=== PATIENT | female | born 1975 | race Caucasian/White ===

== ENCOUNTER 2020-02-27 06:29 | Emergency (ER) | payer MEDICAID, SELFPAY ==
[2020-02-27 07:41] VITALS: BP 136/77; PULSE 87; RESP 20; TEMP 36.4; O2SAT 98; BMI 34.4
--- NOTE | 2020-02-27 07:41 | ED.GENADULT ---
HPI - General Adult General Chief complaint: Nausea/Vomiting/Diarrhea Stated complaint: VOMITING Time Seen by Provider: 02/27/20 07:35 Source: patient Mode of arrival: ambulatory Limitations: no limitations History of Present Illness HPI narrative: patient comes to emergency room complaining of vomiting and diarrhea since 03:00 this morning. Patient states she has had 10 episodes + of vomiting and diarrhea. Patient denies any abdominal pain. Additionally, patient states she had a panic attack prior to arrival. Patient states her 2 younger kids are at home having symptoms of upper respiratory infection, runny nose and congestion. Patient denies any URIs. No fever. MD complaint: vomiting, diarrhea Onset (ago): hour(s) Related Data Previous Rx's Medication Instructions Recorded loperamide 2 mg PO Q6H PRN #14 cap 02/27/20 ondansetron HCl [Zofran] 4 mg PO Q8H PRN #14 tab 02/27/20 Allergies Allergy/AdvReac Type Severity Reaction Status Date / Time Sulfa (Sulfonamide Allergy Unknown UNKNOWN Unverified 01/22/20 18:13 Antibiotics) [SULFA (SULFONAMIDE ANTIBIOTICS)] Sulfa Allergy Unknown Uncoded 07/17/19 00:00 Review of Systems Review of Systems: Constitutional : No Weight loss, No Fever, No Chills, No Night Sweats, No Fatigue, No Malaise ENT/Mouth : No Hearing loss, No Ear Pain, No Nasal Congestion, No Sinus Pain, No Hoarseness, No sore throat, No Rhinorrhea, No Swallowing Difficulty Eyes: No Eye Pain, No Swelling, No Redness, No Foreign Body, No Discharge, No Vision Changes Cardiovascular : No Chest Pain, No SOB, No Dyspnea on Exertion, No Orthopnea, No Edema, No Palpitations Respiratory : No Cough, No Sputum, No Wheezing, No Smoke Exposure, No Dyspnea Gastrointestinal : Complaining of nausea, vomiting and diarrhea. No abdominal Pain, No Hematochezia, No Melena Genitourinary : no irregular bleeding, No Dysuria, No Urinary Frequency, No Hematuria, No Urinary Incontinence, No Urgency, No Flank Pain, No Urinary Flow Changes, No Hesitancy Musculoskeletal : No joint pain, No Myalgias, No Joint Swelling Skin : No Skin Lesions, No rash Neuro : No Weakness, No Numbness, No Paresthesias, No Loss of Consciousness, No Dizziness, No Headache Psych : No Anxiety/Panic, No Depression, No SI/HI/AH/VH, No Social Issues, Heme/Lymph: No Bruising, No Bleeding,No Lymphadenopathy Endocrine : No Polyuria, No Polydipsia, No Temperature Intolerance [facility] Past Medical History Medical History (Updated 02/27/20 @ 10:37 by Patricia Bailey MD) Anxiety Chronic headache Depression Diabetes Hypertension Social History Social History Alcohol intake: unknown Smoking Status: Unknown if ever smoked Advance Directives: No Advance Directives Information Provided: Yes Physical Exam Vital Signs: Vital Signs: Vital Signs Temp Pulse Resp BP Pulse Ox 02/27/20 10:10 70 18 110/75 02/27/20 07:41 97.5 F 87 20 136/77 98 Body Mass Index 34.4 Appearance: Alert. Oriented X3. No acute distress. Eyes: Pupils equal, round and reactive to light. ENT: Pharynx normal. Neck: Normal inspection. Neck supple. No lymph nodes noted. No crepitus CVS: Normal heart rate and rhythm. Pulses normal. Normal S1 and S2 Respiratory: No respiratory distress. Breath sounds normal. No Wheezing. No rales Abdomen: Soft and nontender. No rigidity. No distention. good BS x4 Skin: Skin warm and dry. Normal skin color. Normal skin turgor. Extremities: No lower extremity edema. No lower extremity edema. No Lacerations. No Rash Neuro: Oriented X 3. No motor deficit. No sensory deficit. Moving all extermities. No slurred speech. Course Course Course Narrative: patient states she feels much better, patient no longer vomiting or having any diarrhea, patient Denies abdominal pain Medical Decision Making MDM Narrative Medical decision making narrative: patient's abdominal physical exam is benign, no abdominal pain. Patient feeling better, patient likely having gastroenteritis. Patient instructed to follow-up with her primary care physician. Prior to discharge, patient complaining of anxiety, states she is about her panic attack, given p.o. Ativan Lab Data Result diagrams: 02/27/20 02:24 02/27/20 08:15 Labs: Lab Results 02/27/20 02/27/20 02/27/20 Range/Units 02:24 08:15 08:15 WBC 17.0 H (4.8-10.8) X10*3/uL RBC 4.54 (4.20-5.50) X10*6/uL Hgb 14.0 (12.0-16.0) g/dl Hct 41.2 (37-47) % MCV 90.7 (80-98) fL MCH 30.8 (27.0-33.0) pg MCHC 34.0 (31.0-35.0) g/dl RDW 13.7 (11.0-16.0) % Plt Count 307 (160-400) X10*3/uL MPV 11.7 (9.4-12.3) fL Immature Gran % (Auto) 0.3 (0.0-0.4) % Neut % (Auto) 90.8 H (45-73) % Lymph % (Auto) 5.2 L (20-40) % [place] % (Auto) 3.5 (2-11) % Eos % (Auto) 0.1 (0-4) % Baso % (Auto) 0.1 (0-2) % Lymph # (Auto) 0.9 L (1.2-4.9) X10*3/uL [place] # (Auto) 0.6 (0.1-1.2) X10*3/uL Eos # (Auto) 0.0 (0.0-0.4) X10*3/uL Baso # (Auto) 0.0 (0.0-0.2) X10*3/uL Abs Immat Gran (auto) 0.05 H (0.00-0.03) X10*3/uL Absolute Neuts (auto) 15.4 H (2.0-8.3) X10*3/uL Absolute Nucleated RBC 0.000 (0.0-0.012) X10*3/uL Nucleated RBC % (auto) 0.0 (0.0-0.2) /100WBC Smear Tech's Comments VERIFIED Sodium Cancelled Potassium Cancelled Chloride Cancelled Carbon Dioxide Cancelled Anion Gap Cancelled BUN Cancelled Creatinine Cancelled Estim Creat Clear Calc Cancelled Estimated GFR Cancelled Random Glucose Cancelled Calcium Cancelled Total Bilirubin Cancelled Direct Bilirubin Cancelled AST Cancelled ALT Cancelled Alkaline Phosphatase Cancelled Total Protein Cancelled Albumin Cancelled Urine Color YELLOW Urine Appearance CLOUDY Urine pH 5.5 (5.0-8.0) Ur Specific [place] >= 1.030 H (1.005-1.025) Urine Protein NEG (NEG-TRACE) MG/DL Urine Glucose (UA) NEG (NEG) MG/DL Urine Ketones NEG (NEG) MG/DL Urine Blood TRACE (NEG) Urine Nitrite NEG (NEG) Ur Leukocyte Esterase NEG (NEG) Urine RBC 0-2 (0) /HPF Urine WBC 0 (0-4) /HPF Ur Squamous Epith Cells 1+ /LPF Amorphous Sediment 3+ /LPF Urine Bacteria TRACE /LPF Discharge Plan Discharge Clinical Impression: Gastroenteritis, Anxiety Patient Disposition: Home, Self-Care Instructions: Acute Nausea and Vomiting (ED) Additional Instructions: stay well hydrated, drink plenty of fluids especially fluids with electrolytes such as Pedialyte or Gatorade. Please follow-up with your primary care physician tomorrow. If you have any worsening or new symptoms, please return to the emergency room or call 911 Prescriptions: New ondansetron HCl [Zofran] 4 mg tablet 4 mg PO Q8H PRN (Reason: nausea and vomiting) Qty: 14 RF: 0 loperamide 2 mg capsule 2 mg PO Q6H PRN (Reason: loose stool) Qty: 14 RF: 0
[2020-02-27] MEDS: ondansetron HCL 4 MG/2 ML VIAL IVPUSH ×2 (08:19→10:50)
[2020-02-27] MEDS: 0.9 % Sodium Chloride 1,000 ML 999 ML IVCONT (08:19)
[2020-02-27 08:45] LABS: Appearance Urine CLOUDY; Color Urine YELLOW; Glucose Urine UA NEG (NEG); Leukocyte Esterase Urine NEG (NEG); Nitrite Urine NEG (NEG); PH 5.5 (5.0-8.0); Specific Gravity - Urine >= 1.030 (1.005-1.025); Urine Blood TRACE (NEG); Urine Ketones NEG (NEG); Urine Protein NEG (NEG-TRACE)
[2020-02-27 08:46] LABS: Basophils Percent Auto 0.1 % (0-2); Eosinophils Percent Auto 0.1 % (0-4); Hematocrit 41.2 % (37-47); Imm Gran Abs Auto 0.05 X10*3/uL (0.00-0.03); Imm Gran Pct Auto 0.3 % (0.0-0.4); Lymphocytes Absolute Auto 0.9 X10*3/uL (1.2-4.9); Lymphocytes Percent Auto 5.2 % (20-40); MANUAL DIFF FLAG SCAN; Mean Corpuscular Hemoglobin 30.8 pg (27.0-33.0); Mean Corpuscular Volume 90.7 fL (80-98); Mean Platelet Volume 11.7 fL (9.4-12.3); Monocytes Absolute Auto 0.6 X10*3/uL (0.1-1.2); Monocytes Percent Auto 3.5 % (2-11); Neutrophils Absolute Auto 15.4 X10*3/uL (2.0-8.3); Neutrophils Percent Auto 90.8 % (45-73); Platelet Count 307 X10*3/uL (160-400); Red Blood Count 4.54 X10*6/uL (4.20-5.50); Red Cell Distribution Width 13.7 % (11.0-16.0); SCAN SMEAR FLAG 1
[2020-02-27 08:52] LABS: Bacteria Urine TRACE /LPF; RBC Urine 0-2 /HPF (0); Squamous Epithelial Cell Urine 1+ /LPF; WBC Urine 0 /HPF (0-4)
[2020-02-27 08:53] LABS: Amorphous Sediment Urine 3+ /LPF
[2020-02-27 09:15] LABS: SLIDE REVIEW VERIFIED
[2020-02-27 10:10] VITALS: BP 110/75; PULSE 70; RESP 18
[2020-02-27] MEDS: LORazepam 1 MG TABLET PO (10:50)
== END 2020-02-27 11:08 | disposition home or self-care (01) ==
PROVIDERS: Emergency Provider Emergency Medicine
DX: K52.9 Noninfective gastroenteritis and colitis, unspecified (principal); F41.9 Anxiety disorder, unspecified; E11.9 Type 2 diabetes mellitus without complications; I10 Essential (primary) hypertension; Z79.899 Other long term (current) drug therapy
CPT/HCPCS: 36415; 81001; 85025; 96361; 96374; 96376; 99284; J2405

== ENCOUNTER 2020-04-05 09:56 | Outpatient (REF) | payer MEDICAID, SELFPAY | END 2020-04-05 09:57 | disposition home or self-care (01) | LOC: HO.LAB 09:56 | PROVIDERS: Visit Provider Internal Medicine | DX: Z20.828 Contact with and (suspected) exposure to other viral communicable diseases (principal) | CPT/HCPCS: C9803; U0003 ==

== ENCOUNTER 2020-04-20 10:26 | Outpatient (REF) | payer MEDICAID, SELFPAY | END 2020-04-20 10:27 | disposition home or self-care (01) | LOC: HO.LAB 10:26 | PROVIDERS: PCP Internal Medicine; Visit Provider Internal Medicine | DX: Z20.828 Contact with and (suspected) exposure to other viral communicable diseases (principal) | CPT/HCPCS: C9803; U0003 ==

== ENCOUNTER 2020-05-05 08:31 | Outpatient (REF) | payer MEDICAID, SELFPAY | END 2020-05-05 08:32 | disposition home or self-care (01) | LOC: HO.LAB 08:31 | PROVIDERS: PCP Internal Medicine; Visit Provider Internal Medicine | DX: Z20.828 Contact with and (suspected) exposure to other viral communicable diseases (principal) | CPT/HCPCS: C9803; U0003 ==

== ENCOUNTER 2020-07-14 09:34 | Outpatient (REF) | payer MEDICAID, SELFPAY ==
--- NOTE | ~2020-07-14 | MM_ITS ---
EXAMINATION: MM SCREENING DIGITAL BREAST TOMOSYNTHESIS, BILATERAL CLINICAL INFORMATION: Screening. Asymptomatic. The lifetime risk of breast cancer based on the Tyrer-Cuzick Model is 6.4%. COMPARISON: Mammography: April 15, 2019 and studies dating back to July 01, 2016 TECHNIQUE: Digital breast tomosynthesis is performed in both the craniocaudal and mediolateral oblique views along with computer-aided detection (CAD). Synthesized 2D images are generated from the tomosynthesis. FINDINGS: There are scattered areas of fibroglandular density (ACR BI-RADS breast composition Category b). There are no significant masses, abnormal calcifications, or other abnormalities. MM/MM tomosynthesis screening BI IMPRESSION: There are no significant changes from prior study. ASSESSMENT: BI-RADS 1: Negative RECOMMENDATION: Routine annual mammography screening. This patient's information was entered into a reminder system with a target due date for their next mammogram.
== END 2020-07-14 09:35 | disposition home or self-care (01) ==
LOC: HO.MAMMO 09:34
PROVIDERS: PCP Internal Medicine; Visit Provider Internal Medicine
DX: Z12.31 Encounter for screening mammogram for malignant neoplasm of breast (principal)
CPT/HCPCS: 77063; 77067

== ENCOUNTER 2020-12-02 10:51 | Outpatient (REF) | payer MEDICAID, SELFPAY | END 2020-12-02 10:52 | disposition home or self-care (01) | LOC: HO.LAB 10:51 | PROVIDERS: Visit Provider Internal Medicine | DX: Z20.822 Contact with and (suspected) exposure to COVID-19 (principal) | CPT/HCPCS: C9803; U0003; U0005 ==

== ENCOUNTER 2020-12-06 08:31 | Outpatient (REF) | payer MEDICAID, SELFPAY ==
--- NOTE | ~2020-12-06 | XR_ITS ---
EXAMINATION: XR LEFT KNEE, RIGHT KNEE AND AP BILATERAL KNEES STANDING. CLINICAL INFORMATION: Bilateral knee pain. COMPARISON: None. TECHNIQUE: AP bilateral knees standing 1 view. 3 views each knee. FINDINGS: AP Bilateral Knee: There is mild reduction in medial and lateral compartments both knees with periarticular spurring the lateral compartment. No bony erosive changes. Right Knee: There is mild reduction in the tricompartment joint space with periarticular spurring lateral and patellofemoral compartments. No abnormal joint effusion, loose bodies or fractures seen. Left Knee: There is mild reduction in the medial and patellofemoral compartment joint space with periarticular spurring. A large medial intracondylar spur is seen on AP view. There is minimal suprapatellar joint effusion. There are no loose bodies. There are no bony erosive changes. XR/XR knee RT 3V IMPRESSION: Degenerative arthritic changes of the tricompartments of both kidneys with periarticular spurring. Minimal joint effusion left knee. No loose bodies, acute fracture or subluxation.
--- NOTE | ~2020-12-06 | XR_ITS ---
EXAMINATION: XR KNEE AP STANDING CLINICAL INFORMATION: Pain. COMPARISON: None TECHNIQUE: AP bilateral standing view of the knees was obtained. FINDINGS: There is moderate loss of medial compartment joint space both knees with lateral compartment periarticular spurring. No loose body seen. No visible acute fracture or dislocation. The soft tissues are normal. XR/XR knee standing BI IMPRESSION: Moderate degenerative changes both knee joints with bilateral lateral compartment periarticular spurring. No fracture or loose body seen.
--- NOTE | ~2020-12-06 | XR_ITS ---
EXAMINATION: XR LEFT KNEE, RIGHT KNEE AND AP BILATERAL KNEES STANDING. CLINICAL INFORMATION: Bilateral knee pain. COMPARISON: None. TECHNIQUE: AP bilateral knees standing 1 view. 3 views each knee. FINDINGS: AP Bilateral Knee: There is mild reduction in medial and lateral compartments both knees with periarticular spurring the lateral compartment. No bony erosive changes. Right Knee: There is mild reduction in the tricompartment joint space with periarticular spurring lateral and patellofemoral compartments. No abnormal joint effusion, loose bodies or fractures seen. Left Knee: There is mild reduction in the medial and patellofemoral compartment joint space with periarticular spurring. A large medial intracondylar spur is seen on AP view. There is minimal suprapatellar joint effusion. There are no loose bodies. There are no bony erosive changes. XR/XR knee LT 3V IMPRESSION: Degenerative arthritic changes of the tricompartments of both kidneys with periarticular spurring. Minimal joint effusion left knee. No loose bodies, acute fracture or subluxation.
== END 2020-12-06 08:32 | disposition home or self-care (01) ==
LOC: HO.XRAY 08:31
PROVIDERS: PCP Family Medicine; Visit Provider Physician Assistant
DX: M17.0 Bilateral primary osteoarthritis of knee (principal)
CPT/HCPCS: 20610; 73562; 73564; 73565; 99202; J1040

== ENCOUNTER 2020-12-14 17:20 | Emergency (ER) | payer MEDICAID, SELFPAY ==
[2020-12-14 17:36] VITALS: BP 165/71; PULSE 69; O2SAT 100
[2020-12-14 18:14] VITALS: BP 114/64; PULSE 63; RESP 16; TEMP 36.8; O2SAT 100; BMI 37.6
== END 2020-12-14 21:31 | disposition left against medical advice (07) ==
PROVIDERS: Emergency Provider Emergency Medicine
DX: R10.13 Epigastric pain (principal)
CPT/HCPCS: 99281; 99282

== ENCOUNTER 2021-04-19 08:36 | Outpatient (REF) | payer MEDICAID, SELFPAY | END 2021-04-19 08:37 | disposition home or self-care (01) | LOC: HO.LAB 08:36 | PROVIDERS: Visit Provider Internal Medicine | DX: Z20.822 Contact with and (suspected) exposure to COVID-19 (principal) | CPT/HCPCS: C9803; U0003; U0005 ==

== ENCOUNTER 2021-09-08 09:00 | Outpatient (RCR) | payer MEDICAID, SELFPAY | END 2021-12-22 09:56 | disposition home or self-care (01) | LOC: HO.PTCHIC 09:00 | PROVIDERS: PCP Internal Medicine; Visit Provider Internal Medicine | DX: M25.511 Pain in right shoulder (principal) | CPT/HCPCS: 97110; 97162 ==

== ENCOUNTER 2021-09-28 16:11 | Emergency (ER) | payer MEDICAID, SELFPAY ==
--- NOTE | ~2021-09-28 | XR_ITS ---
EXAMINATION: XR CHEST CLINICAL INFORMATION: Pain right lower lobe COMPARISON: None TECHNIQUE: Frontal view of the chest was obtained. FINDINGS: The lungs are clear with no focal consolidation. No evidence of pneumothorax, pulmonary edema, or pleural effusions. The cardiomediastinal silhouette is unremarkable. No acute osseous findings. XR/XR chest 1V IMPRESSION: No acute cardiopulmonary findings.
[2021-09-28 16:39] VITALS: BP 140/93; PULSE 86; RESP 18; TEMP 36.8; O2SAT 98; BMI 34.3
[2021-09-28 16:52] LABS: MANUAL DIFF FLAG NO
[2021-09-28 16:54] LABS: Basophils Percent Auto 0.1 % (0-2); Eosinophils Percent Auto 0.2 % (0-4); Hematocrit 37.8 % (37.0-47.0); Imm Gran Abs Auto 0.02 X10*3/uL (0.00-0.03); Imm Gran Pct Auto 0.2 % (0.0-0.4); Lymphocytes Percent Auto 12.2 % (20-40); Mean Corpuscular HGB Conc 34.4 g/dl (31.0-35.0); Mean Corpuscular Hemoglobin 31.1 pg (27.0-33.0); Mean Corpuscular Volume 90.4 fL (80.0-98.0); Mean Platelet Volume 10.8 fL (9.4-12.3); Monocytes Absolute Auto 0.5 X10*3/uL (0.1-1.2); Monocytes Percent Auto 6.3 % (2-11); Neutrophils Absolute Auto 6.8 x10*3/uL (2.0-8.3); Platelet Count 260 X10*3/uL (160-400); Red Blood Count 4.18 X10*6/uL (4.20-5.50); Red Cell Distribution Width 13.4 % (11.0-16.0); White Blood Count 8.4 X10*3/uL (4.8-10.8)
[2021-09-28 17:15] LABS: Alanine Aminotransferase 86 U/L (0-31); Albumin Level 4.2 g/dL (3.5-5.0); Alkaline Phosphatase 106 U/L (39-117); Anion Gap 12 (12-20); Aspartate Amino Transferase 70 U/L (5-31); Bilirubin Total 0.8 mg/dL (0.0-1.0); Blood Urea Nitrogen 14 mg/dL (9-16); Calcium 9.3 mg/dL (8.4-10.2); Carbon Dioxide 26 mmol/L (22-29); Chloride 105 mmol/L (96-108); Creatinine Clr Calc Pharmacy 75.9; Estimated Glomerular Filt Rate > 60; Glucose Random 116 mg/dL (60-115); Potassium 3.5 mmol/L (3.3-5.1); Sodium 139 mmol/L (135-145); Total Protein 7.4 g/dL (6.5-8.0)
--- NOTE | 2021-09-29 00:38 | ED_ITS ---
HPI - Abdominal Pain General Chief Complaint: Abdominal Pain Stated Complaint: diarrhes,diff breathing, nauseous, abd pain Time Seen by Provider: 09/29/21 00:34 Source: patient Mode of arrival: ambulatory Limitations: no limitations History of Present Illness HPI narrative: Patient comes to the emergency room complaining of ?liver pain?. Patient states that she has had the same pain for 1 year. About a week ago, she went to her primary care physician to get blood work done, she was told that her LFTs were elevated. Patient denies nausea vomiting, states she had 1 episode of diarrhea, also complaining pain with urination, states it happens intermittent, not always. Denies fever or chills Related Data Previous Rx's Medication Instructions Recorded loperamide 2 mg capsule 2 mg PO Q6H PRN #14 cap 02/27/20 ondansetron HCl 4 mg tablet 4 mg PO Q8H PRN #14 tab 02/27/20 (Zofran) nitrofurantoin 100 mg PO Q12H 7 Days #14 cap 09/29/21 monohydrate/macrocrystals 100 mg capsule (Macrobid) Allergies Allergy/AdvReac Type Severity Reaction Status Date / Time Sulfa (Sulfonamide Allergy Intermediate Rash Verified 09/28/21 16:38 Antibiotics) [SULFA (SULFONAMIDE ANTIBIOTICS)] Sulfa Allergy Intermediate Rash Uncoded 09/28/21 16:38 Review of Systems Review of Systems Constitutional : No Weight loss, No Fever, No Chills, No Night Sweats, No Fatigue, No Malaise ENT/Mouth : No Hearing loss, No Ear Pain, No Nasal Congestion, No Sinus Pain, No Hoarseness, No sore throat, No Rhinorrhea, No Swallowing Difficulty Eyes: No Eye Pain, No Swelling, No Redness, No Foreign Body, No Discharge, No Vision Changes Cardiovascular : No Chest Pain, No SOB, No Dyspnea on Exertion, No Orthopnea, No Edema, No Palpitations Respiratory : No Cough, No Sputum, No Wheezing, No Smoke Exposure, No Dyspnea Gastrointestinal : No Nausea, No Vomiting, 1 episode Diarrhea, No Constipation, complaining right flank pain for 1 year Genitourinary : no irregular bleeding, No Dysuria, No Urinary Frequency, No Hematuria, No Urinary Incontinence, No Urgency, No Flank Pain, No Urinary Flow Changes, No Hesitancy Musculoskeletal : No joint pain, No Myalgias, No Joint Swelling Skin : No Skin Lesions, No rash Neuro : No Weakness, No Numbness, No Paresthesias, No Loss of Consciousness, No Dizziness, No Headache Psych : No Anxiety/Panic, No Depression, No SI/HI/AH/VH, No Social Issues, Heme/Lymph: No Bruising, No Bleeding,No Lymphadenopathy Endocrine : No Polyuria, No Polydipsia, No Temperature Intolerance [facility] Past Medical History Medical History Anxiety Chronic headache Depression Diabetes Hypertension Social History Social History (Updated 12/06/20 @ 09:19 by Jocelyn Aguilar [facility]) Alcohol intake: unknown Advance Directives: No Advance Directives Information Provided: Yes Current occupational status: unemployed Current occupation: rt hand/ Physical Exam ED Vital Signs: Vital Signs - 24 hr 09/28/21 16:39 Temperature 98.2 F Pulse Rate 86 Respiratory Rate 18 Blood Pressure 140/93 H Pulse Oximetry 98 BMI result Body Mass Index 34.3 Const Other: Appearance: Alert. Oriented X3. No acute distress. Eyes: Pupils equal, round and reactive to light. ENT: Pharynx normal. Neck: Normal inspection. Neck supple. No lymph nodes noted. No crepitus CVS: Normal heart rate and rhythm. Pulses normal. Normal S1 and S2 Respiratory: No respiratory distress. Breath sounds normal. No Wheezing. No rales Abdomen: Soft and nontender. No rigidity. No distention. Negative Levin sign, no epigastric pain Skin: Skin warm and dry. Normal skin color. Normal skin turgor. Extremities: No lower extremity edema. No Lacerations. No Rash Neuro: Oriented X 3. No motor deficit. No sensory deficit. Moving all extremities. No slurred speech. CN 2 through 12 grossly intact Psych: calm, cooperative, normal affect Course Course Course Narrative: Patient's white blood cell count is normal, LFTs are slightly elevated, likely secondary to fatty liver, patient is obese. Patient's physical exam was relatively benign. At this time, imaging not necessary. Patient will likely need an ultrasound of the liver to confirm diagnosis of fatty liver. Cholelithiasis/cholecystitis not suspected at this time. Urinalysis shows mild UTI. Patient does not have fever, chills, normal white blood cell count. Sepsis and pyelonephritis not suspected. MDM - Abdominal Pain Lab Data Result diagrams: 09/28/21 16:48 09/28/21 16:48 Labs: Lab Results 09/28/21 09/28/21 09/29/21 Range/Units 16:48 16:48 00:41 WBC 8.4 (4.8-10.8) X10*3/uL RBC 4.18 L (4.20-5.50) X10*6/uL Hgb 13.0 (12.0-16.0) g/dl Hct 37.8 (37.0-47.0) % MCV 90.4 (80.0-98.0) fL MCH 31.1 (27.0-33.0) pg MCHC 34.4 (31.0-35.0) g/dl RDW 13.4 (11.0-16.0) % Plt Count 260 (160-400) X10*3/uL MPV 10.8 (9.4-12.3) fL Immature Gran % (Auto) 0.2 (0.0-0.4) % Neut % (Auto) 81.0 H (45-73) % Lymph % (Auto) 12.2 L (20-40) % [place] % (Auto) 6.3 (2-11) % Eos % (Auto) 0.2 (0-4) % Baso % (Auto) 0.1 (0-2) % Lymph # (Auto) 1.0 L (1.2-4.9) X10*3/uL [place] # (Auto) 0.5 (0.1-1.2) X10*3/uL Eos # (Auto) 0.0 (0.0-0.4) X10*3/uL Baso # (Auto) 0.0 (0.0-0.2) X10*3/uL Abs Immat Gran (auto) 0.02 (0.00-0.03) X10*3/uL Absolute Neuts (auto) 6.8 (2.0-8.3) x10*3/uL Absolute Nucleated RBC 0.000 (0.0-0.012) X10*3/uL Nucleated RBC % (auto) 0.0 (0.0-0.2) /100WBC Sodium 139 (135-145) mmol/L Potassium 3.5 (3.3-5.1) mmol/L Chloride 105 (96-108) mmol/L Carbon Dioxide 26 (22-29) mmol/L Anion Gap 12 (12-20) BUN 14 (9-16) mg/dL Creatinine 0.80 (0.5-1.4) mg/dL Estim Creat Clear Calc 75.9 Estimated GFR > 60 Random Glucose 116 H (60-115) mg/dL Calcium 9.3 (8.4-10.2) mg/dL Total Bilirubin 0.8 (0.0-1.0) mg/dL AST 70 H (5-31) U/L ALT 86 H (0-31) U/L Alkaline Phosphatase 106 (39-117) U/L Total Protein 7.4 (6.5-8.0) g/dL Albumin 4.2 (3.5-5.0) g/dL Urine Color YELLOW Urine Appearance CLEAR Urine pH 6.0 (5.0-8.0) Ur Specific [place] 1.015 (1.005-1.025) Urine Protein NEG (NEG-TRACE) MG/DL Urine Glucose (UA) NEG (NEG) MG/DL Urine Ketones NEG (NEG) MG/DL Urine Blood TRACE (NEG) Urine Nitrite NEG (NEG) Ur Leukocyte Esterase TRACE H (NEG) Urine RBC 5-9 H (0) /HPF Urine WBC 1-4 (0-4) /HPF Ur Squamous Epith Cells 2+ /LPF Urine Bacteria 2+ /LPF Discharge Plan Discharge Clinical Impression: UTI (urinary tract infection), Abdominal pain Patient Disposition: Home, Self-Care Instructions: Urinary Tract Infection in Women (ED) Additional Instructions: Please follow-up with your primary care physician tomorrow. If you have any worsening or new symptoms, please return to the emergency room or call 911 Prescriptions: New nitrofurantoin monohyd/m-cryst [Macrobid] 100 mg capsule 100 mg PO Q12H 7 Days Qty: 14 0RF Rx Instructions: must administer with a meal/food No Action ondansetron HCl [Zofran] 4 mg tablet 4 mg PO Q8H PRN (Reason: nausea and vomiting) Qty: 14 0RF loperamide 2 mg capsule 2 mg PO Q6H PRN (Reason: loose stool) Qty: 14 0RF
[2021-09-29 00:59] LABS: Appearance Urine CLEAR; Color Urine YELLOW; Glucose Urine UA NEG (NEG); Leukocyte Esterase Urine TRACE (NEG); Nitrite Urine NEG (NEG); Specific Gravity - Urine 1.015 (1.005-1.025); UACC Culture Trigger NO; Urine Blood TRACE (NEG); Urine Ketones NEG (NEG); Urine Protein NEG (NEG-TRACE)
[2021-09-29 01:16] LABS: Squamous Epithelial Cell Urine 2+ /LPF
[2021-09-29 01:17] LABS: Bacteria Urine 2+ /LPF
== END 2021-09-29 02:12 | disposition home or self-care (01) ==
PROVIDERS: Emergency Provider Emergency Medicine
DX: N39.0 Urinary tract infection, site not specified (principal); R10.9 Unspecified abdominal pain; R07.89 Other chest pain; Z79.899 Other long term (current) drug therapy
CPT/HCPCS: 36415; 71045; 80053; 81001; 81003; 85025; 99281; 99283

== ENCOUNTER → 2021-10-12 09:23 | Outpatient (BNVA) | payer MEDICAID, SELFPAY | PROVIDERS: Visit Provider Orthopaedic Surgery | DX: R20.0 Anesthesia of skin (principal); R20.2 Paresthesia of skin | CPT/HCPCS: 99202 ==

== ENCOUNTER 2021-10-16 03:23 | Emergency (ER) | payer MEDICAID, SELFPAY ==
[2021-10-16 03:27] VITALS: BP 154/92; PULSE 97; RESP 18; TEMP 37.2; O2SAT 97; BMI 34.0
[2021-10-16] MEDS: diphenhydrAMINE HCL 25 MG TABLET 50 MG PO (03:34)
[2021-10-16 03:58] VITALS: BP 143/81; PULSE 84; RESP 14; TEMP 36.5; O2SAT 99
--- NOTE | 2021-10-16 04:01 | PC.NURSE ---
Pt urdu speaking only. Pt presents with a rash throughout the body, including palms and scalp. Rash appears red, welting, and itchy. Pt reports 10/10 pain in the palms. Pt states rash has been present for 4 days. No airway obstruction and pt has patent airway and is perfusing adequately. Pt has no swelling of the mouth or throat. No difficulty swallowing. No signs or symptoms of respiratory distress.
--- NOTE | 2021-10-16 04:40 | ED_ITS ---
HPI - Allergic Reaction General Chief complaint: Allergic Reaction Stated complaint: Hives Time Seen by Provider: 10/16/21 04:38 History of Present Illness HPI narrative: Patient is a 46-year-old female presents today with having 4 day history of an itch diffuse over the entire body. Question new tub detergent only. No other specific trigger noted. Patient was given Zyrtec to no avail. There is no new other new medication other than the Zyrtec. She denies any travel. No new lotion no new soap no new pets. No new food. Related Data Previous Rx's Medication Instructions Recorded loperamide 2 mg capsule 2 mg PO Q6H PRN loose stool #14 02/27/20 caps ondansetron HCl 4 mg tablet 4 mg PO Q8H PRN nausea and 02/27/20 (Zofran) vomiting #14 tabs nitrofurantoin 100 mg PO Q12H 7 days #14 caps 09/29/21 monohydrate/macrocrystals 100 mg capsule (Macrobid) epinephrine 0.3 mg/0.3 mL 0.3 mg (0.3 mL) IM ONCE PRN 10/16/21 injection, auto-injector (EpiPen) extreme reaction #1 ea famotidine 20 mg tablet (Pepcid) 20 mg PO BID 5 days #10 tabs 10/16/21 prednisone 20 mg tablet 40 mg PO DAILY #10 tabs 10/16/21 Allergies Allergy/AdvReac Type Severity Reaction Status Date / Time Sulfa (Sulfonamide Allergy Intermediate Rash Verified 10/12/21 10:04 Antibiotics) [SULFA (SULFONAMIDE ANTIBIOTICS)] Sulfa Allergy Intermediate Rash Uncoded 10/12/21 10:04 Review of Systems Review of Systems: Positive diffuse body itch. No chest pain or shortness of breath No diaphoresis Yes all other systems are reviewed and are negative PMFSH Past Medical History Attestation statement: The following information was validated with the patient. Medical History Anxiety Chronic headache Depression Diabetes Hypertension Social History Social History Alcohol intake: unknown Advance Directives: No Advance Directives Information Provided: Yes Current occupational status: unemployed Current occupation: rt hand/ Physical Exam ED Vital Signs: Vital Signs - 24 hr 10/16/21 03:27 10/16/21 03:58 10/16/21 04:54 Temperature 98.9 F 97.7 F Pulse Rate 97 84 73 Respiratory Rate 18 14 16 Blood Pressure 154/92 H 143/81 H 154/83 H Pulse Oximetry 97 99 99 Oxygen Delivery Method Room Air Room Air Room Air BMI result Body Mass Index 34.0 Appearance: Alert. Oriented X3. No acute distress. Eyes: Pupils equal, round and reactive to light. ENT: Pharynx normal. Neck: Normal inspection. Neck supple. No lymph nodes noted. No crepitus CVS: Normal heart rate and rhythm. Pulses normal. Normal S1 and S2 Respiratory: No respiratory distress. Breath sounds normal. No Wheezing. No rales Abdomen: Soft and nontender. No rigidity. No distention. good BS x4 Skin: Positive urticaria rash over the body. There is no mucosal membrane involvement. Blanches. Irregular border. Extremities: No lower extremity edema. Neurovascular intact to all extremities. No Lacerations. No Rash Neuro: Oriented X 3. No motor deficit. No sensory deficit. Moving all e xtermities. No slurred speech MDM - Allergic Reaction MDM Narrative Medical decision making narrative: Positive diffuse body itch. There is no mucosal membrane involvement. No respiratory issue. Patient's O2 sat is normal. Will discharge patient home on steroid, Pepcid in addition to the Zyrtec she is taking. Will have patient follow-up on an outpatient basis. Avoid the specific H that may cause allergic reaction. Patient is in stable condition will discharge home Medical Records Attestation: I reviewed the patient's medical records. Lab Data Attestation: I reviewed the patient's lab results. Discharge Plan Discharge Clinical Impression: Allergic reaction, Urticaria Patient Disposition: Home, Self-Care Prescriptions: New prednisone 20 mg tablet 40 mg PO DAILY Qty: 10 0RF famotidine [Pepcid] 20 mg tablet 20 mg PO BID 5 Days Qty: 10 0RF epinephrine [EpiPen] 0.3 mg/0.3 mL auto-injector 0.3 mg IM ONCE PRN (Reason: extreme reaction) Qty: 1 0RF Rx Instructions: for 2 doses No Action ondansetron HCl [Zofran] 4 mg tablet 4 mg PO Q8H PRN (Reason: nausea and vomiting) Qty: 14 0RF loperamide 2 mg capsule 2 mg PO Q6H PRN (Reason: loose stool) Qty: 14 0RF nitrofurantoin monohyd/m-cryst [Macrobid] 100 mg capsule 100 mg PO Q12H 7 Days Qty: 14 0RF Rx Instructions: must administer with a meal/food Referrals: Physician,Patrick J [Primary Care Provider] - (Avoid the detergent it may have caused her allergic reaction. Use epinephrine only as an emergency if he cannot breath, situation became extreme) Print Language: Chadian
[2021-10-16 04:54] VITALS: BP 154/83; PULSE 73; RESP 16; O2SAT 99
[2021-10-16] MEDS: predniSONE 20 MG TABLET 60 MG PO (05:23)
[2021-10-16] MEDS: Famotidine 20 MG TABLET PO (05:23)
--- NOTE | 2021-10-16 05:27 | PC.NURSE ---
Pt given medications per EMR. No adverse reaction or worsening of symptoms. Pt cleared for discharge.
== END 2021-10-16 05:55 | disposition home or self-care (01) ==
PROVIDERS: Emergency Provider Emergency Medicine Emergency Medical Services
DX: L50.0 Allergic urticaria (principal); E11.9 Type 2 diabetes mellitus without complications; I10 Essential (primary) hypertension
CPT/HCPCS: 99283; 99284; Q0163

== ENCOUNTER 2021-10-18 04:53 | Emergency (ER) | payer MEDICAID, SELFPAY ==
[2021-10-18 04:57] VITALS: BP 171/86; PULSE 76; RESP 16; O2SAT 97; BMI 32.3
--- NOTE | 2021-10-18 04:57 | ED_ITS ---
HPI - Skin/Abscess/Foreign Bdy General Chief complaint: Allergic Reaction <Jose E Johnson MD - Last Filed: 10/18/21 06:29> Stated complaint: General Medical <Jose E Johnson MD - Last Filed: 10/18/21 06:29> Time Seen by Provider: 10/18/21 04:57 <Jose E Johnson MD - Last Filed: 10/18/21 06:29> Source: patient <Jose E Johnson MD - Last Filed: 10/18/21 06:29> Mode of arrival: ambulatory <Jose E Johnson MD - Last Filed: 10/18/21 06:29> Limitations: no limitations <Jose E Johnson MD - Last Filed: 10/18/21 06:29> History of Present Illness HPI narrative: Patient started with hives on , does not know what she is allergic to. <Jose E Johnson MD - Last Filed: 10/18/21 06:29> MD complaint: rash <Jose E Johnson MD - Last Filed: 10/18/21 06:29> Onset (ago): day(s) <Jose E Johnson MD - Last Filed: 10/18/21 06:29> Location: generalized <Jose E Johnson MD - Last Filed: 10/18/21 06:29> Severity: moderate <Jose E Johnson MD - Last Filed: 10/18/21 06:29> Quality: other (itching) <Jose E Johnson MD - Last Filed: 10/18/21 06:29> Associated symptoms: itching <Jose E Johnson MD - Last Filed: 10/18/21 06:29> Treatments prior to arrival: other (prednisone) <Jose E Johnson MD - Last Filed: 10/18/21 06:29> Related Data Home medications: Previous Rx's Medication Instructions Recorded loperamide 2 mg capsule 2 mg PO Q6H PRN loose stool #14 02/27/20 caps ondansetron HCl 4 mg tablet 4 mg PO Q8H PRN nausea and 02/27/20 (Zofran) vomiting #14 tabs nitrofurantoin 100 mg PO Q12H 7 days #14 caps 09/29/21 monohydrate/macrocrystals 100 mg capsule (Macrobid) epinephrine 0.3 mg/0.3 mL 0.3 mg (0.3 mL) IM ONCE PRN 10/16/21 injection, auto-injector (EpiPen) extreme reaction #1 ea famotidine 20 mg tablet (Pepcid) 20 mg PO BID 5 days #10 tabs 10/16/21 prednisone 20 mg tablet 40 mg PO DAILY #10 tabs 10/16/21 cetirizine 10 mg tablet 10 mg PO DAILY #20 tabs 10/18/21 <Jose E Johnson MD - Last Filed: 10/18/21 06:29> Allergies/Adverse reactions: Allergies Allergy/AdvReac Type Severity Reaction Status Date / Time Sulfa (Sulfonamide Allergy Intermediate Rash Verified 10/18/21 05:00 Antibiotics) [SULFA (SULFONAMIDE ANTIBIOTICS)] Sulfa Allergy Intermediate Rash Uncoded 10/18/21 05:00 <Jose E Johnson MD - Last Filed: 10/18/21 06:29> Review of Systems Constitutional: Constitutional: Reports no additional constitutional complaints <Jose E Johnson MD - Last Filed: 10/18/21 06:29> Eyes: Eyes: Reports no additional eye complaints <Jose E Johnson MD - Last Filed: 10/18/21 06:29> ENT: Denies dizziness <Jose E Johnson MD - Last Filed: 10/18/21 06:29> Cardiovascular: Cardiovascular: Reports no additional cardiovascular complaints <oJse E Johnson MD - Last Filed: 10/18/21 06:29> Respiratory: Respiratory: Reports as per HPI <Jose E Johnson MD - Last Filed: 10/18/21 06:29> Gastrointestinal: Gastrointestinal: Reports no additional gastrointestinal complaints <Jose E Johnson MD - Last Filed: 10/18/21 06:29> Genitourinary: Genitourinary: Reports no additional female genitourinary complaints <Jose E Johnson MD - Last Filed: 10/18/21 06:29> Musculoskeletal: Musculoskeletal: Reports no additional musculoskeletal complaints <Jose E Johnson MD - Last Filed: 10/18/21 06:29> Integumentary/Breasts: Skin/Breast: Denies rash <Jose E Johnson MD - Last Filed: 10/18/21 06:29> Neurologic: Reports system reviewed and no additional complaints, except as documented, Denies dizziness and Denies Sensory deficit (Neuro) <Jose E Johnson MD - Last Filed: 10/18/21 06:29> Psychiatric: Psychiatric: Denies anxiety <Jose E Johnson MD - Last Filed: 10/18/21 06:29> [facility] Past Medical History Medical History: Medical History Chronic headache Depression Diabetes Hypertension <Jose E Johnson MD - Last Filed: 10/18/21 06:29> Social History Social History: Social History Alcohol intake: unknown Advance Directives: No Current occupational status: unemployed Current occupation: rt hand/ <Jose E Johnson MD - Last Filed: 10/18/21 06:29> Physical Exam Vital Signs: Vital Signs: Last Vital Signs Pulse 81 10/18/21 09:49 Resp 18 10/18/21 08:00 BP 128/68 10/18/21 09:49 Pulse Ox 98 10/18/21 08:00 O2 Del Method 10/18/21 08:00 BMI result Body Mass Index 32.3 <Jose E Johnson MD - Last Filed: 10/18/21 06:29> Vital Signs: Last Vital Signs Pulse 81 10/18/21 09:49 Resp 18 10/18/21 08:00 BP 128/68 10/18/21 09:49 Pulse Ox 98 10/18/21 08:00 O2 Del Method 10/18/21 08:00 BMI result Body Mass Index 32.3 <Allison Yoder DO - Last Filed: 10/18/21 10:04> Const: General: healthy appearing <Jose E Johnson MD - Last Filed: 10/18/21 06:29> Nutritional Appearance: average body habitus <Jose E Johnson MD - Last Filed: 10/18/21 06:29> Orientation/consciousness: oriented to person and patient oriented x3 <Jose E Johnson MD - Last Filed: 10/18/21 06:29> Limitations: no limitations <Jose E Johnson MD - Last Filed: 10/18/21 06:29> HEENT: Head: Yes normal to inspection <Jose E Johnson MD - Last Filed: 10/18/21 06:29> Ears: external ears normal <Jose E Johnson MD - Last Filed: 10/18/21 06:29> General nose exam: Normal external nose present <Jose E Johnson MD - Last Filed: 10/18/21 06:29> Mouth: Normal oral and palatal mucosa present and oropharynx normal <Jose E Johnson MD - Last Filed: 10/18/21 06:29> Throat: Yes posterior oropharynx normal <Jose E Johnson MD - Last Filed: 0 10/18/21 06:29> Eyes: General: appearance normal, both eyes and all related structures <Jose E Johnson MD - Last Filed: 10/18/21 06:29> Neck: Other: supple <Jose E Johnson MD - Last Filed: 10/18/21 06:29> Neck: Yes normal visual inspection <Jose E Johnson MD - Last Filed: 10/18/21 06:29> Chest: Chest palpation & inspection: normal inspection of the chest <Jose E Johnson MD - Last Filed: 10/18/21 06:29> Resp: Auscultation: clear to auscultation bilaterally <Jose E Johnson MD - Last Filed: 10/18/21 06:29> Cardio: Jugular venous distension: no JVD <Jose E Johnson MD - Last Filed: 10/18/21 06:29> Rate: regular rate <Jose E Johnson MD - Last Filed: 10/18/21 06:29> Rhythm: regular rhythm <Jose E Johnson MD - Last Filed: 10/18/21 06:29> Heart sounds: S1 normal heart sound present and S2 normal heart sound present <MD Harshal Keys Last Filed: 10/18/21 06:29> GI: Inspection: Yes normal to inspection <MD Harshal Keys Last Filed: 10/18/21 06:29> Palpation (GI): Soft to palpation, nontender and No hepatosplenomegaly present <Jose E Johnson MD - Last Filed: 10/18/21 06:29> Auscultation: normal bowel sounds <Jose E Johnson MD - Last Filed: 10/18/21 06:29> : General: Yes no CVA tenderness <Jose E Johnson MD - Last Filed: 10/18/21 06:29> Back/Spine/Pelvis: Back: no CVA tenderness <Jose E Johnson MD - Last Filed: 10/18/21 06:29> Skin: Other: hives, diffusely <Jose E Johnson MD - Last Filed: 10/18/21 06:29> Neuro: General: oriented to person and patient oriented x3 <Jose E Johnson MD - Last Filed: 10/18/21 06:29> Cranial nerves: Yes CN's II-XII intact bilaterally <Jose E Johnson MD - Last Filed: 10/18/21 06:29> Motor exam (neuro): 5/5 motor strength present throughout <Jose E Johnson MD - Last Filed: 10/18/21 06:29> Sensory Exam: No Sensory deficit (Neuro) <Jose E Johnson MD - Last Filed: 10/18/21 06:29> Extrem: General: Yes normal to inspection <Jose E Johnson MD - Last Filed: 10/18/21 06:29> Psych: Appearance: grossly normal <Jose E Johnson MD - Last Filed: 10/18/21 06:29> Course Course Course Narrative: no resp issues but she is covered in hives on neck, chest and extremities - will give one dose of IM epi has not received any since this started on , if this improves will continue prednisone, pepcid and start on zyrtec improved after epi stable for DC <Allison Yoder DO - Last Filed: 10/18/21 10:04> Reevaluation(s) Reevaluation #1: Patient currently sleeping it appears that hives are improving <Jose E Johnson MD - Last Filed: 10/18/21 06:29> Time: 06:28 <Jose E Johnson MD - Last Filed: 10/18/21 06:29> Discharge Plan Discharge Clinical Impression: Urticaria <Jose E Johnson MD - Last Filed: 10/18/21 06:29> Patient Disposition: Home, Self-Care <Jose E Johnson MD - Last Filed: 10/18/21 06:29> Instructions: Urticaria (ED) <Jose E Johnson MD - Last Filed: 10/18/21 06:29> Additional Instructions: return to ED for any worsening symptoms or concerns continuar prednisona y pepcid <Jose E Johnson MD - Last Filed: 10/18/21 06:29> Prescriptions: New cetirizine 10 mg tablet 10 mg PO DAILY Qty: 20 0RF No Action ondansetron HCl [Zofran] 4 mg tablet 4 mg PO Q8H PRN (Reason: nausea and vomiting) Qty: 14 0RF loperamide 2 mg capsule 2 mg PO Q6H PRN (Reason: loose stool) Qty: 14 0RF nitrofurantoin monohyd/m-cryst [Macrobid] 100 mg capsule 100 mg PO Q12H 7 Days Qty: 14 0RF Rx Instructions: must administer with a meal/food prednisone 20 mg tablet 40 mg PO DAILY Qty: 10 0RF famotidine [Pepcid] 20 mg tablet 20 mg PO BID 5 Days Qty: 10 0RF epinephrine [EpiPen] 0.3 mg/0.3 mL auto-injector 0.3 mg IM ONCE PRN (Reason: extreme reaction) Qty: 1 0RF Rx Instructions: for 2 doses <Jose E Johnson MD - Last Filed: 10/18/21 06:29> Referrals: Physician,Unknown J [Primary Care Provider] - 2 days <Jose E Johnson MD - Last Filed: 10/18/21 06:29> Stand Alone Forms: Work/School Release <Jose E Johnson MD - Last Filed: 10/18/21 06:29> Print Language: Belgian <Jose E Johnson MD - Last Filed: 10/18/21 06:29>
[2021-10-18 05:10] VITALS: PULSE 77; O2SAT 97
[2021-10-18] MEDS: methylPREDNISolone Sod Succ 125 MG/2 ML VIAL IVPUSH (05:10)
[2021-10-18] MEDS: diphenhydrAMINE HCL 50 MG/ML VIAL IVPUSH (05:10)
[2021-10-18 06:17] VITALS: BP 141/72; PULSE 73; RESP 18; O2SAT 97
[2021-10-18 08:00] VITALS: BP 119/79; PULSE 69; RESP 18; O2SAT 98
[2021-10-18] MEDS: Loratadine 10 MG TABLET PO (08:01)
[2021-10-18] MEDS: Famotidine/PF 20 MG/2 ML VIAL IVPUSH (08:01)
[2021-10-18] MEDS: LORazepam 2 MG/ML VIAL 0.5 MG IVPUSH (08:02)
--- NOTE | 2021-10-18 08:19 | PC.NURSE ---
PT HAD ANOTHER FLARE OF HIVES ON LEGS, NECK AND CHIN, PROVIDER AWARE PT MEDICATED
[2021-10-18 09:49] VITALS: BP 128/68; PULSE 81
[2021-10-18] MEDS: EPINEPHrine 1 MG/ML VIAL 0.3 MG IM (09:49)
--- NOTE | 2021-10-18 09:54 | PC.NURSE ---
Pt with hives to R leg, arms, neck, groin. C/o itching/burning to bilat hands.
--- NOTE | 2021-10-18 10:30 | PC.NURSE ---
pt standing on the side of the bed and is standing that her arms are very itchy, noticeable new red/raised/hives present, pt also is scratching her palms non stop reports that they are burning, no respiratory distress noticed
[2021-10-18] MEDS: diphenhydrAMINE HCL 50 MG/ML VIAL 25 MG IVPUSH (11:08)
[2021-10-18] MEDS: Hydrocortisone 1 % Cream 28.35 GM TUBE 1 APPL TOPICAL (11:13)
[2021-10-18 11:41] VITALS: BP 145/81; PULSE 87; RESP 20; O2SAT 98
== END 2021-10-18 12:19 | disposition home or self-care (01) ==
PROVIDERS: Emergency Provider Emergency Medicine
DX: L50.9 Urticaria, unspecified (principal); T78.40XA Allergy, unspecified, initial encounter; X58.XXXA Exposure to other specified factors, initial encounter; E11.9 Type 2 diabetes mellitus without complications; I10 Essential (primary) hypertension
CPT/HCPCS: 96372; 96374; 96375; 96376; 99284; J0171; J1200; J2060; J2930

== ENCOUNTER 2021-10-24 09:24 | Emergency (ER) | payer MEDICAID, SELFPAY ==
--- NOTE | 2021-10-24 | ECG_ITS ---
Test Reason : chest pressure Blood Pressure : / mmHG Vent. Rate : 071 BPM Atrial Rate : 071 BPM P-R Int : 154 ms QRS Dur : 084 ms QT Int : 406 ms P-R-T Axes : 032 058 032 degrees QTc Int : 441 ms Normal sinus rhythm Normal ECG No previous ECGs available Referred By: Generic ED Physician Electronically Signed By:SELIN VILLEDA MD
--- NOTE | ~2021-10-24 | XR_ITS ---
EXAMINATION: XR CHEST CLINICAL INFORMATION: Chest pain. COMPARISON: 09/29/2021 chest radiograph. TECHNIQUE: 2 views of the chest were obtained. FINDINGS: No significant abnormality is noted involving the heart, lungs, mediastinum, bony thorax or soft tissues. XR/XR chest 2V IMPRESSION: No acute cardiopulmonary process.
[2021-10-24 09:28] VITALS: BP 139/83; PULSE 83; RESP 14; TEMP 36.7; O2SAT 96; BMI 34.0
--- NOTE | 2021-10-24 10:01 | ED.CHESTPAIN ---
HPI - Chest Pain General Chief Complaint: Chest Pain Stated Complaint: allergic reaction Time Seen by Provider: 10/24/21 09:37 Source: patient Mode of arrival: ambulatory Limitations: no limitations History of Present Illness HPI narrative: 46-year-old female presents for chest pain and a burning sensation in her body. States she has had chest pain since October 14, when she started with a rash. Patient was seen here in the emergency room October 16, she had no mucosal involvement, no respiratory symptoms, she was given 5 days of prednisone, Pepcid, and an EpiPen. On October 18, patient returned with hives in her neck, chest, extremities, she got IM epinephrine, and she continued prednisone. Patient is done with prednisone and Pepcid now, she was prescribed fenofexidine instead of Zyrtec which she started October 19. Patient states the burning feeling in her body started October 14 when her rash started, and it is not getting better even though her rash is better. States her chest pain was present throughout this course of her rash, but she was focused on the rash and did not mention the chest pain. States the chest pain comes and goes, she felt a little nauseous with it this morning, but no shortness of breath, no vomiting, no diaphoresis, no fevers. Currently, patient endorses a small rash on her neck and left arm, states her rash is much better than it was originally. Patient states when all her symptoms started, she had some new detergent that she was washing her clothes with, she also swim in a river and may have gotten poison conchis. Patient does have a follow-up with her marketing strategist November 17. Related Data Previous Rx's Medication Instructions Recorded loperamide 2 mg capsule 2 mg PO Q6H PRN loose stool #14 02/27/20 caps ondansetron HCl 4 mg tablet 4 mg PO Q8H PRN nausea and 02/27/20 (Zofran) vomiting #14 tabs nitrofurantoin 100 mg PO Q12H 7 days #14 caps 09/29/21 monohydrate/macrocrystals 100 mg capsule (Macrobid) epinephrine 0.3 mg/0.3 mL 0.3 mg (0.3 mL) IM ONCE PRN 10/16/21 injection, auto-injector (EpiPen) extreme reaction #1 ea famotidine 20 mg tablet (Pepcid) 20 mg PO BID 5 days #10 tabs 10/16/21 prednisone 20 mg tablet 40 mg PO DAILY #10 tabs 10/16/21 cetirizine 10 mg tablet 10 mg PO DAILY #20 tabs 10/18/21 prednisone 20 mg tablet 40 mg PO DAILY 3 days #6 tabs 10/24/21 Allergies Allergy/AdvReac Type Severity Reaction Status Date / Time Sulfa (Sulfonamide Allergy Intermediate Rash Verified 10/18/21 05:00 Antibiotics) [SULFA (SULFONAMIDE ANTIBIOTICS)] Sulfa Allergy Intermediate Rash Uncoded 10/18/21 05:00 Review of Systems Constitutional: Constitutional: Denies body ache(s), Denies chills, Denies fatigue, Denies fever(s), Denies headache(s), Denies malaise and Denies weakness Eyes: Eyes: Denies diplopia ENT: Denies vertigo, Denies dizziness, Denies otalgia, Denies headache(s), Denies mouth pain, Denies post nasal drip, Denies sinus pain, Denies sinus pressure, Denies sore throat and Denies throat swelling Cardiovascular: Cardiovascular: Reports chest pain, Denies syncope, Denies leg edema, Denies lightheadedness, Denies Loss of Consciousness, Denies palpitations and Denies dyspnea Respiratory: Respiratory: Denies chest congestion, Denies cough and Denies dyspnea Gastrointestinal: Gastrointestinal: Reports abdominal pain, Denies hematochezia, Denies constipation, Denies diarrhea, Reports nausea and Denies vomiting Musculoskeletal: Musculoskeletal: Reports no additional musculoskeletal complaints Integumentary/Breasts: Skin/Breast: Reports rash Neurologic: Denies confusion, Denies vertigo, Denies dizziness, Denies syncope, Denies headache(s) and Denies weakness Psychiatric: Psychiatric: Denies anxiety, Denies confusion and Denies depression Endocrine: Endocrine: Denies fatigue and Denies palpitations Allergic/Immunologic: Allergic/Immunologic: Denies throat swelling PMFSH Past Medical History Medical History Chronic headache Depression Diabetes Hypertension Social History Social History Alcohol intake: unknown Advance Directives: No Advance Directives Information Provided: No Current occupational status: unemployed Current occupation: rt hand/ Physical Exam Vital Signs: Vital Signs: Last Vital Signs Temp 98.1 F 10/24/21 09:28 Pulse 67 10/24/21 12:20 Resp 18 10/24/21 12:20 BP 123/68 10/24/21 12:20 Pulse Ox 98 10/24/21 12:20 O2 Del Method 10/24/21 12:20 BMI result Body Mass Index 34.0 Const: General: No confusion Nutritional Appearance: well nourished Orientation/consciousness: No confusion Limitations: no limitations HEENT: Head: Yes normal to inspection, Yes normocephalic and Yes atraumatic Ears: hearing grossly normal bilaterally, external ears normal, TM's normal bilaterally and EAC's normal General nose exam: Normal external nose present Face and sinus: Yes normal facial exam and Yes sinuses nontender Mouth: Normal oral and palatal mucosa present Throat: Yes posterior oropharynx normal Eyes: Conjunctivae: conjunctivae normal Pupils: Equal, round and reactive pupils present EOM: EOMs intact bilaterally Neck: Neck: Yes full ROM, Yes no lymphadenopathy and Yes supple Resp: Effort & Inspection: normal respiratory effort and able to speak in complete sentences Auscultation: clear to auscultation bilaterally, no crackles, no rales, no rhonchi and no wheezes Cardio: Rate: regular rate Rhythm: regular rhythm Heart sounds: S1 normal heart sound present and S2 normal heart sound present GI: Inspection: Yes normal to inspection Palpation (GI): Soft to palpation, nontender, no guarding and not rigid Percussion: Yes normal to percussion Auscultation: normal bowel sounds Skin: Other: Mild plaque like rash to neck and lower chin, Neuro: General: No confusion Cranial nerves: Yes Equal, round and reactive pupils present Extrem: General: Yes normal to inspection and Yes full ROM Psych: Appearance: grossly normal Affect: normal affect Attitude: cooperative Thought process: Normal thought process present Course Course Course Narrative: 46-year-old female presents for sensation of burning in her body and chest pain that started 10/14/2009 days ago. Patient was seen twice here in the emergency room, prescribed prednisone, Pepcid, Zyrtec, now on fenofexidine. patient states her rash is mostly resolved, she still has a little rash on her neck, no mucosal involvement, no lesions in her mouth, no tongue swelling, lip swelling, shortness of breath, wheezing, lungs are clear to auscultation, no angioedema. Patient states she has had this chest pain for 10 days, but she was more concerned about the rash in never mention the chest pain. Patient does have an appointment with an marketing strategist November 17. On exam, patient is well-appearing, stable vitals, satting 98% on room air, she is not tachycardic, EKG is negative, troponin is negative, patient PERCs out I do not think this is cardiac in nature, discussed utility of repeating troponin with Dr. Johnson, who agreed it was not necessary. counseled patient to follow-up with her primary care provider FINDINGS: No significant abnormality is noted involving the heart, lungs, mediastinum, bony thorax or soft tissues. XR/XR chest 2V IMPRESSION: No acute cardiopulmonary process. MDM - Chest Pain Lab Data Result diagrams: 10/24/21 10:34 10/24/21 10:34 Labs: Lab Results 10/24/21 10/24/21 10/24/21 Range/Units 10:34 10:34 10:35 WBC 9.5 (4.8-10.8) X10*3/uL RBC 4.18 L (4.20-5.50) X10*6/uL Hgb 12.7 (12.0-16.0) g/dl Hct 37.9 (37.0-47.0) % MCV 90.7 (80.0-98.0) fL MCH 30.4 (27.0-33.0) pg MCHC 33.5 (31.0-35.0) g/dl RDW 13.6 (11.0-16.0) % Plt Count 301 (160-400) X10*3/uL MPV 10.7 (9.4-12.3) fL Immature Gran % (Auto) 0.5 H (0.0-0.4) % Neut % (Auto) 66.5 (45-73) % Lymph % (Auto) 25.4 (20-40) % Brewster % (Auto) 5.9 (2-11) % Eos % (Auto) 1.5 (0-4) % Baso % (Auto) 0.2 (0-2) % Lymph # (Auto) 2.4 (1.2-4.9) X10*3/uL Brewster # (Auto) 0.6 (0.1-1.2) X10*3/uL Eos # (Auto) 0.1 (0.0-0.4) X10*3/uL Baso # (Auto) 0.0 (0.0-0.2) X10*3/uL Abs Immat Gran (auto) 0.05 H (0.00-0.03) X10*3/uL Absolute Neuts (auto) 6.3 (2.0-8.3) x10*3/uL Absolute Nucleated RBC 0.000 (0.0-0.012) X10*3/uL Nucleated RBC % (auto) 0.0 (0.0-0.2) /100WBC Sodium 138 (135-145) mmol/L Potassium 3.6 (3.3-5.1) mmol/L Chloride 102 (96-108) mmol/L Carbon Dioxide 29 (22-29) mmol/L Anion Gap 11 L (12-20) BUN 18 H (9-16) mg/dL Creatinine 1.15 (0.5-1.4) mg/dL Estim Creat Clear Calc 52.2 Estimated GFR 51 Random Glucose 152 H (60-115) mg/dL Calcium 8.8 (8.4-10.2) mg/dL Total Bilirubin 0.6 (0.0-1.0) mg/dL AST 41 H D (5-31) U/L ALT 68 H (0-31) U/L Alkaline Phosphatase 101 (39-117) U/L Troponin I High Sens < 3.5 (<3.5-17.0) ng/L Total Protein 6.6 (6.5-8.0) g/dL Albumin 3.8 (3.5-5.0) g/dL ECG Data ECG #1: Interpretation: EKG shows sinus at a rate of 71, NJ interval 154, QRS 84, QTC 441, normal axis, no ST depression or elevation, no T-wave abnormalities. Discharge Plan Discharge Clinical Impression: Atypical chest pain, Rash Patient Disposition: Home, Self-Care Instructions: Chest Pain (ED) Additional Instructions: Your EKG, Chest x-ray, and blood tests are all negative. I have prescribed more prednisone for your rash, just for 3 days. Please pick this up at your pharmacy. Please keep your appointment with your marketing strategist November 17. you are not having a heart attack, you do not have pneumonia. Please return to the emergency room if you are having worsening chest pain, shortness of breath, or any other new or concerning symptoms Duong electrocardiograma, radiograf?a de t?rax y an?lisis de joann son todos negativos. Le he recetado m?s prednisona para duong sarpullido, solo por 3 d?as. Rec?jalo en duong farmacia. Por favor mantenga duong hal con duong alerg?logo el . no est?s teniendo un ataque al coraz?n, no tienes neumon?a. Regrese a la chris de emergencias si tiene un empeoramiento del dolor en el pecho, dificultad para respirar o cualquier otro s?ntoma nuevo o preocupante. Prescriptions: New prednisone 20 mg tablet 40 mg PO DAILY 3 Days Qty: 6 0RF No Action ondansetron HCl [Zofran] 4 mg tablet 4 mg PO Q8H PRN (Reason: nausea and vomiting) Qty: 14 0RF loperamide 2 mg capsule 2 mg PO Q6H PRN (Reason: loose stool) Qty: 14 0RF cetirizine 10 mg tablet 10 mg PO DAILY Qty: 20 0RF nitrofurantoin monohyd/m-cryst [Macrobid] 100 mg capsule 100 mg PO Q12H 7 Days Qty: 14 0RF Rx Instructions: must administer with a meal/food prednisone 20 mg tablet 40 mg PO DAILY Qty: 10 0RF famotidine [Pepcid] 20 mg tablet 20 mg PO BID 5 Days Qty: 10 0RF epinephrine [EpiPen] 0.3 mg/0.3 mL auto-injector 0.3 mg IM ONCE PRN (Reason: extreme reaction) Qty: 1 0RF Rx Instructions: for 2 doses Print Language: Polish
[2021-10-24 10:18] VITALS: BP 124/79; PULSE 70; RESP 18; O2SAT 98
[2021-10-24] MEDS: Acetaminophen 325 MG TABLET 975 MG PO (10:37)
[2021-10-24 10:40] LABS: MANUAL DIFF FLAG NO
[2021-10-24 10:45] LABS: Basophils Percent Auto 0.2 % (0-2); Eosinophils Absolute Auto 0.1 X10*3/uL (0.0-0.4); Eosinophils Percent Auto 1.5 % (0-4); Hematocrit 37.9 % (37.0-47.0); Hemoglobin 12.7 g/dl (12.0-16.0); Imm Gran Abs Auto 0.05 X10*3/uL (0.00-0.03); Imm Gran Pct Auto 0.5 % (0.0-0.4); Lymphocytes Absolute Auto 2.4 X10*3/uL (1.2-4.9); Lymphocytes Percent Auto 25.4 % (20-40); Mean Corpuscular HGB Conc 33.5 g/dl (31.0-35.0); Mean Corpuscular Hemoglobin 30.4 pg (27.0-33.0); Mean Corpuscular Volume 90.7 fL (80.0-98.0); Mean Platelet Volume 10.7 fL (9.4-12.3); Monocytes Absolute Auto 0.6 X10*3/uL (0.1-1.2); Monocytes Percent Auto 5.9 % (2-11); Neutrophils Absolute Auto 6.3 x10*3/uL (2.0-8.3); Neutrophils Percent Auto 66.5 % (45-73); Platelet Count 301 X10*3/uL (160-400); Red Blood Count 4.18 X10*6/uL (4.20-5.50); Red Cell Distribution Width 13.6 % (11.0-16.0); White Blood Count 9.5 X10*3/uL (4.8-10.8)
[2021-10-24 11:03] LABS: Troponin-I High Sensitivity < 3.5 ng/L (<3.5-17.0)
[2021-10-24 11:28] LABS: Alanine Aminotransferase 68 U/L (0-31); Albumin Level 3.8 g/dL (3.5-5.0); Alkaline Phosphatase 101 U/L (39-117); Anion Gap 11 (12-20); Aspartate Amino Transferase 41 U/L (5-31); Bilirubin Total 0.6 mg/dL (0.0-1.0); Blood Urea Nitrogen 18 mg/dL (9-16); Calcium 8.8 mg/dL (8.4-10.2); Carbon Dioxide 29 mmol/L (22-29); Chloride 102 mmol/L (96-108); Creatinine Clr Calc Pharmacy 52.2; Estimated Glomerular Filt Rate 51; Glucose Random 152 mg/dL (60-115); Potassium 3.6 mmol/L (3.3-5.1); Sodium 138 mmol/L (135-145); Total Protein 6.6 g/dL (6.5-8.0)
[2021-10-24 12:20] VITALS: BP 123/68; PULSE 67; RESP 18; O2SAT 98
== END 2021-10-24 12:52 | disposition home or self-care (01) ==
PROVIDERS: Physician Assistant; Emergency Provider Emergency Medicine
DX: R07.89 Other chest pain (principal); R21 Rash and other nonspecific skin eruption; Z79.899 Other long term (current) drug therapy
CPT/HCPCS: 36415; 71046; 80053; 84484; 85025; 93005; 99284

== ENCOUNTER 2021-11-21 08:38 | Outpatient (REF) | payer MEDICAID, SELFPAY ==
--- NOTE | ~2021-11-21 | US_ITS ---
EXAMINATION: US ABDOMEN COMPLETE CLINICAL INFORMATION: Abnormal findings of blood chemistry. COMPARISON: [facility] dated 05/28/2019. Ultrasound abdomen complete dated 04/25/2019. TECHNIQUE: Real-time imaging of the abdominal viscera. FINDINGS: PANCREAS: Normal. ABDOMINAL AORTA: The proximal, mid, and distal segments are normal in caliber. INFERIOR VENA CAVA: Visualized portions are normal. LIVER: Hepatomegaly with diffuse increased liver parenchymal echogenicity. No discrete focal abnormality. No intrahepatic biliary ductal dilatation. GALLBLADDER: There is a wall echo shadow appearance of the gallbladder which is contracted. No pericholecystic free fluid. Negative Levin's sign. COMMON BILE DUCT: Normal in caliber measuring 0.4 cm in diameter. RIGHT KIDNEY: Normal. No hydronephrosis. No renal calculi or focal parenchymal lesions. The kidney measures 10.5 cm in maximum dimension. LEFT KIDNEY: Normal. No hydronephrosis. No renal calculi or focal parenchymal lesions. The kidney measures 10.1 cm in maximum dimension. SPLEEN: Normal. The spleen measures 10.3 cm in maximum dimension. FREE FLUID: None. US/US abdomen complete IMPRESSION: 1. Hepatomegaly with increased liver echogenicity favored to represent hepatic steatosis in the appropriate clinical context. 2. Wall echo shadow appearance of the gallbladder which could be seen within a contracted gallbladder filled with stones.
== END 2021-11-21 08:39 | disposition home or self-care (01) ==
LOC: HO.US 08:38
PROVIDERS: Visit Provider Internal Medicine
DX: R79.89 Other specified abnormal findings of blood chemistry (principal)
CPT/HCPCS: 76700

== ENCOUNTER 2021-12-01 08:37 | Outpatient (REF) | payer MEDICAID, SELFPAY ==
--- NOTE | 2021-12-01 08:41 | EMG_ITS ---
Bilateral median and ulnar motor and sensory studies were performed. Bilateral radial sensory studies were performed. Paraspinal muscles were tested with a needle. IMPRESSION: Mild to moderate bilateral median neuropathy across carpal tunnel. MD EDSON Negro/LEOLA / [id number]
== END 2021-12-01 08:38 | disposition home or self-care (01) ==
LOC: HO.NEURO 08:37
PROVIDERS: PCP Internal Medicine; Visit Provider Orthopaedic Surgery
DX: G56.03 Carpal tunnel syndrome, bilateral upper limbs (principal); R20.2 Paresthesia of skin; R20.0 Anesthesia of skin
CPT/HCPCS: 95886; 95911

== ENCOUNTER 2021-12-06 12:56 | Emergency (ER) | payer MEDICAID, SELFPAY ==
--- NOTE | ~2021-12-06 | XR_ITS ---
EXAMINATION: XR ANKLE, RIGHT CLINICAL INFORMATION: Right ankle pain COMPARISON: None TECHNIQUE: AP, lateral, and mortise views of the right ankle. FINDINGS: Soft tissue swelling lateral to the distal fibula lateral malleolus. Small calcification avulsion fracture fragment or ossicle. Remaining bones joints and soft tissues unremarkable. XR/XR ankle RT 2V IMPRESSION: Soft tissue swelling laterally. Possible small avulsion fracture adjacent to the distal fibula
[2021-12-06 14:33] VITALS: BP 168/100; PULSE 60; RESP 18; TEMP 36.7; O2SAT 97; BMI 34.7
--- NOTE | 2021-12-06 16:27 | ED.LOWEXIN ---
HPI - Extremity Injury (Lower) General Chief Complaint: Extremity Injury, Lower Stated Complaint: Fall/R ankle inj Source: patient Mode of arrival: ambulatory Limitations: language barrier History of Present Illness HPI Narrative: 46-year-old female presents with right ankle pain after stepping into a hole and twisted her ankle. States that it difficult for her to bear weight. She describes the pain as stabbing pain to the outside of the ankle and worsens when she moves it or touches it. She does not report any other injuries besides some minor arm pain, denies head injury or loss of consciousness. MD complaint: ankle injury Onset (ago): hour(s) (Within the hour of arrival) Injury: Right: ankle Type of Injury: inversion Place: street/outdoors Severity: moderate Severity scale (1-10): 7 Relieving factors: nothing Exacerbating factors: weight bearing, movement and palpation Context: walking Associated symptoms: snap/pop sensation and able to partially bear weight Other symptoms: none Treatments prior to arrival: cold therapy Related Data Previous Rx's Medication Instructions Recorded loperamide 2 mg capsule 2 mg PO Q6H PRN loose stool #14 02/27/20 caps ondansetron HCl 4 mg tablet 4 mg PO Q8H PRN nausea and 02/27/20 (Zofran) vomiting #14 tabs nitrofurantoin 100 mg PO Q12H 7 days #14 caps 09/29/21 monohydrate/macrocrystals 100 mg capsule (Macrobid) epinephrine 0.3 mg/0.3 mL 0.3 mg (0.3 mL) IM ONCE PRN 10/16/21 injection, auto-injector (EpiPen) extreme reaction #1 ea famotidine 20 mg tablet (Pepcid) 20 mg PO BID 5 days #10 tabs 10/16/21 prednisone 20 mg tablet 40 mg PO DAILY #10 tabs 10/16/21 cetirizine 10 mg tablet 10 mg PO DAILY #20 tabs 10/18/21 prednisone 20 mg tablet 40 mg PO DAILY 3 days #6 tabs 10/24/21 Allergies Allergy/AdvReac Type Severity Reaction Status Date / Time Sulfa (Sulfonamide Allergy Intermediate Rash Verified 10/18/21 05:00 Antibiotics) [SULFA (SULFONAMIDE ANTIBIOTICS)] Sulfa Allergy Intermediate Rash Uncoded 10/18/21 05:00 Review of Systems Review of Systems: Constitutional: No Fever, No Chills ENT/Mouth: No Ear Pain, No Hoarseness, No sore throat Eyes: No Eye Pain, No Swelling, No Redness, No Foreign Body Cardiovascular: No Chest Pain, No SOB Respiratory: No Cough, No Dyspnea Gastrointestinal: No Nausea, No Vomiting, No Diarrhea, No abdominal Pain Genitourinary: No Dysuria, No Hematuria Musculoskeletal: positive right ankle pain, No Myalgias, No Joint Swelling Skin: No Skin lacerations, No rash Neuro: No Weakness, No Numbness, No Paresthesias, No Loss of Consciousness, No Dizziness, No Headache Psych: No Anxiety/Panic, No Depression Heme/Lymph: no easy bruising, no Lymphadenopathy Endocrine: No Polyuria, No Polydipsia Yes all other systems are reviewed and are negative COUNTS INCLUDE 234 BEDS AT THE [facility] Past Medical History Attestation statement: The following information was validated with the patient. Source: old records reviewed Medical History Anxiety Chronic headache Depression Diabetes Hypertension Social History Social History Alcohol intake: unknown Advance Directives: No Advance Directives Information Provided: No Current occupational status: unemployed Current occupation: rt hand/ Physical Exam Vital Signs: Vital Signs: Last Vital Signs Temp 98.1 F 12/06/21 14:33 Pulse 60 12/06/21 14:33 Resp 18 12/06/21 14:33 BP 168/100 H 12/06/21 14:33 Pulse Ox 97 12/06/21 14:33 O2 Del Method 12/06/21 14:33 BMI result Body Mass Index 34.7 Appearance: Alert. Oriented X3. No acute distress. Eyes: Pupils equal, round and reactive to light. ENT: Pharynx normal. Neck: Normal inspection. Neck supple. CVS: Normal heart rate and rhythm. Pulses normal. Respiratory: No respiratory distress. Breath sounds normal. Abdomen: Soft and nontender. Skin: Skin warm and dry. Normal skin color. Normal skin turgor. Extremities: No lower extremity edema. Tenderness on palpation to the right lateral malleolar process. Decreased flexion extension internal and external rotation secondary to pain. No visible bruising. Brisk capillary refill unequal pulses to bilateral lower extremities. Neurovascularly intact. Neuro: No motor deficit. No sensory deficit. Cranial nerves 2-12 intact. Course Course Course Narrative: 46-year-old female presents for evaluation for right ankle pain after stepping in a hole and rolling her ankle. She does have decreased flexion extension internal-external rotation to the right lower extremity, some swelling to the lateral malleolar process, no bruising noted. She does have brisk capillary refill and equal pulses, neurovascularly intact to bilateral lower extremities. X-rays were completed while patient in the emergency department waiting room. X-rays indicate a possible small avulsion fracture to the distal fibula verses ossicle. Will place patient in a posterior short-leg and provide crutches with instructions for nonweightbearing. Patient is complaining of pain will give Motrin at this time. Will refer to orthopedics fracture clinic. automotive parts interpreter utilized for all correspondence. Will translate utilized for discharge instructions. Patient verbalized understanding of and agrees plan of care discharge home. Verbalized understanding of signs and symptoms indicating need for emergent intervention. MDM - Extremity Injury (Lower) Differential Diagnosis Differential diagnosis: Likely ankle sprain and strain and ankle fracture Medical Records Attestation: I reviewed the patient's medical records. Lab Data Attestation: I reviewed the patient's lab results. Imaging Data Ankle x-ray: Attestation: I personally reviewed and interpreted this imaging study as follows: Radiologist's impression: EXAMINATION: XR ANKLE, RIGHT CLINICAL INFORMATION: Right ankle pain? COMPARISON: None? TECHNIQUE: AP, lateral, and mortise views of the right ankle. FINDINGS: Soft tissue swelling lateral to the distal fibula lateral malleolus. Small calcification avulsion fracture fragment or ossicle. Remaining bones joints and soft tissues unremarkable.? XR/XR ankle RT 2V IMPRESSION: Soft tissue swelling laterally. ? Possible small avulsion fracture adjacent to the distal fibula Discharge Plan Discharge Clinical Impression: Avulsion fracture of distal end of fibula Patient Disposition: Home, Self-Care Instructions: Ankle Fracture (ED), Crutch Instructions (ED) Additional Instructions: Lo evaluaron por dolor en el tobillo derecho despu?s de meterse en un agujero y torcerlo. Las radiograf?as indican carolina posible fractura por avulsi?n del peron? distal. Mantenga la f?kim posterior en coburn lugar hasta que wayne ortopedia. Use muletas mientras camina. No cargue peso en el tobillo. Alterne Tylenol 650 mg cada 6 horas seg?n sea necesario para el control del dolor y Motrin 600 mg cada 6 horas seg?n sea necesario para el control del dolor. Coburn pr?xima dosis de Motrin vence a las 23:00. considere kiarra Tylenol 3 horas despu?s de kiarra Motrin. Anote a qu? hora sweetie estos medicamentos para evitar carolina sobredosis accidental. Seguimiento con ortopedia. La remit? a Martha WILLIS. Coloque hielo y eleve la extremidad seg?n sea necesario para ayudar a reducir el dolor y la hinchaz?n. Silvino por elegir adeola departamento de emergencias para coburn evaluaci?n. Por favor, frances un seguimiento con el m?dico de atenci?n primaria seg?n sea necesario. Regrese al departamento de emergencias por cualquier s?ntoma nuevo, preocupante o que empeore. You were evaluated for right ankle pain after stepping into a hole and twisting it. X-rays indicate a possible avulsion fracture to the distal fibula. Please keep posterior splint in place until you see orthopedics. Use crutches while walking. Do not bear weight to the ankle. Alternate Tylenol 650 mg every 6 hours as needed for pain management and Motrin 600 mg every 6 hours as needed for pain management. Your next dose of Motrin is due at 23:00. please consider taking Tylenol 3 hours after taking Motrin. Write down what time you take these medications to prevent accidental overdose. Follow-up with orthopedics. I referred her to Martha WILLIS. Rest ice and elevate the extremity as needed to help reduce pain and swelling. Thank you for choosing this emergency department for evaluation. Please follow-up with primary care physician as needed. Return to the emergency department for any new, concerning, or worsening symptoms. Prescriptions: No Action ondansetron HCl [Zofran] 4 mg tablet 4 mg PO Q8H PRN (Reason: nausea and vomiting) Qty: 14 0RF loperamide 2 mg capsule 2 mg PO Q6H PRN (Reason: loose stool) Qty: 14 0RF cetirizine 10 mg tablet 10 mg PO DAILY Qty: 20 0RF prednisone 20 mg tablet 40 mg PO DAILY 3 Days Qty: 6 0RF nitrofurantoin monohyd/m-cryst [Macrobid] 100 mg capsule 100 mg PO Q12H 7 Days Qty: 14 0RF Rx Instructions: must administer with a meal/food prednisone 20 mg tablet 40 mg PO DAILY Qty: 10 0RF famotidine [Pepcid] 20 mg tablet 20 mg PO BID 5 Days Qty: 10 0RF epinephrine [EpiPen] 0.3 mg/0.3 mL auto-injector 0.3 mg IM ONCE PRN (Reason: extreme reaction) Qty: 1 0RF Rx Instructions: for 2 doses Referrals: Martha Gomez PA-C [Physician Bank Appraiser] - 5 days (Possible distal fibula avulsion fracture versus ossicle) Stand Alone Forms: Work/School Release Interventions: ED Discharge Assessment Last Done: 12/06/21 17:27 Discharge Date/Time: 12/06/21 17:28
[2021-12-06] MEDS: Ibuprofen 600 MG TABLET PO (17:20)
--- NOTE | 2021-12-06 17:26 | PC.NURSE ---
PT EVALUTED BY PROVIDER. SPLINT APPLIED BY RENETTA SALVADOR. PT TOLERATED PROCEDURE WELL. CRUTCHES PROVIDED WITH TEACHING. +RETURN DEMONSTRATION. MEDICATED WITH IBUPROFEN ORDERED. NO ACUTE DISTRESS NOTED.
== END 2021-12-06 17:28 | disposition home or self-care (01) ==
PROVIDERS: Emergency Provider Internal Medicine; PCP Internal Medicine
DX: S82.64XA Nondisplaced fracture of lateral malleolus of right fibula, initial encounter for closed fracture (principal); W17.89XA Other fall from one level to another, initial encounter; Y93.01 Activity, walking, marching and hiking; Y92.480 Sidewalk as the place of occurrence of the external cause; Y99.9 Unspecified external cause status
CPT/HCPCS: 29515; 73600; 99283; 99284

== ENCOUNTER → 2021-12-12 08:48 | Outpatient (BNVA) | payer MEDICAID, SELFPAY | PROVIDERS: PCP Internal Medicine; Visit Provider Physician Assistant | DX: S93.401A Sprain of unspecified ligament of right ankle, initial encounter (principal) | CPT/HCPCS: 99202 ==

== ENCOUNTER → 2022-01-10 13:25 | Outpatient (BNVA) | payer MEDICAID, SELFPAY | PROVIDERS: PCP Internal Medicine; Visit Provider Orthopaedic Surgery | DX: G56.03 Carpal tunnel syndrome, bilateral upper limbs (principal) | CPT/HCPCS: 99202 ==

== ENCOUNTER 2022-01-25 08:00 | Outpatient (RCR) | payer MEDICAID, SELFPAY ==
--- NOTE | 2021-12-28 11:22 | MHC.PT.EP ---
[facility] [place] Office [place] Office [place] Office [address] Josiah Ambrose [address] [phone] F: [phone] F: [phone] F: [phone] F: [phone] Physical Therapy Plan of Care Date of Evaluation: Date of Surgery: Diagnosis: Strain of R ankle ligament, closed R ankle Fx. Assessment: Pt is a 46 y/o female referred to PT for eval and treat of strain of R ankle ligament with closed R distal fibula Fx resulting in decreased tolerance and ability for standing and walking for duration, negotiating stairs and curbs, performing squatting activities, fitness activities, squatting, as well as heavy HH chores, secondary to decreased R ankle ROM and strength, decreased hip strength, R ankle swelling and healing process, and gait abnormality. Pt is deemed an appropriate candidate to receive skilled PT in order to address her physical limitations to improve her functional ability. Ortho sp instructions: ROM, gentle strengthening, proprioceptive training, -weal from boot into ASO. Frequency and Duration: The patient will be seen 2 x/ wk x 6 wks. Short Term Goals: Initiate HEP. ROM WFL. Intermediate Goals: I with HEP. Pt will be able to walk 2 blocks with at most a little bit of difficulty; initial: quite a bit of difficulty. Pt will be able to stand > 1 hour with at most a little bit of difficulty; initial: quite a bit of difficulty. Treatment Plan: Modalities to reduce pain, spasms and effusion. Manual therapy to restore motion and function. Therapeutic exercise to improve strength and flexibility. Neuromuscular re-education for posture and balance. Therapeutic activities to return to functional activities of daily living. Electronically signed by: Pedro Luis Sommer PT Please sign and return to therapist. Thank you for your referral.
--- NOTE | 2022-01-25 11:14 | MHC.PT.DC ---
[facility] [place] Office [place] Office [place] Office [address] Josiah Ambrose [address] [phone] F: [phone] F: [phone] F: [phone] F: [phone] Physical Therapy Discharge Report Diagnosis: Strain of R ankle ligament, closed R ankle Fx. Date of Surgery: Date of Evaluation: 12/28/21 Date of Discharge: 01/25/22 Treatments to Date: 5 Cancellations to Date: No Shows to Date: Discharge Status: Improved Function Patient Elected to Stop Discharge Summary: Keli has attended 5 therapy sessions with poor motivation and tolerance for rehabilitation exercises/ activities however she reports she would like to end therapy at this time and PT is in agreement as Pt has progressed herself out of her brace and has been wearing sandals and slippers which she reports is more comfortable. Pt had been instructed to wear supportive shoes and in a gentle basic home program for ROM and stability though she reports she does not like to do any exercise as it bothers multiple joints in her body. She reports on and off mild swelling of her lateral ankle and was advised to use CP at home to help manage her swelling though reports CP irritates her joints so Pt instructed in elevating LE. She is ambulating in the clinic in house slippers with symmetrical gait w/o antalgic response. She also reports CTS surgery tomorrow. Electronically signed by: Pedro Luis Sommer PT. Please sign and return to therapist. Thank you for your referral.
== END 2022-01-25 11:16 | disposition home or self-care (01) ==
LOC: HO.PTCHIC 08:00
PROVIDERS: PCP Internal Medicine; Visit Provider Physician Assistant
DX: S93.401A Sprain of unspecified ligament of right ankle, initial encounter (principal); S82.891A Other fracture of right lower leg, initial encounter for closed fracture
CPT/HCPCS: 97110; 97140; 97161

== ENCOUNTER 2022-01-26 06:23 | Day surgery (SDC) | payer MEDICAID, SELFPAY ==
[2022-01-19 13:20] VITALS: BMI 34.7
--- NOTE | 2022-01-26 08:44 | MHC.SHP ---
Pre-Procedural Eval Section A Date of Service: 01/26/22 The patient is an INPATIENT: No Changes since office visit: No Cold of Flu in the past 2 weeks, No New Medical Problems, No Changes in Medication and No Patient answered all questions The History & Physical has been completed within 30 days and I have reviewed it.: Yes Section B Chief Complaint: carpal tunnel Allergies: Allergies Allergy/AdvReac Type Severity Reaction Status Date / Time Sulfa (Sulfonamide Allergy Intermediate Rash Verified 01/10/22 14:03 Antibiotics) [SULFA (SULFONAMIDE ANTIBIOTICS)] Plan I have reviewed the history and physical and performed a pertinent physical examination on my patient. No changes have occurred unless specified.
--- NOTE | 2022-01-26 08:45 | P.OP_ITS ---
Operative Note Operative Note Date of Service: 01/26/22 Narrative: Preop diagnosis: 1. Left Carpal tunnel syndrome Postop diagnosis: same Procedure: 1. left Carpal tunnel release Surgeon: Brooklynn Lujan MD Anesthesia: local block using 1% lidocaine with epinephrine Findings: Thickened transverse carpal ligament. EBL: Less than 5 mL Specimens: None Complications: None Disposition: Brought to recovery room in stable condition Plan: Follow-up for 10-14 days for wound check and suture removal Indications: The patient is 46 years old, with left carpal tunnel syndrome that has been unresponsive to nonoperative management. The risks and benefits o f operative treatment including but not limited to risk of damage to blood vessels, nerves, tendons, infection, persistent pain, persistent symptoms, or possible need for additional surgery were discussed with the patient and the patient wishes to proceed with surgery. Procedure: Once consent was obtained a local block was performed using a combination of 1% lidocaine with epinephrine. The patient was then brought back to the operating suite and placed on the operative table in supine position. A tourniquet was applied to the proximal aspect of the left upper extremity and the limb was prepped and draped in a standard surgical fashion. Once assured that we had a good block, a 2.0 cm longitudinal incision was made centered over the carpal tunnel. The incision was made through the skin to the subcutaneous tissues using a #15 blade. Dissection was made down to the level of the transverse carpal ligament with care being taken to protect the palmar cutaneous nerve. Once the transverse carpal ligament was clearly visualized, a longitudinal incision was made in the transverse carpal ligament 1st using a #15 blade, then using tenotomy scissors under direct visualization. Care was taken to look for and protect the motor branch of the median nerve when seen in this area. Once satisfied with our carpal tunnel release the wound was copiously irrigated with normal saline and hemostasis was obtained with a brief period of local pressure. The skin edges were reapproximated with some 5.0 nylon suture material and a sterile dressing was applied. The patient appears to have tolerated the procedure well and with no complications. All digits were well vascularized at the conclusion of the case.
[2022-01-26 09:16] VITALS: BP 137/65; PULSE 60; TEMP 36.4
== END 2022-01-26 09:40 | disposition home or self-care (01) ==
PROVIDERS: PCP Internal Medicine; Visit Provider Orthopaedic Surgery
PROC: (CPT 64721; principal; 2022-01-26 08:20)
DX: G56.02 Carpal tunnel syndrome, left upper limb (principal); R20.0 Anesthesia of skin; I10 Essential (primary) hypertension; E11.9 Type 2 diabetes mellitus without complications; Z88.2 Allergy status to sulfonamides
CPT/HCPCS: 64721; J0171

== ENCOUNTER → 2022-02-08 12:46 | Outpatient (BNVA) | payer MEDICAID, SELFPAY | PROVIDERS: PCP Internal Medicine; Visit Provider Orthopaedic Surgery | DX: Z48.811 Encounter for surgical aftercare following surgery on the nervous system (principal); G56.02 Carpal tunnel syndrome, left upper limb; M65.312 Trigger thumb, left thumb | CPT/HCPCS: 99212 ==

== ENCOUNTER → 2022-02-16 11:34 | Outpatient (BNVA) | payer MEDICAID, SELFPAY | PROVIDERS: PCP Internal Medicine; Visit Provider Physician Assistant | DX: S93.401A Sprain of unspecified ligament of right ankle, initial encounter (principal) | CPT/HCPCS: 99212 ==

== ENCOUNTER 2022-06-01 08:03 | Outpatient (REF) | payer MEDICAID, SELFPAY ==
--- NOTE | ~2022-06-01 | XR_ITS ---
EXAMINATION: XR KNEE, RIGHT XR KNEE, LEFT CLINICAL INFORMATION: Pain COMPARISON: 12/06/2020 TECHNIQUE: 3 views of the right knee, including AP upright view. 2 views of the left knee, including AP upright view. FINDINGS: Right knee: No fracture or subluxation. Compartmental joint spaces are maintained. Small tricompartmental marginal osteophytes. No joint effusion. The soft tissues appear unremarkable. Left knee: No acute fracture or subluxation. Mild narrowing at the patellofemoral compartment. Fairly prominent tricompartmental marginal osteophytes. No joint effusion. The soft tissues appear unremarkable. XR/XR knee RT 3V IMPRESSION: 1. Mild tricompartmental degenerative changes of the right knee. 2. Moderate tricompartmental degenerative changes of the left knee.
--- NOTE | ~2022-06-01 | XR_ITS ---
EXAMINATION: XR KNEE, RIGHT XR KNEE, LEFT CLINICAL INFORMATION: Pain COMPARISON: 12/06/2020 TECHNIQUE: 3 views of the right knee, including AP upright view. 2 views of the left knee, including AP upright view. FINDINGS: Right knee: No fracture or subluxation. Compartmental joint spaces are maintained. Small tricompartmental marginal osteophytes. No joint effusion. The soft tissues appear unremarkable. Left knee: No acute fracture or subluxation. Mild narrowing at the patellofemoral compartment. Fairly prominent tricompartmental marginal osteophytes. No joint effusion. The soft tissues appear unremarkable. XR/XR knee LT 2V IMPRESSION: 1. Mild tricompartmental degenerative changes of the right knee. 2. Moderate tricompartmental degenerative changes of the left knee.
== END 2022-06-01 08:04 | disposition home or self-care (01) ==
LOC: HO.XRAY 08:03
PROVIDERS: PCP Internal Medicine; Visit Provider Internal Medicine
DX: M25.561 Pain in right knee (principal); M25.562 Pain in left knee; G89.29 Other chronic pain
CPT/HCPCS: 73560; 73562

== ENCOUNTER 2022-07-07 07:44 | Outpatient (REF) | payer MEDICAID, SELFPAY ==
--- NOTE | ~2022-07-07 | MM_ITS ---
EXAMINATION: MM SCREENING DIGITAL BREAST TOMOSYNTHESIS, BILATERAL CLINICAL INFORMATION: Screening. Asymptomatic. The lifetime risk of breast cancer based on the Tyrer-Cuzick Model is 6%. COMPARISON: Mammography: 07/14/2020, 04/15/2019, 02/07/2018 TECHNIQUE: Digital breast tomosynthesis is performed in both the craniocaudal and mediolateral oblique views along with computer-aided detection (CAD). Synthesized 2D images are generated from the tomosynthesis. FINDINGS: There are scattered areas of fibroglandular density (ACR BI-RADS breast composition Category b). There are no significant masses, abnormal calcifications, or other abnormalities. Parenchymal pattern is similar to prior studies. There is no developing density or architectural abnormality. The axilla and skin contours are unremarkable. No significant changes. MM/MM tomosynthesis screening BI IMPRESSION: No mammographic evidence of malignancy. ASSESSMENT: BI-RADS 1: Negative RECOMMENDATION: Routine annual mammography screening. This patient's information was entered into a reminder system with a target due date for their next mammogram.
== END 2022-07-07 07:45 | disposition home or self-care (01) ==
LOC: HO.MAMMO 07:44
PROVIDERS: PCP Internal Medicine; Visit Provider Internal Medicine
DX: Z12.31 Encounter for screening mammogram for malignant neoplasm of breast (principal)
CPT/HCPCS: 77063; 77067

== ENCOUNTER 2022-08-24 22:38 | Emergency (ER) | payer MEDICAID, SELFPAY ==
[2022-08-24 22:45] VITALS: BP 155/67; PULSE 65; RESP 14; TEMP 36.6; O2SAT 98; BMI 34.4
--- NOTE | 2022-08-25 00:14 | ED.GENADULT ---
HPI - General Adult General Chief complaint: General Medical Stated complaint: high blood pressure Time Seen by Provider: 08/24/22 23:59 Source: patient Mode of arrival: ambulatory Limitations: no limitations History of Present Illness HPI narrative: Patient with hypertension missed her medication for last 3 days check her blood pressure of 147/105 took her medication last night on arrival pressure pressure was 142/80 felt slightly dizzy no chest pain had mild headache no nausea no vomiting patient is forgetful and has spotter who gives her medications Related Data Home Medications Medication Instructions Recorded Confirmed fexofenadine 180 mg tablet 180 mg PO DAILY 01/10/22 hydroxyzine HCl 25 mg tablet 25 mg PO itch 01/10/22 Previous Rx's Medication Instructions Recorded loperamide 2 mg capsule 2 mg PO Q6H PRN loose stool #14 02/27/20 caps ondansetron HCl 4 mg tablet 4 mg PO Q8H PRN nausea and 02/27/20 (Zofran) vomiting #14 tabs nitrofurantoin 100 mg PO Q12H 7 days #14 caps 09/29/21 monohydrate/macrocrystals 100 mg capsule (Macrobid) epinephrine 0.3 mg/0.3 mL 0.3 mg (0.3 mL) IM ONCE PRN 10/16/21 injection, auto-injector (EpiPen) extreme reaction #1 ea famotidine 20 mg tablet (Pepcid) 20 mg PO BID 5 days #10 tabs 10/16/21 prednisone 20 mg tablet 40 mg PO DAILY #10 tabs 10/16/21 cetirizine 10 mg tablet 10 mg PO DAILY #20 tabs 10/18/21 Allergies Allergy/AdvReac Type Severity Reaction Status Date / Time Sulfa (Sulfonamide Allergy Intermediate Rash Verified 02/08/22 13:23 Antibiotics) [SULFA (SULFONAMIDE ANTIBIOTICS)] Review of Systems Review of Systems: Yes all other systems are reviewed and are negative PMF Past Medical History Medical History Anxiety Chronic headache Depression Diabetes Hypertension Right ankle sprain Social History Social History Alcohol intake: unknown Advance Directives: No Advance Directives Information Provided: Yes Current occupational status: unemployed Current occupation: rt hand/ Physical Exam ED Vital Signs: Vital Signs - 24 hr 04/20/23 22:45 Temperature 98 F Pulse Rate 65 Respiratory Rate 14 Blood Pressure 155/67 H Pulse Oximetry 98 Oxygen Delivery Method Room Air BMI result Body Mass Index 34.4 Appearance: Alert. Oriented X3. No acute distress. Eyes: PERRLA, No Nystagmus ENT: Pharynx normal. Oral Mucosa moist Neck: Normal inspection. Neck supple. CVS: Normal heart rate and rhythm. Pulses normal. Respiratory: No respiratory distress. Equal air entry bilateral, no wheezing/rales/rhonchi Abdomen: Soft and nontender. Bowel sounds are present, no mass palpable, no CVA tenderness Skin: Skin warm and dry. Normal skin color. Normal skin turgor. Extremities: No lower extremity edema. No calf tenderness Neuro: Oriented X 3. No motor deficit. No sensory deficit.No cerebellar signs , cranial nerves II-XII intact Medications Administered Discontinued Medications Generic Name Dose Route Start Last Admin Trade Name Freq PRN Reason Stop Dose Admin Acetaminophen 650 mg 08/25/22 00:14 08/25/22 00:31 Acetaminophen 325 Mg Tablet PO 08/25/22 00:15 650 mg ONCE ONE Administration Medical Decision Making Medical Decision Making [facility] Narrative: Patient with borderline hypertension noncompliant medication blood pressure improved after she took her medications patient medications at home had TRIAGE SPECIALIST gives medication to her will discharge home advised take her medication as prescribed Discharge Plan Discharge Clinical Impression: Hypertension Patient Disposition: Home, Self-Care Instructions: Hypertension (ED) Additional Instructions: Take your medication daily in a.m. Follow up with PCP [place] duong medicamento diariamente en la ma?mango. Seguimiento con PCP Prescriptions: No Action ondansetron HCl [Zofran] 4 mg tablet 4 mg PO Q8H PRN (Reason: nausea and vomiting) Qty: 14 0RF loperamide 2 mg capsule 2 mg PO Q6H PRN (Reason: loose stool) Qty: 14 0RF cetirizine 10 mg tablet 10 mg PO DAILY Qty: 20 0RF nitrofurantoin monohyd/m-cryst [Macrobid] 100 mg capsule 100 mg PO Q12H 7 Days Qty: 14 0RF Rx Instructions: must administer with a meal/food prednisone 20 mg tablet 40 mg PO DAILY Qty: 10 0RF famotidine [Pepcid] 20 mg tablet 20 mg PO BID 5 Days Qty: 10 0RF epinephrine [EpiPen] 0.3 mg/0.3 mL auto-injector 0.3 mg IM ONCE PRN (Reason: extreme reaction) Qty: 1 0RF Rx Instructions: for 2 doses hydroxyzine HCl 25 mg tablet 25 mg PO fexofenadine 180 mg tablet 180 mg PO DAILY Interventions: ED Discharge Assessment Last Done: 08/25/22 00:48 Discharge Date/Time: 08/25/22 00:35 Print Language: Turkmen
[2022-08-25] MEDS: Acetaminophen 325 MG TABLET 650 MG PO (00:31)
== END 2022-08-25 00:35 | disposition home or self-care (01) ==
PROVIDERS: Emergency Provider Internal Medicine
DX: R42 Dizziness and giddiness (principal); R51.9 Headache, unspecified; I10 Essential (primary) hypertension; Z79.899 Other long term (current) drug therapy
CPT/HCPCS: 99283

== ENCOUNTER 2022-09-12 16:00 | Outpatient (RCR) | payer MEDICAID, SELFPAY | END 2022-11-28 16:28 | disposition home or self-care (01) | LOC: HO.PTCHIC 16:00 | PROVIDERS: PCP Internal Medicine; Visit Provider Internal Medicine | DX: M17.0 Bilateral primary osteoarthritis of knee (principal) | CPT/HCPCS: 97110; 97161 ==

== ENCOUNTER 2022-09-18 08:26 | Emergency (ER) | payer MEDICAID, SELFPAY ==
--- NOTE | 2022-09-18 08:32 | ECG_ITS ---
Test Reason : chest pain Blood Pressure : / mmHG Vent. Rate : 073 BPM Atrial Rate : 073 BPM P-R Int : 158 ms QRS Dur : 080 ms QT Int : 402 ms P-R-T Axes : 029 026 034 degrees QTc Int : 442 ms Normal sinus rhythm Normal ECG When compared with ECG of 24-OCT-2021 09:35, No significant change was found Referred By: Dalila Vanegas Electronically Signed By:Alfredo Barksdale
[2022-09-18 08:35] VITALS: BP 148/93; PULSE 96; RESP 18; TEMP 36; O2SAT 74; BMI 35.2
--- NOTE | 2022-09-18 08:43 | MHC.EDTECH ---
EKG completed and signed by
[2022-09-18 08:48] VITALS: BP 147/84; PULSE 65; RESP 20; TEMP 36.9; O2SAT 97
[2022-09-18 08:59] LABS: MANUAL DIFF FLAG NO
[2022-09-18 09:02] LABS: Basophils Percent Auto 0.1 % (0-2); Eosinophils Percent Auto 0.3 % (0-4); Hematocrit 39.8 % (37.0-47.0); Hemoglobin 13.6 g/dl (12.0-16.0); Imm Gran Abs Auto 0.02 X10*3/uL (0.00-0.03); Imm Gran Pct Auto 0.2 % (0.0-0.4); Lymphocytes Absolute Auto 3.4 X10*3/uL (1.2-4.9); Lymphocytes Percent Auto 33.9 % (20-40); Mean Corpuscular HGB Conc 34.2 g/dl (31.0-35.0); Mean Corpuscular Hemoglobin 31.1 pg (27.0-33.0); Mean Corpuscular Volume 90.9 fL (80.0-98.0); Monocytes Absolute Auto 0.6 X10*3/uL (0.1-1.2); Neutrophils Absolute Auto 5.9 x10*3/uL (2.0-8.3); Neutrophils Percent Auto 59.5 % (45-73); Platelet Count 318 X10*3/uL (160-400); Red Blood Count 4.38 X10*6/uL (4.20-5.50); Red Cell Distribution Width 13.6 % (11.0-16.0)
[2022-09-18 09:22] LABS: Alanine Aminotransferase 68 U/L (0-31); Albumin Level 4.4 g/dL (3.5-5.0); Alkaline Phosphatase 128 U/L (39-117); Anion Gap 15 (12-20); Aspartate Amino Transferase 31 U/L (5-31); Bilirubin Total 0.4 mg/dL (0.0-1.0); Blood Urea Nitrogen 21 mg/dL (9-16); Calcium 9.8 mg/dL (8.4-10.2); Carbon Dioxide 22 mmol/L (22-29); Chloride 105 mmol/L (96-108); Creatinine Clr Calc Pharmacy 71.1; Estimated Glomerular Filt Rate > 60; Glucose Random 114 mg/dL (60-115); Lipase 32 U/L (8-78); Sodium 138 mmol/L (135-145); Total Protein 7.4 g/dL (6.5-8.0)
--- NOTE | 2022-09-18 09:30 | ED.CHESTPAIN ---
HPI - Chest Pain General Chief Complaint: Chest Pain Stated Complaint: Gastritis/Nausea/CP Time Seen by Provider: 09/18/22 08:45 Source: patient and cremator Mode of arrival: ambulatory History of Present Illness HPI narrative: This is a 47-year-old female who states that she had a rash on her left upper extremity that she has had previously and is currently on p.r.n. prednisone which she started on Sunday for the rash and reports that it improved but then she began developing epigastric burning pain on Sunday, states that she took some of the medication without food and then says that at approximately 03:00 in the morning had burning chest pain with a sensation of fullness in her throat. She denies any palpitations, fevers, chills, dizziness, diaphoresis. Related Data Home Medications Medication Instructions Recorded Confirmed fexofenadine 180 mg tablet 180 mg PO DAILY 01/10/22 hydroxyzine HCl 25 mg tablet 25 mg PO itch 01/10/22 Previous Rx's Medication Instructions Recorded loperamide 2 mg capsule 2 mg PO Q6H PRN loose stool #14 02/27/20 caps ondansetron HCl 4 mg tablet 4 mg PO Q8H PRN nausea and 02/27/20 (Zofran) vomiting #14 tabs nitrofurantoin 100 mg PO Q12H 7 days #14 caps 09/29/21 monohydrate/macrocrystals 100 mg capsule (Macrobid) epinephrine 0.3 mg/0.3 mL 0.3 mg (0.3 mL) IM ONCE PRN 10/16/21 injection, auto-injector (EpiPen) extreme reaction #1 ea famotidine 20 mg tablet (Pepcid) 20 mg PO BID 5 days #10 tabs 10/16/21 prednisone 20 mg tablet 40 mg PO DAILY #10 tabs 10/16/21 cetirizine 10 mg tablet 10 mg PO DAILY #20 tabs 10/18/21 omeprazole 20 mg capsule,delayed 20 mg PO DAILY #30 caps 09/18/22 release Allergies Allergy/AdvReac Type Severity Reaction Status Date / Time Sulfa (Sulfonamide Allergy Intermediate Rash Verified 09/18/22 08:34 Antibiotics) [SULFA (SULFONAMIDE ANTIBIOTICS)] Review of Systems Review of Systems: Pertinent positives and negatives as stated in HPI PMFSH Past Medical History Source: nursing notes reviewed Medical History Anxiety Chronic headache Depression Diabetes Hypertension Right ankle sprain Social History Social History Alcohol intake: never Smoked in Last 30 Days: Yes Use of substances other than those prescribed or required for medical reasons: No Advance Directives: No Advance Directives Information Provided: Yes Current occupational status: unemployed Current occupation: rt hand/ Physical Exam Vital Signs: Vital Signs: Last Vital Signs Temp 98.4 F 09/18/22 08:48 Pulse 65 09/18/22 08:48 Resp 20 09/18/22 08:48 BP 147/84 H 09/18/22 08:48 Pulse Ox 97 09/18/22 08:48 O2 Del Method Room Air 09/18/22 08:48 BMI result Body Mass Index 35.2 VITAL SIGNS: Reviewed. GENERAL: Well developed, well nourished, in no acute distress. HEAD: Normocephalic/atraumatic EYES: PERRLA, EOMI EARS: Ext canals without abnormality LUNGS: Normal breath sounds. No adventitious sounds or accessory muscle use. SpO2<97> CARDIOVASCULAR: Regular rate and rhythm without noted murmurs, ABDOMEN: Soft, mild epigastric discomfort on palpation, Levin's negative, non-distended with bowel sounds. MUSCULOSKELETAL: No tenderness, deformities, or effusions noted on gross inspection. EXTREMITIES: No cyanosis, clubbing or edema. SKIN: Inspection of the skin reveals no rashes NEUROLOGIC: Alert and oriented x 4. Strength and sensation to light touch were grossly intact x 4. Medications Administered Discontinued Medications Generic Name Dose Route Start Last Admin Trade Name Freq PRN Reason Stop Dose Admin Al Hydroxide/Mg Hydroxide 30 ml 09/18/22 09:30 09/18/22 09:42 Magnesium Hydrox/Alum Hydrox 30 Ml Oral.Susp PO 09/18/22 09:31 30 ml ONCE ONE Administration Lidocaine HCl 10 ml 09/18/22 09:30 09/18/22 09:42 Lidocaine Hcl Viscous 2 % 15 Ml Solution MUCOUS MEM 09/18/22 09:31 10 ml ONCE ONE Administration Sucralfate 1 gm 09/18/22 09:30 09/18/22 09:42 Sucralfate Oral Suspension 1 Gm/10 Ml Oral.Susp PO 09/18/22 09:31 1 gm ONCE ONE Administration Medical Decision Making Medical Decision Making [facility] Narrative: This is a 47-year-old female with history and clinical presentation most consistent with steroid induced acid reflux which is generated the sensation of globus as well as chest pain. Patient's reported rash to left upper extremity seems to be resolving well with her prednisone that she was cautioned regarding taking the steroids with food. She understands that I will be discharging her as long as all workup is negative on an antacid. I reviewed all investigations my interpretation is that patient has a UTI and on re-evaluation she reports significant improvement after receiving the GI cocktail. She is otherwise discharged home in stable condition with instructions to follow-up with primary care provider. Differential Diagnosis Please see the discussion above Lab Data Please see the discussion above 09/18/22 08:55 09/18/22 08:55 Labs: Lab Results 09/18/22 09/18/22 09/18/22 Range/Units 08:55 08:55 09:41 WBC 10.0 (4.8-10.8) X10*3/uL RBC 4.38 (4.20-5.50) X10*6/uL Hgb 13.6 (12.0-16.0) g/dl Hct 39.8 (37.0-47.0) % MCV 90.9 (80.0-98.0) fL MCH 31.1 (27.0-33.0) pg MCHC 34.2 (31.0-35.0) g/dl RDW 13.6 (11.0-16.0) % Plt Count 318 (160-400) X10*3/uL MPV 11.0 (9.4-12.3) fL Immature Gran % (Auto) 0.2 (0.0-0.4) % Neut % (Auto) 59.5 (45-73) % Lymph % (Auto) 33.9 (20-40) % [place] % (Auto) 6.0 (2-11) % Eos % (Auto) 0.3 (0-4) % Baso % (Auto) 0.1 (0-2) % Lymph # (Auto) 3.4 (1.2-4.9) X10*3/uL [place] # (Auto) 0.6 (0.1-1.2) X10*3/uL Eos # (Auto) 0.0 (0.0-0.4) X10*3/uL Baso # (Auto) 0.0 (0.0-0.2) X10*3/uL Abs Immat Gran (auto) 0.02 (0.00-0.03) X10*3/uL Absolute Neuts (auto) 5.9 (2.0-8.3) x10*3/uL Absolute Nucleated RBC 0.000 (0.0-0.012) X10*3/uL Nucleated RBC % (auto) 0.0 (0.0-0.2) /100WBC Sodium 138 (135-145) mmol/L Potassium 4.0 (3.3-5.1) mmol/L Chloride 105 (96-108) mmol/L Carbon Dioxide 22 (22-29) mmol/L Anion Gap 15 (12-20) BUN 21 H (9-16) mg/dL Creatinine 0.85 (0.5-1.4) mg/dL Estim Creat Clear Calc 71.1 Estimated GFR > 60 Random Glucose 114 (60-115) mg/dL Calcium 9.8 D (8.4-10.2) mg/dL Total Bilirubin 0.4 (0.0-1.0) mg/dL AST 31 (5-31) U/L ALT 68 H (0-31) U/L Alkaline Phosphatase 128 H (39-117) U/L Troponin I High Sens < 2.7 (<3.5-17.0) ng/L Total Protein 7.4 (6.5-8.0) g/dL Albumin 4.4 (3.5-5.0) g/dL Lipase 32 (8-78) U/L Urine Color Urine Appearance Urine pH (5.0-9.0) Ur Specific [place] (1.005-1.025) Urine Protein (Neg-Trace) mg/dL Urine Glucose (UA) (Negative) mg/dL Urine Ketones (Negative) mg/dL Urine Blood (Negative) Urine Nitrite (Negative) Ur Leukocyte Esterase (Negative) Urine RBC (0-2) /HPF Urine WBC (0-5) /HPF Ur Squamous Epith Cells (0-2) /HPF Urine Bacteria (None Seen) Hyaline Casts (0-2) /LPF 09/18/22 Range/Units 10:34 WBC (4.8-10.8) X10*3/uL RBC (4.20-5.50) X10*6/uL Hgb (12.0-16.0) g/dl Hct (37.0-47.0) % MCV (80.0-98.0) fL MCH (27.0-33.0) pg MCHC (31.0-35.0) g/dl RDW (11.0-16.0) % Plt Count (160-400) X10*3/uL MPV (9.4-12.3) fL Immature Gran % (Auto) (0.0-0.4) % Neut % (Auto) (45-73) % Lymph % (Auto) (20-40) % [place] % (Auto) (2-11) % Eos % (Auto) (0-4) % Baso % (Auto) (0-2) % Lymph # (Auto) (1.2-4.9) X10*3/uL [place] # (Auto) (0.1-1.2) X10*3/uL Eos # (Auto) (0.0-0.4) X10*3/uL Baso # (Auto) (0.0-0.2) X10*3/uL Abs Immat Gran (auto) (0.00-0.03) X10*3/uL Absolute Neuts (auto) (2.0-8.3) x10*3/uL Absolute Nucleated RBC (0.0-0.012) X10*3/uL Nucleated RBC % (auto) (0.0-0.2) /100WBC Sodium (135-145) mmol/L Potassium (3.3-5.1) mmol/L Chloride (96-108) mmol/L Carbon Dioxide (22-29) mmol/L Anion Gap (12-20) BUN (9-16) mg/dL Creatinine (0.5-1.4) mg/dL Estim Creat Clear Calc Estimated GFR Random Glucose (60-115) mg/dL Calcium (8.4-10.2) mg/dL Total Bilirubin (0.0-1.0) mg/dL AST (5-31) U/L ALT (0-31) U/L Alkaline Phosphatase (39-117) U/L Troponin I High Sens (<3.5-17.0) ng/L Total Protein (6.5-8.0) g/dL Albumin (3.5-5.0) g/dL Lipase (8-78) U/L Urine Color Yellow Urine Appearance Clear Urine pH 5.5 (5.0-9.0) Ur Specific [place] 1.020 (1.005-1.025) Urine Protein Negative (Neg-Trace) mg/dL Urine Glucose (UA) Negative (Negative) mg/dL Urine Ketones Negative (Negative) mg/dL Urine Blood Negative (Negative) Urine Nitrite Positive H (Negative) Ur Leukocyte Esterase Negative (Negative) Urine RBC 0-2 (0-2) /HPF Urine WBC 0-5 (0-5) /HPF Ur Squamous Epith Cells 6-10 (0-2) /HPF Urine Bacteria 1+ (None Seen) Hyaline Casts 0-2 (0-2) /LPF Independent Interpretation I performed an independent interpretation of an: EKG Interpretation: Normal sinus rhythm, HR-73, no STEMI, MI/QRS/QTC is within normal limits. External Record Review External record reviewed: Outpatient record and Prior outpatient labs Discharge Plan Discharge Clinical Impression: Atypical chest pain, Acid reflux Patient Disposition: Home, Self-Care Instructions: Chest Pain (ED), Diet for Stomach Ulcers and Gastritis (ED), Gastroesophageal Reflux Disease (ED) Additional Instructions: 1. Reanudar todos los medicamentos caseros seg?n lo prescrito. 2. [place] la nueva receta para el control de anti?cidos. 3. Bob un seguimiento con el proveedor de atenci?n primaria en los pr?ximos 1 o 2 d?as. Regrese a la chris de emergencias si los s?ntomas empeoran. 1. Resume all home medications as prescribed. 2. Please take the new prescription for antacid control. 3. Please follow-up with primary care provider in the next 1-2 days. Return to the ER for any worsening symptoms. Prescriptions: New omeprazole 20 mg capsule,delayed release(DR/EC) 20 mg PO DAILY Qty: 30 0RF No Action ondansetron HCl [Zofran] 4 mg tablet 4 mg PO Q8H PRN (Reason: nausea and vomiting) Qty: 14 0RF loperamide 2 mg capsule 2 mg PO Q6H PRN (Reason: loose stool) Qty: 14 0RF cetirizine 10 mg tablet 10 mg PO DAILY Qty: 20 0RF nitrofurantoin monohyd/m-cryst [Macrobid] 100 mg capsule 100 mg PO Q12H 7 Days Qty: 14 0RF Rx Instructions: must administer with a meal/food prednisone 20 mg tablet 40 mg PO DAILY Qty: 10 0RF famotidine [Pepcid] 20 mg tablet 20 mg PO BID 5 Days Qty: 10 0RF epinephrine [EpiPen] 0.3 mg/0.3 mL auto-injector 0.3 mg IM ONCE PRN (Reason: extreme reaction) Qty: 1 0RF Rx Instructions: for 2 doses hydroxyzine HCl 25 mg tablet 25 mg PO fexofenadine 180 mg tablet 180 mg PO DAILY Print Language: Palestinian
--- NOTE | 2022-09-18 09:31 | PC.NURSE ---
Alert and oriented. Complaining of chest and stomach pain. States she started with a rash on Sat and took leftover steroids that she had from the last time she got a rash. States on Sunday the stomach pain started and this morning at 3am the chest pain started. NSR on monitor. VSS.
[2022-09-18] MEDS: Lidocaine HCl Viscous 2 % 15 ML SOLUTION 10 ML MUCOUS MEM (09:42)
[2022-09-18] MEDS: Magnesium Hydrox/Alum Hydrox 30 ML ORAL.SUSP PO (09:42)
[2022-09-18] MEDS: Sucralfate Oral Suspension 1 GM/10 ML ORAL.SUSP PO (09:42)
[2022-09-18 10:27] LABS: Troponin-I High Sensitivity < 2.7 ng/L (<3.5-17.0)
[2022-09-18 10:40] LABS: Appearance Urine Clear; Color Urine Yellow; Glucose Urine UA Negative (Negative); Leukocyte Esterase Urine Negative (Negative); Nitrite Urine Positive (Negative); PH 5.5 (5.0-9.0); UMIC TRIGGER UACC YES; Urine Blood Negative (Negative); Urine Ketones Negative (Negative); Urine Protein Negative (Neg-Trace)
[2022-09-18 10:45] LABS: Bacteria Urine 1+ (None Seen); Hyaline Casts Urine 0-2 /LPF (0-2); RBC Urine 0-2 /HPF (0-2); UACC Culture Trigger YES; WBC Urine 0-5 /HPF (0-5)
--- NOTE | 2022-09-18 11:13 | PC.NURSE ---
this global technical writer assumed care of this global technical writer at 1100. pt resting quietly in room, no apparent distress. pt cleared for discharge after med administration.
[2022-09-18] MEDS: Nitrofurantoin Monohyd/M-Cryst 100 MG CAPSULE PO (11:23)
[2022-09-18 11:24] VITALS: BP 135/83; PULSE 69; O2SAT 98
== END 2022-09-18 12:07 | disposition home or self-care (01) ==
PROVIDERS: Emergency Provider Student in an Organized Health Care Education/Training Program
DX: R07.89 Other chest pain (principal); K21.9 Gastro-esophageal reflux disease without esophagitis; Z79.899 Other long term (current) drug therapy
CPT/HCPCS: 36415; 80053; 81001; 83690; 84484; 85025; 87086; 87088; 87186; 93005; 99283; 99285

== ENCOUNTER 2022-09-18 13:22 | Outpatient (REF) | payer MEDICAID, SELFPAY ==
--- NOTE | ~2022-09-18 | US_ITS ---
EXAM: Pelvic Ultrasound CLINICAL INDICATION: Menorrhagia COMPARISON: Pelvic ultrasound 10/10/2011 TECHNIQUE: The pelvis was evaluated using transabdominal and transvaginal imaging. FINDINGS: The uterus measures 9.1 x 5.3 x 5.9 cm in longitudinal by AP by transverse dimension. The endometrial stripe is not thickened and measures 0.5 cm. Small amount of fluid noted within the endometrium. A few nabothian cysts are noted within the cervix. The left ovary measures approximately 2.9 x 2.1 x 2.4 cm and is normal. The right ovary measures approximately 3.6 x 2.4 x 2.0 cm and is also normal. There is a 3.3 cm hypoechoic avascular structure noted within the left endometrium which is nonspecific. There is no free fluid in the pelvis. US/US pelvic and transvaginal IMPRESSION: 1. Endometrial stripe measures 5 mm in thickness. There is a small amount of fluid noted within the endometrium. 2. 3.3 cm hypoechoic avascular structure noted within the left endometrium. This is a nonspecific finding. This may represent a loop of bowel or possibly a complex exophytic adnexal abnormality. Clinical correlation is recommended. Short-term interval follow-up ultrasound may be warranted. Alternatively, CT imaging of the pelvis with IV contrast may provide additional diagnostic information.
== END 2022-09-18 13:23 | disposition home or self-care (01) ==
LOC: HO.US 13:22
PROVIDERS: Visit Provider Advanced Practice Midwife
DX: N92.1 Excessive and frequent menstruation with irregular cycle (principal)
CPT/HCPCS: 76830; 76856

== ENCOUNTER → 2022-10-04 08:45 | Outpatient (BNVA) | payer MEDICAID, SELFPAY | PROVIDERS: Visit Provider Orthopaedic Surgery | DX: G56.03 Carpal tunnel syndrome, bilateral upper limbs (principal); M65.312 Trigger thumb, left thumb; M79.641 Pain in right hand; M79.642 Pain in left hand | CPT/HCPCS: 99212 ==

== ENCOUNTER 2022-10-13 13:39 | Outpatient (REF) | payer MEDICAID, SELFPAY ==
--- NOTE | ~2022-10-13 | US_ITS ---
EXAMINATION: US PELVIS CLINICAL INFORMATION: Abnormal endometrium. COMPARISON: None available. TECHNIQUE: Ultrasound of the pelvis is performed using both transabdominal and transvaginal transducers along with Doppler. Transvaginal imaging is performed due to inadequate visualization transabdominally. FINDINGS: UTERUS: The uterus is anteverted and measures 8.0 x 5.1 x 5.0 cm. The double wall endometrial thickness is 0.7 mm. The uterus is smooth in contour and has normal myometrial echogenicity. No visible fibroid. Nabothian cysts are present in the cervix along with a 2 mm calcification. ADNEXA: Both ovaries are visualized. Follicular cysts are present bilaterally. There is normal color flow to the adnexa. There is no ovarian torsion. There is no pelvic ascites or fluid collection. Right ovary measures 3.0 x 2.1 x 2.3 cm for a volume of 6.4 mL. Left ovary measures 2.9 x 2.0 x 2.1 cm for a volume of 7.4 mL. The previously seen questionable 3.3 cm hypoechoic avascular structure in the left adnexa is not seen on the current study. US/US pelvic and transvaginal IMPRESSION: No significant abnormality is seen.
== END 2022-10-13 13:40 | disposition home or self-care (01) ==
LOC: HO.US 13:39
PROVIDERS: Visit Provider Advanced Practice Midwife
DX: R93.5 Abnormal findings on diagnostic imaging of other abdominal regions, including retroperitoneum (principal)
CPT/HCPCS: 76830; 76856

== ENCOUNTER 2022-11-20 08:00 | Outpatient (RCR) | payer MEDICAID, SELFPAY ==
--- NOTE | 2022-11-01 08:55 | MHC.OT.EP ---
[address] [phone] Occupational Therapy Plan of Care Patient Name: Keli Flores Date of Evaluation: 11/01/22 Diagnosis: B/L hand pain Pain Location: 5/10 resting pain in fingers in both hands, thumb bases 8/10 pain w/ daily use or at nighttime Pain Score: 5 Pain Scale Used: Numeric (0 - 10) Aggravating Factors: Gripping, lifting and carrying objects Alleviating Factors: Pt states she has a brace but it doesn't work Assessment: 47 yo female w/ hx of B/L hand pain and numbness for years . EMG shows mild-moderate B/L median neuropathy. She underwent left CTR 01/26/22, was seen by Dr Lujan for follow up due to persistent hand pain, stiffness and weakness. She has been referred to OT to address these issues and promote functional gains. On assessment today, she has good range in wrists and digits, some discomfort in IPs w/ full fist. Low steeplechase jockey strength B/L'ly (25lb right and 20 lb left), sensation is grossly WFL with only diminished light touch B/L'ly. No atrophy noted in palms. Primary complaint is numbness in both hands, right worse than left, and frequent dropping of items. She reports being very sedentary and I believ she will do well w/ course of therapy for strengthening and encouragement in increasing daily activity. Frequency and Duration: The patient will be seen 2x/wk for 4 weeks Short Term Goals: Ind w/ HEP Ind w/ activity modifications at home to reduce heavy gripping and lifting Ind w/ heat modalities to improve comfort w/ ROM Discuss sleep modifications and use of nighttime orthoses as needed Shipping Support Goals: Right gross graso >30lb Left gross grasp >25lb Pt to report ease w/ sleeping Progress to UE strengthening program QuickDASH score <40 pts 2/10 resting pain in hands Treatment Plan: Therapeutic Exercise Therapeutic Activity Home Exercise Program Splinting Patient Education Desensitization/Sensory Re-ed ADL Training Ultrasound Paraffin Fluidotherapy MHP Cold Packs Joint Mobilization Soft Tissue Mobilization Kinesiotaping Nighttime resting wrist orthoses Electronically Signed By: Nicolle Walker, OTR/L CHT Please Sign and return to therapist. Thank you once again for your referral.
--- NOTE | 2022-11-20 08:56 | MHC.OT.DC ---
[address] [phone] F: [phone] Occupational Therapy Discharge Note Patient Name: Keli Flores Provider: Dr Brooklynn Lujan Diagnosis: B/L hand pain Date of Evaluation: 11/01/22 Date of Discharge: 11/20/22 Treatments to Date: 4 Discharge Status: Independent with HEP Patient Elected to Stop Discharge Summary: Keli was referred to OT w/ B/L hand pain, due to arthritis and carpal tunnel syndrome. She is post-op left carpal tunnel release and reports relief, but is not interested in undergoing for right side, although she reports persistent pain and nighttime numbness in right hand and digits. No significant interchange agent bried course of therapy, she continues to have pain in digits and nighttime numbness in right hand and is non-compliant w/ recommendations for nighttime orthosis wear. She has good understanding of exercises, but would benefit from increased daily activity and movement overall. She has cancelled last appt and has family coming to visit and is not booking further appts at this time. Electronically Signed By: Nicolle Walker OTR/L CHT Reviewed/agree with student documentation: Therapist: Please Sign and return to therapist, thank you for your referral.
== END 2022-11-20 08:57 | disposition home or self-care (01) ==
LOC: HO.OT 08:00
PROVIDERS: PCP Internal Medicine; Visit Provider Orthopaedic Surgery
DX: M79.641 Pain in right hand (principal); M79.642 Pain in left hand
CPT/HCPCS: 29125; 97035; 97110; 97165; 97535; 97760

== ENCOUNTER 2022-11-20 10:56 | Outpatient (REF) | payer MEDICAID, SELFPAY ==
[2022-11-20 15:35] LABS: Rheumatoid Factor < 13.0 IU/mL (<15.0)
[2022-11-20 15:44] LABS: Alanine Aminotransferase 41 U/L (0-31); Albumin Level 3.9 g/dL (3.5-5.0); Alkaline Phosphatase 92 U/L (39-117); Anion Gap 12 (12-20); Aspartate Amino Transferase 30 U/L (5-31); Bilirubin Direct 0.2 mg/dL (0.0-0.5); Bilirubin Total 0.5 mg/dL (0.0-1.0); Blood Urea Nitrogen 20 mg/dL (9-16); C Reactive Protein 0.85 mg/dL (< or = 0.50); Calcium 9.7 mg/dL (8.4-10.2); Carbon Dioxide 27 mmol/L (22-29); Chloride 107 mmol/L (96-108); Cholesterol 193 mg/dL; Estimated Glomerular Filt Rate > 60; Glucose Random 92 mg/dL (60-115); HDL Cholesterol 35 mg/dL; LDL Cholesterol Calculated 130 mg/dl; Potassium 3.7 mmol/L (3.3-5.1); Sodium 142 mmol/L (135-145); Triglycerides 141 mg/dL
[2022-11-20 15:50] LABS: TSH reflex Free T4 1.49 uIU/mL (0.32-4.0)
[2022-11-25 10:18] LABS: Anti Nuclear Antibody Screen POSITIVE (NEGATIVE)
== END 2022-11-20 10:57 | disposition home or self-care (01) ==
LOC: HO.CHCLDS 10:56
PROVIDERS: Visit Provider Internal Medicine
DX: E78.00 Pure hypercholesterolemia, unspecified (principal)
CPT/HCPCS: 36415; 80048; 80061; 80076; 84443; 86038; 86039; 86140; 86431

== ENCOUNTER 2022-11-27 08:34 | Outpatient (REF) | payer MEDICAID, SELFPAY ==
[2022-11-27 14:37] LABS: Estimated Average Glucose 123 mg/dL; Hemoglobin A1c % 5.9 %
== END 2022-11-27 08:35 | disposition home or self-care (01) ==
LOC: HO.CHCLDS 08:34
PROVIDERS: Visit Provider Internal Medicine
DX: R73.03 Prediabetes (principal)
CPT/HCPCS: 36415; 83036

== ENCOUNTER 2023-01-05 15:14 | Outpatient (REF) | payer MEDICAID, SELFPAY | END 2023-01-05 15:15 | disposition home or self-care (01) | LOC: HO.CHCLNP 15:14 | PROVIDERS: Visit Provider Internal Medicine | DX: R35.0 Frequency of micturition (principal) | CPT/HCPCS: 87086 ==

== ENCOUNTER 2023-01-18 13:26 | Outpatient (AMB) | payer MEDICAID, SELFPAY ==
[2023-01-18 13:33] VITALS: BP 122/76; BMI 35.1
--- NOTE | 2023-01-18 13:33 | A.OFFVIS_ITS ---
Intake Vital Signs 01/18/23 13:33 Height 4 ft 10 in Weight 168 lb BMI 35.1 BP 122/76 Intake Visit Reasons: HMB/PCP referral Intake Note: Heavy menses The patient agreed to use of a medical records coder during this encounter. Scribed for DELANO Francisco by Sherley Tadeo, medical records coder, on 01/18/2023 at 1:50 pm EST. Salesperson Pets And Pet Supplies Required: Yes Salesperson Pets And Pet Supplies Language: Environmental Aide Name: Stephanie HANDLEY Information Interpreted: non-clinical & clinical Acid Concentrator: Acid Concentrator Present (Stephanie HANDLEY) Accompanied by: Self / Same As Patient Allergies Sulfa (Sulfonamide Antibiotics) [SULFA (SULFONAMIDE ANTIBIOTICS)] Allergy (Intermediate, Verified 01/18/23 13:36) Rash Is last menstrual period known: No HPI HPI Comments History of Present Illness Details She is here today via PCP referral regarding PMB. Reports she did not have a menses for over a year but had vaginal bleeding in August for 8 days and none since. Unsure of last pap smear date. 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 FINDINGS: The uterus measures 9.1 x 5.3 x 5.9 cm in longitudinal by AP by transverse dimension. The endometrial stripe is not thickened and measures 0.5 cm. Small amount of fluid noted within the endometrium. A few nabothian cysts are noted within the cervix. The left ovary measures approximately 2.9 x 2.1 x 2.4 cm and is normal. The right ovary measures approximately 3.6 x 2.4 x 2.0 cm and is also normal. There is a 3.3 cm hypoechoic avascular structure noted within the left endometrium which is nonspecific. There is no free fluid in the pelvis. US/US pelvic and transvaginal IMPRESSION: 1. Endometrial stripe measures 5 mm in thickness. There is a small amount of fluid noted within the endometrium. 2. 3.3 cm hypoechoic avascular structure noted within the left endometrium. This is a nonspecific finding. This may represent a loop of bowel or possibly a complex exophytic adnexal abnormality. Clinical correlation is recommended. Short-term interval follow-up ultrasound may be warranted. Alternatively, CT imaging of the pelvis with IV contrast may provide additional diagnostic information. 10/13/22 EXAMINATION: US PELVIS CLINICAL INFORMATION: Abnormal endometrium. COMPARISON: None available. TECHNIQUE: Ultrasound of the pelvis is performed using both transabdominal and transvaginal transducers along with Doppler. Transvaginal imaging is performed due to inadequate visualization transabdominally. FINDINGS: UTERUS: The uterus is anteverted and measures 8.0 x 5.1 x 5.0 cm. The double wall endometrial thickness is 0.7 mm. The uterus is smooth in contour and has normal myometrial echogenicity. No visible fibroid. Nabothian cysts are present in the cervix along with a 2 mm calcification. ADNEXA: Both ovaries are visualized. Follicular cysts are present bilaterally. There is normal color flow to the adnexa. There is no ovarian torsion. There is no pelvic ascites or fluid collection. Right ovary measures 3.0 x 2.1 x 2.3 cm for a volume of 6.4 mL. Left ovary measures 2.9 x 2.0 x 2.1 cm for a volume of 7.4 mL. The previously seen questionable 3.3 cm hypoechoic avascular structure in the left adnexa is not seen on the current study. US/US pelvic and transvaginal IMPRESSION: No significant abnormality is seen. Laboratory Tests 09/18/22 11/20/22 08:55 11:00 Hgb 13.6 Hct 39.8 TSH 1.49 Assessment & Plan Assessment & Plan (1) PMB (postmenopausal bleeding): Code(s): N95.0 - Postmenopausal bleeding Plan: Discussed: Work up including EMB. The EMB purpose was explained to rule out atypia, hyperplasia and uterine cancer. Reviewed procedure and instructed to take an OTC i.e. Advil (3 with food) 1 hour prior to procedure. Explained if pt refuses EMB it would be delayed care and treatment; she is agreeable to return and complete this procedure. Go to ER with any prolonged or heavy bleeding. All of her questions and concerns were addressed to the best of my ability and shared decision making: EMBx. She is agreeable to plan of care. Sign release of records for recent pap smear and cultures. All of her questions and concerns were addressed to the best of my ability and shared decision making. She is agreeable to plan of care. RTO for EMB. (2) Bipolar 1 disorder: Code(s): F31.9 - Bipolar disorder, unspecified Coding Level of Care Code New Pt Level 4 (79820) Diagnoses PMB (postmenopausal bleeding) N95.0 Bipolar 1 disorder F31.9
== END 2023-01-18 14:45 | disposition home or self-care (01) ==
PROVIDERS: PCP Internal Medicine; Visit Provider Advanced Practice Midwife
DX: N95.0 Postmenopausal bleeding (principal); F31.9 Bipolar disorder, unspecified
CPT/HCPCS: 99204

== ENCOUNTER → 2023-01-18 13:26 | Outpatient (BNVA) | payer MEDICAID, SELFPAY | PROVIDERS: PCP Internal Medicine; Visit Provider Advanced Practice Midwife | DX: N95.0 Postmenopausal bleeding (principal); F31.9 Bipolar disorder, unspecified | CPT/HCPCS: 99212 ==

== ENCOUNTER 2023-01-26 12:51 | Outpatient (AMB) | payer MEDICAID, SELFPAY ==
[2023-01-26 12:57] VITALS: BP 124/72; PULSE 59; TEMP 36.4; O2SAT 98; BMI 34.7
--- NOTE | 2023-01-26 12:57 | MHC.OFFVIS ---
Intake Vital Signs 01/26/23 12:57 Height 4 ft 10 in Weight 166 lb 3.657 oz BMI 34.7 BP 124/72 Blood Pressure Location Rt brachial Position Sitting Pulse 59 Pulse Source Pulse Oximeter Temp 97.6 F Temp Source Skin Pulse Oximetry (%) 98 Intake Visit Reasons: +MOIZ Intake Note: New pt presents today for abnormal lab. C/o pain everywhere Superintendent Container Terminal Required: Yes Superintendent Container Terminal Name: Samantha Monroe Information Interpreted: clinical only Accompanied by: Self / Same As Patient Allergies Sulfa (Sulfonamide Antibiotics) [SULFA (SULFONAMIDE ANTIBIOTICS)] Allergy (Intermediate, Verified 01/26/23 12:59) Rash Medication List - Last Reconciled 01/26/23 by Rustam Jurado MD amitriptyline 25 mg PO BEDTIME atenolol 25 mg PO QAM cefuroxime axetil 250 mg PO BID 7 days cetirizine 10 mg PO DAILY cyanocobalamin (vitamin B-12) 1,000 mcg IM epinephrine (EpiPen) 0.3 mg (0.3 mL) IM ONCE PRN ergocalciferol (vitamin D2) 1,250 mcg PO QWEEK hydroxyzine HCl 25 mg PO ibuprofen 600 mg PO Q6H PRN lisinopril-hydrochlorothiazide 10-12.5 mg 1 tab PO QAM omeprazole 20 mg PO DAILY HPI HPI Comments History of Present Illness Details This is a 47-year-old female who was referred for evaluation of a positive MOIZ. Patient states that she has diffuse pain everywhere, dizziness, headaches, she was diagnosed with carpal tunnel syndrome a few years ago and had left carpal tunnel release procedure for her left hand. She was afraid to do the right hand. She stated that she did not get much improvement when she had a surgery on the left. She denies any history of DVT/PE she is unaware of any family history of autoimmune rheumatic disease PFSH Medical History High cholesterol Vitamin D deficiency PMB (postmenopausal bleeding) Right ankle sprain Depression Anxiety Hypertension Diabetes Chronic headache Surgical History History of carpal tunnel release H/O tubal ligation H/O hernia repair Family History Mother Lung abnormality Father Heart disease Social History Household Members Other:: Son Alcohol intake: current Alcohol intake frequency: does not drink Patient Tobacco Use Status: Current someday Tobacco user Current occupational status: unemployed Female Reproductive History Menstrual Total pregnancies: 3 Number of Living Children: 3 Review of Systems Musc Reports myalgias, Reports arthralgias, Reports numbness and Reports tingling Neuro Reports numbness and Reports tingling Physical Exam Vital Signs: Last Vital Signs Temp 97.6 F 01/26/23 12:57 BMI result Body Mass Index 34.7 Const General: cooperative, healthy appearing and comfortable Nutritional Appearance: obese Orientation/consciousness: patient oriented x3 Limitations: no limitations HEENT Head: Yes normocephalic and Yes atraumatic Mouth: moist mucous membranes Resp Effort & Inspection: normal respiratory effort and able to speak in complete sentences Auscultation: clear to auscultation bilaterally Cardio Rate: regular rate Rhythm: regular rhythm Neuro General: patient oriented x3 Extrem Other: Multiple fibromyalgia tender points Normal nailfold capillaroscopy Assessment & Plan Assessment & Plan (1) MOIZ positive: Code(s): R76.8 - Other specified abnormal immunological findings in serum Plan: This is a 47-year-old female who presents for evaluation of positive MOIZ 1-80 speckled and 1-80 mitotic pattern in the setting of diffuse pain. I do not see any evidence of an autoimmune rheumatic disease upon my evaluation. Previous comprehensive serology in 2019 was negative. Clinical picture consistent with fibromyalgia. Follow-up with PCP Plan I spent 20 minutes reviewing patient's chart, evaluating patient, counseling patient and documenting in the chart Coding Level of Care Code New Pt Level 3 (87266) Diagnoses MOIZ positive R76.8
== END 2023-01-26 13:23 | disposition home or self-care (01) ==
PROVIDERS: PCP Internal Medicine; Visit Provider Student in an Organized Health Care Education/Training Program
DX: R76.8 Other specified abnormal immunological findings in serum (principal)
CPT/HCPCS: 99203

== ENCOUNTER → 2023-01-26 12:51 | Outpatient (BNVA) | payer MEDICAID, SELFPAY | PROVIDERS: PCP Internal Medicine; Visit Provider Student in an Organized Health Care Education/Training Program ==

== ENCOUNTER 2023-02-08 08:57 | Outpatient (REF) | payer MEDICAID, SELFPAY | END 2023-02-08 08:58 | disposition home or self-care (01) | LOC: HO.LNP 08:57 | PROVIDERS: PCP Internal Medicine; Visit Provider Advanced Practice Midwife | DX: N95.0 Postmenopausal bleeding (principal) | CPT/HCPCS: 58100; 81025; 88305 ==

== ENCOUNTER 2023-02-08 08:57 | Outpatient (AMB) | payer MEDICAID, SELFPAY ==
--- NOTE | 2023-02-08 09:04 | A.OFFVIS_ITS ---
Intake Vital Signs 02/08/23 09:05 Height 4 ft 10 in Weight 166 lb BMI 34.7 BP 126/74 Intake Visit Reasons: EMB/30 mins Intake Note: The patient agreed to use of a territory sales manager medical during this encounter. Scribed for DELANO Francisco by Sherley Tadeo territory sales manager medical, on 02/08/2023. Inspector Assemblies And Installations Required: Yes Inspector Assemblies And Installations Language: Coffin Maker Name: Stephanie HANDLEY Information Interpreted: non-clinical & clinical Porcelain Enamel Installer: Porcelain Enamel Installer Present (Aidyn) Allergies Sulfa (Sulfonamide Antibiotics) [SULFA (SULFONAMIDE ANTIBIOTICS)] Allergy (Intermediate, Verified 02/08/23 09:10) Rash Post menopausal: No HPI HPI Comments History of Present Illness Details She is here to for a EMB for PMB. See procedure note. PFSH Medical History High cholesterol Vitamin D deficiency PMB (postmenopausal bleeding) Right ankle sprain Depression Anxiety Hypertension Diabetes Chronic headache Surgical History History of carpal tunnel release H/O tubal ligation H/O hernia repair Family History Mother Lung abnormality Father Heart disease Social History Household Members Other:: Son Alcohol intake: current Alcohol intake frequency: does not drink Patient Tobacco Use Status: Current someday Tobacco user Current occupational status: unemployed Female Reproductive History Menstrual Duration of menses: 8-10 days control method: permanent sterilization Date of last pap smear: 07/05/18 (negative) Physical Exam Vital Signs: Last Vital Signs BP 126/74 02/08/23 09:05 BMI result Body Mass Index 34.7 Const General: cooperative, healthy appearing, comfortable, no acute distress, well developed, alert and awake Other: General: Yes bladder normal to palpation External Female Exam: normal external appearance and normal appearance of the urethra Speculum Exam - Vagina: normal appearance of the vagina, normal palpation and normal vaginal discharge Speculum Exam - Cervix: normal appearance of the cervix and normal palpation Bimanual exam- vagina & uterus: normal bimanual exam, normal palpation, bladder normal to palpation and normal palpation Bimanual Exam- Adnexa, other: normal adnexae and no masses Office Procedures Endometrial Biopsy Details: HPI The patient is here today for an endometrial biopsy for PMB to rule out any pathology including atypical, hyperplasia or cancer cells of the uterus. She was counseled regarding anticipatory guidance for the procedure including the risks for pain, infection, bleeding, perforation, potential injury to the tissues may include the cervix, uterus, tubes, bladder and bowels. These injuries may include further treatment and evaluation including surgery, blood transfusions, antibiotics, hospitalizations and anesthesia. Permanent injury and scarring can occur. She was consented for the procedure, and the consent forms were signed. She is agreeable to have the procedure today. All questions were answered. A urine test was obtained and was negative. She denies any risks to . Procedure The patient was placed in the dorsal lithotomy position and a sterile speculum inserted. Using aseptic technique for the procedure. The cervix was cleansed with Betadine x 3 swabs A single toothed tenaculum was placed on the cervix for stabilization and the uterus was sounded to 9 cm with a 4mm pipelle for 3 passes. Minimal bleeding was observed. The patient tolerated the procedure well and was in good condition when leaving the department. The tissue sample was placed in formalin in a patient labeled container by staff assisting and sent to the pathology department for processing and interpretation. The patient tolerated the procedure well. Plan Nothing in the vagina including: tampons, douching or sex for 3 days. There may be some post procedure bleeding for several days, this bleeding is usually light and may turn to a light brown or pink color. Mild cramps may occur. You may take an over the counter mild analgesic such as Tylenol or Advil (if no allergies) per the manufacturers recommendation on dosing, frequency, and follow the directions completely. Call the office if any: SOB, fatigue, lightheadedness/dizziness, abd pain (worse than cramping), bloating or abd distention, foul odor or abnormal discharge or heavy vaginal bleeding. Schedule for a follow up visit for results, either in person or on the phone when the results are completed in a few weeks. [id number] Biopsy Results AMB Test Urine AMB Test Urine Negative Last Edit by ENDER Dooley on 02/08/23 09:15 Results Reviewed Results Reviewed: Laboratory Last Values [facility]st Clinic Negative 02/08/23 09:15 Assessment & Plan Assessment & Plan (1) PMB (postmenopausal bleeding): Code(s): N95.0 - Postmenopausal bleeding Plan: EMB today. See procedure note. Orders: Orders Surgical Today N95.0 - Postmenopausal bleeding AMB HCG Urine Test Today Z32.02 - Encounter for test, result negative Coding Level of Care Code Procedure Only Diagnoses PMB (postmenopausal bleeding) N95.0 CPT Codes Endometrial Biopsy - CPT: 10397-Hdgsaytdmur Biopsy ([id number])
[2023-02-08 09:05] VITALS: BP 126/74; BMI 34.7
== END 2023-02-08 09:46 | disposition home or self-care (01) ==
PROVIDERS: PCP Internal Medicine; Visit Provider Advanced Practice Midwife
DX: N95.0 Postmenopausal bleeding (principal); Z32.02 Encounter for pregnancy test, result negative
CPT/HCPCS: 58100

== ENCOUNTER 2023-03-23 10:43 | Outpatient (REF) | payer MEDICAID, SELFPAY ==
[2023-03-24 14:43] LABS: Follicle Stimulating Hormone 1.8 mIU/mL
== END 2023-03-23 10:44 | disposition home or self-care (01) ==
LOC: HO.LAB 10:43
PROVIDERS: PCP Internal Medicine; Visit Provider Advanced Practice Midwife
DX: R23.2 Flushing (principal); N95.0 Postmenopausal bleeding; N95.2 Postmenopausal atrophic vaginitis; Z71.2 Person consulting for explanation of examination or test findings
CPT/HCPCS: 36415; 83001; 99212

== ENCOUNTER 2023-03-23 10:43 | Outpatient (AMB) | payer MEDICAID, SELFPAY ==
--- NOTE | 2023-03-23 10:48 | MHC.OFFVIS ---
Intake Vital Signs 03/23/23 10:51 Height 4 ft 10 in Weight 165 lb 5.547 oz BMI 34.6 BP 120/72 Intake Visit Reasons: EMB Follow up/30 mins Intake Note: The patient agreed to use of a biomedical equipment support specialist during this encounter. Scribed for DELANO Francisco by Jocy Lim biomedical equipment support specialist, on 03/23/2023 at 10:55 am EST Interior Plant Caretaker Required: Yes Interior Plant Caretaker Language: Metal Refiner Name: Stephanie HANDLEY Information Interpreted: non-clinical & clinical Accompanied by: Self / Same As Patient Allergies Sulfa (Sulfonamide Antibiotics) [SULFA (SULFONAMIDE ANTIBIOTICS)] Allergy (Intermediate, Verified 03/23/23 10:51) Rash HPI HPI Comments History of Present Illness Details She presents to discuss EMB results secondary to PMB. She reported not having a menses for one year, she feels that her menses may come again, having premenstrual sx. She admits to hot flashes. [facility] Medical History High cholesterol Vitamin D deficiency PMB (postmenopausal bleeding) Right ankle sprain Depression Anxiety Hypertension Diabetes Chronic headache Surgical History History of carpal tunnel release H/O tubal ligation H/O hernia repair Family History Mother Lung abnormality Father Heart disease Social History Household Members Other:: Son Alcohol intake: current Alcohol intake frequency: does not drink Patient Tobacco Use Status: Current someday Tobacco user Current occupational status: unemployed Review of Systems Const All systems reviewed & are unremarkable except as noted in HPI and below Reports hot flashes Physical Exam Vital Signs: Last Vital Signs BP 120/72 03/23/23 10:51 BMI result Body Mass Index 34.6 Const General: cooperative, healthy appearing, no acute distress, well developed and alert Results Reviewed Results Reviewed: Endometrium, biopsy: - Inactive endometrium; no atypia or hyperplasia identified. - Few strips of endocervical epithelium and degenerated squamous epithelium without atypia Assessment & Plan Assessment & Plan (1) Encounter to discuss test results: Code(s): Z71.2 - Person consulting for explanation of examination or test findings Plan: Reviewed test results with patient. Instructed to contact office with any PMB. RTO September 2023 for AG. (2) PMB (postmenopausal bleeding): Code(s): N95.0 - Postmenopausal bleeding (3) Hot flashes due to menopause: Code(s): N95.1 - Menopausal and female climacteric states Orders: Orders Follicle Stimulating Hormone Today R23.2 - [place] Coding Level of Care Code Est Pt Level 3 (40666) Diagnoses Encounter to discuss test results Z71.2 PMB (postmenopausal bleeding) N95.0 Hot flashes due to menopause N95.1
[2023-03-23 10:51] VITALS: BP 120/72; BMI 34.6
== END 2023-03-23 10:58 | disposition home or self-care (01) ==
LOC: HO.HWS 10:43
PROVIDERS: PCP Internal Medicine; Visit Provider Advanced Practice Midwife
DX: Z71.2 Person consulting for explanation of examination or test findings (principal); N95.0 Postmenopausal bleeding; N95.1 Menopausal and female climacteric states
CPT/HCPCS: 99213

== ENCOUNTER 2024-02-01 19:03 | Emergency (ER) | payer MEDICAID, SELFPAY ==
--- NOTE | 2024-02-01 19:10 | ECG_ITS ---
Test Reason : jaw pain Blood Pressure : / mmHG Vent. Rate : 074 BPM Atrial Rate : 074 BPM P-R Int : 142 ms QRS Dur : 074 ms QT Int : 382 ms P-R-T Axes : 014 040 052 degrees QTc Int : 424 ms Normal sinus rhythm Nonspecific T wave abnormality Abnormal ECG When compared with ECG of 18-SEP-2022 08:36, No significant change was found Referred By: Daisha Fuchs Electronically Signed By:ALEXA JONES
--- NOTE | 2024-02-01 19:24 | ED_ITS ---
HPI - Dental/Oral General Chief complaint: Dental/Oral Stated complaint: R Jaw, gum and teeth pain Time Seen by Provider: 02/01/24 21:02 Source: patient Mode of arrival: ambulatory Limitations: no limitations History of Present Illness ED Provider: flor HPI Narrative: Patient has chronic right lower jaw pain for several weeks seen dentist multiple times for same no new cavity seen patient just saw dentist yesterday still having the pain in the gumline no fever no chills Related Data Home Medications ?Medication ?Instructions ?Recorded ?Confirmed hydroxyzine HCl 25 mg tablet 25 mg PO itch 01/10/22 amitriptyline 25 mg tablet 25 mg PO BEDTIME 01/26/23 atenolol 25 mg tablet 25 mg PO QAM 01/26/23 cyanocobalamin (vitamin B-12) 1,000 mcg IM 01/26/23 1,000 mcg/mL injection solution ergocalciferol (vitamin D2) 1,250 1,250 mcg PO QWEEK 01/26/23 mcg (50,000 unit) capsule ibuprofen 600 mg tablet 600 mg PO Q6H PRN pain 01/26/23 lisinopril 10 1 tab PO QAM 01/26/23 mg-hydrochlorothiazide 12.5 mg tablet Previous Rx's ?Medication ?Instructions ?Recorded epinephrine 0.3 mg/0.3 mL 0.3 mg (0.3 mL) IM ONCE PRN 10/16/21 injection, auto-injector (EpiPen) extreme reaction #1 ea cetirizine 10 mg tablet 10 mg PO DAILY #20 tabs 10/18/21 omeprazole 20 mg capsule,delayed 20 mg PO DAILY #30 caps 09/18/22 release cefuroxime axetil 250 mg tablet 250 mg PO BID 7 days #14 tabs 09/22/22 tramadol 50 mg tablet 50 mg PO Q8-10H PRN pain #20 tabs 02/01/24 Allergies Allergy/AdvReac Type Severity Reaction Status Date / Time Sulfa (Sulfonamide Allergy Intermediate Rash Verified 02/01/24 19:27 Antibiotics) [SULFA (SULFONAMIDE ANTIBIOTICS)] shellfish derived Allergy Rash Verified 02/01/24 21:53 Review of Systems 2 Review of Systems: Yes all other systems are reviewed and are negative PMFSH Past Medical History Medical History High cholesterol Vitamin D deficiency PMB (postmenopausal bleeding) Right ankle sprain Depression Anxiety Hypertension Diabetes Chronic headache Surgical History History of carpal tunnel release H/O tubal ligation H/O hernia repair Family History Family History Mother Lung abnormality Father Heart disease Social History Social History Household Members Other:: Son Alcohol intake: current Alcohol intake frequency: does not drink Patient Tobacco Use Status: Current someday Tobacco user Advance Directives: No Advance Directives Information Provided: No Do you have a plan to hurt others: No Plan Current occupational status: unemployed Physical Exam 2 Vital Signs: Vital Signs: Last Vital Signs Temp 97.9 F 02/01/24 19:25 Pulse 85 02/01/24 19:25 Resp 18 02/01/24 19:25 BP 142/84 H 02/01/24 19:25 Pulse Ox 98 02/01/24 19:25 O2 Del Method Room Air 02/01/24 19:25 BMI result Body Mass Index 34.6 HEENT: Ears: hearing grossly normal bilaterally, TM's normal bilaterally, EAC's normal, mastoids normal and no periauricular adenopathy Teeth image: 1. Diffuse pain in the gum line no cavity was seen no significant swelling was seen Course Course Course Narrative: This is a Rapid Medical Exam performed in triage by Daisha Fuchs PA-C. Full HPI, ROS and PE to be performed by primary ED provider. 48-year-old female with past medical history HLD presenting to the ED c/o right sided jaw/facial & dental pain s/p root canal on Sunday. Admits pain radiates to R ear. Has been taking Tylenol w/o relief. Denies SOB/CP. Is scheduled for another root canal on Sunday PE: Poor dentition. no appreciable abscess or cellulitis. No facial swelling Plan: EKG, Labs Medications Administered Discontinued Medications Generic Name Dose Route Start Last Admin Trade Name Freq PRN Reason Stop Dose Admin Potassium Chloride 10 meq 02/01/24 21:42 02/01/24 21:55 Potassium Chloride Er 10 Meq Tablet.Er PO 02/01/24 21:43 10 meq ONCE ONE Administration Tramadol HCl 50 mg 02/01/24 21:42 02/01/24 21:53 Tramadol Hcl 50 Mg Tablet PO 02/01/24 21:43 50 mg ONCE ONE Administration Medical Decision Making Medical Decision Making [facility] Narrative: Patient with chronic gum pain seen dentist in the past follow up with dentist will give some tramadol for pain incidentally noticed her potassium 3 without EKG changes will give her p.o. potassium advised to take extra potassium Lab Data [facility] Lab Attestation statement: I reviewed the patient's lab results. 02/01/24 19:50 02/01/24 19:50 Labs: Lab Results 02/01/24 Range/Units 19:50 WBC 9.6 (4.8-10.8) X10*3/uL RBC 3.72 L (4.20-5.50) X10*6/uL Hgb 11.8 L (12.0-16.0) g/dl Hct 33.4 L (37.0-47.0) % MCV 89.8 (80.0-98.0) fL MCH 31.7 (27.0-33.0) pg MCHC 35.3 H (31.0-35.0) g/dl RDW 13.8 (11.0-16.0) % Plt Count 293 (160-400) X10*3/uL MPV 11.1 (9.4-12.3) fL Immature Gran % (Auto) 0.1 (0.0-0.4) % Neut % (Auto) 57.6 (45-73) % Lymph % (Auto) 33.6 (20-40) % Pender % (Auto) 6.6 (2-11) % Eos % (Auto) 1.8 (0-4) % Baso % (Auto) 0.3 (0-2) % Lymph # (Auto) 3.2 (1.2-4.9) X10*3/uL Pender # (Auto) 0.6 (0.1-1.2) X10*3/uL Eos # (Auto) 0.2 (0.0-0.4) X10*3/uL Baso # (Auto) 0.0 (0.0-0.2) X10*3/uL Abs Immat Gran (auto) 0.01 (0.00-0.03) X10*3/uL Absolute Neuts (auto) 5.5 (2.0-8.3) x10*3/uL Absolute Nucleated RBC 0.000 (0.0-0.012) X10*3/uL Nucleated RBC % (auto) 0.0 (0.0-0.2) /100WBC Sodium 142 (135-145) mmol/L Potassium 3.0 L (3.3-5.1) mmol/L Chloride 103 (96-108) mmol/L Carbon Dioxide 30 H (22-29) mmol/L Anion Gap 12 (12-20) BUN 16 (9-16) mg/dL Creatinine 0.83 (0.5-1.4) mg/dL Estim Creat Clear Calc 68.3 Estimated GFR > 60 Random Glucose 127 H (60-115) mg/dL Calcium 9.4 (8.4-10.2) mg/dL Troponin I High Sens < 2.7 (<3.5-17.0) ng/L Independent Interpretation I performed an independent interpretation of an: EKG Interpretation: Normal sinus rhythm heart rate 74 beats per minute normal intervals normal axis no acute ST-T no acute ischemia Discharge Plan Discharge Clinical Impression: Pain in gums, Hypokalemia Patient Disposition: Home, Self-Care Instructions: Gingivitis (ED), Hypokalemia (ED) Additional Instructions: Your potassium level was slightly low have extra bananas/orange juice daily Take pain medication as prescribed And follow up with your dentist Prescriptions: New tramadol 50 mg tablet 50 mg PO Q8-10H PRN (Reason: pain) Qty: 20 0RF No Action cetirizine 10 mg tablet 10 mg PO DAILY Qty: 20 0RF epinephrine [EpiPen] 0.3 mg/0.3 mL auto-injector 0.3 mg IM ONCE PRN (Reason: extreme reaction) Qty: 1 0RF Rx Instructions: for 2 doses omeprazole 20 mg capsule,delayed release(DR/EC) 20 mg PO DAILY Qty: 30 0RF cefuroxime axetil 250 mg tablet 250 mg PO BID 7 Days Qty: 14 0RF hydroxyzine HCl 25 mg tablet 25 mg PO amitriptyline 25 mg tablet 25 mg PO BEDTIME atenolol 25 mg tablet 25 mg PO QAM lisinopril-hydrochlorothiazide 10-12.5 mg tablet 1 tab PO QAM ibuprofen 600 mg tablet 600 mg PO Q6H PRN (Reason: pain) ergocalciferol (vitamin D2) 1,250 mcg (50,000 unit) capsule 1,250 mcg PO QWEEK cyanocobalamin (vitamin B-12) 1,000 mcg/mL solution 1,000 mcg IM Interventions: ED Discharge Assessment Last Done: 02/01/24 22:17 Print Language: Tamazight
[2024-02-01 19:25] VITALS: BP 142/84; PULSE 85; RESP 18; TEMP 36.6; O2SAT 98; BMI 34.6
[2024-02-01 19:55] LABS: MANUAL DIFF FLAG NO
[2024-02-01 19:57] LABS: Basophils Percent Auto 0.3 % (0-2); Eosinophils Absolute Auto 0.2 X10*3/uL (0.0-0.4); Eosinophils Percent Auto 1.8 % (0-4); Hematocrit 33.4 % (37.0-47.0); Hemoglobin 11.8 g/dl (12.0-16.0); Imm Gran Abs Auto 0.01 X10*3/uL (0.00-0.03); Imm Gran Pct Auto 0.1 % (0.0-0.4); Lymphocytes Absolute Auto 3.2 X10*3/uL (1.2-4.9); Lymphocytes Percent Auto 33.6 % (20-40); Mean Corpuscular HGB Conc 35.3 g/dl (31.0-35.0); Mean Corpuscular Hemoglobin 31.7 pg (27.0-33.0); Mean Corpuscular Volume 89.8 fL (80.0-98.0); Mean Platelet Volume 11.1 fL (9.4-12.3); Monocytes Absolute Auto 0.6 X10*3/uL (0.1-1.2); Monocytes Percent Auto 6.6 % (2-11); Neutrophils Absolute Auto 5.5 x10*3/uL (2.0-8.3); Neutrophils Percent Auto 57.6 % (45-73); Platelet Count 293 X10*3/uL (160-400); Red Blood Count 3.72 X10*6/uL (4.20-5.50); Red Cell Distribution Width 13.8 % (11.0-16.0); White Blood Count 9.6 X10*3/uL (4.8-10.8)
[2024-02-01 20:11] LABS: Anion Gap 12 (12-20); Blood Urea Nitrogen 16 mg/dL (9-16); Calcium 9.4 mg/dL (8.4-10.2); Carbon Dioxide 30 mmol/L (22-29); Chloride 103 mmol/L (96-108); Creatinine Clr Calc Pharmacy 68.3; Estimated Glomerular Filt Rate > 60; Glucose Random 127 mg/dL (60-115); Sodium 142 mmol/L (135-145)
[2024-02-01 20:21] LABS: Troponin-I High Sensitivity < 2.7 ng/L (<3.5-17.0)
[2024-02-01] MEDS: traMADoL HCL 50 MG TABLET PO (21:53)
[2024-02-01] MEDS: Potassium Chloride ER 10 MEQ TABLET.ER PO (21:55)
[2024-02-01 22:17] VITALS: BP 142/84; PULSE 85; RESP 18; TEMP 36.6; O2SAT 98
== END 2024-02-01 22:17 | disposition home or self-care (01) ==
PROVIDERS: Physician Assistant; Emergency Provider Internal Medicine
DX: K08.89 Other specified disorders of teeth and supporting structures (principal); E87.6 Hypokalemia; R68.84 Jaw pain; E11.9 Type 2 diabetes mellitus without complications; I10 Essential (primary) hypertension; E78.5 Hyperlipidemia, unspecified; F17.200 Nicotine dependence, unspecified, uncomplicated; Z79.899 Other long term (current) drug therapy
CPT/HCPCS: 36415; 80048; 84484; 85025; 93005; 99283

== ENCOUNTER 2024-02-27 09:21 | Outpatient (REF) | payer MEDICAID, SELFPAY ==
[2024-02-27 15:03] LABS: Anion Gap 12 (12-20); Blood Urea Nitrogen 17 mg/dL (9-16); Calcium 9.5 mg/dL (8.4-10.2); Carbon Dioxide 27 mmol/L (22-29); Chloride 105 mmol/L (96-108); Estimated Glomerular Filt Rate > 60; Glucose Random 108 mg/dL (60-115); Potassium 3.4 mmol/L (3.3-5.1); Sodium 141 mmol/L (135-145)
== END 2024-02-27 09:22 | disposition home or self-care (01) ==
LOC: HO.CHCLDS 09:21
PROVIDERS: Visit Provider Internal Medicine
DX: E87.6 Hypokalemia (principal)
CPT/HCPCS: 36415; 80048

== ENCOUNTER 2024-04-29 10:11 | Outpatient (REF) | payer MEDICAID, SELFPAY ==
[2024-05-01 14:59] LABS: ~HepC Num1 0.08 S/CO (0.00-0.79); ~Hepatitis C Antibody Nonreactive (Nonreactive)
== END 2024-04-29 10:12 | disposition home or self-care (01) ==
LOC: HO.CHCLDS 10:11
PROVIDERS: Visit Provider Internal Medicine
DX: R73.03 Prediabetes (principal); K59.09 Other constipation; E66.811 Obesity, class 1; E66.09 Other obesity due to excess calories; Z68.33 Body mass index [BMI] 33.0-33.9, adult
CPT/HCPCS: 36415; 86803

== ENCOUNTER 2024-07-09 10:03 | Outpatient (REF) | payer MEDICAID, SELFPAY ==
--- NOTE | ~2024-07-09 | XR_ITS ---
EXAMINATION: XR CHEST CLINICAL INFORMATION: right chest pain COMPARISON: October 24, 2021. TECHNIQUE: 2 views of the chest were obtained. FINDINGS: No consolidation, pleural effusion or pneumothorax. No hyperinflation. Cardiomediastinal silhouette size is normal. Round cardiac apex. Multilevel thoracolumbar spondylosis. XR/XR chest 2V IMPRESSION: No acute airspace disease. Multilevel spondylosis, thoracolumbar spine. Electronically signed by: Jared Johnson MD 07/09/2024 10:19 AM CHELO
--- OUTSIDE RECORDS SUMMARY | 2024-07-09 11:49 | XMS_ITS | Encounter Summary ---
Author Organization [email or web address] [facility] Address [address] [place] [address] [facility] [place] [address] Care Team Providers Care Armature Repairer Name Role Phone Sumanth Llanos MD Primary Care Provider [phone]- [phone] Encounter Details Date Type Department Care Team ([facility] Contact Info) Description 01/09/2023 Orders Only [facility] [address] [place] [address] Sumanth Llanos MD [address] [place] [address] Social History Tobacco Use Types Packs/Day Years Used Date Smoking Tobacco: Some Days Cigarettes Passive Smoke Exposure: Current Smokeless Tobacco: Never Alcohol Use Standard Drinks/Week Comments Never 0 (1 standard drink = 0.6 oz pur e alcohol) Depression Answer Date Recorded Patient Health Questionnaire-9 Score 15 05/31/2022 Depression Answer Date Recorded Patient Health Questionnaire-2 Score 4 05/31/2022 Comments No Sex and Gender Information Value Date Recorded Sex Assigned at Female 03/06/2022 10:21 AM EDT Legal Sex Female 10:21 AM EDT Gender Identity Female 03/06/2022 10:21 AM EDT Sexual Orientation Straight 03/06/2022 10 :21 AM EDT documented as of this encounter Plan of Treatment Upcoming Encounters Date Type Department Care Team ([facility] Contact Info) Description 07/17/2024 11:30 AM EDT Office Visit [facility] [address] [place] [address] Sumanth Llanos MD [address] [place] [address] 07/22/2024 8:00 AM EDT Office Visit [facility]ULT [facility]AL [address] [place] [address] Kevon Silva [address] [place] [address] documented as of this encounter Goals Goal Patient Goal Type Associated Problems Recent Progress Patient-Stated? Author Blood Pressure < 140/90 Blood Pressure 124/79(2024 9:18 AM EST) No Luis Springer, PharmD Patient will adhere to medication regimen General Improving(12/2022 9:16 AM EDT) No DelOg amayais, PharmD Hemoglobin A1c < 6.5 Result Component 5.8( 1:34 PM EST) No Luis Springer, PharmD documented as of this encounter Visit Diagnoses Not on filedocumented in this encounter Additional Health Concerns Assessment Noted Time PHQ-9 Depression Total Score: 15 023 9:06 AM EST documented as of this encounter Care Teams Armature Repairer Relationship Specialty Start Date End Date Sumanth Llanos MD [address] [place] [address] PCP - General Internal Medicine 05/07/18 documented as of this encounter
--- OUTSIDE RECORDS SUMMARY | 2024-07-09 11:49 | XMS_ITS | Encounter Summary ---
Author Organization [employer] [facility] Address [address] [place] [address] 7 [place] [address] Care Team Providers Care Private Investigator Surveillance Name Role Phone Sumanth Llanos MD Primary Care Provider [phone]- [phone] Encounter Details Date Type Department Care Team ([facility] Contact Info) Description 12/21/2023 Orders Only [facility] [address] [place] [address] Sumanth Llanos MD [address] [place], [place] [phone] Recurrent herpes labialis (Primary Dx) Social History Tobacco Use Types Packs/Day Years [...] Description 07/17/2024 11:30 AM EDT Office Visit [facility] [address] [place], [place] [phone] Sumanth Llanos MD [address] [place], [place] [phone] 07/22/2024 8:00 AM EDT Office Visit [facility] ADULT DENTAL [address] [place] [address] RicardoKevon alfaro [address] [place] [address] documented as of this encounter Goals Goal Patient Goal Type Associated Problems Recent Progress Patient-Stated? Author Blood Pressure < 140/90 Blood Pressure 124/79(2024 9:18 AM EST) No Dellogono, Luis, PharmD Patient will adhere to medication regimen General Improving(12/2022 9:16 AM EDT) No Dellogono, Luis, PharmD Hemoglobin A1c < 6.5 Result Component 5.8( 4 1:34 PM EST) No Dellogono, Luis, PharmD documented as of this encounter Visit Diagnoses Diagnosis Recurrent herpes labialis- Primary Herpes simplex without mention of complication documented in this encounter Additional Health Concerns Assessment Noted Time PHQ-9 Depression Total Score: 15 023 9:06 AM EST documented as of this encounter Care Teams Private Investigator Surveillance Relationship Specialty Start Date End Date Sumanth Llanos MD [address] [place] [address] PCP - General Internal Medicine 05/07/18 documented as of this encounter
--- OUTSIDE RECORDS SUMMARY | 2024-07-09 11:49 | XMS_ITS | Encounter Summary ---
Author Organization [employer] [facility] Address [address] [place] [address] 7 [place] [address] Care Team Providers Care Equipment Washer Name Role Phone Sumanth Llanos MD Primary Care Provider Encounter Details Date Type Department Care Team (Late Contact Info) Description 04/17/2022 Orders Only [facility] MED[facility] [address] [place], [place] [phone] Sumanth Llanos MD [address] [place], [place] [phone] Vitamin B12 deficiency (Primary Dx) Social History Tobacco Use Types Packs/Day Years Used Date Smoking Tobacco: Never Assessed Comments Unknown Sex and Gender Information Value Date Recorded Sex Assigned at Female 03/06/2022 10:21 AM EDT Legal Sex Female 10:21 AM EDT Gender Identity Female 03/06/2022 10:21 AM EDT Sexual Orientation Straight 03/06/2022 10 :21 AM EDT COVID-19 Exposure Response Date Recorded In the last 10 days, have yo u been in contact with someone who was confirmed or suspected to have Coronavirus/COVID-19? No / Unsure 04/17/2022 9:19 AM EST documented as of this encounter Plan of Treatment Upcoming Encounters Date Type Department Care Team (Late Contact Info) Description 07/17/2024 11:30 AM EDT Office Visit [facility] PEDS [address] [place], [place] [phone] Sumanth Llanos MD [address] [place], [place] [phone] 07/22/2024 8:00 AM EDT Office Visit [facility] ADULT DENTAL [address] [place] [address] Kevon Silva [address] [place] [address] documented as of this encounter Visit Diagnoses Diagnosis Vitamin B12 deficiency- Primary Other B-complex deficiencies documented in this encounter Care Teams Equipment Washer Relationship Specialty Start Date End Date Sumanth Llanos MD [address] [place] [address] PCP - General Internal Medicine 05/07/18 documented as of this encounter
--- OUTSIDE RECORDS SUMMARY | 2024-07-09 11:49 | XMS_ITS | Encounter Summary ---
Author Organization [employer] [facility] Address [address] [facility] 7 [place] [address] Care Team Providers Care Telephone Information Supervisor Name Role Phone Sumanth Llanos MD Primary Care Provider [phone]- [phone] Reason for Visit * Reason Onset Date Comments status 07/19/2022 Encounter Details Date Type Department Care Team ([facility] st Contact Info) Description 07/19/2022 Telephone [facility] [address] [place], [place] [phone] Sumanth Llanos MD [address] [facility] [place] [phone] status Social History Tobacco Use Types Packs/Day Years Used Date Smoking Tobacco: Some Days Cigarettes Passive Smoke Exposure: Current Smokeless Tobacco: Never Alcohol Use Standard Drinks/Week Comments Never 0 (1 standard drink = 0.6 oz pur e alcohol) Depression Answer Date Recorded Patient Health Questionnaire-9 Score 15 05/31/2022 Depression Answer Date Recorded Patient Health Questionnaire-2 Score 4 05/31/2022 Comments Unknown Sex and Gender Information Value [...] suspected to have Coronavirus/COVID-19? No / Unsure 07/19/2022 8:31 AM EDT documented as of this encounter Miscellaneous Notes * Telephone Encounter - Kevin Chatman - 07/19/2022 11:47 AM EDT [facility] Requesting a call back regarding status on order sign. Please contact jose at [phone] documented in this encounter Plan of Treatment Upcoming Encounters Date Type Department Care Team (Late st Contact Info) Description 07/17/2024 11:30 AM EDT Office Visit [facility] [address] [place] [address] Sumanth Llanos MD [address] [place] [address] 07/22/2024 8:00 AM EDT Office Visit [facility] ADULT DENTAL [address] [place] [address] Kevon Silva [address] [place] [address] documented as of this encounter Visit Diagnoses Not on filedocumented in this encounter Additional Health Concerns Assessment Noted Time PHQ-9 Depression Total Score: 15 023 9:06 AM EST documented as of this encounter Care Teams Telephone Information Supervisor Relationship Specialty Start Date End Date Sumanth Llanos MD [address] [place] [address] PCP - General Internal Medicine 05/07/18 documented as of this encounter
--- OUTSIDE RECORDS SUMMARY | 2024-07-09 11:49 | XMS_ITS | Encounter Summary ---
Author Organization [employer] Address [address] [place] [address] 7[address] [place] [address] Care Team Providers Care Reconciler Name Role Phone Sumanth Llanos MD Primary Care Provider [phone] Encounter Details Date Type Department Care Team (Late Contact Info) Description 11/21/2022 Orders Only [facility] PEDS [address] [place], [place] [phone] Sumanth Llanos MD [address] [place] [address] Prediabetes (Primary Dx); Positive MOIZ (antinuclear antibody) Social History Tobacco Use Types Packs/Day Years [...] suspected to have Coronavirus/COVID-19? No / Unsure 11/09/2022 11:47 AM EDT documented as of this encounter Plan of Treatment Upcoming Encounters Date Type Department Care Team (Late Contact Info) Description 07/17/2024 11:30 AM EDT Office Visit [facility] [address] [place] [address] Sumanth Llanos MD [address] [place] [address] 07/22/2024 8:00 AM EDT Office Visit [facility] ADULT DENTAL [address] [place] [address] Kevon Silva [address] [place] [address] Scheduled Orders Name Type Priority Associated Diagnoses Orde r Schedule Hemoglobin A1c with Calculated Mean Plasma Glucose (MPG) Lab Routine Prediabetes Expected: 11/22/2022 (Approximate), Expires: 11/22/2023 documented as of this encounter Goals Goal Patient Goal Type Associated Problems Recent Progress Patient-Stated? Author Blood Pressure < 140/90 Blood Pressure 124/79(2024 9:18 AM EST) No Dellogono, Luis, PharmD Patient will adhere to medication regimen General Improving(12/2022 9:16 AM EDT) No Dellogono, Luis, PharmD Hemoglobin A1c < 6.5 Result Component 5.8( 1:34 PM EST) No DellogLuis marroquin, PharmD documented as of this encounter Visit Diagnoses Diagnosis Prediabetes- Primary Other abnormal glucose Positive MOIZ (antinuclear antibody) Other and unspecified nonspecific immunological findings documented in this encounter Additional Health Concerns Assessment Noted Time PHQ-9 Depression Total Score: 15 05/31/ 023 9:06 AM EST documented as of this encounter Care Teams Reconciler Relationship Specialty Start Date End Date Sumanth Llanos MD [address] [place] [address] PCP - General Internal Medicine 05/07/18 documented as of this encounter
--- OUTSIDE RECORDS SUMMARY | 2024-07-09 11:49 | XMS_ITS | Clinical Summary ---
Author Organization [employer] Address [address] [place] [address] [address] [place] [address] Care Team Providers Care Custom Bow Maker Name Role Phone Sumanth Llanos MD Primary Care Provider Allergies Active Allergy Reactions Criticality Noted Date Comments Shellfish-Derived Products Swelling 0 Sulfa Antibiotics Rash High 10/04/2022 Sulfamethoxazole 05/08/2019 Other reaction(s): Hives / Skin Rash, Itching Trimethoprim Itching 05/08/2019 Other reaction(s): Hives / Skin Rash Medications lidocaine-priloc maday (Emla) 2.5-2.5 % creamIndications :Allergy to trees APPLY TO THE AFFECTED AREA(S) DAILY NEEDED 30 g 06/23/19 23 Active Diclofenac Sodium 1 % gel APPLY TWO GRAMS TO THE AFFECTED AREA(s) TWICE DAILY 100 g 2 08/04/19 23 Active omeprazole (PriLOSEC) [address] capsule Take 1 capsule (20 mg) by mouth before breakfast. Every day 30 minutes or 1 hour before a meal 30 capsule 11 08/04/19 23 Active ibuprofen 200 MG tablet Take 200 mg by mouth every 8 (eight) hours if needed for mild pain. Active tiZANidine (Zanaflex) 2 MG tabletIndication s:Cervicogenic headache Take 1 tablet (2 mg) by mouth at bedtime. 30 tablet 09/01/19 23 Active EPINEPHrine (Epipen) 0.3 MG/0.3ML injection syringe Inject 0.3 mL (0.3 mg) as directed 1 (one) time for 1 dose. INJECT 1 PEN (0.3 ML) INTRAMUSCULARLY ONCE NEEDED FOR EXTREME REACTION FOR 2 DOSES 1 each 09/04/19 23 Active ergocalciferol (Vitamin D2) 1.25 MG (26218 UT) capsuleIndicatio ns:Vitamin D deficiency TAKE ONE CAPSULE ONCE WEEKLY ON SUNDAY MORNING 4 capsule 06/01/19 24 Active hydrOXYzine HCl (Atarax) 25 MG tabletIndication s:Generalized anxiety disorder Take 1 tablet (25 mg) by mouth if needed at bedtime for anxiety. 60 tablet 06/01/19 24 Active cyanocobalamin (Vitamin B-12) 1000 MCG/ML injectionIndicat ions:Vitamin B 12 deficiency inject 1 milliliter by intramuscular route once every month 1 mL 08/02/19 24 Active fluticasone (Flonase) 50 MCG/ACT nasal sprayIndications :Allergy to trees INSERT ONE SPRAY IN EACH NOSTRIL TWICE DAILY 16 g 08/10/19 24 Active cetirizine (ZyrTEC) 10 MG tabletIndication s:Urticaria TAKE ONE TABLET EVERY MORNING 30 tablet 09/10/19 24 Active famotidine (Pepcid) 20 MG tabletIndication s:Other acute gastritis without hemorrhage TAKE ONE TABLET TWICE DAILY IN THE MORNING AND AT BEDTIME 60 tablet 09/10/19 24 Active atenolol (Tenormin) 25 MG tablet TAKE ONE TABLET EVERY MORNING 30 tablet 09/10/19 24 Active TRUEplus Lancets 33G misc TEST BLOOD SUGAR TWICE DAILY DIRECTED 100 each 11/02/19 24 Active Alcohol Swabs (Alcohol Prep) 70 % pads USE TWO DAILY 100 each 11/02/19 24 Active FREESTYLE LITE test strip TEST BLOOD SUGAR TWICE DAILY 100 strip 11/02/19 24 Active benzocaine (Orajel) 10 % mucosal gelIndications:C old sore Use in the mouth or throat if needed for mucositis. 5.3 g 12/07/19 24 025 Active acetaminophen (Tylenol) 500 MG tablet Take 1 tablet (500 mg) by mouth every 6 (six) hours if needed for mild pain for up to 20 doses. 20 tablet 01/31/20 24 Active ibuprofen 600 MG tablet Take 1 tablet (600 mg) by mouth every 6 (six) hours if needed for mild pain for up to 20 doses. 20 tablet 01/31/20 24 Active ibuprofen 600 MG tablet Take 1 tablet (600 mg) by mouth every 6 (six) hours if needed for mild pain for up to 20 doses. 20 tablet 02/04/20 24 Active DULoxetine (Cymbalta) [address] capsuleIndicatio ns:Fibromyalgia TAKE ONE CAPSULE IN THE MORNING AND EVENING 60 capsule 11 03/04/20 24 Active lisinopril-hydro CHLOROthiazide 10-12.5 MG tabletIndication s:Primary hypertension TAKE ONE TABLET EVERY MORNING 90 tablet 1 03/25/20 24 Active amitriptyline (Elavil) 25 MG tablet TAKE ONE TABLET EVERY NIGHT AT BEDTIME 30 tablet 3 03/26/20 24 Active Tirzepatide-Weig ht Management (Zepbound) 2.5 MG/0.5ML solution auto-injectorInd ications:Class 1 obesity due to excess calories with serious comorbidity and body mass index (BMI) of 33.0 to 33.9 in adult Inject 0.5 mL (2.5 mg) under the skin 1 (one) time per week. 2 mL 1 04/24/20 24 Active bisacodyl (Dulcolax) 5 MG EC tabletIndication s:Other constipation Take 1 tablet (5 mg) by mouth if needed each day for constipation. Do not crush, chew, or split. 30 tablet 3 05/05/20 24 025 Active amLODIPine (Norvasc) 5 MG tabletIndication s:Essential hypertension TAKE ONE TABLET EVERY MORNING 30 tablet 11 05/27/19 25 Active Tirzepatide-Weig ht Management (Zepbound) 5 MG/0.5ML solutionIndicati ons:Class 1 obesity due to excess calories with serious comorbidity and body mass index (BMI) of 33.0 to 33.9 in adult Inject 5 mg under the skin 1 (one) time per week. 2 mL 1 06/18/19 25 Active nicotine (Nicoderm CQ) 14 MG/24HR patch Place 1 patch on the skin 1 (one) time each day at the same time. 42 patch 07/10/19 25 025 Active nicotine (Nicoderm CQ) 7 MG/24HR patch Place 1 patch on the skin 1 (one) time each day at the same time. 14 patch 07/10/19 25 025 Active nicotine polacrilex (Commit) 4 MG lozenge Dissolve 1 lozenge (4 mg) in the mouth every 2 (two) hours if needed for smoking cessation. 100 lozenge 07/10/19 25 025 Active ibuprofen 400 MG tablet Take 1 tablet (400 mg) by mouth every 6 (six) hours if needed for moderate pain or fever for up to 30 doses. 20 tablet 07/10/19 25 Active acetaminophen (Tylenol) 500 MG tablet Take 2 tablets (1,000 mg) by mouth every 6 (six) hours if needed for moderate pain or fever. 30 tablet 07/10/19 25 Active Hospital, Clinic, or Other Facility Administered Medication Ordered Dose Route Frequency Start Date End Date Status cyanocobalamin (Vitamin B-12) injection 100 mcgIndications:Vitamin B12 deficiency 100 mcg IM Every 30 days 04/17/2022 Active cyanocobalamin (Vitamin B-12) injection 1,000 mcgIndications:Vitamin B 12 deficiency 1000 mcg IM Every 30 days 06/17/2022 Active cyanocobalamin (Vitamin B-12) injection 1,000 mcgIndications:Vitamin B 12 deficiency 1000 mcg IM Every 30 days 07/18/2022 Active cyanocobalamin (Vitamin B-12) injection 1,000 mcgIndications:Vitamin B 12 deficiency 1000 mcg IM Every 30 days 09/22/2022 Active cyanocobalamin (Vitamin B-12) injection 1,000 mcgIndications:Vitamin B 12 deficiency 1000 mcg IM Every 30 days 10/27/2022 Active cyanocobalamin (Vitamin B-12) injection 1,000 mcgIndications:Vitamin B 12 deficiency 1000 mcg IM Every 30 days 11/27/2022 Active cyanocobalamin (Vitamin B-12) injection 1,000 mcgIndications:Vitamin B 12 deficiency 1000 mcg IM Every 30 days 12/29/2022 Active cyanocobalamin (Vitamin B-12) injection 1,000 mcgIndications:Immuniza tion due 1000 mcg IM Every 30 days 01/29/2023 Active cyanocobalamin (Vitamin B-12) injection 1,000 mcgIndications:B12 deficiency 1000 mcg IM Once 06/17/2024 06/17/2024 Ended Active Problems Problem Noted Date Diagnosed Date Memory disturbance 04/24/2024 Osteoarthritis of knees, bilateral 10/07/2022 Essential hypertension 05/31/2022 Anxiety attack 03/27/2022 Hypercholesterolemia 11/17/2021 Prediabetes 02/16/2021 Major depressive disorder 06/21/2017 Generalized anxiety disorder 06/21/2017 Posttraumatic stress disorder 06/21/2017 Conduction disorder of the heart 05/22/2013 Resolved Problems Problem Noted Date Diagnosed Date Resolved Date Elevated blood-pressure read ing without diagnosis of hypertension 03/27/2022 05/31/2022 Encounters Date Type Department Care Team Description 07/09/2024 9:20 AM EST Office Visit [facility] [address] [place] [address] Right-sided chest pain (Primary Dx); Upper abdominal pain; Tobacco dependence 07/01/2024 9:00 AM EST Office Visit [facility] [address] [place] [address] Kevon Silva 06/19/2024 Refill [facility] [address] [place] [address] Sumanth Llanos MD Class 1 obesity due to excess calories with serious comorbidity and body mass index (BMI) of 33.0 to 33.9 in adult 06/18/2024 Orders Only [facility] [address] [place] [address] Sumanth Llanos MD Class 1 obesity due to excess calories with serious comorbidity and body mass index (BMI) of 33.0 to 33.9 in adult 06/17/2024 1:45 PM EST Nurse Only [facility] [address] [place] [address] Bety Arroyo RN B12 deficiency 06/17/2024 Travel 06/10/2024 10:00 AM EST Office Visit [facility] [address] [place] [address] RicardoTelma alfaroricio 05/27/2024 Refill [facility] [address] [place] [address] Sumanth Llanos MD Essential hypertension 05/16/2024 11:30 AM EST Clinical Support [facility] [address] [place] [address] Erin Guerrier, JACKIE B12 deficiency; Vitamin B 12 deficiency 05/16/2024 Travel 04/29/2024 10:30 AM EST Office Visit [facility] [address] [place] [address] Kevon Silva 04/25/2024 Telephone [facility] [address] [place] [address] Sumanth Llanos MD Prior Authorization 04/24/2024 11:30 AM EST Office Visit [facility] [address] [place] [address] Sumanth Llanos MD Prediabetes (Primary Dx); Other constipation; Class 1 obesity due to excess calories with serious comorbidity and body mass index (BMI) of 33.0 to 33.9 in adult; Memory disturbance 04/24/2024 Refill [facility] [address] [place] [address] Sumanth Llanos MD Other constipation 04/24/2024 Travel 04/18/2024 9:30 AM EST Clinical Support [facility] [address] [place] [address] Wing Shannan, RN B12 deficiency [E53.8] 04/18/2024 Travel 04/11/2024 1:00 PM EST Office Visit [facility] [address] [place] [address] Kevon Silva from Last 3 Months Immunizations Name Administration Dates Next Due Influenza injectable quadriv alent IIV4 with preservative 03/11/2019,01/30/2018,01/26/2015 Influenza injectable quadriv alent preservative free 01/29/2023,02/10/2022,02/16/2021,2019,02/09/2017,06/13/2016 Influenza, Split (incl. tanya fied surface antigen) 01/29/2013 Moderna Covid-19 Vaccine 12+ 07/08/2021,09/28/19 21,08/31/2020 Pneumococcal Conjugate PCV 20 12/07/2023 Tdap 06/04/2015 Family History Medical History Relation Name Comments Hypertension Father Diabetes type II Paternal Grandfather Relation Name Status Comments Father Paternal Grandfather Social History Tobacco Use Types Packs/Day Years Used Date Smoking Tobacco: Some Days Cigarettes Passive Smoke Exposure: Current Smokeless Tobacco: Never Tobacco Cessation:Ready to Q uit: Not Asked; Counseling Given: Not Answered Alcohol Use Standard Drinks/Week Comments Never 0 [...] Orientation Straight 03/06/2022 10 :21 AM EDT Last Filed Vital Signs Vital Sign Reading Time Taken Comments Blood Pressure 124/79 07/09/2024 9:18 AM EST Pulse 66 07/09/2024 9:18 AM EST Temperature 36.9 ??C (98.4 ??F) 07/09/2024 9:18 AM ES T Respiratory Rate 18 07/09/2024 9:18 AM EST Oxygen Saturation 98% 07/09/2024 9:18 AM EST Inhaled Oxygen Concentration - - Weight 66.9 kg (147 lb 6.4 oz) 07/09/2024 9:18 A M EST Height 147.3 cm (4' 10 ) 04/24/2024 11:31 AM EST Body Mass Index 30.81 04/24/2024 11:31 AM EST Plan of Treatment Upcoming Encounters Date Type Department Care Team (Late st Contact Info) Description 07/17/2024 11:30 AM EDT Office Visit [facility] [address] [place] [address] Sumanth Llanos MD [address] [place] [address] 07/22/2024 8:00 AM EDT Office Visit [facility] [address] [place] [address] Kevon Silva [address] [place] [address] Health Maintenance Due Date Last Done Comments CT Colonography 1975 Colonoscopy 1975 Dental Prophylaxis 1975 FIT 1975 FOBT 1975 HIV Screening 1975 SDOH Screening 1975 Sigmoidoscopy 1975 Alcohol/Substance Use Screening 1987 Family Planning (PISQ) 1990 Hepatitis A Vaccines (1 of 2 - Risk 2-dose series) 1994 Hepatitis B Vaccines (1 of 3 - 19+ 3-dose series) 1994 Depression Monitoring (PHQ-9) 11/28/2022 05/31/2022, 05/31/2022 Depression Screening 05/31/2023 05/31/2022, 05/31/19 23 COVID-19 Vaccine ( season) 2024 07/08/2021, 09/27/2020, 08/31/2020 Influenza Vaccine (#1) 2024 , 02/10/2022, 02/16/2021, Additional history exists Dental Oral Exam 04/27/2024 10/26/2023 Mammogram 07/07/2024 07/07/2022, 07/05, 04/16/2019, Additional history exists Pap Smear 09/15/2024 09/15/2021, 09/15/2021 Dental X-Ray: Bitewings 10/26/2024 10/26/2023 Diabetes: Hemoglobin A1C 04/24/202504/24/2 024, 12/07/2023, 06/29/2023, Additional history exists Zoster Vaccines (1 of 2) 2025 DTaP/Tdap/Td Vaccines (2 - Td or Tdap) 06/04/2025 06/04/2015 Tobacco Screening 07/09/2025 07/09/2024 Colorectal Cancer Screening 03/08/2026 FIT DNA/Cologuard 03/08/2026 03/08/2023 Cervical Cancer Screening 09/15/2026 HPV/Cotest 09/15/2026 09/15/2021 Dental X-Ray: Full Mouth 10/26/2026 10/26/2023 Lipid Panel 11/21/2027 11/20/2022, 09/05, 09/19/2021 RSV Patients and Patients Aged 60 years or older (1 - 1-dose 75+ series) 2050 Pneumococcal Vaccine: Pediatrics (0 to 5 Years) and At-Risk Patients (6 to 49) Years) Completed 12/07/2023 Hepatitis C Screening Completed 04/29/2024, 022 HIB Vaccines Aged Out No longer eligi ble based on patient's age to complete this topic HPV Vaccines Aged Out No longer eligi ble based on patient's age to complete this topic IPV Vaccines Aged Out No longer eligi ble based on patient's age to complete this topic Meningococcal Vaccine Aged Out No julio michael eligible based on patient's age to complete this topic RSV under 20 months Aged Out No longe r eligible based on patient's age to complete this topic Rotavirus Vaccines Aged Out No longer eligible based on patient's age to complete this topic Goals Goal Patient Goal Type Associated Problems Recent Progress Patient-Stated? Author Blood Pressure < 140/90 Blood Pressure 124/79(2024 9:18 AM EST) No Luis Springer, PrinceD Patient will adhere to medication regimen General Improving(12/2022 9:16 AM EDT) No Luis Springer, PharmD Hemoglobin A1c < 6.5 Result Component 5.8( 1:34 PM EST) No Luis Springer PharmD Procedures Procedure Name Priority Date/Time Associated Diagnosis Comments XR CHEST 2 VIEWS Routine 07/09/2024 10:0 4 AM EST Right-sided chest pain CASE PRESENTATION, DETAILED AND EXTENSIVE TREATMENT PLANNING Routine 07/01/2024 9:00 AM EST 5 PREFABRICATED POST AND CORE IN ADDITION TO CROWN Routine 07/01/2024 9:00 AM EST 4 PREFABRICATED POST AND CORE IN ADDITION TO CROWN Routine 07/01/2024 9:00 AM EST 3 CORE BUILDUP, INCL ANY PINS WHEN REQ Routine 06/10/2024 10:00 AM EST 9 CROWN - PORCELAIN/CERAMIC Routine 04/29/2024 10:30 AM EST HEPATITIS C AB W/REFL TO HCV RNA, QN, PCR Routine 04/29/2024 10:12 AM EST Prediabetes Other constipation Class 1 obesity due to excess calories with serious comorbidity and body mass index (BMI) of 33.0 to 33.9 in adult POCT GLUCOSE Routine 04/24/2024 1:35 PM EST Prediabetes POCT GLYCATED HEMOGLOBIN, TOTAL Routine 04/24/2024 1:34 PM EST Prediabetes 9 CROWN PREP Routine 04/11/2024 1:00 PM EST INTRAORAL - COMPLETE SERIES OF RADIOGRAPHIC IMAGES Routine 10/26/2023 11:00 AM EDT PERIODIC ORAL EVALUATION - ESTABLISHED PATIENT Routine 10/26/2023 11:00 AM EDT LAB COLOGUARD?? COLON CANCER SCREEN Routine 03/08/2023 12:52 PM EDT Encounter for screening colonoscopy LIPID PANEL, STANDARD Routine 11/20/2022 11:00 AM EDT BI MAMMOGRAM SCREENING TOMOSYNTHESIS BILATERAL Routine 07/07/2022 8:20 AM EST THINPREP IMAGING PAP AND HPV MRNA E6/E7 WITH REFLEX TO HPV 16,18/45 Routine 09/15/2021 9:38 AM EDT HM PAP/HPV Routine 09/15/2021 from Last 3 Months or Most Recently Relevant to Health Maintenance Results * XR Chest 2 Views (07/09/2024 10:04 AM EST) Anatomical Region Laterality Modality Chest Radiographic Myrna ging 07/09/2024 10:0 4 AM EST Narrative 07/09/2024 10:22 AM EST ?[facility] ?[address] ?[place] [address] ?XRay Report ? Signed ? Patient: Dianne Flores,Keli ?MR# ?? : [id number] ? : 1975 ?Acct:[id number] ? Age/Sex: 49 / F ?ADM Date: 03/05/25 ? Loc: HO.HHCX ? Attending Dr: Chriss Lopez MD ? Ordering Physician: CHRISS LOPEZ MD ?? Date of Service: 07/09/24 ?? Procedure(s): XR chest 2V ?? Accession Number(s): [id number] ? cc: CHRISS LOPEZ MD ? EXAMINATION: ?? XR CHEST ? CLINICAL INFORMATION: ?? right chest pain ? COMPARISON: ?? October 24, 2021. ? TECHNIQUE: ?? 2 views of the chest were obtained. ? FINDINGS: ?? No consolidation, pleural effusion or pneumothorax. ?? No hyperinflation. ?? Cardiomediastinal silhouette size is normal. Round cardiac apex. ?? Multilevel thoracolumbar spondylosis. ? XR/XR chest 2V ?? IMPRESSION: ?? No acute airspace disease. ?? Multilevel spondylosis, thoracolumbar spine. ? Electronically signed by: ??Jared Johnson MD ??07/09/2024 10:19 AM ?? EST RP ? Dictated By: ?Jared Fisher MD ? Signed By: ?<Electronically signed by Jared Kauffman MD in OV> ? 07/09/24 1019 ? DD/ 1004 ? TD/TT: 07/09/24 1015 ? Hands And Dial Inspector: ? Procedure Note Jenn, Image - 07/09/[address] [address] XRay Report Signed Patient: Keli OakleyMR# : [id number] : 1975Acct:[id number] Age/Sex: 49 / FADM Date: 07/09/24 Loc: HO.HHCX Attending Dr: Chriss Lopez MD Ordering Physician: CHRISS LOPEZ MD Date of Service: 07/09/24 Procedure(s): XR chest 2V Accession Number(s): [id number] cc: CHRISS LOPEZ MD EXAMINATION: XR CHEST CLINICAL INFORMATION: right chest pain COMPARISON: October 24, 2021. TECHNIQUE: 2 views of the chest were obtained. FINDINGS: No consolidation, pleural effusion or pneumothorax. No hyperinflation. Cardiomediastinal silhouette size is normal. Round cardiac apex. Multilevel thoracolumbar spondylosis. XR/XR chest 2V IMPRESSION: No acute airspace disease. Multilevel spondylosis, thoracolumbar spine. Electronically signed by: Jared Johnson MD 07/09/2024 10:19 AM EST Dictated By: Jared Fisher MD Signed By: <Electronically signed by Jared Kauffman MDin OV> 07/09/24 1019 DD/ 1004 TD/TT: 07/09/24 1015 Hands And Dial Inspector: Chriss Lopez MD IMG XR PROCEDURES Edited Result - Final * Hepatitis C Antibody with Reflex to HCV, RNA, Quantitative, Real-Time PCR (04/29/2024 10:12 AM EST) Pathologist [facility] Hepatitis C Antibody Nonreactive Nonreactive [facility] Comment:Antibodies to HCV no t detected; does not exclude early acuteHCV infection. Blood Venous blood specimen / Unknown 04/29/2024 10:12 AM EST 04/29/2024 2:25 PM EST Sumanth Llanos MD LAB BLOOD ORDERABLES Final Result [facility] [address] [place] [phone] * POCT Glucose (04/24/2024 1:35 PM EST) Glucose Blood, POC 170 60 - 200 mg/dL QC Media Lot # [id number] Comment:random Lot# Expiration Date 924 Blood Capillary blood specimen / Unknown 04/24/2024 1:35 PM EST Sumanth Llanos MD POINT OF CARE TEST ENTER/ED IT ORDERABLES Final Result * POCT HGB A1C (04/24/2024 1:34 PM EST) Hemoglobin A1C 5.8 4.0 - 6.0 % QC Media Lot # [id number] Lot# Expiration Date [id number] Blood 04/24/2024 1:34 PM EST us Sumanth Llanos MD POINT OF CARE TEST ENTER/ED IT ORDERABLES Final Result * Cologuard?? colon cancer screening (03/08/2023 12:52 PM EDT) Cologuard Result Negative Negative 03/15/20 1:54 AM EST [facility] (CLIA #:[id number]) Comment: NEGATIVE TEST RESULT. A negative Cologuard result indicates a low likelihood that a colorectal cancer (CRC) or advanced adenoma (adenomatous polyps with more advanced pre-malignant features) ??is present. The chance that a person with a negative Cologuard test has a colorectal cancer is less than 1 in 1500 (negative predictive value >99.9%) or has an ??advanced adenoma is less than ??5.3% (negative predictive value 94.7%). These data are based on a prospective cross-sectional study of 10,000 individuals at average risk for colorectal cancer who were screened with both Cologuard and colonoscopy. (Rylee Ch. et al, N Engl J Med 2014;370(14):1286- 1297) The normal value (reference range) for this assay is negative. COLOGUARD RE-SCREENING RECOMMENDATION: Periodic colorectal cancer screening is an important part of preventive healthcare for asymptomatic individuals at average risk for colorectal cancer. ??Following a negative Cologuard result, the [place] [employer] and U.S. Multi-Society Task Force screening guidelines recommend a Cologuard re-screening interval of 3 years. References: [place] [employer] Guideline for Colorectal Cancer Screening: https://www.cancer.org/cancer/xusqu-dzngxe-glfmiv/eqqdndjoo-ehvcifvwg-qfgdfrw/ac s-rec ommendations.html.; Bravo ORDONEZ, Genia SESAY, Mumtaz NGUYEN, Colorectal Cancer Screening: Recommendations for Physicians and Patients from the U.S. Multi-Society Task Force on Colorectal Cancer Screening , Am J Gastroenterology 2017; 112:8080-0787. TEST DESCRIPTION: Composite algorithmic analysis of stool DNA-biomarkers with hemoglobin immunoassay. ?? Quantitative values of individual biomarkers are not reportable and are not associated with individual biomarker result reference ranges. Cologuard is intended for colorectal cancer screening of adults of either sex, 45 years or older, who are at average-risk for colorectal cancer (CRC). Cologuard has been approved for use by the U.S. FDA. The performance of Cologuard was established in a cross sectional study of average-risk adults aged 50-84. Cologuard performance in patients ages 45 to 49 years was estimated by sub-group analysis of near-age groups. Colonoscopies performed for a positive result may find as the most clinically significant lesion: colorectal cancer [4.0%], advanced adenoma (including sessile serrated polyps greater than or equal to 1cm diameter) [20%] or non- advanced adenoma [31%]; or no colorectal neoplasia [45%]. These estimates are derived from a prospective cross-sectional screening study of 10,000 individuals at average risk for colorectal cancer who were screened with both Cologuard and colonoscopy. (Rylee Mccarthy al, N Engl J Med 2014;370(14):2514-7576.) Cologuard may produce a false negative or false positive result (no colorectal cancer or precancerous polyp present at colonoscopy follow up). A negative Cologuard test result does not guarantee the absence of CRC or advanced adenoma (pre-cancer). The current Cologuard screening interval is every 3 years. ([place] [employer] and U.S. Multi-Society Task Force). Cologuard performance data in a 10,000 patient pivotal study using colonoscopy as the reference method can be accessed at the following location: www.Orderlord/results. Additional description of the Cologuard test process, warnings and precautions can be found at www.Filecubedrd.com. Stool specimen (specimen) 03/08/2023 12:52 PM EDT 03/09/2023 6:19 PM EDT us Sumanth Llanos MD LAB MOLECULAR DIAGNOSTICS O RDERABLES Final Result [facility] (CLIA #:[id number]) [place] [address], * Lipid Panel, Standard (11/20/2022 11:00 AM EDT) Triglycerides 141 mg/dL [facility] Comment:Desirable Triglyceri de: less than 150 mg/dLBorderline High Triglyceride 150-199 mg/dLHigh Triglyceride: 200-499 mg/dLVery High Triglyceride: greater than or equal to 5OO mg/dL Cholesterol 193 mg/dL [facility] Comment:Desirable Cholestero l: less than 200 mg/dLBorderline High Cholesterol: 200-239 mg/dLHigh Cholesterol: greater than 239 mg/dL LDL Cholesterol Calculated 130 mg/dl [facility] Comment:Desirable LDL: less than 100 mg/dLNear Optimal/Above Optimal LDL: 110- 129 mg/dLBorderline High LDL: 130-159 mg/dLHigh LDL: 160-189 mg/dLVery High LDL: greater than or equal to 190 mg/dL HDL Cholesterol 35 mg/dL [facility] Comment:Desirable HDL: great er than 40 mg/dL Note: This HDL assay may give artificially low results in patients with liver disease. 11/20/2022 11:0 0 AM EDT 11/20/2022 2:45 PM EDT [facility] External Provider LAB BLO OD ORDERABLES Final Result [facility] [address] [place] [phone] * BI Mammogram Screening Tomosynthesis Bilateral (07/07/2022 8:20 AM EST) Anatomical Region Laterality Modality Breast Bilateral Mammography 07/07/2022 8:20 AM EST Narrative 07/10/2022 7:59 AM EST ? [facility] ? [address] ?[place] [address] ? Mammography Report ? Signed ? Patient: Edan Dionicioier,Keli ?MR# ?? : [id number] ? : 1975 ?Acct:[id number] ? Age/Sex: 47 / F ?ADM Date: 03/03/23 ? Loc: HO.MAMMO ? Attending Dr: Sumanth Llanos MD ? Ordering Physician: Sumanth Llanos MD ?Results: 1 ?? Negative ? Date of Service: 07/07/22 ?Follow Up: 1 Year From Orig ?? inal Mammogram ? Procedure(s): MM tomosynthesis screening BI ?? Accession Number(s): [id number] ? cc: Sumanth Llanos MD ? EXAMINATION: ?? MM SCREENING DIGITAL BREAST TOMOSYNTHESIS, BILATERAL ? CLINICAL INFORMATION: ? Screening. Asymptomatic. ? The lifetime risk of breast cancer based on the Tyrer-Cuzick Model is ?? 6%. ? COMPARISON: ?? Mammography: 07/14/2020, 04/15/2019, 02/07/2018 ? TECHNIQUE: ?? Digital breast tomosynthesis is performed in both the craniocaudal and ?? mediolateral oblique views along with computer-aided detection (CAD). ?? Synthesized 2D images are generated from the tomosynthesis. ? FINDINGS: ?? There are scattered areas of fibroglandular density (ACR BI-RADS breast ?? composition Category b). ? There are no significant masses, abnormal calcifications, or other ?? abnormalities. ??Parenchymal pattern is similar to prior studies. There ?? is no developing density or architectural abnormality. The axilla and ?? skin contours are unremarkable. No significant changes. ? MM/MM tomosynthesis screening BI ?? IMPRESSION: ?? No mammographic evidence of malignancy. ? ASSESSMENT: ? BI-RADS 1: Negative ? RECOMMENDATION: ?? Routine annual mammography screening. ? This patient's information was entered into a reminder system with a ?? target due date for their next mammogram. ? Dictated By: ?Jose E Rabago MD ? Signed By: ?<Electronically signed by Jose E Rabago MD in OV> ?07/10/22 0756 ? DD/ 0820 ? TD/TT: ? Hands And Dial Inspector: KEATING ? Procedure Note Donedwardter, Image - 07/10/2022 [facility] [address] [place] [address] Mammography Report Signed Patient: Keli Oakley# : [id number] : 1975Acct:[id number] Age/Sex: 47 / FADM Date: 07/07/22 Loc: HO.MAMMO Attending Dr: Sumanth Llanos MD Ordering Physician: Sumanth Llanos MDResults: 1 Negative Date of Service: 07/07/22Follow Up: 1 Year From Orig inal Mammogram Procedure(s): MM tomosynthesis screening BI Accession Number(s): [id number] cc: Sumanth Llanos MD EXAMINATION: MM SCREENING DIGITAL BREAST TOMOSYNTHESIS, BILATERAL CLINICAL INFORMATION: Screening. Asymptomatic. The lifetime risk of breast cancer based on the Tyrer-Cuzick Model is 6%. COMPARISON: Mammography: 07/14/2020, 04/15/2019, 02/07/2018 TECHNIQUE: Digital breast tomosynthesis is performed in both the craniocaudal and mediolateral oblique views along with computer-aided detection (CAD). Synthesized 2D images are generated from the tomosynthesis. FINDINGS: There are scattered areas of fibroglandular density (ACR BI-RADS breast composition Category b). There are no significant masses, abnormal calcifications, or other abnormalities. Parenchymal pattern is similar to prior studies. There is no developing density or architectural abnormality. The axilla and skin contours are unremarkable. No significant changes. MM/MM tomosynthesis screening BI IMPRESSION: No mammographic evidence of malignancy. ASSESSMENT: BI-RADS 1: Negative RECOMMENDATION: Routine annual mammography screening. This patient's information was entered into a reminder system with a target due date for their next mammogram. Dictated By: Jose E Rabago MD Signed By: <Electronically signed by Jose E Rabago MD in OV> 07/10/22 0756 DD/ 9 TD/TT: Hands And Dial Inspector: KEATING [facility] External Provider IMG BI PROCEDURES Final Result * THINPREP TIS PAP AND HPV mRNA E6/E7 WITH REFLEX TO HPV 16,18/45 (09/15/2021 9:38 AM EDT) Clinical Information: None given [facility] COMMENT SEE COMMENT [facility] Comment: EXPLANATORY NOTE: ? The Pap is a screening test for cervical cancer. It is ?? not a diagnostic test and is subject to false negative ?? and false positive results. It is most reliable when a ?? satisfactory sample, regularly obtained, is submitted ?? with relevant clinical findings and history, and when ?? the Pap result is evaluated along with historic and ?? current clinical information. ?? COMMENT: This Pap test has been evaluated with computer assisted technology. [facility] Fruit Cutter: SEE COMMENT [facility] Comment: [facility], CT(ASCP) CT screening location: [address] ??[address] HPV nRNA E6/E7 Not Detected Not Detected [employer] Comment: Methodology: Preassembler Printed Circuit Board-Mediated Amplification This assay detects E6/E7 viral messenger RNA (mRNA) from 14 high-risk HPV types (16,18,31,33,35,39,45,51,52,56,58,59,66,68). ? The analytical performance characteristics of this assay have been determined by [employer]. The modifications have not been cleared or approved by the FDA. This assay has been validated pursuant to the CLIA regulations and is used for clinical purposes. ?? For additional information, please refer to http://education.[employer].Tab[employer]/faq/RQP415w5 (This link if provided for information/ educational purposes only.) Interpretation/Re sult: Negative for intraepithelial lesion or malignancy. [facility] LMP: 01/2021 [facility] Prev. BX: NONE GIVEN [facility] Prev. PAP: 06/2018 NIL [facility] SOURCE: None given [facility] Statement Of Adequacy: SEE COMMENT [facility] Comment: Satisfactory for evaluation. Endocervical/transformation zone component absent. 09/15/2021 9:38 AM EDT Azul Glynn CNM LAB PATHOLOGY ORDERABLES Final Result [facility] [address] * Pap Smear (09/15/2021) Pap smear Performed Historical Provider MD HEALTH MAINTENANCE Final Result from Last 3 Months or Most Recently Relevant to Health Maintenance Insurance [facility] C3 Care Teams Custom Bow Maker Relationship Specialty Start Date End Date Sumanth Llanos MD [address] [place] [address] SHASHI Lewis PCP - General Internal Medicine 05/07/18
--- OUTSIDE RECORDS SUMMARY | 2024-07-09 11:49 | XMS_ITS | Encounter Summary ---
Author Organization [facility] Address [address] [place] [address] 7 [place] [address] Care Team Providers Care Usability Specialist Name Role Phone Sumanth Llanos MD Primary Care Provider +1- [phone] Encounter Details Date Type Department Care Team ([facility] Contact Info) Description 06/01/2023 Orders Only [facility] MED & PEDS [address] [place] [address] Sumanth Llanos MD [address] [place], [place] [phone] Generalized anxiety disorder (Primary Dx) Social History Tobacco Use Types [...] Description 07/17/2024 11:30 AM EDT Office Visit [facility] MED & PEDS [address] [place], [place] [phone] Sumanth Llanos MD 505 [place], [place] [phone] 07/22/2024 8:00 AM EDT Office Visit [facility] CHC ADULT DENTAL [address] [place] [address] RicardoKevon alfaro [address] [place] [address] documented as of this encounter Goals Goal Patient Goal Type Associated Problems Recent Progress Patient-Stated? Author Blood Pressure < 140/90 Blood Pressure 124/79(2024 9:18 AM EST) No Dellogono, Luis, PharmD Patient will adhere to medication regimen General Improving(12/2022 9:16 AM EDT) No Dellogono, Luis, PharmD Hemoglobin A1c < 6.5 Result Component 5.8( 1:34 PM EST) No Dellogono, Luis, PharmD documented as of this encounter Visit Diagnoses Diagnosis Generalized anxiety disorder- Primary documented in this encounter Additional Health Concerns Assessment Noted Time PHQ-9 Depression Total Score: 15 023 9:06 AM EST documented as of this encounter Care Teams Usability Specialist Relationship Specialty Start Date End Date Sumanth Llanos MD [address] [place] [address] PCP - General Internal Medicine 05/07/18 documented as of this encounter
--- OUTSIDE RECORDS SUMMARY | 2024-07-09 11:49 | XMS_ITS | Encounter Summary ---
Author Organization [employer] [facility] Address [address] [place] [address] 7 [place] [address] Care Team Providers Care Secondary Special Education Teacher Name Role Phone Sumanth Llanos MD Primary Care Provider [phone]- [phone] Encounter Details Date Type Department Care Team ([facility] Contact Info) Description 12/20/2022 Orders Only [facility] MED & PEDS [address] [place] [address] Sumanth Llanos MD [address] [place], [place] [phone] Prediabetes (Primary Dx) Social History Tobacco Use Types [...] Upcoming Encounters Date Type Department Care Team ([facility] Contact Info) Description 07/17/2024 11:30 AM EDT Office Visit [facility] MED & PEDS [address] [place], [place] [phone] Sumanth Llanos MD [address] [place], [place] [phone] 07/22/2024 8:00 AM EDT Office Visit [facility] CHC ADULT DENTAL [address] [place] [address] Ricardo Kevon [address] [place] [address] documented as of this encounter Goals Goal [...] Diagnoses Diagnosis Prediabetes- Primary Other abnormal glucose documented in this encounter Additional Health Concerns Assessment Noted Time PHQ-9 Depression Total Score: 15 023 9:06 AM EST documented as of this encounter Care Teams Secondary Special Education Teacher Relationship Specialty Start Date End Date Sumanth Llanos MD [address] [place] [address] PCP - General Internal Medicine 05/07/18 documented as of this encounter
--- OUTSIDE RECORDS SUMMARY | 2024-07-09 11:49 | XMS_ITS | Encounter Summary ---
Author Organization [employer] Address [address] [place] [address] 7 [place] [address] Care Team Providers Care Cnc Service Technician Name Role Phone Sumanth Llanos MD Primary Care Provider [phone]- [phone] Reason for Visit * Reason Onset Date Comments Med Refill 08/03/2022 Encounter Details Date Type Department Care Team ([facility] st Contact Info) Description 08/03/2022 Refill [facility] CHC MED & PEDS [address] [place] [address] Sumanth Llanos MD [address] [place] [address] Vitamin D deficiency; Primary hypertension Social History Tobacco Use Types Packs/Day Years [...] encounter Miscellaneous Notes * Telephone Encounter - Jaelyn Caputo 08/03/2022 11:47 AM EDT Tc from pt requesting med refill for medications. [facility] pharmacy has requested and no response omeprazole (PriLOSEC) [address] capsule ergocalciferol (Vitamin D2) 1.25 MG (27095 UT) capsule cyanocobalamin (Vitamin B-12) 1000 MCG/ML injection hydrOXYzine HCl (Atarax) 25 MG tablet lisinopril-hydroCHLOROthiazide 10-12.5 MG tablet atenolol (Tenormin) 25 MG tablet amitriptyline (Elavil) 25 MG tablet DULoxetine (Cymbalta) [address] capsule simvastatin (Zocor) 40 MG tablet Please send to [facility] Pharmacy documented in this encounter Plan of Treatment Upcoming Encounters Date Type Department Care Team (Late st Contact Info) Description 07/17/2024 11:30 AM EDT Office Visit [facility] MED & PEDS [address] [place] [address] Sumanth Llanos MD [address] [place] [address] 07/22/2024 8:00 AM EDT Office Visit [facility] ADULT DENTAL [address] [place] [address] Kevon Silva 505 [place] [address] documented as of this encounter Visit Diagnoses Diagnosis Vitamin D deficiency Primary hypertension Unspecified essential hypertension documented in this encounter Additional Health Concerns Assessment Noted Time PHQ-9 Depression Total Score: 15 023 9:06 AM EST documented as of this encounter Care Teams Cnc Service Technician Relationship Specialty Start Date End Date Sumanth Llanos MD [address] [place] [address] PCP - General Internal Medicine 05/07/18 documented as of this encounter
--- OUTSIDE RECORDS SUMMARY | 2024-07-09 11:50 | XMS_ITS | Encounter Summary ---
Author Organization [facility] [facility] Address [address] [place] [address] 7 [place] [address] Care Team Providers Care Contract Associate Name Role Phone Sumanth Llanos MD Primary Care Provider [phone]- [phone] Encounter Details Date Type Department Care Team (Late st Contact Info) Description 04/17/2022 Orders Only [facility] MED & PEDS [address] [place], [place] [phone] Alondra Del Rio MD [address] [place], [place] [phone] Vitamin B12 deficiency (Primary Dx) Social History [...] Description 07/17/2024 11:30 AM EDT Office Visit [facility] MED & PEDS [address] [place], [place] [phone] Sumanth Llanos MD [address] [place], [place] [phone] 07/22/2024 8:00 AM EDT Office Visit [facility] ADULT DENTAL [address] [place] [address] Kevon Silva [address] [place] [address] documented as of this encounter Visit Diagnoses Diagnosis Vitamin B12 deficiency- Primary Other B-complex deficiencies documented in this encounter Care Teams Contract Associate Relationship Specialty Start Date End Date Sumanth Llanos MD [address] [place] [address] PCP - General Internal Medicine 05/07/18 documented as of this encounter
--- OUTSIDE RECORDS SUMMARY | 2024-07-09 11:50 | XMS_ITS | Encounter Summary ---
Author Organization [employer] Address [address] [place] [address] 7 [place] [address] Care Team Providers Care Geographic Information System Analyst Name Role Phone Sumanth Llanos MD Primary Care Provider +1- [phone] Reason for Visit * Reason Comments Med Refill Encounter Details Date Type Department Care Team ([facility] Contact Info) Description 04/24/2024 Refill [facility] MED & PEDS [address] [place], [place] [phone] Sumanth Llanos MD [address] [place] [address] Other constipation Social History Tobacco Use Types Packs/Day Years [...] encounter Miscellaneous Notes * Telephone Encounter - Glo Rubin - 05/05/2024 11:48 AM EST Fax from [facility] memory clinic scanned in patient chart for your review. documented in this encounter Plan of Treatment Upcoming Encounters Date Type Department Care Team (Late st Contact Info) Description 07/17/2024 11:30 AM EDT Office Visit [facility] MED & PEDS [address] [place] [address] Sumanth Llanos MD [address] [place] [address] 07/22/2024 8:00 AM EDT Office Visit [facility] ADULT DENTAL [address] [place] [address] Kevon Silva [address] [place] [address] documented as of this encounter Goals Goal [...] as of this encounter Visit Diagnoses Diagnosis Other constipation documented in this encounter Additional Health Concerns Assessment Noted Time PHQ-9 Depression Total Score: 15 023 9:06 AM EST documented as of this encounter Care Teams Geographic Information System Analyst Relationship Specialty Start Date End Date Sumanth Llanos MD [address] [place] [address] PCP - General Internal Medicine 05/07/18 documented as of this encounter
--- OUTSIDE RECORDS SUMMARY | 2024-07-09 11:50 | XMS_ITS | Encounter Summary ---
Author Organization [employer] Address [address] [place] [address] 7 [place] [address] Care Team Providers Care Public Health Teacher Name Role Phone Sumanth Llanos MD Primary Care Provider [phone]- [phone] Encounter Details Date Type Department Care Team (Late st Contact Info) Description 06/18/2024 Orders Only [facility] CHC MED & PEDS [address] [place] [address] Sumanth Llanos MD [address] [place] [address] Class 1 obesity due to excess calories with serious comorbidity and body mass index (BMI) of 33.0 to 33.9 in adult Social History Tobacco Use Types Packs/Day Years [...] Description 07/17/2024 11:30 AM EDT Office Visit [facility] MED & PEDS [address] [place] [address] Sumanth Llanos MD [address] [place] [address] 07/22/2024 8:00 AM EDT Office Visit [facility] CHC ADULT DENTAL [address] [place] [address] Kevon Silva [address] [place] [address] documented as of this encounter Goals Goal Patient Goal Type Associated Problems Recent Progress Patient-Stated? Author Blood Pressure < 140/90 Blood Pressure 124/79(2024 9:18 AM EST) No Luis Springer, PharmD Patient will adhere to medication regimen General Improving(12/2022 9:16 AM EDT) No DelLuis amaya, PharmD Hemoglobin A1c < 6.5 Result Component 5.8( 1:34 PM EST) No Luis Springer, PharmD documented as of this encounter Visit Diagnoses Diagnosis Class 1 obesity due to excess calories with serious comorbidity and body mass index (BMI) of 33.0 to 33.9 in adult documented in this encounter Additional Health Concerns Assessment Noted Time PHQ-9 Depression Total Score: 15 05/31/ 023 9:06 AM EST documented as of this encounter Care Teams Public Health Teacher Relationship Specialty Start Date End Date Sumanth Llanos MD [address] [place] [address] PCP - General Internal Medicine 05/07/18 documented as of this encounter
--- OUTSIDE RECORDS SUMMARY | 2024-07-09 11:50 | XMS_ITS | Encounter Summary ---
Author Organization [employer] Address [address] [facility] 7t [place] [address] Care Team Providers Care Substation Operator Transforming Name Role Phone Sumanth Llanos MD Primary Care Provider [phone]- [phone] Encounter Details Date Type Department Care Team (Latest Contact Info) Description 10/06/2022 Orders Only [facility] CHC MED & PEDS [address] [place], [place] [phone] Sumanth Llanos MD [address] [place], [place] [phone] Hypercholesterolemia (Primary Dx) Social History Tobacco Use Types [...] suspected to have Coronavirus/COVID-19? No / Unsure 09/29/2022 3:23 PM EDT documented as of this encounter Plan of Treatment Upcoming Encounters Date Type Department Care Team (Late st Contact Info) Description 07/17/2024 11:30 AM EDT Office Visit [facility] MED & PEDS [address] [place] [address] Sumanth Llanos MD [address] [place] [address] 07/22/2024 8:00 AM EDT Office Visit [facility] ADULT DENTAL [address] [place] [address] Kevon Silva [address] [place] [address] documented as of this encounter Goals Goal [...] as of this encounter Visit Diagnoses Diagnosis Hypercholesterolemia- Primary Pure hypercholesterolemia documented in this encounter Additional Health Concerns Assessment Noted Time PHQ-9 Depression Total Score: 15 023 9:06 AM EST documented as of this encounter Care Teams Substation Operator Transforming Relationship Specialty Start Date End Date Sumanth Llanos MD [address] [place] [address] PCP - General Internal Medicine 05/07/18 documented as of this encounter
--- OUTSIDE RECORDS SUMMARY | 2024-07-09 11:50 | XMS_ITS | Encounter Summary ---
Author Organization [facility] Address [address] [place] [address] 7 [place] [address] Care Team Providers Care Equity Research Associate Name Role Phone Sumanth Llanos MD Primary Care Provider +1- [phone] Reason for Visit * Reason Onset Date Comments confirm provider received message 03/20/2024 Encounter Details Date Type Department Care Team ([facility] st Contact Info) Description 03/20/2024 Telephone [facility] ADULT DENTAL [address] [place] [address] Kevon Silva [address] [place] [address] confirm provider received message Social History Tobacco Use Types Packs/Day Years [...] encounter Miscellaneous Notes * Telephone Encounter - Kezia Garcia - 03/20/2024 9:51 AM EST Patient called in to verify that provider DR. Silva received message button clamper placed yesterday. Patient was connected to [facility] yesterday. assignment desk editor has informed provider is aware of message and willreach out to patient. Informed patient that provider is aware and he will reach out. Patient understood. She was most concerned with assuring provider had received the message. documented in this encounter Plan of Treatment Upcoming Encounters Date Type Department Care Team (Late st Contact Info) Description 07/17/2024 11:30 AM EDT Office Visit [facility] MED & PEDS [address] [place] [address] Sumanth Llanos MD [address] [place] [address] 07/22/2024 8:00 AM EDT Office Visit [facility] ADULT DENTAL [address] [place], [place] [phone] Kevon Silva [address] [place], [place] [phone] documented as of this encounter Goals Goal [...] documented as of this encounter Care Teams Equity Research Associate Relationship Specialty Start Date End Date Sumanth Llanos MD [address] [place] [address] PCP - General Internal Medicine 05/07/18 documented as of this encounter
--- OUTSIDE RECORDS SUMMARY | 2024-07-09 11:50 | XMS_ITS | Encounter Summary ---
Author Organization [employer] [facility] Address [address] [place] [address] 7 [place] [address] Care Team Providers Care Machine Maintenance Technician Name Role Phone Sumanth Llanos MD Primary Care Provider +1- [phone] Reason for Visit * Reason Comments Med Refill Encounter Details Date Type Department Care Team (Late Contact Info) Description 06/19/2024 Refill [facility] MED & PEDS [address] [place] [address] Sumanth Llanos MD [address] [place] [address] Class 1 obesity due to excess calories [...] Description 07/17/2024 11:30 AM EDT Office Visit [facility] CHC MED & PEDS [address] [place] [address] Sumanth Llanos MD [address] [place] [address] 07/22/2024 8:00 AM EDT Office Visit [facility] ADULT DENTAL [address] [place] [address] Kevon Silva [address] [place] [address] documented as of this encounter Goals Goal [...] documented as of this encounter Care Teams Machine Maintenance Technician Relationship Specialty Start Date End Date Sumanth Llanos MD [address] [place] [address] PCP - General Internal Medicine 05/07/18 documented as of this encounter
--- OUTSIDE RECORDS SUMMARY | 2024-07-09 11:50 | XMS_ITS | Encounter Summary ---
Author Organization [employer] Address [address] [place] [address] 7[address] [place] [address] Care Team Providers Care Make Up Girl Name Role Phone Sumanth Llanos MD Primary Care Provider [phone] [phone] Encounter Details Date Type Department Care Team (Late st Contact Info) Description 06/17/2024 1:45 PM EST Nurse Only [facility] [address] [place], [place] [phone] Bety Arroyo RN [address] [place] [address] B12 deficiency Social History Tobacco Use Types Packs/Day Years [...] AM EDT documented as of this encounter Progress Notes * Bety Arroyo RN - 06/17/2024 1:45 PM EST S: Pt here for nurse visit B12 injection, today B12 standing order verified. Pt denies any difficulties with previous injection received. O: Cyanocobalamin 1,000mcg/ML, 1mL given on left deltoid muscle, pt tolerated well. A: Vitamin B12 Deficiency P: Pt may go home and return for next B12 injection, and bring Vitamin B12 vial to next appt. Advised to monitor injection site for any increased redness or swelling and follow up with PCP as needed.Pt agrees with plan and verbalized understanding. * Bety Arroyo RN - 06/17/2024 1:45 PM EST Pt requesting next dose of Zepbound. Pt tolerated med well and is ready to move up. Pt is scheduledfor f/u next month. documented in this encounter Plan of Treatment Upcoming Encounters Date Type Department Care Team (Late st Contact Info) Description 07/17/2024 11:30 AM EDT Office Visit [facility] MED & PEDS [address] [place] [address] Sumanth Llanos MD [address] [place] [address] 07/22/2024 8:00 AM EDT Office Visit [facility] ADULT DENTAL [address] [place] [address] Kevon Silva [address] [place] [address] documented as of this encounter Goals Goal Patient Goal Type Associated Problems Recent Progress Patient-Stated? Author Blood Pressure < 140/90 Blood Pressure 124/79(2024 9:18 AM EST) No Luis Springer, PharmD Patient will adhere to medication regimen General Improving(12/2022 9:16 AM EDT) No Luis Springer, PharmCholo Hemoglobin A1c < 6.5 Result Component 5.8( 4 1:34 PM EST) No Luis Springer PharmD documented as of this encounter Visit Diagnoses Diagnosis B12 deficiency documented in this encounter Administered Medications Inactive Administered Medications - up to 3 most recent administrations Medication Order MAR Action Action Date Dose Rate Site cyanocobalamin (Vitamin B-12) injection 1,000 mcg 1,000 mcg, Intramuscular, Once, On Tu06/17/24 at 1415, For 1 doseIndications:B12 deficiency Given 06/17/2024 2:15 PM EST 1,000 mcg Left Deltoid documented in this encounter Additional Health Concerns Assessment Noted Time PHQ-9 Depression Total Score: 15 023 9:06 AM EST documented as of this encounter Care Teams Make Up Girl Relationship Specialty Start Date End Date Sumanth Llanos MD [address] [place] [address] PCP - General Internal Medicine 05/07/18 documented as of this encounter
--- OUTSIDE RECORDS SUMMARY | 2024-07-09 11:50 | XMS_ITS | Encounter Summary ---
Author Organization [employer] Address [address] [place] [address] 7 [place] [address] Care Team Providers Care Software Systems Engineer Name Role Phone Sumanth Llanos MD Primary Care Provider [phone] Reason for Visit * Reason Comments Filling Post and core Encounter Details Date Type Department Care Team ([facility] Contact Info) Description 06/10/2024 10:00 AM EST Office Visit [facility] ADULT DENTAL [address] [place] [address] Kevon Silva [address] [place] [address] Social History Tobacco Use Types Packs/Day Years [...] AM EDT documented as of this encounter Last Filed Vital Signs Vital Sign Reading Time Taken Comments Blood Pressure 128/74 06/10/2024 10:10 AM EST Pulse - - Temperature - - Respiratory Rate - - Oxygen Saturation - - Inhaled Oxygen Concentration - - Weight - - Height - - Body Mass Index - - documented in this encounter Progress Notes * Kevon Silva - 06/10/2024 10:00 AM EST Dental procedures in this visit D2950 - RESTORATIVE - OTHER RESTORATIVE SERVICES - CORE BUILDUP, INCLUDING ANY PINS WHEN REQUIRED 3 (Completed) Service provider: Kevon Silva Billing provider: Bell Bolton DDS Patient ID: Keli Flores is a 49 y.o. female. Time Out: Date: 06/10/2024 Location: [facility] Tooth: #3 Procedure: Taoist Verified the above with patient, acute care nursing assistant, and provider. Confirmed via patient's chart, intraorally and by radiographs. Airline Reservation Agent: not applicable Composite gnosticist done on # [address] Kevon Silva Risk, benefits, and alternatives discussed with the patient. CONSENT FORM INITIALED & SIGNED BY THE PATIENT AND COUNTERSIGNED BY Dr. Kevon Silva Medical history: Reviewed in EHR Vitals: Blood pressure 128/74. Allergies: Reviewed in EHR Medications: Reviewed in EHR ASA 2 - No local anesthetics used - Existing gnosticist and recurrent decay removed - Matrix band and wedge used as needed - Base: LimeLite - Etching done using 37% phosphoric acid. - depot agent applied. - Composite gnosticist done using Filtek body/flowable composite, shade A2 - Anatomy and margins adjusted - Proximal contact confirmed with floss. - Occlusion checked with articulating paper - Necessary reductions made. - Taoist smoothed and polished. - Post op instructions given Patient satisfied, left in stable condition Patient made aware possible post op sensitivity NV: Post and core Provider: Dr. Kevon Silva Sales Associate Fishing: Radha Wharton Supervising dentist: Dr. Bolton * Bell Bolton DDS - 06/10/2024 10:00 AM EST I have reviewed the documentation and dental procedures completed by the rendering provider, Kevon Silva DDS, and approve their chart entries for this visit. MANJEET Doe DDS documented in this encounter Plan of Treatment Upcoming Encounters Date Type Department Care Team (Late st Contact Info) Description 07/17/2024 11:30 AM EDT Office Visit [facility] MED & PEDS [address] [place] [address] Sumanth Llanos MD [address] [place] [address] 07/22/2024 8:00 AM EDT Office Visit [facility] ADULT DENTAL [address] [place] [address] Kevon Silva [address] [place] [address] documented as of this encounter Goals Goal [...] Luis, PharmD documented as of this encounter Procedures Procedure Name Priority Date/Time Associated Diagnosis Comments 3 CORE BUILDUP, INCL ANY PINS WHEN REQ Routine 06/10/2024 10:00 AM EST documented in this encounter Visit Diagnoses Not on filedocumented in this encounter Additional Health Concerns Assessment Noted Time PHQ-9 Depression Total Score: 15 05/31/2 023 9:06 AM EST documented as of this encounter Care Teams Software Systems Engineer Relationship Specialty Start Date End Date Sumanth Llanos MD [address] [place] [address] PCP - General Internal Medicine 05/07/18 documented as of this encounter
--- OUTSIDE RECORDS SUMMARY | 2024-07-09 11:50 | XMS_ITS | Encounter Summary ---
Author Organization [employer] Address [address] [place] [address] 7 [place] [address] Care Team Providers Care Price Checker Name Role Phone Sumanth Llanos MD Primary Care Provider [phone] Reason for Visit * Reason Comments Filling Post and core Encounter Details Date Type Department Care Team ([facility] Contact Info) Description 07/01/2024 9:00 AM EST Office Visit [facility] ADULT DENTAL [address] [place] [address] Kevon Silva [address] [place] [address] Social History Tobacco Use Types Packs/Day Years [...] as of this encounter Progress Notes * Kevon Silva - 07/01/2024 9:00 AM EST Dental procedures in this visit D2954 - PREFABRICATED POST AND CORE IN ADDITION TO CROWN 5 (Completed) Service provider: Kevon Silva Billing provider: Bell Bolton DDS D2954 - PREFABRICATED POST AND CORE IN ADDITION TO CROWN 4 (Completed) Service provider: Kevon Silva Billing provider: eBll Bolton DDS Patient ID: Keli Flores is a 49 y.o. female. Time Out: Date: 07/01/2024 Location: [facility] Tooth: #4 and #5 Procedure: Post & Core Verified the above with patient, events administrative assistant, and provider. Confirmed via patient's chart, intraorally and by radiographs. Ui Ux Web Developer: not applicable Prefab post and core done on # [address] Kevon Silva Risk, benefits, and alternatives discussed with the patient. CONSENT FORM INITIALED & SIGNED BY THE PATIENT AND COUNTERSIGNED BY Dr. Kevon Silva Medical history: Reviewed in EHR, patient doesn't report any changes in health issues that could alter treatment plan or outcome Vitals: There were no vitals taken for this visit. Allergies: Reviewed in EHR Medications: Reviewed in EHR - No local anesthetics used - Temporary jain removed. - Tooth length - #4 12 mm, #5 12 mm - Post space made- 4 mm - Fabian-percha removed using Cantu [place] - Para-post reamer used size: 4 - Para-post size (brand/ size) used: 4 - 1st PA - of tooth # 4 and 5 to confirm the post size and length. - Irrigation done using Sodium Hypochlorite - Post space dried using paper points - financial services agent applied. - Post cemented using Rely-X. - Core placed using Rely-X - 2nd PA - of tooth # 4 and 5 for post op confirmation. - Core smoothed and polished. - Protestant polished Patient satisfied, left in stable condition NV: [place] Prep Provider: Dr. Kevon Silva Community Cultural Development Officer: Radha Wharton Supervising dentist: Dr. Bolton * Bell Bolton DDS - 07/01/2024 9:00 AM EST I have reviewed the documentation and dental procedures completed by the rendering provider, Kevon Silva DDS, and approve their chart entries for this visit. MANJEET Doe DDS documented in this encounter Plan of Treatment Upcoming Encounters Date Type Department Care Team (Late st Contact Info) Description 07/17/2024 11:30 AM EDT Office Visit [facility] MED & PEDS [address] [place] [address] Sumanth Llanos MD [address] [place] [address] 07/22/2024 8:00 AM EDT Office Visit [facility] ADULT DENTAL [address] [place] [address] Kevon Silva [address] [place] [address] Scheduled Orders Name Type Priority Associated Diagnoses Orde r Schedule 4 4 CROWN PREP Dental Routine 1 Occurren alcon starting 07/01/2024 5 5 CROWN PREP Dental Routine 1 Occurren alcon starting 07/01/2024 documented as of this encounter Goals Goal Patient Goal Type Associated Problems Recent Progress Patient-Stated? Author Blood Pressure < 140/90 Blood Pressure 124/79(2024 9:18 AM EST) No Luis Springer, PharmD Patient will adhere to medication regimen General Improving(12/2022 9:16 AM EDT) No ShaunlogLuis marroquin, PharmD Hemoglobin A1c < 6.5 Result Component 5.8( 4 1:34 PM EST) No Luis Springer, PharmD documented as of this encounter Procedures Procedure Name Priority Date/Time Associated Diagnosis Comments 5 PREFABRICATED POST AND CORE IN ADDITION TO CROWN Routine 07/01/2024 9:00 AM EST 4 PREFABRICATED POST AND CORE IN ADDITION TO CROWN Routine 07/01/2024 9:00 AM EST CASE PRESENTATION, DETAILED AND EXTENSIVE TREATMENT PLANNING Routine 07/01/2024 9:00 AM EST documented in this encounter Visit Diagnoses Not on filedocumented in this encounter Additional Health Concerns Assessment Noted Time PHQ-9 Depression Total Score: 15 023 9:06 AM EST documented as of this encounter Care Teams Price Checker Relationship Specialty Start Date End Date Sumanth Llanos MD [address] [place] [address] PCP - General Internal Medicine 05/07/18 documented as of this encounter
--- OUTSIDE RECORDS SUMMARY | 2024-07-09 11:50 | XMS_ITS | Encounter Summary ---
Author Organization [employer] Address [address] [place] [address] [address] [place] [address] Care Team Providers Care Plasma Processing Centrifuge Operator Name Role Phone Sumanth Llanos MD Primary Care Provider [phone] [phone] Reason for Visit * Reason Comments Back Pain Encounter Details Date Type Department Care Team ([facility] st Contact Info) Description 07/09/2024 9:20 AM EST Office Visit [facility] WALK-[facility] [address] [phone] Right-sided chest pain (Primary Dx); Upper abdominal pain; Tobacco dependence Social History Tobacco Use Types Packs/Day Years [...] oz) 07/09/2024 9:18 A M EST Height - - Body Mass Index 30.81 04/24/2024 11:31 AM EST documented in this encounter Plan of Treatment Upcoming Encounters Date Type Department Care Team (Late st Contact Info) Description 07/17/2024 11:30 AM EDT Office Visit [facility] [address] [place] [address] Sumanth Llanos MD [address] [place] [address] 07/22/2024 8:00 AM EDT Office Visit [facility] ADULT DENTAL [address] [place], [place] [phone] Kevon Silva [address] [place] [address] Scheduled Orders Name Type Priority Associated Diagnoses Orde r Schedule Helicobacter pylori??Antigen, EIA, Stool Lab Routine Upper abdominal pain Expected: 07/09/2024 (Approximate), Expires: 07/09/2025 documented as of this encounter Goals Goal Patient Goal Type Associated Problems Recent Progress Patient-Stated? Author Blood Pressure < 140/90 Blood Pressure 124/79(2024 9:18 AM EST) No Shaunlogono, Luis, PharmD Patient will adhere to medication regimen General Improving(12/2022 9:16 AM EDT) No Dellogono, Luis, PharmD Hemoglobin A1c < 6.5 Result Component 5.8( 1:34 PM EST) No Dellogono, Luis, PharmD documented as of this encounter Procedures Procedure Name Priority Date/Time Associated Diagnosis Comments XR CHEST 2 VIEWS Routine 07/09/2024 10:0 4 AM EST Right-sided chest pain documented in this encounter Results * XR Chest 2 Views (07/09/2024 10:04 AM EST) Anatomical Region Laterality Modality Chest Radiographic Myrna ging 07/09/2024 10:0 4 AM EST Narrative 07/09/2024 10:22 AM EST ?[facility] ?[address] ?[place] [address] ?XRay Report ? Signed ? Patient: Dean Sandra,Keli ?MR# ?? : [id number] ? : 1975 ?Acct:[id number] ? Age/Sex: 49 / F ?ADM Date: 07/09/24 ? Loc: HO.HHCX ? Attending Dr: Chriss Grayson MD ? Ordering Physician: CHRISS GRAYSON MD ?? Date of Service: 07/09/24 ?? Procedure(s): XR chest 2V ?? Accession Number(s): [id number] ? cc: CHRISS GRAYSON MD ? EXAMINATION: ?? XR CHEST ? [...] DD/ 1004 ? TD/TT: 07/09/24 1015 ? Engineering Clerk: ? Procedure Note Jenn, Image - 07/09/2024 [facility] [address] [place] [address] XRay Report Signed Patient: Keli Oakley# : [id number] : 1975Acct:[id number] Age/Sex: 49 / FADM Date: 07/09/24 Loc: HO.HHCX Attending Dr: Chriss Grayson MD Ordering Physician: CHRISS GRAYSON MD Date of Service: 07/09/24 Procedure(s): XR chest 2V Accession Number(s): [id number] cc: CHRISS GRAYSON MD EXAMINATION: XR CHEST CLINICAL INFORMATION: right chest pain COMPARISON: October 24, 2021. TECHNIQUE: 2 views of the chest were obtained. FINDINGS: No consolidation, pleural effusion or pneumothorax. No hyperinflation. Cardiomediastinal silhouette size is normal. Round cardiac apex. Multilevel thoracolumbar spondylosis. XR/XR chest 2V IMPRESSION: No acute airspace disease. Multilevel spondylosis, thoracolumbar spine. Electronically signed by: Jared Johnson MD 07/09/2024 10:19 AM EST RP Dictated By: Jared Fisher MD Signed By: <Electronically signed by Jared Kauffman MDin OV> 07/09/24 1019 DD/ 1004 TD/TT: 07/09/24 1015 Engineering Clerk: Chriss Grayson MD IMG XR PROCEDURES Edited Result - Final documented in this encounter Visit Diagnoses Diagnosis Right-sided chest pain- Primary Upper abdominal pain Tobacco dependence Tobacco use disorder documented in this encounter Additional Health Concerns Assessment Noted Time PHQ-9 Depression Total Score: 15 023 9:06 AM EST documented as of this encounter Care Teams Plasma Processing Centrifuge Operator Relationship Specialty Start Date End Date Sumanth Llanos MD [address] [place] [address] PCP - General Internal Medicine 05/07/18 documented as of this encounter
--- OUTSIDE RECORDS SUMMARY | 2024-07-09 11:50 | XMS_ITS | Encounter Summary ---
Author Organization [employer] [facility] Address [address] [place] [address] 7 [place] [address] Care Team Providers Care Potato Chip Sacking Machine Operator Name Role Phone Sumanth Llanos MD Primary Care Provider [phone] Encounter Details Date Type Department Care Team (Latest Contact Info) Description 06/17/2024 Travel Social History Tobacco Use Types Packs/Day Years [...] 07/17/2024 11:30 AM EDT Office Visit [facility] MED & PEDS [address] [place] [address] Sumanth Llanos MD [address] [place] [address] 07/22/2024 8:00 AM EDT Office Visit [facility] ADULT DENTAL [address] [place], [place] [phone] Kevon Silva [address] [place] [address] documented as of this encounter Goals Goal Patient Goal Type Associated Problems Recent Progress Patient-Stated? Author Blood Pressure < 140/90 Blood Pressure 124/79(2024 9:18 AM EST) No DellogOg marroquinis, PharmD Patient will adhere to medication regimen General Improving(12/2022 9:16 AM EDT) No DellogonoOgis, PharmD Hemoglobin A1c < 6.5 Result Component 5.8( 1:34 PM EST) No Luis Springer, PharmD documented as of this encounter Visit Diagnoses Not on filedocumented in this encounter Additional Health Concerns Assessment Noted Time PHQ-9 Depression Total Score: 15 023 9:06 AM EST documented as of this encounter Care Teams Potato Chip Sacking Machine Operator Relationship Specialty Start Date End Date Sumanth Llanos MD [address] [place] [address] PCP - General Internal Medicine 05/07/18 documented as of this encounter
== END 2024-07-09 10:04 | disposition home or self-care (01) ==
LOC: HO.HHCX 10:03
PROVIDERS: Visit Provider Emergency Medicine
DX: R07.9 Chest pain, unspecified (principal)
CPT/HCPCS: 71046

== ENCOUNTER → 2024-07-09 10:04 | Outpatient (BNV) | payer MEDICAID, SELFPAY | PROVIDERS: Visit Provider Radiology Diagnostic Radiology | DX: R07.9 Chest pain, unspecified (principal) | CPT/HCPCS: 71046 ==

== ENCOUNTER 2024-07-11 15:38 | Inpatient (IN) | payer MEDICAID, SELFPAY ==
--- NOTE | ~2024-07-11 | XR_ITS ---
EXAMINATION: XR CHEST CLINICAL INFORMATION: right back/ lung pain COMPARISON: Chest 07/09/2024 TECHNIQUE: 2 views of the chest were obtained. FINDINGS: No significant abnormality is noted involving the heart, lungs, mediastinum, bony thorax or soft tissues. XR/XR chest 2V IMPRESSION: Unremarkable chest examination. Electronically signed by: Ortiz Looney MD 07/11/2024 05:24 PM [facility]
--- NOTE | ~2024-07-11 | CT_ITS ---
CLINICAL HISTORY: right flank pain CT abdomen and pelvis without contrast Comparison: US/SR - US ABDOMEN LIMITED - 07/11/24 16:26 EST Findings: No nephrolithiasis or hydronephrosis. No bladder stone. No consolidation at the lung bases. Cholelithiasis in sludge. No definitive gallbladder wall thickening or pericholecystic fluid. Heterogeneous hepatic steatosis. The other solid organs are normal. No bowel wall thickening or dilation. The appendix is not visualized. No secondary signs of acute appendicitis. No aneurysm. No calcified atherosclerotic disease. No lymphadenopathy. No ascites. No acute fracture. Impression: No urinary tract stone or obstruction. Cholelithiasis without definitive CT evidence of acute cholecystitis. The ultrasound of the same day was positive for acute cholecystitis. A HIDA scan may be helpful. This document has been electronically signed by: Jody Ingram MD on 07/11/2024 20:39:00
--- NOTE | ~2024-07-11 | US_ITS ---
EXAMINATION: US ABDOMEN LIMITED CLINICAL INFORMATION: Upper back pain radiating to the right upper quadrant. COMPARISON: None available. TECHNIQUE: Real-time imaging of the right upper quadrant abdominal viscera. FINDINGS: PANCREAS: Visualized portions are echogenic. LIVER: The liver is normal in size. The liver contour is normal. Parenchymal echogenicity is diffusely increased. GALLBLADDER: Multiple echogenic stones and sludge seen throughout the gallbladder wall the gallbladder wall thickness of 0.4 cm. COMMON BILE DUCT: Normal in caliber measuring 0.5 cm in diameter. RIGHT KIDNEY: No hydronephrosis. No renal calculi or focal parenchymal lesions. FREE FLUID: None. US/US abdomen limited IMPRESSION: Gallstones, sludge and gallbladder wall thickening suspicious of cholecystitis. Diffusely echogenic liver without focal lesion. No ascites seen. Diffusely echogenic pancreas. Electronically signed by: Ortiz Looney MD 07/11/2024 05:26 PM [facility] [place]
[2024-07-11 15:48] VITALS: BP 108/63; PULSE 69; RESP 16; TEMP 36.2; O2SAT 96; BMI 31.6
--- NOTE | 2024-07-11 16:19 | ED_ITS ---
HPI - General Adult General Chief complaint: Back Pain/Injury Stated complaint: pain rt side Time Seen by Provider: 07/11/24 19:38 Source: patient Limitations: language barrier History of Present Illness ED Provider: Angelica Rivera PA-C HPI narrative: 49-year-old female with a history of arthritis, MOIZ positive, vitamin-D deficiency, hyperlipidemia, presents with the abdominal pain times 3 days. Pain over right upper quadrant with radiation to right mid back. Associated nausea no vomiting. Patient has not had an appetite, it was unclear if she is having postprandial pain and nausea. She denies fevers. Denies dysuria, hematuria or history of kidney stones. Related Data Home Medications ?Medication ?Instructions ?Recorded ?Confirmed hydroxyzine HCl 25 mg tablet 25 mg PO itch 01/10/22 amitriptyline 25 mg tablet 25 mg PO BEDTIME 01/26/23 atenolol 25 mg tablet 25 mg PO QAM 01/26/23 cyanocobalamin (vitamin B-12) 1,000 mcg IM 01/26/23 1,000 mcg/mL injection solution ergocalciferol (vitamin D2) 1,250 1,250 mcg PO QWEEK 01/26/23 mcg (50,000 unit) capsule ibuprofen 600 mg tablet 600 mg PO Q6H PRN pain 01/26/23 lisinopril 10 1 tab PO QAM 01/26/23 mg-hydrochlorothiazide 12.5 mg tablet Previous Rx's ?Medication ?Instructions ?Recorded epinephrine 0.3 mg/0.3 mL 0.3 mg (0.3 mL) IM ONCE PRN 10/16/21 injection, auto-injector (EpiPen) extreme reaction #1 ea cetirizine 10 mg tablet 10 mg PO DAILY #20 tabs 10/18/21 omeprazole 20 mg capsule,delayed 20 mg PO DAILY #30 caps 09/18/22 release cefuroxime axetil 250 mg tablet 250 mg PO BID 7 days #14 tabs 09/22/22 tramadol 50 mg tablet 50 mg PO Q8-10H PRN pain #20 tabs 02/01/24 Allergies Allergy/AdvReac Type Severity Reaction Status Date / Time Sulfa (Sulfonamide Allergy Intermediate Rash Verified 07/11/24 15:54 Antibiotics) [SULFA (SULFONAMIDE ANTIBIOTICS)] shellfish derived Allergy Rash Verified 07/11/24 15:54 PMF Past Medical History Medical History High cholesterol Vitamin D deficiency PMB (postmenopausal bleeding) Right ankle sprain Depression Anxiety Hypertension Diabetes Chronic headache Surgical History History of carpal tunnel release H/O tubal ligation H/O hernia repair Family History Family History Mother Lung abnormality Father Heart disease Social History Social History Household Members Other:: Son Alcohol intake: current Alcohol intake frequency: does not drink Patient Tobacco Use Status: Current someday Tobacco user Advance Directives: No Advance Directives Information Provided: Yes Do you have a plan to hurt others: No Plan Current occupational status: unemployed Physical Exam ED Vital Signs: Vital Signs - 24 hr 07/11/24 15:48 07/11/24 19:59 Temperature 97.1 F 97.7 F Pulse Rate 69 56 Respiratory Rate 16 16 Blood Pressure 108/63 117/73 Pulse Oximetry 96 100 Oxygen Delivery Method Room Air Room Air BMI result Body Mass Index 31.6 Course Course Course Narrative: This is a Rapid Medical Examination (RME) performed by Gladys Dowell PA-C in triage. Full HPI, ROS, assessment and treatment plan per primary provider in the Main ED. 49-year-old female hx of here for eval of right upper back pain radiating to her right upper quadrant x days. assoc nonbloody diarrhea. no N/V. no urinary sx. no sob, whezing, cp. no recent travel/ long car rides. Evaluated at walk-in on 07/09/2024 with normal chest x-ray. Was advised to come to the ED to rule out GB pathology if sx continued. Plan: labs, UA, CXR, abd US Consultations Consultation #1: paging Dr. Gomez...... She will be admitting the patient, likely OR time in the morning, we will be starting antibiotics Time: 21:22 Medical Decision Making Medical Decision Making MDM Narrative: 49-year-old female with a history of arthritis, MOIZ positive, vitamin-D deficiency, hyperlipidemia, presents with the abdominal pain times 3 days. Pain over right upper quadrant with radiation to right mid back. Associated nausea no vomiting. Patient has not had an appetite, it was unclear if she is having postprandial pain and nausea. She denies fevers. Denies dysuria, hematuria or history of kidney stones. No relevant chronic issues History: Per patient I have considered the following differential diagnoses: Biliary colic, cholecystitis, gastritis, pancreatitis, renal colic Plan: Given distribution of discomfort in nature of symptoms I am considering underlying biliary pathology. Screening labs including LFTs and an ultrasound of the right upper quadrant were obtained from triage, there was concern for cholecystitis. We will be paging Dr. Gomez the surgeon on-call for consult. We will be medicating with morphine and Zofran. We will make the patient NPO. I did consider renal colic, however she is not having any related symptoms, UA obtained, will view results I have independently reviewed the following tests: Labs: No leukocytosis, not anemic, her potassium is low at 3, no other electrolyte abnormalities, her LFTs are all normal, creatinine normal, evidence of UTI and she is passing blood, she is asymptomatic, I am inclined to obtain a CT scan of the abdomen to r/u renal colic Ultrasound right upper quadrant: US/US abdomen limited IMPRESSION: Gallstones, sludge and gallbladder wall thickening suspicious of cholecystitis. Diffusely echogenic liver without focal lesion. No ascites seen. Diffusely echogenic pancreas. Electronically signed by: Ortiz Looney MD 07/11/2024 05:26 PM [facility] [place] CT abd: Impression: No urinary tract stone or obstruction. Cholelithiasis without definitive CT evidence of acute cholecystitis. The ultrasound of the same day was positive for acute cholecystitis. A HIDA scan may be helpful. This document has been electronically signed by: Jody Ingram MD on 07/11/2024 20:39:00 Lab Data 07/11/24 16:10 07/11/24 16:10 Labs: Lab Results 07/11/24 07/11/24 Range/Units 16:10 16:12 WBC 7.7 (4.8-10.8) X10*3/uL RBC 4.09 L (4.20-5.50) X10*6/uL Hgb 12.7 (12.0-16.0) g/dl Hct 35.9 L (37.0-47.0) % MCV 87.8 (80.0-98.0) fL MCH 31.1 (27.0-33.0) pg MCHC 35.4 H (31.0-35.0) g/dl RDW 13.5 (11.0-16.0) % Plt Count 365 (160-400) X10*3/uL MPV 11.1 (9.4-12.3) fL Immature Gran % (Auto) 0.3 (0.0-0.4) % Neut % (Auto) 55.4 (45-73) % Lymph % (Auto) 35.6 (20-40) % [place] % (Auto) 5.9 (2-11) % Eos % (Auto) 2.3 (0-4) % Baso % (Auto) 0.5 (0-2) % Lymph # (Auto) 2.7 (1.2-4.9) X10*3/uL [place] # (Auto) 0.5 (0.1-1.2) X10*3/uL Eos # (Auto) 0.2 (0.0-0.4) X10*3/uL Baso # (Auto) 0.0 (0.0-0.2) X10*3/uL Abs Immat Gran (auto) 0.02 (0.00-0.03) X10*3/uL Absolute Neuts (auto) 4.2 (2.0-8.3) x10*3/uL Absolute Nucleated RBC 0.000 (0.0-0.012) X10*3/uL Nucleated RBC % (auto) 0.0 (0.0-0.2) /100WBC Sodium 142 (135-145) mmol/L Potassium 3.0 L (3.3-5.1) mmol/L Chloride 104 (96-108) mmol/L Carbon Dioxide 31 H (22-29) mmol/L Anion Gap 10 L (12-20) BUN 19 H (9-16) mg/dL Creatinine 0.79 (0.5-1.4) mg/dL Estim Creat Clear Calc 67.5 Estimated GFR > 60 Random Glucose 100 (60-115) mg/dL Calcium 9.2 (8.4-10.2) mg/dL Magnesium 2.0 (1.6-2.6) mg/dL Total Bilirubin 0.5 (0.0-1.0) mg/dL AST 22 (5-31) U/L ALT 19 (0-31) U/L Alkaline Phosphatase 83 (39-117) U/L Total Protein 7.7 (6.5-8.0) g/dL Albumin 4.0 (3.5-5.0) g/dL Lipase 31 (8-78) U/L Beta HCG, Quant < 2 mIU/mL Urine Color Yellow Urine Appearance Cloudy Urine pH 5.5 (5.0-9.0) Ur Specific [place] 1.020 (1.005-1.025) Urine Protein Negative (Neg-Trace) mg/dL Urine Glucose (UA) Negative (Negative) mg/dL Urine Ketones Trace (Negative) mg/dL Urine Blood Moderate (2+) H (Negative) Urine Nitrite Positive H (Negative) Ur Leukocyte Esterase Small (1+) H (Negative) Urine RBC 3-5 H (0-2) /HPF Urine WBC 6-10 (0-5) /HPF Ur Squamous Epith Cells 11-20 (0-2) /HPF Urine Bacteria 2+ (None Seen) Hyaline Casts 3-5 (0-2) /LPF Discharge Plan Discharge Patient Disposition: Admitted As Inpatient Prescriptions: No Action cetirizine 10 mg tablet 10 mg PO DAILY Qty: 20 0RF epinephrine [EpiPen] 0.3 mg/0.3 mL auto-injector 0.3 mg IM ONCE PRN (Reason: extreme reaction) Qty: 1 0RF Rx Instructions: for 2 doses omeprazole 20 mg capsule,delayed release(DR/EC) 20 mg PO DAILY Qty: 30 0RF cefuroxime axetil 250 mg tablet 250 mg PO BID 7 Days Qty: 14 0RF tramadol 50 mg tablet 50 mg PO Q8-10H PRN (Reason: pain) Qty: 20 0RF hydroxyzine HCl 25 mg tablet 25 mg PO amitriptyline 25 mg tablet 25 mg PO BEDTIME atenolol 25 mg tablet 25 mg PO QAM lisinopril-hydrochlorothiazide 10-12.5 mg tablet 1 tab PO QAM ibuprofen 600 mg tablet 600 mg PO Q6H PRN (Reason: pain) ergocalciferol (vitamin D2) 1,250 mcg (50,000 unit) capsule 1,250 mcg PO QWEEK cyanocobalamin (vitamin B-12) 1,000 mcg/mL solution 1,000 mcg IM Print Language: Faroese
[2024-07-11 16:27] LABS: MANUAL DIFF FLAG NO
[2024-07-11 16:30] LABS: Appearance Urine Cloudy; Color Urine Yellow; Glucose Urine UA Negative (Negative); Leukocyte Esterase Urine Small (1+) (Negative); Nitrite Urine Positive (Negative); PH 5.5 (5.0-9.0); UMIC TRIGGER UACC YES; Urine Blood Moderate (2+) (Negative); Urine Ketones Trace mg/dL (Negative); Urine Protein Negative (Neg-Trace)
[2024-07-11 16:48] LABS: Bacteria Urine 2+ (None Seen); UACC Culture Trigger YES
[2024-07-11 16:59] LABS: Basophils Percent Auto 0.5 % (0-2); Eosinophils Absolute Auto 0.2 X10*3/uL (0.0-0.4); Eosinophils Percent Auto 2.3 % (0-4); Hematocrit 35.9 % (37.0-47.0); Hemoglobin 12.7 g/dl (12.0-16.0); Imm Gran Abs Auto 0.02 X10*3/uL (0.00-0.03); Imm Gran Pct Auto 0.3 % (0.0-0.4); Lymphocytes Absolute Auto 2.7 X10*3/uL (1.2-4.9); Lymphocytes Percent Auto 35.6 % (20-40); Mean Corpuscular HGB Conc 35.4 g/dl (31.0-35.0); Mean Corpuscular Hemoglobin 31.1 pg (27.0-33.0); Mean Corpuscular Volume 87.8 fL (80.0-98.0); Mean Platelet Volume 11.1 fL (9.4-12.3); Monocytes Absolute Auto 0.5 X10*3/uL (0.1-1.2); Monocytes Percent Auto 5.9 % (2-11); Neutrophils Absolute Auto 4.2 x10*3/uL (2.0-8.3); Neutrophils Percent Auto 55.4 % (45-73); Platelet Count 365 X10*3/uL (160-400); Red Blood Count 4.09 X10*6/uL (4.20-5.50); Red Cell Distribution Width 13.5 % (11.0-16.0); White Blood Count 7.7 X10*3/uL (4.8-10.8)
[2024-07-11 17:06] LABS: Alanine Aminotransferase 19 U/L (0-31); Alkaline Phosphatase 83 U/L (39-117); Anion Gap 10 (12-20); Aspartate Amino Transferase 22 U/L (5-31); Bilirubin Total 0.5 mg/dL (0.0-1.0); Blood Urea Nitrogen 19 mg/dL (9-16); Calcium 9.2 mg/dL (8.4-10.2); Carbon Dioxide 31 mmol/L (22-29); Chloride 104 mmol/L (96-108); Creatinine Clr Calc Pharmacy 67.5; Estimated Glomerular Filt Rate > 60; Glucose Random 100 mg/dL (60-115); Lipase 31 U/L (8-78); Sodium 142 mmol/L (135-145); Total Protein 7.7 g/dL (6.5-8.0)
[2024-07-11 19:59] VITALS: BP 117/73; PULSE 56; RESP 16; TEMP 36.5; O2SAT 100
[2024-07-11 21:01] LABS: HCG Quantitative < 2 mIU/mL
[2024-07-11] MEDS: Morphine Sulfate 4 MG/ML CARTRIDGE IVPUSH (21:26)
[2024-07-11] MEDS: 0.9 % Sodium Chloride 1,000 ML 999 ML IV (21:26)
[2024-07-11] MEDS: Potassium Chloride/H20 10 MEQ/100 ML PIGGYBACK 100 MEQ IV ×3 (21:26→23:39)
[2024-07-11] MEDS: ondansetron HCL 4 MG/2 ML VIAL IVPUSH (21:26)
--- NOTE | 2024-07-11 22:24 | PHA.MEDREC ---
Addendum entered by Demetrio Arce 07/11/24 22:36: reviewed Original Note: Pharmacy Consult ? Medication Reconciliation Pharmacy has completed the medication reconciliation. Spoke with patient with son at bedside who was able to interpret. The patient confirmed her Vitamin B12 injection once a month and confirmed she last got it on 06/17 and is due for it on 07/17. She also confirmed the Vitamin D2 once a week and confirmed she takes it on Fridays and took it today. She also confirmed she is taking the Zepbound once a week on and states she forgot to take it yesterday but took it 2 ago (07/03). She stated she took her morning medications around 1300 today.
[2024-07-11] MEDS: cefTRIAXone sodium 2 GM VIAL IVPUSH (22:49)
[2024-07-11] MEDS: metroNIDAZOLE/NS 500 MG/100 ML PIGGYBACK 100 MG IV (22:49)
[2024-07-11] MEDS: Famotidine/PF 20 MG/2 ML VIAL IVPUSH (22:49)
[2024-07-11 23:32] VITALS: BP 122/73; PULSE 54; RESP 16; TEMP 36.6; O2SAT 98
[2024-07-11] MEDS: Pantoprazole Sodium 40 MG/10 ML VIAL IVPUSH (23:41)
[2024-07-11] MEDS: 0.9 % Sodium Chloride 1,000 ML 100 ML IVCONT (23:47)
[2024-07-12] VITALS (15 sets, daily range): BP systolic 94–134; BP diastolic 49–66; PULSE 52–72; RESP 15–18; TEMP 36.1–37.2; O2SAT 93–100; BMI 33.7
[2024-07-12] MEDS: Piperacillin Sodium/Tazobactam 3.375 GM in 0.9 % Sodium Chloride 50 ML IV ×4 (00:19→17:25)
[2024-07-12] MEDS: Potassium Chloride/H20 10 MEQ/100 ML PIGGYBACK 100 MEQ IV (00:53)
[2024-07-12] MEDS: 0.9 % Sodium Chloride 1,000 ML 100 ML IVCONT ×2 (08:26→15:42)
--- NOTE | 2024-07-12 11:05 | P.HPGS_ITS ---
History of Present Illness History of Present Illness Date of Service: 07/12/24 Chief complaint: Abdo Pain Narrative: Keli Flores is a 49 year old female who had some abdominal pain in the right upper quadrant about 2 weeks ago for 3 days and then it went away. Then she develop new pain again since Sunday that is been continuously present in her right upper quadrant going towards her back. She had some nausea but no vomiting. She saw her primary care doctor who did an ultrasound which showed gallstones and then sent her to the emergency room when things got worse. She comes in now and the pain is still present. Her sister had cholecystitis and had her gallbladder out. Review of Systems Review of Systems: Yes all other systems are reviewed and are negative PMFSH Past Medical History Medical History High cholesterol Vitamin D deficiency PMB (postmenopausal bleeding) Right ankle sprain Depression Anxiety Hypertension Diabetes Chronic headache Family History Family History Mother Lung abnormality Father Heart disease Surgical History Surgical History History of carpal tunnel release H/O tubal ligation H/O hernia repair Social History Social History Household Members Other:: Son Alcohol intake: current Alcohol intake frequency: does not drink Patient Tobacco Use Status: Current everyday Tobacco user Smoked in Last 30 Days: Yes Use of substances other than those prescribed or required for medical reasons: No Advance Directives: No Advance Directives Information Provided: Yes Do you have a plan to hurt others: No Plan Nutrition Risks: No Nutritional Risk Patient : No Current occupational status: unemployed Meds Allergies Allergy/AdvReac Type Severity Reaction Status Date / Time Sulfa (Sulfonamide Allergy Intermediate Rash Verified 07/11/24 15:54 Antibiotics) [SULFA (SULFONAMIDE ANTIBIOTICS)] shellfish derived Allergy Rash Verified 07/11/24 15:54 Active Medications: Current Medications Acetaminophen (Acetaminophen 325 Mg Tablet) 650 mg PO Q6H PRN PRN Reason: Pain, Mild 1-3,fever,headache Sodium Chloride (Ns) 1,000 mls @ 100 mls/hr IVCONT .Q10H RUPESH Last Admin: 07/12/24 08:26 Dose: 100 mls/hr Piperacillin Sod/Tazobactam (Sod 3.375 gm/ Sodium Chloride) 50 mls @ 100 mls/hr IV Q6H [facility] Last Infusion: 07/12/24 06:42 Dose: Infused Melatonin (Melatonin 3 Mg Tablet) 6 mg PO BEDTIME PRN PRN Reason: Insomnia Morphine Sulfate (Morphine Sulfate 4 Mg/Ml Cartridge) 3 mg IVPUSH Q4H PRN; Protocol PRN Reason: Pain, Severe (Pain Scale 7-10) Ondansetron HCl (Ondansetron Hcl 4 Mg/2 Ml Vial) 4 mg IVPUSH Q8H PRN PRN Reason: Nausea and Vomiting Sodium Chloride (0.9 % Sodium Chloride Flush 3 Ml Syringe) 3 ml IVFLUSH QSHIFT [facility] Last Admin: 07/12/24 08:26 Dose: Not Given Home Medications ?Medication ?Instructions ?Recorded ?Confirmed ?Last Taken ?Type amitriptyline 25 mg tablet 25 mg PO BEDTIME 01/26/23 07/11/24 07/10/24 History atenolol 25 mg tablet 25 mg PO DAILY 01/26/23 07/11/24 07/11/24 15:00 History cyanocobalamin (vitamin B-12) 1,000 mcg IM QMONTH 01/26/23 07/11/24 06/17/24 History 1,000 mcg/mL injection solution ergocalciferol (vitamin D2) 1,250 1,250 mcg PO FR 01/26/23 07/11/24 07/11/24 15:00 History mcg (50,000 unit) capsule ibuprofen 600 mg tablet 600 mg PO Q6H PRN pain 01/26/23 07/11/24 Unknown History lisinopril 10 1 tab PO DAILY 01/26/23 07/11/24 07/11/24 15:00 History mg-hydrochlorothiazide 12.5 mg tablet amlodipine 5 mg tablet 5 mg PO DAILY 07/11/24 07/11/24 Unknown History famotidine 20 mg tablet 20 mg PO BID 07/11/24 07/11/24 07/11/24 15:00 History tirzepatide (weight loss) 2.5 2.5 mg subcut TH 07/11/24 07/11/24 07/03/24 History mg/0.5 mL subcutaneous pen injector (Zepbound) Physical Exam Vital Signs: Vital Signs: Last Vital Signs Temp 97.7 F 07/12/24 06:07 Pulse 59 07/12/24 06:07 Resp 17 07/12/24 06:07 BP 119/58 L 07/12/24 06:07 Pulse Ox 97 07/12/24 06:07 O2 Del Method Room Air 07/12/24 06:07 BMI result Body Mass Index 31.6 Const: General: cooperative and healthy appearing Orientati on/consciousness: patient oriented x3 Eyes: Other: Nonicteric Resp: Auscultation: clear to auscultation bilaterally Cardio: Rate: regular rate Rhythm: regular rhythm GI: Other: Abdomen is soft nondistended she is tender in the right upper quadrant flank area with some guarding no peritoneal signs no rebound. No masses Skin: Other: Nonicteric Neuro: General: patient oriented x3 Extrem: General: Yes normal to inspection Results Results Labs: Short CBC 07/11/24 Range/Units 16:10 WBC 7.7 (4.8-10.8) X10*3/uL Hgb 12.7 (12.0-16.0) g/dl Hct 35.9 L (37.0-47.0) % Plt Count 365 (160-400) X10*3/uL BMP 07/11/24 16:10 Sodium 142 Potassium 3.0 L Chloride 104 Carbon Dioxide 31 H BUN 19 H Creatinine 0.79 Calcium 9.2 Liver Function 07/11/24 Range/Units 16:10 Total Bilirubin 0.5 (0.0-1.0) mg/dL AST 22 (5-31) U/L ALT 19 (0-31) U/L Alkaline Phosphatase 83 (39-117) U/L Albumin 4.0 (3.5-5.0) g/dL Urine 07/11/24 Range/Units 16:12 Urine Color Yellow Urine Appearance Cloudy Urine pH 5.5 (5.0-9.0) Ur Specific [employer] 1.020 (1.005-1.025) Urine Protein Negative (Neg-Trace) mg/dL Urine Glucose (UA) Negative (Negative) mg/dL Abdomen CT scan report/results: report reviewed and image reviewed CT scan - pelvis: report reviewed and image reviewed Additional studies: Acct:[id number] Age/Sex: 49 / F ADM Date: 07/11/24 Loc: HO.ED Attending Dr: Ordering Physician: Angelica Rivera Date of Service: 07/11/24 Procedure(s): CT abdomen pelvis wo IV con Accession Number(s): [id number] cc: Sumanth Llanos MD; Angelica Rivera~ Report Number: [id number]: Total DLP = 446.00 mGy-cm CLINICAL HISTORY: right flank pain CT abdomen and pelvis without contrast Comparison: US/SR - US ABDOMEN LIMITED - 07/11/24 16:26 EST Findings: No nephrolithiasis or hydronephrosis. No bladder stone. No consolidation at the lung bases. Cholelithiasis in sludge. No definitive gallbladder wall thickening or pericholecystic fluid. Heterogeneous hepatic steatosis. The other solid organs are normal. No bowel wall thickening or dilation. The appendix is not visualized. No secondary signs of acute appendicitis. No aneurysm. No calcified atherosclerotic disease. No lymphadenopathy. No ascites. No acute fracture. Impression: No urinary tract stone or obstruction. Cholelithiasis without definitive CT evidence of acute cholecystitis. The ultrasound of the same day was positive for acute cholecystitis. A HIDA scan may be helpful. This document has been electronically signed by: Jody Ingram MD on 07/11/2024 20:39:00 Dictated By: Jody Green MD Signed By: <Electronically signed by Jody Green MD in OV> 07/11/242038 DD/ 38 TD/TT: 07/11/242038 Parts Department Supervisor: Ordering Physician: Kassy Dowell Date of Service: 07/11/24 Procedure(s): US abdomen limited Accession Number(s): [id number] cc: Julianne Gongora ; Kassy Dowell~ EXAMINATION: US ABDOMEN LIMITED CLINICAL INFORMATION: Upper back pain radiating to the right upper quadrant. COMPARISON: None available. TECHNIQUE: Real-time imaging of the right upper quadrant abdominal viscera. FINDINGS: PANCREAS: Visualized portions are echogenic. LIVER: The liver is normal in size. The liver contour is normal. Parenchymal echogenicity is diffusely increased. GALLBLADDER: Multiple echogenic stones and sludge seen throughout the gallbladder wall the gallbladder wall thickness of 0.4 cm. COMMON BILE DUCT: Normal in caliber measuring 0.5 cm in diameter. RIGHT KIDNEY: No hydronephrosis. No renal calculi or focal parenchymal lesions. FREE FLUID: None. US/US abdomen limited IMPRESSION: Gallstones, sludge and gallbladder wall thickening suspicious of cholecystitis. Diffusely echogenic liver without focal lesion. No ascites seen. Diffusely echogenic pancreas. Electronically signed by: Ortiz Looney MD 07/11/2024 05:26 PM [facility] Assessment and Plan (1) Calculous cholecystitis: Status: Acute Plan 49-year-old female with right upper quadrant pain radiating to their back some nausea on and off but now consistent over the last few days ultrasound findings consistent with thickened gallbladder and gallstones tender in the right upper quadrant findings consistent with biliary colic maybe cholecystitis. Plan to carry out laparoscopic cholecystectomy. Risks and benefits discussed with the patient including but not limited to bleeding infection bowel injury possible organ injury possible bile duct injury possible bile leak and she wishes to proceed. This was done with the certified court/medical interpreter. Quality Stroke Does the patient have a stroke diagnosis?: No VTE Prior VTE?: No VTE Risk Level:: Surgical - low VTE Device Contraindication: N/A - Device Ordered VTE Drug Contraindication: Treatment Not Indicated Procedures Date of Service Date of Service: 07/12/24
--- NOTE | 2024-07-12 13:00 | P.CONAN_ITS ---
[facility] Active Problems Active Problems: All Active Problems Urinary tract infection (Acute) Calculous cholecystitis (Acute) MOIZ positive (Acute) H/O tubal ligation (Acute) H/O hernia repair (Acute) High cholesterol (Acute) Vitamin D deficiency (Acute) PMB (postmenopausal bleeding) (Acute) Trigger thumb, left thumb (Acute) Carpal tunnel syndrome of left wrist (Acute) Carpal tunnel syndrome of right wrist (Acute) Avulsion fracture of ankle (Acute) Right ankle sprain (Acute) Numbness and tingling in both hands (Acute) Osteoarthritis of knees, bilateral (Acute) Anxiety (Acute) Past Medical History Medical History High cholesterol Vitamin D deficiency PMB (postmenopausal bleeding) Right ankle sprain Depression Anxiety Hypertension Diabetes Chronic headache Family History Family History Mother Lung abnormality Father Heart disease Family history of problems with anesthesia: No Surgical History Surgical History History of carpal tunnel release H/O tubal ligation H/O hernia repair History of Problems with Anesthesia: No Social History Social History Household Members Other:: Son Alcohol intake: current Alcohol intake frequency: does not drink Patient Tobacco Use Status: Current everyday Tobacco user Smoked in Last 30 Days: Yes Use of substances other than those prescribed or required for medical reasons: No Advance Directives: No Advance Directives Information Provided: Yes Do you have a plan to hurt others: No Plan Nutrition Risks: No Nutritional Risk Patient : No Current occupational status: unemployed Meds Allergies Allergy/AdvReac Type Severity Reaction Status Date / Time Sulfa (Sulfonamide Allergy Intermediate Rash Verified 07/11/24 15:54 Antibiotics) [SULFA (SULFONAMIDE ANTIBIOTICS)] shellfish derived Allergy Rash Verified 07/11/24 15:54 Active Medications: Current Medications Acetaminophen (Acetaminophen 325 Mg Tablet) 650 mg PO Q6H PRN PRN Reason: Pain, Mild 1-3,fever,headache Sodium Chloride (Ns) 1,000 mls @ 100 mls/hr IVCONT .Q10H RUPESH Last Admin: 07/12/24 08:26 Dose: 100 mls/hr Piperacillin Sod/Tazobactam (Sod 3.375 gm/ Sodium Chloride) 50 mls @ 100 mls/hr IV Q6H [facility] Last Infusion: 07/12/24 12:58 Dose: Infused Melatonin (Melatonin 3 Mg Tablet) 6 mg PO BEDTIME PRN PRN Reason: Insomnia Morphine Sulfate (Morphine Sulfate 4 Mg/Ml Cartridge) 3 mg IVPUSH Q4H PRN; Protocol PRN Reason: Pain, Severe (Pain Scale 7-10) Ondansetron HCl (Ondansetron Hcl 4 Mg/2 Ml Vial) 4 mg IVPUSH Q8H PRN PRN Reason: Nausea and Vomiting Sodium Chloride (0.9 % Sodium Chloride Flush 3 Ml Syringe) [facility] Last Admin: 07/12/24 08:26 Dose: Not Given Home Medications ?Medication ?Instructions ?Recorded ?Confirmed ?Last Taken ?Type amitriptyline 25 mg tablet 25 mg PO BEDTIME 01/26/23 07/11/24 07/10/24 History atenolol 25 mg tablet 25 mg PO DAILY 01/26/23 07/11/24 07/11/24 15:00 History cyanocobalamin (vitamin B-12) 1,000 mcg IM QMONTH 01/26/23 07/11/24 06/17/24 History 1,000 mcg/mL injection solution ergocalciferol (vitamin D2) 1,250 1,250 mcg PO FR 01/26/23 07/11/24 07/11/24 15:00 History mcg (50,000 unit) capsule ibuprofen 600 mg tablet 600 mg PO Q6H PRN pain 01/26/23 07/11/24 Unknown History lisinopril 10 1 tab PO DAILY 01/26/23 07/11/24 07/11/24 15:00 History mg-hydrochlorothiazide 12.5 mg tablet amlodipine 5 mg tablet 5 mg PO DAILY 07/11/24 07/11/24 Unknown History famotidine 20 mg tablet 20 mg PO BID 07/11/24 07/11/24 07/11/24 15:00 History tirzepatide (weight loss) 2.5 2.5 mg subcut TH 07/11/24 07/11/24 07/03/24 History mg/0.5 mL subcutaneous pen injector (Zepbound) Exam Height,Weight and Vital Signs: Height 4 ft 9 in Weight 66.224 kg Last Vital Signs Temp 98.0 F 07/12/24 11:54 Pulse 53 07/12/24 11:54 Resp 15 07/12/24 11:54 BP 119/60 07/12/24 11:54 Pulse Ox 99 07/12/24 11:54 O2 Del Method Room Air 07/12/24 11:54 Pertinent Lab Results Pertinent Lab Results: Laboratory Tests 07/11/24 07/11/24 16:10 16:12 WBC 7.7 RBC 4.09 L Hgb 12.7 Hct 35.9 L MCV 87.8 MCH 31.1 MCHC 35.4 H RDW 13.5 Plt Count 365 MPV 11.1 Immature Gran % (Auto) 0.3 Neut % (Auto) 55.4 Lymph % (Auto) 35.6 [place] % (Auto) 5.9 Eos % (Auto) 2.3 Baso % (Auto) 0.5 Lymph # (Auto) 2.7 [place] # (Auto) 0.5 Eos # (Auto) 0.2 Baso # (Auto) 0.0 Abs Immat Gran (auto) 0.02 Absolute Neuts (auto) 4.2 Absolute Nucleated RBC 0.000 Nucleated RBC % (auto) 0.0 Sodium 142 Potassium 3.0 L Chloride 104 Carbon Dioxide 31 H Anion Gap 10 L BUN 19 H Creatinine 0.79 Estim Creat Clear Calc 67.5 Estimated GFR > 60 Random Glucose 100 Calcium 9.2 Magnesium 2.0 Total Bilirubin 0.5 AST 22 ALT 19 Alkaline Phosphatase 83 Total Protein 7.7 Albumin 4.0 Lipase 31 Beta HCG, Quant < 2 Urine Color Yellow Urine Appearance Cloudy Urine pH 5.5 Ur Specific [place] 1.020 Urine Protein Negative Urine Glucose (UA) Negative Urine Ketones Trace Urine Blood Moderate (2+) H Urine Nitrite Positive H Ur Leukocyte Esterase Small (1+) H Urine RBC 3-5 H Urine WBC 6-10 Ur Squamous Epith Cells 11-20 Urine Bacteria 2+ Hyaline Casts 3-5 Airway Mallampati Class: II TM Dist: >3cm Neck ROM: Full Assessment and Plan Assessment Anesthesia Assessment: Anesthesia Plan Discussed and Chart Reviewed Final Anesthetic Review Family History of Problems with Anesthesia: No History of Problems with Anesthesia: No NPO: Yes ASA Class: II and Emergency Final Preanesthetic Review: No Changes in Pt Med Stat, Meds/Allgs Chart Reviewed, Consent Obtained/Reviewed and Anes Risks/Benef Reviewed Patient Risk: Intermediate Procedure Risk: Intermediate Anesthetic Plan Anesthetic Plan: GA Disposition: Standard PACU
--- NOTE | 2024-07-12 15:09 | P.OP_ITS ---
Operative Note Operative Note Date of Service: 07/12/24 Narrative: Preop diagnosis--acute cholecystitis biliary colic Postop diagnosis--same Procedure--laparoscopic cholecystectomy Surgeon--Jason Anesthesia--general endotracheal tube anesthesia History--patient is a 49-year-old female comes in complaining of abdominal pain nausea and vomiting the pain is consistent and saw her primary care who thought it was her gallbladder after ultrasound showed gallstones. Here in the emerge ncy room her LFTs and white count was normal but she continued to have abdominal pain and CT scan and ultrasound showing gallstones and some thickening of the gallbladder. Findings--distended gallbladder with multiple stones in place maybe some chronic cholecystitis Procedure-- Patient was brought to the operative room under Anesthesia guidance was intubated. She had compression stockings placed before induction received antibiotics. Her abdomen was prepped and draped in standard surgical fashion. An infraumbilical incision was created after numbing up the area with a 0.25% Marcaine with epinephrine dissection was carried down to the anterior abdominal wall fascia which was grasped with Jen's and transected. Davis trocar introduced after 0 Vicryl pursestring suture placed. Pneumoperitoneum established to 15 mmHg pressure. Patient was positioned head up left side down and then 3 5 mm ports were then placed under direct visualization using local 1 in the epigastric area and 2 in the right upper quadrant area. The gallbladder was identified in the right upper quadrant and did not look very inflamed or thickened. It was grasped and retracted superiorly and laterally. The triangle of Calot area was dissected out with the cystic duct and cystic artery transected such that they were the only structures going into the gallbladder creating the critical view. The cystic duct was clipped 2 times down and 1 up and transected. The cystic artery in the similar fashion was transected and there was a little branch that came off of this that was also clipped. The hook cautery was used to get the gallbladder off the liver bed but in the process of doing that a hole was made in some stones were spilled. The gallbladder was removed off the liver bed and then placed in Endo-Catch bag and some of the stones at fallen that was put in the bag. Bag was removed and pneumoperitoneum reestablished moderate amount of suction irrigation was carried on the right upper quadrant remove any spilled bile and to get the excess stones that had spilled. Little cautery was carried out on the liver bed to get hemostasis. Cystic duct stump and artery clips look fine. Ports were then removed under direct visualization the infraumbilical port site closed with a closure of the figure of 8 pursestring suture. 4-0 Polysorb was then used in the subcuticular fashion to close the skin edges and Steri-Strips placed. The end of the case all sponge instrument needle counts were correct estimated blood loss was about 7 cc specimens sent with the gallbladder patient was extubated returned stable to the recovery room
[2024-07-12] MEDS: 0.9 % Sodium Chloride Flush 3 ML SYRINGE IVFLUSH (15:45)
--- NOTE | 2024-07-12 16:06 | MHC.CM.PN ---
CM ATTEMPTED TO MEET WITH PT WHO WAS OFF UNIT CM TO REVISIT
[2024-07-12] MEDS: amLODIPine Besylate 5 MG TABLET PO (16:45)
[2024-07-12] MEDS: atenoloL 25 MG TABLET PO (16:46)
[2024-07-12] MEDS: oxyCODONE HCl Immed Release 5 MG TABLET 10 MG PO (17:32)
[2024-07-12] MEDS: Amitriptyline HCl 25 MG TABLET PO (20:47)
[2024-07-12] MEDS: Famotidine 20 MG TABLET PO (20:47)
[2024-07-12] MEDS: Acetaminophen 325 MG TABLET 650 MG PO (20:47)
[2024-07-13] MEDS: oxyCODONE HCl Immed Release 5 MG TABLET 10 MG PO ×3 (00:21→15:29)
[2024-07-13] MEDS: Piperacillin Sodium/Tazobactam 3.375 GM in 0.9 % Sodium Chloride 50 ML IV ×3 (00:23→11:33)
[2024-07-13] MEDS: 0.9 % Sodium Chloride 1,000 ML 100 ML IVCONT ×2 (01:53→11:34)
[2024-07-13 03:07] VITALS: BP 111/58; PULSE 72; RESP 18; TEMP 37.2; O2SAT 96
[2024-07-13 07:14] VITALS: BP 104/54; PULSE 64; RESP 16; TEMP 36.6; O2SAT 96
[2024-07-13] MEDS: Loratadine 10 MG TABLET PO (08:28)
[2024-07-13] MEDS: Famotidine 20 MG TABLET PO (08:28)
[2024-07-13 11:29] VITALS: BP 145/67; PULSE 64; RESP 16; TEMP 36.8; O2SAT 97
[2024-07-13] MEDS: atenoloL 25 MG TABLET PO (11:40)
[2024-07-13] MEDS: amLODIPine Besylate 5 MG TABLET PO (11:40)
[2024-07-13] MEDS: lisinopriL 10 MG, hydroCHLOROthiazide 12.5 MG PO (11:42)
[2024-07-13 12:41] VITALS: BP 112/59; PULSE 57
[2024-07-13 13:35] VITALS: BP 118/64
[2024-07-13 16:00] VITALS: BP 132/73; PULSE 75; RESP 18; TEMP 36.7; O2SAT 97
--- NOTE | 2024-07-13 16:33 | MHC.CM.PN ---
PT REPORTS SHE LIVES WITH HER SON WHO IS ALSO HER SECURITY SERGEANT SHE HAS NO OTHER SERVICES AND NO DME PT DID NOT WANT TO COMPLETE A HCP TODAY, BUT DID ACCEPT INFO/DOCUMENT PCP: AARON MCKEON PT WILL DC HOME TODAY WITH NO NEW SERVICES SON WILL TRANSPORT
--- NOTE | 2024-07-13 18:39 | PM.DS ---
DS: Providers Provider Date of Service: 07/13/24 Date of admission: 07/11/24 22:37 Date of discharge: 07/13/24 Primary care physician: Sumanth Llanos MD Admitting clinician: Rozina Gomez Attending physician on discharge: Rozina Gomez DS: Diagnosis Discharge Diagnosis (1) Calculous cholecystitis: Start date: 07/12/24 Status: Acute DS: Summary Hospital Course Hospital Course: pt admitted with cholecystitis and cholelithiasis and underwent lap radha and did well. dc home tolerating po diet and po pain meds. Status at Discharge Cognitive/behavioral status at discharge: good Functional status at discharge: independent ambulation Overall status at discharge: patient is progressing back to baseline Time Attestation Discharge Coordination Time (in mins): 30 Quality: Safe Use of Opioids Does Pt have an Active Cancer Diagnosis on the Problem List?: No Quality: Stroke Does the patient have a stroke diagnosis?: No Physical Exam Vital Signs: Vital Signs: Last Vital Signs Temp 98.1 F 07/13/24 16:00 Pulse 75 07/13/24 16:00 Resp 18 07/13/24 16:00 BP 132/73 07/13/24 16:00 Pulse Ox 97 07/13/24 16:00 O2 Del Method Room Air 07/13/24 16:00 O2 Flow Rate 2 07/12/24 15:40 BMI result Body Mass Index 33.7 GI: Other: abdo soft incisional tenderness bandages clean DS: Data Data Completed and Pending Pending studies at discharge: Pending at discharge 07/12/24 15:07 Surgical [PTH] Routine Discharge Plan Discharge Anticipated Discharge Date/Time: 07/13/24 18:28 Patient Disposition: Home, Self-Care Discharge Diagnosis: cholecystitis Referrals: Sumanth Llanos MD [Primary Care Provider] - 1 Week Discharge Medications: New oxycodone 5 mg tablet 5 mg PO Q8H PRN (Reason: pain (scale score 7-10)) Qty: 14 0RF Rx Instructions: Partial Fill upon patient request. ciprofloxacin HCl 500 mg tablet 500 mg PO BID Qty: 10 0RF Continued cetirizine 10 mg tablet 10 mg PO DAILY Qty: 20 0RF epinephrine [EpiPen] 0.3 mg/0.3 mL auto-injector 0.3 mg IM ONCE PRN (Reason: extreme reaction) Qty: 1 0RF Rx Instructions: for 2 doses tramadol 50 mg tablet 50 mg PO Q8-10H PRN (Reason: pain) Qty: 20 0RF amlodipine 5 mg tablet 5 mg PO DAILY famotidine 20 mg tablet 20 mg PO BID Zepbound 2.5 mg/0.5 mL pen injector 2.5 mg subcut TH amitriptyline 25 mg tablet 25 mg PO BEDTIME atenolol 25 mg tablet 25 mg PO DAILY lisinopril-hydrochlorothiazide 10-12.5 mg tablet 1 tab PO DAILY ibuprofen 600 mg tablet 600 mg PO Q6H PRN (Reason: pain) ergocalciferol (vitamin D2) 1,250 mcg (50,000 unit) capsule 1,250 mcg PO FR cyanocobalamin (vitamin B-12) 1,000 mcg/mL solution 1,000 mcg IM QMONTH Discharge Orders: Discharge Order (Routine); Ordered 07/13/24 Ordered By: Rozina Gomez Activity on Discharge: No heavy lifting Stand Alone Forms: Patient Portal Discharge page Print Language: [place] Care Plan Goals: slow increase of low fat diet if feever or chills or nausea call office needs fu appt in one week Health Concerns: fever, pain nausea Plan of Treatment: advance diet and slow increase ambulation no lifting more than 8 lbs. Assessment: doing well roseline garcia Discharge Date/Time: 07/13/24 18:48
== END 2024-07-13 18:48 | disposition home or self-care (01) | DRG 263 ==
LOC: HO.ED 21:31 → HO.EDOVER 22:49 → HO.S3 07-12 15:01
PROVIDERS: Physician Assistant Medical; Admitting Provider Surgery; Emergency Provider Emergency Medicine Emergency Medical Services; PCP Internal Medicine; Visit Provider Surgery
PROC: 0FT44ZZ Resection of Gallbladder, Percutaneous Endoscopic Approach (ICD-10-PCS; CPT 47562; principal; 2024-07-12 12:00)
DX: K80.46 Calculus of bile duct with acute and chronic cholecystitis without obstruction (principal); F17.210 Nicotine dependence, cigarettes, uncomplicated; Z71.6 Tobacco abuse counseling; Z79.899 Other long term (current) drug therapy
CPT/HCPCS: 36415; 71046; 74176; 76705; 80053; 81001; 83690; 83735; 84702; 85025; 87086; 87088; 87186; 88304; 99285; J0696; J1100; J1836; J2003; J2004; J2250; J2270; J2405; J2470; J2543; J2704; J2795; J3010; J3480

== ENCOUNTER → 2024-07-11 15:57 | Outpatient (BNV) | payer MEDICAID, SELFPAY | PROVIDERS: Visit Provider Radiology Diagnostic Radiology | DX: K80.20 Calculus of gallbladder without cholecystitis without obstruction (principal); R07.9 Chest pain, unspecified | CPT/HCPCS: 71046; 74176; 76705 ==

== ENCOUNTER → 2024-07-11 22:37 | Outpatient (BNV) | payer MEDICAID, SELFPAY | PROVIDERS: Admitting Provider Surgery; Emergency Provider Emergency Medicine Emergency Medical Services; PCP Internal Medicine; Visit Provider Surgery | DX: K80.10 Calculus of gallbladder with chronic cholecystitis without obstruction (principal) | CPT/HCPCS: 47562; 99223; 99499 ==

== ENCOUNTER 2024-07-15 22:47 | Emergency (ER) | payer MEDICAID, SELFPAY ==
--- NOTE | ~2024-07-15 | XR_ITS ---
CLINICAL HISTORY: increased shortness of breath 2 view chest x-ray Comparison: CR/SR - XR CHEST 2V - 07/11/24 16:26 EST Findings: Streaky bilateral central peribronchial linear opacities new from prior. This could be atelectasis or bronchitis. No consolidation, pleural effusion or pneumothorax. Heart size is normal. No acute fracture. IMPRESSION: 1. New bilateral central peribronchial linear opacities, possibly representing atelectasis or bronchitis. This document has been electronically signed by: August Aguilar MD on 07/16/2024 00:18:53
[2024-07-15 22:58] VITALS: BP 133/74; PULSE 74; RESP 18; TEMP 36.9; O2SAT 99; BMI 30.7
[2024-07-15 23:19] LABS: MANUAL DIFF FLAG NO
[2024-07-15 23:20] LABS: Basophils Percent Auto 0.2 % (0-2); Eosinophils Absolute Auto 0.3 X10*3/uL (0.0-0.4); Eosinophils Percent Auto 2.6 % (0-4); Hematocrit 33.1 % (37.0-47.0); Hemoglobin 11.6 g/dl (12.0-16.0); Imm Gran Abs Auto 0.03 X10*3/uL (0.00-0.03); Imm Gran Pct Auto 0.3 % (0.0-0.4); Lymphocytes Absolute Auto 2.8 X10*3/uL (1.2-4.9); Lymphocytes Percent Auto 28.3 % (20-40); Mean Corpuscular Hemoglobin 30.4 pg (27.0-33.0); Mean Corpuscular Volume 86.9 fL (80.0-98.0); Mean Platelet Volume 10.4 fL (9.4-12.3); Monocytes Absolute Auto 0.6 X10*3/uL (0.1-1.2); Monocytes Percent Auto 6.3 % (2-11); Neutrophils Absolute Auto 6.1 x10*3/uL (2.0-8.3); Neutrophils Percent Auto 62.3 % (45-73); Platelet Count 303 X10*3/uL (160-400); Red Blood Count 3.81 X10*6/uL (4.20-5.50); Red Cell Distribution Width 13.7 % (11.0-16.0); White Blood Count 9.8 X10*3/uL (4.8-10.8)
[2024-07-15 23:36] LABS: Alanine Aminotransferase 44 U/L (0-31); Albumin Level 3.5 g/dL (3.5-5.0); Alkaline Phosphatase 90 U/L (39-117); Anion Gap 10 (12-20); Aspartate Amino Transferase 29 U/L (5-31); Bilirubin Total 0.3 mg/dL (0.0-1.0); Blood Urea Nitrogen 8 mg/dL (9-16); Calcium 8.6 mg/dL (8.4-10.2); Carbon Dioxide 27 mmol/L (22-29); Chloride 107 mmol/L (96-108); Creatinine Clr Calc Pharmacy 77.4; Estimated Glomerular Filt Rate > 60; Glucose Random 120 mg/dL (60-115); Sodium 141 mmol/L (135-145); Total Protein 6.8 g/dL (6.5-8.0)
--- OUTSIDE RECORDS SUMMARY | 2024-07-16 01:26 | XMS_ITS | Encounter Summary ---
Author Organization [facility] Address [address] [place] [address] 7 [place] [address] Care Team Providers Care Conditioning Coach Name Role Phone Sumanth Llanos MD Primary Care Provider [phone] Encounter Details Date Type Department Care Team ([facility] Contact Info) Description 06/01/2023 Orders Only [facility] [address] [place] [address] Sumanth Llanos MD [address] [place], [place] [phone] Generalized anxiety disorder (Primary Dx) Social History [...] Upcoming Encounters Date Type Department Care Team ([facility] Contact Info) Description 07/17/2024 11:30 AM EDT Office Visit [facility] [address], [place] [phone] Sumanth Llanos MD [address] [place], [place] [phone] documented as of this encounter Goals Goal Patient Goal Type Associated Problems Recent Progress Patient-Stated? Author Blood Pressure < 140/90 Blood Pressure 124/79(2024 9:18 AM EST) No DellogonoOgis, PharmD Patient will adhere to medication regimen General Improving(12/2022 9:16 AM EDT) No Dellogono, Luis, PharmD Hemoglobin A1c < 6.5 Result Component 5.8( 1:34 PM EST) No DellogOg mraroquinis, PharmD documented as of this encounter Visit Diagnoses Diagnosis Generalized anxiety disorder- Primary documented in this encounter Additional Health Concerns Assessment Noted Time PHQ-9 Depression Total Score: 15 023 9:06 AM EST documented as of this encounter Care Teams Conditioning Coach Relationship Specialty Start Date End Date Sumanth Llanos MD [address] [place] [address] [place] [address] PCP - General Internal Medicine 05/07/18 documented as of this encounter
--- OUTSIDE RECORDS SUMMARY | 2024-07-16 01:26 | XMS_ITS | Encounter Summary ---
Author Organization [employer] [facility] Address [address] [place] [address] 7 [place] [address] Care Team Providers Care Labor Relations Teacher Name Role Phone Sumanth Llanos MD Primary Care Provider [phone]- [phone] Encounter Details Date Type Department Care Team ([facility] Contact Info) Description 12/20/2022 Orders Only [facility] [address] [place] [address] Sumanth Llanos MD [address] [place], [place] [phone] Prediabetes (Primary Dx) Social History Tobacco Use [...] Upcoming Encounters Date Type Department Care Team ([facility] Contact Info) Description 07/17/2024 11:30 AM EDT Office Visit [facility] [address] [place], [place] [phone] Sumanth Llanos MD [address] [place], [place] [phone] documented as of this encounter Goals Goal [...] documented as of this encounter Care Teams Labor Relations Teacher Relationship Specialty Start Date End Date Sumanth Llanos MD [address] [place] [address] [place] [id number] PCP - General Internal Medicine 05/07/18 documented as of this encounter
--- OUTSIDE RECORDS SUMMARY | 2024-07-16 01:26 | XMS_ITS | Encounter Summary ---
Author Organization [employer] Address [address] [place] [address] [address] [place] [address] Care Team Providers Care Nut Sheller Machine Operator Name Role Phone Sumanth Llanos MD Primary Care Provider [phone]- [phone] Encounter Details Date Type Department Care Team (Late Contact Info) Description 11/21/2022 Orders Only [facility] [address] [place], [place] [phone] Sumanth Llanos MD [address] [place] [address] Prediabetes (Primary Dx); Positive MOIZ (antinuclear antibody) [...] 11:30 AM EDT Office Visit [facility] [address] [place] [address] Sumanth Llanos MD [address] [place] [address] Scheduled Orders Name Type Priority Associated Diagnoses [...] documented as of this encounter Care Teams Nut Sheller Machine Operator Relationship Specialty Start Date End Date Sumanth Llanos MD [address] [place] [address] PCP - General Internal Medicine 05/07/18 documented as of this encounter
--- OUTSIDE RECORDS SUMMARY | 2024-07-16 01:26 | XMS_ITS | Encounter Summary ---
Author Organization [employer] Address [address] [place] [address] 7 [place] [address] Care Team Providers Care Dynamics Ax Consultant Name Role Phone Sumanth Llanos MD Primary Care Provider [phone]- [phone] Reason for Visit * Reason Comments Care Coordination Outreach Encounter Details Date Type Department Care Team (Latest Contact Info) Description 07/14/2024 Patient Outreach [facility] [address] [place], [place] [phone] Sumanth Llanos MD [address] [place] [address] Care Coordination (Outreach) Social History Tobacco Use Types Packs/Day Years [...] as of this encounter Progress Notes * Evonne Eric - 07/14/2024 3:18 PM EDT CHW Evonne Eric , placed outbound call to patient in regards to offer services. CHW introducing herself from [facility] CM Department with CHW's name, department and direct contact [phone] requesting call back. Will re-attempt to contact within 5 days. and address not confirmed. documented in this encounter Plan of Treatment Upcoming Encounters Date Type Department Care Team ([facility] st Contact Info) Description 07/17/2024 11:30 AM EDT Office Visit [facility] [address] [place] [address] Sumanth Llanos MD [address] [place] [address] documented as of this encounter Goals Goal [...] documented as of this encounter Care Teams Dynamics Ax Consultant Relationship Specialty Start Date End Date Sumanth Llanos MD [address] [place] [address] PCP - General Internal Medicine 05/07/18 documented as of this encounter
--- OUTSIDE RECORDS SUMMARY | 2024-07-16 01:26 | XMS_ITS | Encounter Summary ---
Author Organization [employer] [facility] Address [address] [place] [address] 7 [place] [address] Care Team Providers Care Continuous Mining Machine Coal Miner Name Role Phone Sumanth Llanos MD Primary Care Provider +1- [phone] Encounter Details Date Type Department Care Team (Late Contact Info) Description 07/15/2024 Orders Only GENERIC EXTERNAL DATA DEPARTMENT Provider, Generic External Data Social History Tobacco Use Types Packs/Day Years [...] Description 07/17/2024 11:30 AM EDT Office Visit [facility] MED & PEDS [address] [facility] [place] [address] Sumanth Llanos MD 505 [facility] [place] [address] documented as of this encounter Goals Goal Patient Goal Type Associated Problems Recent Progress Patient-Stated? Author Blood Pressure < 140/90 Blood Pressure 124/79(2024 9:18 AM EST) No Luis Springer, Jad Patient will adhere to medication regimen General Improving(12/2022 9:16 AM EDT) No Luis Springer, Jad Hemoglobin A1c < 6.5 Result Component 5.8( 4 1:34 PM EST) No Luis Springer PharmD documented as of this encounter Procedures Procedure Name Priority Date/Time Associated Diagnosis Comments XR CHEST 2 VIEWS Routine 07/16/2024 12:1 8 AM EDT CBC WITH AUTO DIFFERENTIAL Routine 07/15/2024 11:11 PM EDT COMPREHENSIVE METABOLIC PANEL Routine 07/15/2024 11:11 PM EDT documented in this encounter Results * XR Chest 2 Views (07/16/2024 12:18 AM EDT) Anatomical Region Laterality Modality Chest Radiographic Myrna ging 07/16/2024 12:1 8 AM EDT Narrative 07/16/2024 12:22 AM EDT ? [facility] ?[address] ?[place] [address] ?XRay Report ? Signed ? Patient: Keli Oakley ?MR# ?? : [id number] ? : 1975 ?Acct:[id number] ? Age/Sex: 49 / F ?ADM Date: 07/15/24 ? Loc: HO.ED ? Attending Dr: ? Ordering Physician: Generic ED Physician ?? Date of Service: 07/15/24 ?? Procedure(s): XR chest 2V ?? Accession Number(s): [id number] ? cc: Sumanth Llanos MD; Generic ED Physician ? CLINICAL HISTORY: increased shortness of breath ? 2 view chest x-ray ? Comparison: CR/SR - XR CHEST 2V - 07/11/24 16:26 EST ? Findings: ?? Streaky bilateral central peribronchial linear opacities new from prior. ?? This could be atelectasis or bronchitis. ?? No consolidation, pleural effusion or pneumothorax. ?? Heart size is normal. ?? No acute fracture. ? IMPRESSION: ? 1. New bilateral central peribronchial linear opacities, possibly ?? representing atelectasis or bronchitis. ? This document has been electronically signed by: August Aguilar MD on ?? 07/16/2024 00:18:53 ? Dictated By: ?August Aguilar MD ? Signed By: ?<Electronically signed by August Aguilar MD in OV> ?07/16/24 0020 ? DD/ 0018 ? TD/TT: 07/16/24 0018 ? Build Manager: ? Procedure Note Donotsantiagointerpreter, Image - 07/16/[address] [address] XRay Report Signed Patient: Keli OakleyMR# : [id number] : 1975Acct:[id number] Age/Sex: 49 / FADM Date: 07/15/24 Loc: .ED Attending Dr: Ordering Physician: Generic ED Physician Date of Service: 07/15/24 Procedure(s): XR chest 2V Accession Number(s): [id number] cc: Sumanth Llanos MD; Generic ED Physician CLINICAL HISTORY: increased shortness of breath 2 view chest x-ray Comparison: CR/SR - XR CHEST 2V - 07/11/24 16:26 EST Findings: Streaky bilateral central peribronchial linear opacities new from prior. This could be atelectasis or bronchitis. No consolidation, pleural effusion or pneumothorax. Heart size is normal. No acute fracture. IMPRESSION: 1. New bilateral central peribronchial linear opacities, possibly representing atelectasis or bronchitis. This document has been electronically signed by: August Aguilar MD on 07/16/2024 00:18:53 Dictated By: August Aguilar MD Signed By: <Electronically signed by August Aguilar MD in OV> 07/16/24 0020 DD/ TD/TT: 07/16/2417 Build Manager: [facility] External Provider IMG XR PROCEDURES Edited Result - Final * (ABNORMAL) Comprehensive Metabolic Panel (07/15/2024 11:11 PM EDT) Sodium 141 135 - 145 mmol/L [facility] Potassium 3.0(L) 3.3 - 5.1 mmol/L [facility] Chloride 107 96 - 108 mmol/L [facility] Carbon Dioxide 27 22 - 29 mmol/L [facility] Anion Gap 10(L) 12 - 20 [facility] Urea Nitrogen (BUN) 8(L) 9 - 16 mg/dL [facility] Creatinine, Serum 0.71 0.5 - 1.4 mg/dL [facility] Creatinine Clr Calc Pharmacy 77.4 [facility] Comment:Provided height and weight: 147.32 cm,66.7 kg.eGFR (calculated from the MDRD study equation) and eCrCl(calculated from the Cockcroft-Gault equation) are based ondifferent parameters and may not yield comparable results.If eCrCl result is absurd, please check patient'sheight/weight. Estimated Glomerular Filt Rate >60 [facility] Comment:Chronic Kidney Disea se: Estimated GFR < 60 mL/min/1.28q8Aopmiv Kidney Disease: Estimated GFR < 15 mL/min/1.73m2 Glucose 120(H) 60 - 115 mg/dL [facility] Calcium 8.6 8.4 - 10.2 mg/dL [facility] Bilirubin, Total 0.3 0.0 - 1.0 mg/dL [facility] Aspartate Amino Transferase 29 5 - 31 U/L [facility] Alanine Aminotransferase 44(H) 0 - 31 U/L [facility] Total Protein 6.8 6.5 - 8.0 g/dL [facility] Albumin Level 3.5 3.5 - 5.0 g/dL [facility] Alkaline Phosphatase 90 39 - 117 U/L [facility] 07/15/2024 11:1 1 PM EDT 07/15/2024 11:16 PM EDT us Generic External Data Provider LAB BLOOD ORDERAB LES Final Result [facility] [address] [place] [phone] * (ABNORMAL) CBC auto differential (07/15/2024 11:11 PM EDT) White Blood Count 9.8 4.8 - 10.8 X10*3/uL [facility] Red Blood Count 3.81(L) 4.20 - 5.50 X10*6/uL [facility] Hemoglobin 11.6(L) 12.0 - 16.0 g/dl [facility] Hematocrit 33.1(L) 37.0 - 47.0 % [facility] Mean Corpuscular Volume 86.9 80.0 - 98.0 fL [facility] Mean Corpuscular Hemoglobin 30.4 27.0 - 33.0 pg [facility] Mean Corpuscular HGB Conc 35.0 31.0 - 35.0 g/dl [facility] Red Cell Distribution Width 13.7 11.0 - 16.0 % [facility] Platelet Count 303 160 - 400 X10*3/uL [facility] Mean Platelet Volume 10.4 9.4 - 12.3 fL [facility] Neutrophils Percent Auto 62.3 45 - 73 % [facility] Imm Gran Pct Auto 0.3 0.0 - 0.4 % [facility] Lymphocytes Percent Auto 28.3 20 - 40 % [facility] Monocytes Percent Auto 6.3 2 - 11 % [facility] Eosinophils Percent Auto 2.6 0 - 4 % [facility] Basophils Percent Auto 0.2 0 - 2 % [facility] NRBC Pct Auto 0.0 0.0 - 0.2 /100WBC [facility] Neutrophils Absolute Auto 6.1 2.0 - 8.3 x10*3/uL [facility] Imm Gran Abs Auto 0.03 0.00 - 0.03 X10*3/uL [facility] Lymphocytes Absolute Auto 2.8 1.2 - 4.9 X10*3/uL [facility] Monocytes Absolute Auto 0.6 0.1 - 1.2 X10*3/uL [facility] Eosinophils Absolute Auto 0.3 0.0 - 0.4 X10*3/uL [facility] Basophils Absolute Auto 0.0 0.0 - 0.2 X10*3/uL [facility] NRBC Abs Auto 0.000 0.0 - 0.012 X10*3/uL [facility] 07/15/2024 11:1 1 PM EDT 07/15/2024 11:16 PM EDT us Generic External Data Provider LAB BLOOD ORDERAB LES Final Result [facility] [address] [place] [address] [phone] documented in this encounter Visit Diagnoses Not on filedocumented in this encounter Additional Health Concerns Assessment Noted Time PHQ-9 Depression Total Score: 15 023 9:06 AM EST documented as of this encounter Care Teams Continuous Mining Machine Coal Miner Relationship Specialty Start Date End Date Sumanth Llanos MD [address] [place] [phone] PCP - General Internal Medicine 05/07/18 documented as of this encounter
--- OUTSIDE RECORDS SUMMARY | 2024-07-16 01:26 | XMS_ITS | Encounter Summary ---
Author Organization [employer] [facility] Address [address] [place] [address] [facility] [place] [address] Care Team Providers Care Senior Svp Name Role Phone Sumanth Llanos MD Primary Care Provider [phone]- [phone] Encounter Details Date Type Department Care Team ([facility] Contact Info) Description 01/09/2023 Orders Only [facility] MED & PEDS [address] [place] [address] Sumanth Llanos MD [address] [place] [address] Social History Tobacco Use Types Packs/Day Years [...] Upcoming Encounters Date Type Department Care Team ([facility] Contact Info) Description 07/17/2024 11:30 AM EDT Office Visit [facility]ED[facility] [address] [place] [address] Sumanth Llanos MD [address] [place] [address] documented as of this encounter Goals Goal Patient Goal Type Associated Problems Recent Progress Patient-Stated? Author Blood Pressure < 140/90 Blood Pressure 124/79(2024 9:18 AM EST) No DelLuis amaya, PharmD Patient will adhere to medication regimen [...] documented as of this encounter Care Teams Senior Svp Relationship Specialty Start Date End Date Sumanth Llanos MD [address] [place] [address] PCP - General Internal Medicine 05/07/18 documented as of this encounter
--- OUTSIDE RECORDS SUMMARY | 2024-07-16 01:26 | XMS_ITS | Encounter Summary ---
Author Organization [email or web address] Address [address] [place] [address] 7 [place] [address] Care Team Providers Care Director Mba Name Role Phone Sumanth Llanos MD Primary Care Provider [phone]- [phone] Reason for Visit * Reason Comments Pre-visit Planning SDOH unable to reach LVM Encounter Details Date Type Department Care Team ([facility] st Contact Info) Description 07/10/2024 Patient Outreach [facility] MED & PEDS [address] [place] [address] Sumanth Llanos MD 505 [place] [address] Pre-visit Planning (SDOH unable to reach LVM ) Social History Tobacco Use Types Packs/Day Years [...] as of this encounter Progress Notes * Kari Chatman - 07/10/2024 11:04 AM EST ARLINE Bonilla placed outbound call to patient to complete pre-visit planning. No answer at this time. Patient name and were not confirmed. CC left voicemail requesting return call. Direct contactinformation provided. documented in this encounter Plan of Treatment Upcoming Encounters Date Type Department Care Team ([facility] st Contact Info) Description 07/17/2024 11:30 AM EDT Office Visit [facility] MED & PEDS [address] [place] [address] Sumanth Llanos MD 505 [place] [address] documented as of this encounter Goals Goal [...] documented as of this encounter Care Teams Director Mba Relationship Specialty Start Date End Date Suamnth Llanos MD 505 [place] [address] PCP - General Internal Medicine 05/07/18 documented as of this encounter
--- OUTSIDE RECORDS SUMMARY | 2024-07-16 01:26 | XMS_ITS | Encounter Summary ---
Author Organization [employer] [facility] Address [address] [place] [address] 7 [place] [address] Care Team Providers Care Roll On Worker Name Role Phone Sumanth Llanos MD Primary Care Provider Encounter Details Date Type Department Care Team (Late Contact Info) Description 04/17/2022 Orders Only [facility] MEDICINE [address] [place], [place] [phone] Sumanth Llnaos MD 505 [place], [place] [phone] Vitamin B12 deficiency (Primary Dx) Social History [...] Description 07/17/2024 11:30 AM EDT Office Visit [facility] CH[facility] MED & PEDS 505 [place], [place] [phone] Sumanth Llanos MD 505 [place], [place] [phone] documented as of this encounter Visit Diagnoses Diagnosis Vitamin B12 deficiency- Primary Other B-complex deficiencies documented in this encounter Care Teams Roll On Worker Relationship Specialty Start Date End Date Sumanth Llanos MD [address] [place] [phone] PCP - General Internal Medicine 05/07/18 documented as of this encounter
--- OUTSIDE RECORDS SUMMARY | 2024-07-16 01:26 | XMS_ITS | Encounter Summary ---
Author Organization [employer] [facility] Address [address] [facility] 7 [place] [address] Care Team Providers Care Workers Compensation Claims Adjuster Name Role Phone Sumanth Llanos MD Primary Care Provider [phone]- [phone] Reason for Visit * Reason Onset Date Comments status 07/19/2022 Encounter Details Date Type Department Care Team ([facility] st Contact Info) Description 07/19/[address] [facility] MEDICINE [address] [place] [address] Sumanth Llanos MD 505 [facility] [place] [address] status Social History Tobacco Use Types Packs/Day [...] on order sign. Please contact jose at [phone] documented in this encounter Plan of Treatment Upcoming Encounters Date Type Department Care Team ([facility] st Contact Info) Description 07/17/2024 11:30 AM EDT Office Visit [facility] MED [facility]ED[facility] [address] [place] [address] Sumanth Llanos MD 505 [place] [address] documented as of this encounter Visit Diagnoses Not on filedocumented in this encounter Additional Health Concerns Assessment Noted Time PHQ-9 Depression Total Score: 15 023 9:06 AM EST documented as of this encounter Care Teams Workers Compensation Claims Adjuster Relationship Specialty Start Date End Date Sumanth Llanos MD 505 [place] [address] PCP - General Internal Medicine 05/07/18 documented as of this encounter
--- OUTSIDE RECORDS SUMMARY | 2024-07-16 01:26 | XMS_ITS | Encounter Summary ---
Author Organization [employer] Address [address] [place] [address] 7 [place] [address] Care Team Providers Care Driller Multiple Spindle Name Role Phone Sumanth Llanos MD Primary Care Provider [phone]- [phone] Reason for Visit * Reason Onset Date Comments Med Refill 08/03/2022 Encounter Details Date Type Department Care Team ([facility] st Contact Info) Description 08/03/2022 Refill [facility] MED & PEDS [address] [place] [address] Sumanth Llanos MD 505 [place] [address] Vitamin D deficiency; Primary hypertension Social History [...] from pt requesting med refill for medications. [facility] pharmacy has requested and no response omeprazole (PriLOSEC) [address] capsule ergocalciferol (Vitamin D2) 1.25 MG (14235 UT) capsule cyanocobalamin (Vitamin B-12) 1000 MCG/ML injection hydrOXYzine HCl (Atarax) 25 MG tablet lisinopril-hydroCHLOROthiazide 10-12.5 MG tablet atenolol (Tenormin) 25 MG tablet amitriptyline (Elavil) 25 MG tablet DULoxetine (Cymbalta) [address] capsule simvastatin (Zocor) 40 MG tablet Please send to [facility] documented in this encounter Plan of Treatment Upcoming Encounters Date Type Department Care Team (Late st Contact Info) Description 07/17/2024 11:30 AM EDT Office Visit [facility] MED & PEDS [address] [place] [address] Sumanth Llanos MD [address] [place] [address] documented as of this encounter Visit Diagnoses Diagnosis Vitamin D deficiency Primary hypertension Unspecified essential hypertension documented in this encounter Additional Health Concerns Assessment Noted Time PHQ-9 Depression Total Score: 15 023 9:06 AM EST documented as of this encounter Care Teams Driller Multiple Spindle Relationship Specialty Start Date End Date Sumanth Llanos MD 505 [place] [address] PCP - General Internal Medicine 05/07/18 documented as of this encounter
--- OUTSIDE RECORDS SUMMARY | 2024-07-16 01:27 | XMS_ITS | Encounter Summary ---
Author Organization [employer] Address [address] [place] [address] 7 [place] [address] Care Team Providers Care Business Resiliency Manager Name Role Phone Sumanth Llanos MD Primary Care Provider [phone] Encounter Details Date Type Department Care Team (Late st Contact Info) Description 06/18/2024 Orders Only [facility] MED & PEDS [address] [place] [address] Sumanth Llanos MD 505 [place] [address] Class 1 obesity due to excess calories [...] [facility] P[facility] [address] [place] [address] Sumanth Llanos MD [address] [place] [address] documented as of this encounter Goals Goal Patient Goal Type Associated Problems Recent Progress Patient-Stated? Author Blood Pressure < 140/90 Blood Pressure 124/79(2024 9:18 AM EST) No Luis Springer, PharmCholo Patient will adhere to medication regimen General Improving(12/2022 9:16 AM EDT) No Luis Springer, PharmCholo Hemoglobin A1c < 6.5 Result Component 5.8( 1:34 PM EST) No Luis Springer PharmD documented as of this encounter Procedures Procedure Name Priority Date/Time Associated Diagnosis Comments CT ABDOMEN PELVIS WO CONTRAST Routine 07/11/2024 8:39 PM EST documented in this encounter Results * CT Abdomen Pelvis w/o Contrast (07/11/2024 8:39 PM EST) Anatomical Region Laterality Modality Body, Pelvis, Abdomen Computed T omography 07/11/2024 8:39 PM EST Narrative 07/11/2024 8:40 PM EST ? [facility] ?[address] ?[place] [address] ? CT Scan Report ? Signed ? Patient: Keli Oakley ?MR# ?? : [id number] ? : 1975 ?Acct:[id number] ? Age/Sex: 49 / F ?ADM Date: 07/11/24 ? Loc: HO.ED ? Attending Dr: ? Ordering Physician: Angelica Rivera ?? Date of Service: 07/11/24 ?? Procedure(s): CT abdomen pelvis wo IV con ?? Accession Number(s): [id number] ? cc: Sumanth Llanos MD; Angelica Rivera ? Report Number: ?? [id number]: Total DLP = ??446.00 mGy-cm ? CLINICAL HISTORY: right flank pain ? CT abdomen and pelvis without contrast ? Comparison: US/SR - US ABDOMEN LIMITED - 07/11/24 16:26 EST ? Findings: ?? No nephrolithiasis or hydronephrosis. ?? No bladder stone. ? No consolidation at the lung bases. ?? Cholelithiasis in sludge. No definitive gallbladder wall thickening or ?? pericholecystic fluid. Heterogeneous hepatic steatosis. The other solid ?? organs are normal. ?? No bowel wall thickening or dilation. The appendix is not visualized. No ?? secondary signs of acute appendicitis. ? No aneurysm. No calcified atherosclerotic disease. ?? No lymphadenopathy. ?? No ascites. ?? No acute fracture. ? Impression: ?? No urinary tract stone or obstruction. ?? Cholelithiasis without definitive CT evidence of acute cholecystitis. The ?? ultrasound of the same day was positive for acute cholecystitis. A HIDA ?? scan may be helpful. ? This document has been electronically signed by: Jody Ingram MD ?? on 07/11/2024 20:39:00 ? Dictated By: ?Jody Green MD ? Signed By: ?<Electronically signed by Jody Green MD in OV> ? 07/11/242038 ? DD/ 38 ? TD/TT: 07/11/242038 ? Capital Equipment Specialist: ? Procedure Note Jenn, Image - 07/11/[address] [place] [address] [address] Scan Report Signed Patient: Keli OakleyMR# : [id number] : 1975Acct:[id number] Age/Sex: 49 / FADM Date: 07/11/24 Loc: HO.ED Attending Dr: Ordering Physician: Angelica Rivera Date of Service: 07/11/24 Procedure(s): CT abdomen pelvis wo IV con Accession Number(s): [id number] cc: Sumanth Llanos MD; Angelica Rivera Report Number: [id number]: Total DLP = 446.00 mGy-cm CLINICAL HISTORY: right flank pain CT abdomen and pelvis without contrast Comparison: US/SR - US ABDOMEN LIMITED - 07/11/24 16:26 EST Findings: No nephrolithiasis or hydronephrosis. No bladder stone. No consolidation at the lung bases. Cholelithiasis in sludge. No definitive gallbladder wall thickening or pericholecystic fluid. Heterogeneous hepatic steatosis. The other solid organs are normal. No bowel wall thickening or dilation. The appendix is not visualized. No secondary signs of acute appendicitis. No aneurysm. No calcified atherosclerotic disease. No lymphadenopathy. No ascites. No acute fracture. Impression: No urinary tract stone or obstruction. Cholelithiasis without definitive CT evidence of acute cholecystitis. The ultrasound of the same day was positive for acute cholecystitis. A HIDA scan may be helpful. This document has been electronically signed by: Jody Ingarm MD on 07/11/2024 20:39:00 Dictated By: Jody Green MD Signed By: <Electronically signed by Jody Green MD in OV> 07/11/242038 DD/ 38 TD/TT: 07/11/242038 Capital Equipment Specialist: [facility] External Provider IMG CT PROCEDURES Edited Result - Final documented in this encounter Visit Diagnoses Diagnosis Class 1 obesity due to excess calories with serious comorbidity and body mass index (BMI) of 33.0 to 33.9 in adult documented in this encounter Additional Health Concerns Assessment Noted Time PHQ-9 Depression Total Score: 15 023 9:06 AM EST documented as of this encounter Care Teams Business Resiliency Manager Relationship Specialty Start Date End Date Sumanth Llanos MD [address] [place] [address] PCP - General Internal Medicine 05/07/18 documented as of this encounter
--- OUTSIDE RECORDS SUMMARY | 2024-07-16 01:27 | XMS_ITS | Encounter Summary ---
Author Organization [employer] Address [address] [place] [address] 7 [place] [address] Care Team Providers Care Pinner Printed Circuit Boards Name Role Phone Sumanth Llanos MD Primary Care Provider [phone] Reason for Visit * Reason Comments Filling Post and core Encounter Details Date Type Department Care Team ([facility] Contact Info) Description 07/01/2024 9:00 AM EST Office Visit [facility] ADULT D[facility] [address] [place] [address] Kevon Silva 505 [place] [address] Social History Tobacco Use Types Packs/Day Years [...] Out: Date: 07/01/2024 Location: [facility] Tooth: #4 and #5 Procedure: Post & Core Verified the above with patient, pharmacy sales assistant, and provider. Confirmed via patient's chart, intraorally and by radiographs. Major Assembler: not applicable Prefab post and core done [...] - No local anesthetics used - Temporary [facility]ist removed. - Tooth length - #4 12 mm, #5 12 mm - Post space made- 4 mm - Fabian-percha removed using Cantu Sheridan - Para-post reamer used size: 4 - Para-post size (brand/ size) used: 4 - 1st PA - of tooth # 4 and 5 to confirm the post size and length. - Irrigation done using Sodium Hypochlorite - Post space dried using paper points - permit agent applied. - Post cemented using Rely-X. - Core placed using Rely-X - 2nd PA - of tooth # 4 and 5 for post op confirmation. - Core smoothed and polished. - [facility] polished Patient satisfied, left in stable condition NV: Bend Prep Provider: Dr. Kevon Silva Plate Mill Hand: Radha Wharton Supervising dentist: Dr. Bolton * [...] [facility] MED & PEDS [address] [place] [address] Sumanth Llanos MD [address] [place] [address] Scheduled Orders Name Type Priority Associated Diagnoses [...] Result Component 5.8( 1:34 PM EST) No Dellogono Luis, PharmD documented as of this encounter [...] documented as of this encounter Care Teams Pinner Printed Circuit Boards Relationship Specialty Start Date End Date Sumnath Llanos MD [address] [place] [address] PCP - General Internal Medicine 05/07/18 documented as of this encounter
--- OUTSIDE RECORDS SUMMARY | 2024-07-16 01:27 | XMS_ITS | Encounter Summary ---
Author Organization [facility], [facility] Address [address] [place] [address] 7 [place] [address] Care Team Providers Care Police Commanding Officer Name Role Phone Sumanth Llanos MD Primary Care Provider [phone]- [phone] Reason for Visit * Reason Comments Med Refill Encounter Details Date Type Department Care Team (Late Contact Info) Description 06/19/2024 Refill [facility] MED & PEDS 505 [facility] [place] [address] Sumanth Llanos MD 505 [place] [address] Class 1 obesity due to excess calories [...] Description 07/17/2024 11:30 AM EDT Office Visit [facility] [address] [facility] [place] [address] Sumanth Llanos MD [address] [place] [address] documented as of this encounter Goals Goal Patient Goal Type Associated Problems Recent Progress Patient-Stated? Author Blood Pressure < 140/90 Blood Pressure 124/79(2024 9:18 AM EST) No Luis Springer PharmD Patient will adhere to medication regimen [...] documented as of this encounter Care Teams Police Commanding Officer Relationship Specialty Start Date End Date Sumanth Llanos MD [address] [place] [address] PCP - General Internal Medicine 05/07/18 documented as of this encounter
--- OUTSIDE RECORDS SUMMARY | 2024-07-16 01:27 | XMS_ITS | Encounter Summary ---
Author Organization [employer] Address [address] [place] [address] 7t [place] [address] Care Team Providers Care Wire Basket Maker Name Role Phone Sumanth Llanos MD Primary Care Provider [phone] [phone] Encounter Details Date Type Department Care Team (Late st Contact Info) Description 06/17/2024 1:45 PM EST Nurse Only [facility] MED & PEDS [address] [place], [place] [phone] Bety Arroyo RN [address] [place] [address] B12 deficiency Social History Tobacco Use Types [...] [facility] [address] [place] [address] Sumanth Llanos MD [address] [place] [address] documented as of this encounter Goals Goal [...] 1,000 mcg 1,000 mcg, Intramuscular, Once, On Sun06/17/24 at 1415, For 1 doseIndications:B12 deficiency Given 06/17/2024 2:15 PM EST 1,000 mcg Left Deltoid documented in this encounter Additional Health Concerns Assessment Noted Time PHQ-9 Depression Total Score: 15 01/25/2 023 9:06 AM EST documented as of this encounter Care Teams Wire Basket Maker Relationship Specialty Start Date End Date Sumanth Llanos MD [address] [place] [address] PCP - General Internal Medicine 05/07/18 documented as of this encounter
--- OUTSIDE RECORDS SUMMARY | 2024-07-16 01:27 | XMS_ITS | Encounter Summary ---
Author Organization [employer] Address [address] [facility] 7t [place] [address] Care Team Providers Care Geospatial Intelligence Analyst Name Role Phone Sumanth Llanos MD Primary Care Provider [phone] Reason for Visit * Reason Comments Back Pain Encounter Details Date Type Department Care Team ([facility] st Contact Info) Description 07/09/2024 9:20 AM EST Office Visit [facility] [address] [place], [place] [phone] Chriss Grayson MD [address] [place] [address] Right-sided chest pain (Primary Dx); Upper abdominal [...] 11:31 AM EST documented in this encounter Progress Notes * Chriss Grayson MD - 07/09/2024 9:20 AM EST Subjective Patient ID: Keli Flores is a 49 y.o. female. Client Strategist: Denys TAMEZ Yesterday Keli had onset of right lung pain on right side of lower chest, and right upper abd, worse when laying on right side, moving torso, comes and goes. No change with inspiration. Has not tried any pain meds. Had similar sx 2 weeks ago, lasted 2 days, then resolved. No fever, cough, SOB, n/v/d, or urinary sx. Past surgical hx: BTL. Lives with son. LMP=now Not employed. Smokes 3-4 cigarettes/day. Patient Active Problem List Diagnosis Anxiety attack Conduction disorder of the heart Hypercholesterolemia Major depressive disorder Generalized anxiety disorder Posttraumatic stress disorder Prediabetes Essential hypertension Osteoarthritis of knees, bilateral Memory disturbance The following portions of the chart were reviewed this encounter and updated as appropriate: Tobacco Allergies Meds Problems Med Hx Surg Hx Fam Hx Review of Systems Constitutional: Negative for fever. Respiratory: Negative for shortness of breath. Cardiovascular: Positive for chest pain. Gastrointestinal: Positive for abdominal pain. Negative for diarrhea, nausea and vomiting. Genitourinary: Positive for dysuria. Skin: Negative for rash. Neurological: Negative for headaches. Objective Physical Exam Chest: Comments: Tender over right lower lateral chest wall. Abdominal: General: Abdomen is flat. Palpations: Abdomen is soft. Tenderness: There is abdominal tenderness (RUQ>epigastric). There is no right CVA tenderness, left CVA tenderness, guarding or rebound. Procedures Assessment/Plan documented in this encounter Plan of Treatment Upcoming Encounters Date Type Department Care Team (Late st Contact Info) Description 07/17/2024 11:30 AM EDT Office Visit [facility] MED & PEDS [address] [place] [address] Sumanth Llanos MD 505 [place] [address] Scheduled Orders Name Type Priority Associated Diagnoses [...] 5.8( 1:34 PM EST) No Luis Springer, Jad documented as of this encounter Procedures Procedure Name Priority Date/Time Associated Diagnosis Comments XR CHEST 2 VIEWS Routine 07/09/2024 10:0 4 AM EST Right-sided chest pain documented in this encounter Results * XR Chest 2 Views (07/09/2024 10:04 AM EST) Anatomical Region Laterality Modality Chest Radiographic Myrna ging 07/09/2024 10:0 4 AM EST Narrative 07/09/2024 10:22 AM EST ?[facility] ?[address] ?[place] [address] ?XRay Report ? Signed ? Patient: Keli Oakley ?MR# ?? : [id number] ? : 1975 ?Acct:[id number] ? Age/Sex: 49 / F ?ADM Date: 03/05/25 ? Loc: HO.HHCX ? Attending Dr: Chriss Grayson MD ? Ordering Physician: CHRISS GRAYSON MD ?? Date of Service: 07/09/24 ?? Procedure(s): XR chest 2V ?? Accession Number(s): [id number] ? cc: CHRISS GRAYSON MD ? EXAMINATION: [...] DD/ 1004 ? TD/TT: 07/09/24 1015 ? Renal Dialysis Technician: ? Procedure Note Jenn, Blanca - 07/09/[address] [address] XRay Report Signed Patient: Keli OakleyMR# : [id number] : 1975Acct:[id number] Age/Sex: 49 / FADM Date: 07/09/24 Loc: HO.HHCX Attending Dr: Chriss Grayson MD Ordering Physician: CHRISS GRAYSON MD Date of Service: 07/09/24 Procedure(s): XR chest 2V Accession Number(s): [id number] cc: CHRISS GRAYSON MD EXAMINATION: XR CHEST [...] 07/09/24 1019 DD/ 1004 TD/TT: 07/09/24 1015 Renal Dialysis Technician: Chriss Grayson MD IMG XR PROCEDURES Edited Result - Final documented in this encounter Visit Diagnoses Diagnosis Right-sided chest pain- Primary Upper abdominal pain Tobacco dependence Tobacco use disorder documented in this encounter Additional Health Concerns Assessment Noted Time PHQ-9 Depression Total Score: 15 023 9:06 AM EST documented as of this encounter Care Teams Geospatial Intelligence Analyst Relationship Specialty Start Date End Date Sumanth Llanos MD [address] [place] [address] PCP - General Internal Medicine 05/07/18 documented as of this encounter
--- OUTSIDE RECORDS SUMMARY | 2024-07-16 01:27 | XMS_ITS | Encounter Summary ---
Author Organization [employer] [facility] Address [address] [place] [address] 7 [place] [address] Care Team Providers Care Ed Case Manager Name Role Phone Sumanth Llanos MD Primary Care Provider [phone]- [phone] Reason for Visit * Reason Onset Date Comments confirm provider received message 03/20/2024 Encounter Details Date Type Department Care Team ([facility] st Contact Info) Description 03/20/2024 Telephone [facility] [address] [place] [address] Kevon Silva [address] [place] [address] confirm provider received message Social History Tobacco [...] verify that provider DR. Silva received message instrumentation and controls technician placed yesterday. Patient was connected to [facility] yesterday. desk pen set assembler has informed provider is aware of message and willreach out to patient. Informed patient that provider is aware and he will reach out. Patient understood. She was most concerned with assuring provider had received the message. documented in this encounter Plan of Treatment Upcoming Encounters Date Type Department Care Team (Late st Contact Info) Description 07/17/2024 11:30 AM EDT Office Visit [facility] MED & PEDS [address] [place] [address] Sumanth Llanos MD [address] [place] [address] documented as of this encounter Goals Goal Patient Goal Type Associated Problems Recent Progress Patient-Stated? Author Blood Pressure < 140/90 Blood Pressure 124/79(2024 9:18 AM EST) No DellogonoOgis, PharmD Patient will adhere to medication regimen General Improving(12/2022 9:16 AM EDT) No Dellogono, Luis, PharmD Hemoglobin A1c < 6.5 Result Component 5.8( 1:34 PM EST) No DellogonoOgis, PharmD documented as of this encounter Visit Diagnoses Not on filedocumented in this encounter Additional Health Concerns Assessment Noted Time PHQ-9 Depression Total Score: 15 023 9:06 AM EST documented as of this encounter Care Teams Ed Case Manager Relationship Specialty Start Date End Date Sumanth Llanos MD [address] [place] [address] PCP - General Internal Medicine 05/07/18 documented as of this encounter
--- OUTSIDE RECORDS SUMMARY | 2024-07-16 01:27 | XMS_ITS | Encounter Summary ---
Author Organization [employer] [facility] Address [address] [place] [address] [address] Care Team Providers Care Clinical Veterinarian Name Role Phone Sumanth Llanos MD Primary Care Provider +1- [phone] Encounter Details Date Type Department Care Team [...] 11:30 AM EDT Office Visit [facility] MED & PEDS 505 [place] [address] Sumanth Llanos MD [address] [place] [address] documented as of this encounter Goals Goal Patient Goal Type Associated Problems Recent Progress Patient-Stated? Author Blood Pressure < 140/90 Blood Pressure 124/79(2024 9:18 AM EST) No Luis Springer, PharmD Patient will adhere to medication regimen General Improving(12/2022 9:16 AM EDT) No Luis Springer PharmD Hemoglobin A1c < 6.5 Result Component 5.8( 4 1:34 PM EST) No Luis Springer PharmD documented as of this encounter Visit Diagnoses Not on filedocumented in this encounter Additional Health Concerns Assessment Noted Time PHQ-9 Depression Total Score: 15 023 9:06 AM EST documented as of this encounter Care Teams Clinical Veterinarian Relationship Specialty Start Date End Date Sumanth Llanos MD [address] [place] [address] PCP - General Internal Medicine 05/07/18 documented as of this encounter
--- OUTSIDE RECORDS SUMMARY | 2024-07-16 01:27 | XMS_ITS | Encounter Summary ---
Author Organization [employer] Address [address] [place] [address] 7 [place] [address] Care Team Providers Care Senior Sql Developer Name Role Phone Sumanth Llanos MD Primary Care Provider +1- [phone] Reason for Visit * Reason Comments Med Refill Encounter Details Date Type Department Care Team ([facility] Contact Info) Description 04/24/2024 Refill [facility] & PEDS [address] [place] [address] Sumanth Llanos MD [address] [place] [address] Other constipation Social History Tobacco Use Types [...] - 05/05/2024 11:48 AM EST Fax from [facility] scanned in patient chart for your review. documented in this encounter Plan of Treatment Upcoming Encounters Date Type Department Care Team (Late st Contact Info) Description 07/17/2024 11:30 AM EDT Office Visit [facility] MED & PEDS [address] [place] [address] Sumanth Llanos MD [address] [place] [address] documented as of this encounter Goals Goal [...] as of this encounter Care Teams Senior Sql Developer Relationship Specialty Start Date End Date Sumanth Llanos MD [address] [place] [address] PCP - General Internal Medicine 05/07/18 documented as of this encounter
--- OUTSIDE RECORDS SUMMARY | 2024-07-16 01:27 | XMS_ITS | Encounter Summary ---
Author Organization [employer] Address [address] [facility] 7t [place] [address] Care Team Providers Care All Terrain Vehicle Technician Name Role Phone Sumanth Llanos MD Primary Care Provider +1- [phone] Encounter Details Date Type Department Care Team (Latest Contact Info) Description 10/06/2022 Orders Only [facility] MED & PEDS [address] [place], [place] [phone] Sumanth Llanos MD [address] [place], [place] [phone] Hypercholesterolemia (Primary Dx) Social History Tobacco Use [...] Description 07/17/2024 11:30 AM EDT Office Visit [facility] MED & PEDS [address] [place] [address] Sumanth Llanos MD [address] [place] [address] documented as of this encounter Goals Goal [...] documented as of this encounter Care Teams All Terrain Vehicle Technician Relationship Specialty Start Date End Date Sumanth Llanos MD [address] [place] [address] PCP - General Internal Medicine 05/07/18 documented as of this encounter
--- OUTSIDE RECORDS SUMMARY | 2024-07-16 01:27 | XMS_ITS | Encounter Summary ---
Author Organization [employer] [facility] Address [address] [place] [address] 7 [place] [address] Care Team Providers Care Signal Intelligence Analyst Name Role Phone Sumanth Llanos MD Primary Care Provider +1- [phone] Encounter Details Date Type Department Care Team (Late Contact Info) Description 04/17/2022 Orders Only [facility] [address] [place], [place] [phone] Alondra Del Rio MD [address] [place], [place] [phone] Vitamin B12 deficiency (Primary Dx) Social History [...] [facility] [address] [place], [place] [phone] Sumanth Llanos MD [address] [place], [place] [phone] documented as of this encounter Visit Diagnoses Diagnosis Vitamin B12 deficiency- Primary Other B-complex deficiencies documented in this encounter Care Teams Signal Intelligence Analyst Relationship Specialty Start Date End Date Sumanth Llanos MD [address] [place] [address] PCP - General Internal Medicine 05/07/18 documented as of this encounter
--- OUTSIDE RECORDS SUMMARY | 2024-07-16 01:27 | XMS_ITS | Clinical Summary ---
Author Organization [employer] Address [address] [place] [address] [address] [place] [address] Care Team Providers Care Senior C Software Developer Name Role Phone Sumanth Llanos MD [...] 23 Active ergocalciferol (Vitamin D2) 1.25 MG (91133 UT) capsuleIndicatio ns:Vitamin D deficiency TAKE ONE [...] Encounters Date Type Department Care Team Description 07/15/2024 Orders Only GENERIC EXTERNAL DATA DEPARTMENT Provider, Generic External Data 07/14/2024 Patient Outreach [facility] [address] [place] [address] Sumanth Llanos MD Care Coordination (Outreach) 07/10/2024 Patient Outreach [facility] [address] [place] [address] Sumanth Llanos MD Pre-visit Planning ([facility] unable to reach [facility] ) 07/09/2024 9:20 AM EST Office Visit [facility] [address] [place] [phone] Chriss Lopez MD Right-sided chest pain (Primary Dx); Upper abdominal pain; Tobacco dependence 07/01/2024 9:00 AM EST Office Visit [facility] [address] [place] [address] Kevon Silva 06/19/2024 Refill [facility] [address] [place] [address] Sumanth Llanos MD Class 1 obesity due to excess calories with serious comorbidity and body mass index (BMI) of 33.0 to 33.9 in adult 06/18/2024 Orders Only [facility] [address] [place] [address] Sumanth Llanos MD Class 1 obesity due to excess calories with serious comorbidity and body mass index (BMI) of 33.0 to 33.9 in adult 06/17/2024 1:45 PM EST Nurse Only [facility] [address] [place] [address] Bety Arroyo RN B12 deficiency 06/17/2024 Travel 06/10/2024 10:00 AM EST Office Visit [facility] [address] [place] [address] Telma Silvaricio 05/27/2024 Refill [facility] [address] [place] [address] Sumanth Llanos MD Essential hypertension 05/16/2024 11:30 AM EST Clinical Support [facility] [address] [place] [address] Erin Guerrier, JACKIE B12 deficiency; Vitamin B 12 deficiency 05/16/2024 Travel 04/29/2024 10:30 AM EST Office Visit [facility] [address] [place] [address] Ricardo Kevon 04/25/2024 Telephone [facility] [address] [place] [address] Sumanth Llanos MD Prior Authorization 04/24/2024 11:30 AM EST Office Visit [facility] [address] [place] [address] Sumanth Llanos MD Prediabetes (Primary Dx); Other constipation; Class 1 obesity due to excess calories with serious comorbidity and body mass index (BMI) of 33.0 to 33.9 in adult; Memory disturbance 04/24/2024 Refill [facility] [address] [place] [address] Sumanth Llanos MD Other constipation 04/24/2024 Travel 04/18/2024 9:30 AM EST Clinical Support [facility] [address] [place] [address] Wing Shannan, RN B12 deficiency [E53.8] 04/18/2024 Travel from Last 3 Months Immunizations Name Administration [...] Upcoming Encounters Date Type Department Care Team ([facility] st Contact Info) Description 07/17/2024 11:30 AM EDT Office Visit [facility] [address] [place] [address] Sumanth Llanos MD [address] [place] [address] Health Maintenance Due Date Last Done Comments CT Colonography 1975 Colonoscopy 1975 Dental Prophylaxis 1975 FIT 1975 FOBT 1975 HIV Screening 1975 SDOH Screening 1975 Sigmoidoscopy 1975 Alcohol/Substance Use Screening 1987 Family Planning (PISQ) 1990 Hepatitis B Vaccines (1 of 3 - 19+ 3-dose series) 1994 Depression Monitoring (PHQ-9) 11/28/2022 05/31/2022, 05/31/2022 Depression Screening 05/31/2023 05/31/2022, 05/31/19 23 COVID-19 Vaccine ( season) 2024 07/08/2021, 09/27/2020, 08/31/2020 Influenza Vaccine (#1) 2024 , 02/10/2022, 02/16/2021, Additional history exists Dental Oral Exam 04/27/2024 10/26/2023 Mammogram 07/07/2024 07/07/2022, 03, 04/16/2019, Additional history exists Dental X-Ray: Bitewings 10/26/2024 10/26/2023 Diabetes: Hemoglobin A1C 04/24/2025 024, 12/07/2023, 06/29/2023, Additional history exists Zoster Vaccines (1 of 2) 2025 DTaP/Tdap/Td Vaccines (2 - Td or Tdap) 06/04/2025 06/04/2015 Tobacco Screening 07/09/2025 07/09/2024 Colorectal Cancer Screening 03/08/2026 FIT DNA/Cologuard 03/08/2026 03/08/2023 Cervical Cancer Screening 09/15/2026 HPV/Cotest 09/15/2026 09/15/2021 Pap Smear 09/15/2026 09/15/2021, 09/15/2021 Dental X-Ray: Full Mouth 10/26/2026 10/26/2023 [...] on patient's age to complete this topic Hepatitis A Vaccines Aged Out No long er eligible based on patient's age to complete [...] VIEWS Routine 07/16/2024 12:1 8 AM EDT COMPREHENSIVE METABOLIC PANEL Routine 07/15/2024 11:11 PM EDT CBC WITH AUTO DIFFERENTIAL Routine 07/15/2024 11:[address] ABDOMEN PELVIS WO CONTRAST Routine 07/11/2024 8:39 PM EST XR CHEST 2 VIEWS Routine 07/09/2024 10:0 [...] TOTAL Routine 04/24/2024 1:34 PM EST Prediabetes INTRAORAL - COMPLETE SERIES OF RADIOGRAPHIC IMAGES [...] Maintenance Results * XR Chest 2 Views (07/16/2024 12:18 AM EDT) Only the most recent of2 resultswithin the time period is included. Anatomical Region Laterality Modality Chest Radiographic Myrna ging 07/16/2024 12:1 8 AM EDT Narrative 07/16/2024 12:22 AM EDT ? [facility] ?[address] ?[place] [address] ?XRay Report ? Signed ? Patient: Keli Oakley ?MR# ?? : [id number] ? : 1975 ?Acct:[id number] ? Age/Sex: 49 / F ?ADM Date: 07/15/24 ? Loc: HO.ED ? Attending Dr: ? Ordering Physician: Generic ED Physician ?? Date of Service: 07/15/24 ?? Procedure(s): XR chest 2V ?? Accession Number(s): [id number] ? cc: Sumanth Llanos MD; Generic ED [...] DD/ 0018 ? TD/TT: 07/16/24 0018 ? Local Az Truck Driver: ? Procedure Note Blanca Barajas - 07/16/[address] [address] XRay Report Signed Patient: Keli OakleyMR# : [id number] : 1975Acct:[id number] Age/Sex: 49 / FADM Date: 07/15/24 Loc: HO.ED Attending Dr: Ordering Physician: Generic ED Physician Date of Service: 07/15/24 Procedure(s): XR chest 2V Accession Number(s): [id number] cc: Sumanth Llanos MD; Generic ED Physician [...] Aguilar MD in OV> 07/16/24 0020 DD/ 0018 TD/TT: 07/16/24 0018 Local Az Truck Driver: [facility] External Provider IMG XR PROCEDURES Edited Result - Final * (ABNORMAL) CBC auto differential (07/15/2024 11:11 PM EDT) White Blood Count 9.8 4.8 - 10.8 X10*3/uL [facility] Red Blood Count 3.81(L) 4.20 - 5.50 X10*6/uL [facility] Hemoglobin 11.6(L) 12.0 - 16.0 g/dl [facility] Hematocrit 33.1(L) 37.0 - 47.0 % [facility] Mean Corpuscular Volume 86.9 80.0 - 98.0 fL [facility] Mean Corpuscular Hemoglobin 30.4 27.0 - 33.0 pg [facility] Mean Corpuscular HGB Conc 35.0 31.0 - 35.0 g/dl [facility] Red Cell Distribution Width 13.7 11.0 - 16.0 % [facility] Platelet Count 303 160 - 400 X10*3/uL [facility] Mean Platelet Volume 10.4 9.4 - 12.3 fL [facility] Neutrophils Percent Auto 62.3 45 - 73 % [facility] Imm Gran Pct Auto 0.3 0.0 - 0.4 % [facility] Lymphocytes Percent Auto 28.3 20 - 40 % [facility] Monocytes Percent Auto 6.3 2 - 11 % [facility] Eosinophils Percent Auto 2.6 0 - 4 % [facility] Basophils Percent Auto 0.2 0 - 2 % [facility] NRBC Pct Auto 0.0 0.0 - 0.2 /100WBC [facility] Neutrophils Absolute Auto 6.1 2.0 - 8.3 x10*3/uL [facility] Imm Gran Abs Auto 0.03 0.00 - 0.03 X10*3/uL [facility] Lymphocytes Absolute Auto 2.8 1.2 - 4.9 X10*3/uL [facility] Monocytes Absolute Auto 0.6 0.1 - 1.2 X10*3/uL [facility] Eosinophils Absolute Auto 0.3 0.0 - 0.4 X10*3/uL [facility] Basophils Absolute Auto 0.0 0.0 - 0.2 X10*3/uL [facility] NRBC Abs Auto 0.000 0.0 - 0.012 X10*3/uL [facility] 07/15/2024 11:1 1 PM EDT 07/15/2024 11:16 PM EDT us Generic External Data Provider LAB BLOOD ORDERAB LES Final Result [facility] [address] [place], [place] [phone] * (ABNORMAL) Comprehensive Metabolic Panel (07/15/2024 11:11 PM EDT) Sodium 141 135 - 145 mmol/L [facility] Potassium 3.0(L) 3.3 - 5.1 mmol/L [facility] Chloride 107 96 - 108 mmol/L [facility] Carbon Dioxide 27 22 - 29 mmol/L [facility] Anion Gap 10(L) 12 - 20 [facility] Urea Nitrogen (BUN) 8(L) 9 - 16 mg/dL [facility] Creatinine, Serum 0.71 0.5 - 1.4 mg/dL [facility] Creatinine Clr Calc Pharmacy 77.4 [facility] Comment:Provided height and weight: 147.32 cm,66.7 kg.eGFR (calculated from the MDRD study equation) and eCrCl(calculated from the Cockcroft-Gault equation) are based ondifferent parameters and may not yield comparable results.If eCrCl result is absurd, please check patient'sheight/weight. Estimated Glomerular Filt Rate >60 [facility] Comment:Chronic Kidney Disea se: Estimated GFR < 60 mL/min/1.78w1Vhoofg Kidney Disease: Estimated GFR < 15 mL/min/1.73m2 Glucose 120(H) 60 - 115 mg/dL [facility] Calcium 8.6 8.4 - 10.2 mg/dL [facility] Bilirubin, Total 0.3 0.0 - 1.0 mg/dL [facility] Aspartate Amino Transferase 29 5 - 31 U/L [facility] Alanine Aminotransferase 44(H) 0 - 31 U/L [facility] Total Protein 6.8 6.5 - 8.0 g/dL [facility] Albumin Level 3.5 3.5 - 5.0 g/dL [facility] Alkaline Phosphatase 90 39 - 117 U/L [facility] 07/15/2024 11:1 1 PM EDT 07/15/2024 11:16 PM EDT us Generic External Data Provider LAB BLOOD ORDERAB LES Final Result [facility] [address] [place] [address] [phone] * CT Abdomen Pelvis w/o Contrast (07/11/2024 8:39 PM EST) Anatomical Region Laterality Modality Body, Pelvis, Abdomen Computed T omography 07/11/2024 8:39 PM EST Narrative 07/11/2024 8:40 PM EST ? [facility] ?[address] ?[place] [address] ? CT Scan Report ? Signed ? Patient: Keli Oakley ?MR# ?? : [id number] ? : 1975 ?Acct:[id number] ? Age/Sex: 49 / F ?ADM Date: 07/11/24 ? Loc: HO.ED ? Attending Dr: ? Ordering Physician: Angelica Rivera ?? Date of Service: 07/11/24 ?? Procedure(s): CT abdomen pelvis wo IV con ?? Accession Number(s): [id number] ? cc: Sumanth Llanos MD; Angelica Rivera ? Report Number: ?? [id number]: Total DLP = ??446.00 mGy-cm ? CLINICAL [...] ? DD/ 38 ? TD/TT: 07/11/242038 ? Local Az Truck Driver: ? Procedure Note Donotuseinterpreter, Image - 07/11/[address] [address] [address] Scan Report Signed Patient: David Oakley# : [id number] : 1975Acct:[id number] Age/Sex: 49 / FADM Date: 07/11/24 Loc: HO.ED Attending Dr: Ordering Physician: Angelica Rivera Date of Service: 07/11/24 Procedure(s): CT abdomen pelvis wo IV con Accession Number(s): [id number] cc: Sumanth Llanos MD; Angelica Rivera Report Number: [id number]: Total DLP = 446.00 mGy-cm CLINICAL HISTORY: [...] been electronically signed by: Jody Ingram MD on 07/11/2024 20:39:00 Dictated By: Jody Green MD Signed By: <Electronically signed by Jody Green MD in OV> 07/11/242038 DD/ 38 TD/TT: 07/11/242038 Local Az Truck Driver: us [facility] External Provider IMG CT PROCEDURES Edited Result - Final * Hepatitis C Antibody with Reflex to HCV, RNA, Quantitative, Real-Time PCR (04/29/2024 10:12 AM EST) [facility] Hepatitis C Antibody Nonreactive Nonreactive [facility] Comment:Antibodies to HCV no t detected; does not exclude early acuteHCV infection. Blood Venous blood specimen / Unknown 04/29/2024 10:12 AM EST 04/29/2024 2:25 PM EST Sumanth Llanos MD LAB BLOOD ORDERABLES Final Result [facility] [address] [place] [phone] * POCT Glucose (04/24/2024 1:35 PM EST) [facility] Glucose Blood, POC 170 60 - 200 mg/dL QC Media Lot # [id number] Comment:random Lot# Expiration Date [id number] Blood Capillary blood specimen / Unknown 04/24/2024 1:35 PM EST Sumanth Llanos MD POINT OF CARE TEST ENTER/ED IT ORDERABLES Final Result * POCT HGB A1C (04/24/2024 1:34 PM EST) [facility] Hemoglobin A1C 5.8 4.0 - 6.0 % QC Media Lot # [id number] Lot# Expiration Date [id number] Blood 04/24/2024 1:34 PM EST Sumanth Llanos MD POINT OF CARE TEST ENTER/ED IT ORDERABLES Final Result * Cologuard?? colon cancer screening (03/08/2023 12:52 PM EDT) [facility] Cologuard Result Negative Negative 03/15/20 1:54 AM EST [email or web address] (CLIA #:[id number]) Comment: NEGATIVE TEST RESULT. A negative Cologuard [...] (Rylee Mccarthy al, N Engl J Med 2014;370(14):1286- 1297) The normal value (reference range) for this assay is negative. COLOGUARD RE-SCREENING RECOMMENDATION: Periodic colorectal cancer screening is an important part of preventive healthcare for asymptomatic individuals at average risk for colorectal cancer. ??Following a negative Cologuard result, the [place] Cancer Society and U.S. Multi-Society Task Force screening guidelines recommend a Cologuard re-screening interval of 3 years. References: [place] [employer] Guideline for Colorectal Cancer Screening: https://www.cancer.org/cancer/xmjcc-inadxe-uznlmm/bmrpidvap-drmeawrty-tlbqplw/ac s-rec ommendations.html.; Bravo DK, Genia CR, Mumtaz MaceK, Colorectal Cancer Screening: Recommendations for Physicians and Patients from the U.S. Multi-Society Task Force on Colorectal Cancer Screening , Am J Gastroenterology 2017; 112:6510-9417. TEST DESCRIPTION: Composite algorithmic analysis of stool [...] (Rylee Mccarthy al, N Engl J Med 2014;370(14):5492-4010.) Cologuard may produce a false negative or false positive result (no colorectal cancer or precancerous polyp present at colonoscopy follow up). A negative Cologuard test result does not guarantee the absence of CRC or advanced adenoma (pre-cancer). The current Cologuard screening interval is every 3 years. ([place] Cancer Society and U.S. Multi-Society Task Force). Cologuard performance data in a 10,000 patient pivotal study using colonoscopy as the reference method can be accessed at the following location: www.[employer].Transactiv/results. Additional description of the Cologuard test process, warnings and precautions can be found at www.[employer].Transactiv. Stool specimen (specimen) 03/08/2023 12:52 PM EDT 03/09/2023 6:19 PM EDT Sumanth Llanos MD LAB MOLECULAR DIAGNOSTICS O RDERABLES Final Result [email or web address] (CLIA #:[id number]) [address] [place] [address], * Lipid Panel, Standard (11/20/2022 11:00 AM EDT) Triglycerides 141 mg/dL [facility] Comment:Desirable Triglyceri de: less than 150 mg/dLBorderline High Triglyceride 150-199 mg/dLHigh Triglyceride: 200-499 mg/dLVery High Triglyceride: greater than or equal to 5OO mg/dL Cholesterol 193 mg/dL [facility] Comment:Desirable Cholestero l: less than 200 mg/dLBorderline High Cholesterol: 200-239 mg/dLHigh Cholesterol: greater than 239 mg/dL LDL Cholesterol Calculated 130 mg/dl [facility] Comment:Desirable LDL: less than 100 mg/dLNear Optimal/Above Optimal LDL: 110- 129 mg/dLBorderline High LDL: 130-159 mg/dLHigh LDL: 160-189 mg/dLVery High LDL: greater than or equal to 190 mg/dL HDL Cholesterol 35 mg/dL [facility] Comment:Desirable HDL: great er than 40 mg/dL Note: This HDL assay may give artificially low results in patients with liver disease. 11/20/2022 11:0 0 AM EDT 11/20/2022 2:45 PM EDT us [facility] External Provider LAB BLO OD ORDERABLES Final Result Performing Organization Address City/State/[facility] [[email or web address]] Co de Phone Number [facility] [address] [place] [address] [phone] * BI Mammogram Screening Tomosynthesis Bilateral (07/07/2022 8:20 AM EST) Anatomical Region Laterality Modality Breast Bilateral Mammography 07/07/2022 8:20 AM EST Narrative 07/10/2022 7:59 AM EST ? [facility] ? [address] ?[place] [address] ? Mammography Report ? Signed ? Patient: Keli Oakley ?MR# ?? : [id number] ? : 1975 ?Acct:[id number] ? Age/Sex: 47 / F ?ADM Date: 03/03/23 ? Loc: HO.MAMMO ? Attending : Sumanth Llanos MD ? Ordering Physician: Sumanth Llanos MD ?Results: 1 ?? Negative ? Date of Service: 07/07/22 ?Follow Up: 1 Year From Orig ?? inal Mammogram ? Procedure(s): MM tomosynthesis screening BI ?? Accession Number(s): [id number] ? cc: Sumanth Llanos MD ? EXAMINATION: [...] by Jose E Rabago MD in OV> ?03/06/ 0756 ? DD/ 0820 ? TD/TT: ? Local Az Truck Driver: KEATING ? Procedure Note Donotuseinterpreter, Image - 07/10/2022 [facility] [address] [place] [address] Mammography Report Signed Patient: Keli OakleyMR# : [id number] : 1975Acct:[id number] Age/Sex: 47 / FADM Date: 07/07/22 Loc: HO.MAMMO Attending Dr: Sumanth Llanos MD Ordering Physician: Sumanth Llanos MDResults: 1 Negative Date of Service: 07/07/22Follow Up: 1 Year From Orig inal Mammogram Procedure(s): MM tomosynthesis screening BI Accession Number(s): [id number] cc: Sumanth Llanos MD EXAMINATION: MM SCREENING [...] Rabago MD Signed By: <Electronically signed by Jsoe E Rabago MD in OV> 07/10/22 0756 DD/ 0820 TD/TT: Local Az Truck Driver: KEATING us [facility] External Provider IMG BI PROCEDURES Final Result * THINPREP TIS PAP AND HPV mRNA E6/E7 WITH REFLEX TO HPV 16,18/45 (09/15/2021 9:38 AM EDT) Clinical Information: None given [facility] COMMENT SEE COMMENT [facility] [...] has been evaluated with computer assisted technology. [facility] Laundry Sorter: SEE COMMENT [facility] Comment: BJ, CT(ASCP) CT screening location: [address] ??[address] HPV nRNA E6/E7 Not Detected Not Detected [facility] Comment: Methodology: Cosmetic Dentist-Mediated Amplification This assay detects E6/E7 viral messenger RNA (mRNA) from 14 high-risk HPV types (16,18,31,33,35,39,45,51,52,56,58,59,66,68). ? The analytical performance characteristics of this assay have been determined by [employer]. The modifications have not been cleared or approved by the FDA. This assay has been validated pursuant to the CLIA regulations and is used for clinical purposes. ?? For additional information, please refer to http://education.[employer]s/faq/AJG623j7 (This link if provided for information/ educational purposes only.) Interpretation/Re sult: Negative for intraepithelial lesion or malignancy. [facility] LMP: 01/2021 [facility] Prev. BX: NONE GIVEN [facility] Prev. PAP: 06/2018 [facility] SOURCE: None given [facility] Statement Of Adequacy: SEE COMMENT [facility] Comment: Satisfactory for evaluation. Endocervical/transformation zone component absent. 09/15/2021 9:38 AM EDT us Azul Glynn CNM LAB PATHOLOGY ORDERABLES Final Result [facility] [address] * Pap Smear (09/15/2021) Pap smear Performed us Historical Provider MD HEALTH MAINTENANCE Final Result from Last 3 Months or Most Recently Relevant to Health Maintenance Insurance [facility] C3 Care Teams Senior C Software Developer Relationship Specialty Start Date End Date Sumanth Llanos MD [address] [place] [phone] PCP - General Internal Medicine 05/07/18
--- NOTE | 2024-07-16 02:23 | PC.NURSE ---
pt reports often waking up feeling sob, sx onset since age 13 per pt. states she has seen a therapist previously but refused meds for anxiety as i already take too many medications. PA at bedside for eval at this time.
--- NOTE | 2024-07-16 03:33 | ED.GENADULT ---
HPI - General Adult General Chief complaint: Dyspnea Stated complaint: SOB/ 4 days post op Time Seen by Provider: 07/16/24 01:53 Source: patient Limitations: no limitations and language barrier History of Present Illness ED Provider: Angelica Rivera PA-C HPI narrative: 49-year-old female presents with multiple complaints. Patient states she is status post cholecystectomy 4 days ago. She has developed a cough with shortness of breath since. The cough and shortness of breath are worse with lying flat. Associated generalized weakness and nausea. Related Data Home Medications ?Medication ?Instructions ?Recorded ?Confirmed amitriptyline 25 mg tablet 25 mg PO BEDTIME 01/26/23 07/11/24 atenolol 25 mg tablet 25 mg PO DAILY 01/26/23 07/11/24 cyanocobalamin (vitamin B-12) 1,000 mcg IM QMONTH 01/26/23 07/11/24 1,000 mcg/mL injection solution ergocalciferol (vitamin D2) 1,250 1,250 mcg PO FR 01/26/23 07/11/24 mcg (50,000 unit) capsule ibuprofen 600 mg tablet 600 mg PO Q6H PRN pain 01/26/23 07/11/24 lisinopril 10 1 tab PO DAILY 01/26/23 07/11/24 mg-hydrochlorothiazide 12.5 mg tablet amlodipine 5 mg tablet 5 mg PO DAILY 07/11/24 07/11/24 famotidine 20 mg tablet 20 mg PO BID 07/11/24 07/11/24 tirzepatide (weight loss) 2.5 2.5 mg subcut TH 07/11/24 07/11/24 mg/0.5 mL subcutaneous pen injector (Zepbound) Previous Rx's ?Medication ?Instructions ?Recorded epinephrine 0.3 mg/0.3 mL 0.3 mg (0.3 mL) IM ONCE PRN 10/16/21 injection, auto-injector (EpiPen) extreme reaction #1 ea cetirizine 10 mg tablet 10 mg PO DAILY #20 tabs 10/18/21 tramadol 50 mg tablet 50 mg PO Q8-10H PRN pain #20 tabs 02/01/24 ciprofloxacin HCl 500 mg tablet 500 mg PO BID #10 tabs 07/13/24 oxycodone 5 mg tablet 5 mg PO Q8H PRN pain (scale score 03/09/25 7-10) #14 tabs doxycycline hyclate 100 mg capsule 100 mg PO BID #19 caps 07/16/24 hydroxyzine HCl 25 mg tablet 25 mg PO QID PRN anxiety #12 tabs 07/16/24 Allergies Allergy/AdvReac Type Severity Reaction Status Date / Time Sulfa (Sulfonamide Allergy Intermediate Rash Verified 07/15/24 23:03 Antibiotics) [SULFA (SULFONAMIDE ANTIBIOTICS)] shellfish derived Allergy Rash Verified 07/15/24 23:03 Review of Systems Review of Systems: Yes all other systems are reviewed and are negative Constitutional: Constitutional: Reports fatigue and Denies fever(s) Cardiovascular: Cardiovascular: Denies chest pain and Reports dyspnea Respiratory: Respiratory: Reports chest congestion, Reports cough and Reports dyspnea Gastrointestinal: Gastrointestinal: Denies abdominal pain, Reports nausea and Denies vomiting Endocrine: Endocrine: Reports fatigue PMFSH Past Medical History Attestation statement: The following information was validated with the patient. Medical History High cholesterol Vitamin D deficiency PMB (postmenopausal bleeding) Right ankle sprain Depression Anxiety Hypertension Diabetes Chronic headache Surgical History (Updated 07/23/24 @ 09:34 by Al Castillo MD) Status post laparoscopic cholecystectomy Hx laparoscopic cholecystectomy (~07/12/24) History of carpal tunnel release H/O tubal ligation H/O hernia repair Family History Family History Mother Lung abnormality Father Heart disease Social History Social History Household Members: Children Household Members Other:: Son Housing: House Do you presently have visiting nurse or other home services: Yes Alcohol intake: current Alcohol intake frequency: does not drink Comment: counts correct Patient Tobacco Use Status: Current everyday Tobacco user Tobacco use type: Cigarette service: No Current occupational status: unemployed Physical Exam ED Vital Signs: Vital Signs - 24 hr 07/15/24 22:58 Temperature 98.5 F Pulse Rate 74 Respiratory Rate 18 Blood Pressure 133/74 Pulse Oximetry 99 Oxygen Delivery Method Room Air BMI result Body Mass Index 30.7 Const Other: Alert Orientation/consciousness: patient oriented x3 Resp Other: no adventitious lung sounds Effort & Inspection: normal respiratory effort Cardio Other: normal peripheral perfusion GI Other: abdomen is soft, nontender nondistended no guarding Skin Other: warm dry no rash Neuro General: patient oriented x3, gait normal, no focal motor deficits and CN's II-XI intact bilaterally Psych Other: calm cooperative Medications Administered Discontinued Medications Generic Name Dose Route Start Last Admin Trade Name [place] PRN Reason Stop Dose Admin Doxycycline Monohydrate 100 mg 07/16/24 02:36 07/16/24 03:44 Doxycycline Monohydrate 100 Mg Capsule PO 07/16/24 02:37 100 mg ONCE ONE Administration Hydroxyzine HCl 25 mg 07/16/24 02:35 07/16/24 03:44 Hydroxyzine Hcl 25 Mg Tablet PO 07/16/24 02:36 25 mg ONCE ONE Administration Potassium Chloride 40 meq 07/16/24 02:11 07/16/24 03:43 Potassium Chloride Packet 20 Meq Packet PO 07/16/24 02:12 40 meq ONCE ONE Administration Medical Decision Making Medical Decision Making MDM Narrative: 49-year-old female presents with multiple complaints. Patient states she is status post cholecystectomy 4 days ago. She has developed a cough with shortness of breath since. The cough and shortness of breath are worse with lying flat. Associated generalized weakness and nausea. problem: Recent surgery History: Per patient I have considered the following differential diagnoses: Postsurgical infection, pneumonia, bronchitis, viral syndrome , PE Plan: patient likely has developed a postsurgical infection, pneumonia versus viral syndrome. We will be screening basic labs and a chest x-ray. Thought about PE, however she is not tachycardic, she is not hypoxic, there were no objective signs symptoms for DVT on exam. No indication for a dimer. I have independently reviewed the following tests: Labs: No leukocytosis, not anemic, no electrolyte abnormality other than subtly low potassium at 3 we will give 40 mEq p.o. CXR: IMPRESSION: 1. New bilateral central peribronchial linear opacities, possibly representing atelectasis or bronchitis. Lab Data 07/15/24 23:11 07/15/24 23:11 Labs: Lab Results 07/15/24 Range/Units 23:11 WBC 9.8 (4.8-10.8) X10*3/uL RBC 3.81 L (4.20-5.50) X10*6/uL Hgb 11.6 L (12.0-16.0) g/dl Hct 33.1 L (37.0-47.0) % MCV 86.9 (80.0-98.0) fL MCH 30.4 (27.0-33.0) pg MCHC 35.0 (31.0-35.0) g/dl RDW 13.7 (11.0-16.0) % Plt Count 303 (160-400) X10*3/uL MPV 10.4 (9.4-12.3) fL Immature Gran % (Auto) 0.3 (0.0-0.4) % Neut % (Auto) 62.3 (45-73) % Lymph % (Auto) 28.3 (20-40) % [place] % (Auto) 6.3 (2-11) % Eos % (Auto) 2.6 (0-4) % Baso % (Auto) 0.2 (0-2) % Lymph # (Auto) 2.8 (1.2-4.9) X10*3/uL [place] # (Auto) 0.6 (0.1-1.2) X10*3/uL Eos # (Auto) 0.3 (0.0-0.4) X10*3/uL Baso # (Auto) 0.0 (0.0-0.2) X10*3/uL Abs Immat Gran (auto) 0.03 (0.00-0.03) X10*3/uL Absolute Neuts (auto) 6.1 (2.0-8.3) x10*3/uL Absolute Nucleated RBC 0.000 (0.0-0.012) X10*3/uL Nucleated RBC % (auto) 0.0 (0.0-0.2) /100WBC Sodium 141 (135-145) mmol/L Potassium 3.0 L (3.3-5.1) mmol/L Chloride 107 (96-108) mmol/L Carbon Dioxide 27 (22-29) mmol/L Anion Gap 10 L (12-20) BUN 8 L (9-16) mg/dL Creatinine 0.71 (0.5-1.4) mg/dL Estim Creat Clear Calc 77.4 Estimated GFR > 60 Random Glucose 120 H (60-115) mg/dL Calcium 8.6 D (8.4-10.2) mg/dL Total Bilirubin 0.3 (0.0-1.0) mg/dL AST 29 (5-31) U/L ALT 44 H (0-31) U/L Alkaline Phosphatase 90 (39-117) U/L Total Protein 6.8 (6.5-8.0) g/dL Albumin 3.5 (3.5-5.0) g/dL Discharge Plan Discharge Clinical Impression: Bronchitis, Anxiety, Hypokalemia Patient Disposition: Home, Self-Care Instructions: Potassium Content of Foods List (ED), Acute Bronchitis (ED), Anxiety (ED) Additional Instructions: All of your screening labs were normal, your potassium was subtly low, you were given a drank to replenish the potassium. I am sending you with a list of potassium rich foods. Follow up with your primary care provider as needed On the chest x-ray, there was concern for early bronchitis, take the doxycycline as directed. In regard to your anxiety, use the hydroxyzine as needed. You also should follow up with your therapist. Prescriptions: New hydroxyzine HCl 25 mg tablet 25 mg PO QID PRN (Reason: anxiety) Qty: 12 0RF doxycycline hyclate 100 mg capsule 100 mg PO BID Qty: 19 0RF No Action cetirizine 10 mg tablet 10 mg PO DAILY Qty: 20 0RF epinephrine [EpiPen] 0.3 mg/0.3 mL auto-injector 0.3 mg IM ONCE PRN (Reason: extreme reaction) Qty: 1 0RF Rx Instructions: for 2 doses tramadol 50 mg tablet 50 mg PO Q8-10H PRN (Reason: pain) Qty: 20 0RF amlodipine 5 mg tablet 5 mg PO DAILY famotidine 20 mg tablet 20 mg PO BID Zepbound 2.5 mg/0.5 mL pen injector 2.5 mg subcut TH oxycodone 5 mg tablet 5 mg PO Q8H PRN (Reason: pain (scale score 7-10)) Qty: 14 0RF Rx Instructions: Partial Fill upon patient request. ciprofloxacin HCl 500 mg tablet 500 mg PO BID Qty: 10 0RF amitriptyline 25 mg tablet 25 mg PO BEDTIME atenolol 25 mg tablet 25 mg PO DAILY lisinopril-hydrochlorothiazide 10-12.5 mg tablet 1 tab PO DAILY ibuprofen 600 mg tablet 600 mg PO Q6H PRN (Reason: pain) ergocalciferol (vitamin D2) 1,250 mcg (50,000 unit) capsule 1,250 mcg PO FR cyanocobalamin (vitamin B-12) 1,000 mcg/mL solution 1,000 mcg IM QMONTH Interventions: ED Discharge Assessment Last Done: 07/16/24 03:45 Discharge Date/Time: 07/16/24 03:45 Print Language: Mauritian
[2024-07-16] MEDS: Potassium Chloride Packet 20 MEQ PACKET 40 MEQ PO (03:43)
[2024-07-16] MEDS: Doxycycline Monohydrate 100 MG CAPSULE PO (03:44)
[2024-07-16] MEDS: hydrOXYzine HCL 25 MG TABLET PO (03:44)
[2024-07-16 03:45] VITALS: BP 133/74; PULSE 74; RESP 18; TEMP 36.9; O2SAT 99
== END 2024-07-16 03:45 | disposition home or self-care (01) ==
PROVIDERS: Emergency Provider Emergency Medicine Emergency Medical Services; PCP Internal Medicine
DX: J40 Bronchitis, not specified as acute or chronic (principal); E87.6 Hypokalemia; R06.02 Shortness of breath; F17.210 Nicotine dependence, cigarettes, uncomplicated; R05.9 Cough, unspecified; Z79.899 Other long term (current) drug therapy
CPT/HCPCS: 36415; 71046; 80053; 85025; 99283

== ENCOUNTER → 2024-07-15 23:00 | Outpatient (BNV) | payer MEDICAID, SELFPAY | PROVIDERS: PCP Internal Medicine; Visit Provider Radiology Diagnostic Radiology | DX: R91.8 Other nonspecific abnormal finding of lung field (principal) | CPT/HCPCS: 71046 ==

== ENCOUNTER 2024-07-23 09:30 | Outpatient (AMB) | payer MEDICAID, SELFPAY ==
--- NOTE | 2024-07-23 09:32 | A.OFFVIS_ITS ---
Vital Signs 07/23/24 09:33 Height 4 ft 10 in Weight 147 lb 0.773 oz BMI 30.7 Intake Visit Reasons: s/p lap radha *Dr. Gomez Allergies Sulfa (Sulfonamide Antibiotics) [SULFA (SULFONAMIDE ANTIBIOTICS)] Allergy (Intermediate, Verified 07/15/24 23:03) Rash shellfish derived Allergy (Verified 07/15/24 23:03) Rash HPI HPI s/p lap radha *Dr. Gomez: Details: [age] year old female here for a postop check. She had undergone laparoscopic cholecystectomy with Dr. Gomez for acute cholecystitis and biliary colic on 07/12/2024. She tolerated the procedure well. She was discharged on postop day 1. She says she is doing well at home. She has good GI functions. She denies any significant complaints except for incisional pain. [facility] Medical History High cholesterol Vitamin D deficiency PMB (postmenopausal bleeding) Right ankle sprain Depression Anxiety Hypertension Diabetes Chronic headache Surgical History (Updated 07/23/24 @ 09:34 by Al Castillo MD) Status post laparoscopic cholecystectomy Hx laparoscopic cholecystectomy (~07/12/24) History of carpal tunnel release H/O tubal ligation H/O hernia repair Family History Mother Lung abnormality Father Heart disease Social History Household Members: Children Household Members Other:: Son Housing: House Do you presently have visiting nurse or other home services: Yes Alcohol intake: current Alcohol intake frequency: does not drink Comment: counts correct Patient Tobacco Use Status: Current everyday Tobacco user Tobacco use type: Cigarette service: No Current occupational status: unemployed Review of Systems Const Denies chills and Denies fever(s) Card Denies chest pain, Denies dyspnea and Denies dyspnea on exertion Resp Denies cough, Denies dyspnea and Denies dyspnea on exertion GI Denies hematochezia and Denies change in bowel habits Denies hematuria Musc Denies back pain and Denies limited range of motion Neuro Denies focal weakness and Denies convulsions Psych Denies depression and Denies mood swings Physical Exam Vital Signs: BMI result Body Mass Index 30.7 Const General: comfortable and no acute distress Eyes Other: Anicteric sclerae Resp Effort & Inspection: normal respiratory effort GI Other: All incisions are well healed Palpation (GI): Soft to palpation, not firm and nontender Assessment & Plan Assessment & Plan (1) Status post laparoscopic cholecystectomy: Code(s): Z90.49 - Acquired absence of other specified parts of digestive tract Category: Surgical Plan: She continues to do well postoperatively. All incisions are well healed. She denies GI complaints Her path report shows chronic cholecystitis and cholelithiasis. She was advised to avoid lifting anything more than 20 lb for at least 2 more weeks. She can follow up on a p.r.n. basis. Coding Level of Care Code Global (43164) Diagnoses Status post laparoscopic cholecystectomy Z90.49
[2024-07-23 09:33] VITALS: BMI 30.7
== END 2024-07-23 09:51 | disposition home or self-care (01) ==
LOC: HO.HGS 09:31
PROVIDERS: PCP Internal Medicine; Visit Provider Surgery
DX: Z90.49 Acquired absence of other specified parts of digestive tract (principal)
CPT/HCPCS: 99024

== ENCOUNTER → 2024-07-23 09:30 | Outpatient (BNVA) | payer MEDICAID, SELFPAY | PROVIDERS: PCP Internal Medicine; Visit Provider Surgery | DX: Z09 Encounter for follow-up examination after completed treatment for conditions other than malignant neoplasm (principal); Z90.49 Acquired absence of other specified parts of digestive tract; Z98.890 Other specified postprocedural states | CPT/HCPCS: 99212 ==

== ENCOUNTER 2024-10-29 08:43 | Outpatient (REF) | payer MEDICAID, SELFPAY ==
--- OUTSIDE RECORDS SUMMARY | 2024-10-29 09:09 | XMS_ITS | Encounter Summary ---
Author Organization [employer] Address [address] [place] [address] [address] [place] [address] Care Team Providers Care Bulker Name Role Phone Sumanth Llanos MD Primary Care Provider Encounter Details Date Type Department Care Team ([facility] Contact Info) Description 12/21/2023 Orders Only [facility] [address] [facility] [place] [id number] Sumanth Llanos MD [address] [place] [address] Recurrent herpes labialis (Primary Dx) Social History [...] Department Care Team (Late Contact Info) Description 11/20/2024 3:15 PM EDT Clinical Support [facility] [address] [place] [place] [id number] documented as of this encounter Goals Goal Patient Goal Type Associated Problems Recent Progress Patient-Stated? Author Blood Pressure < 140/90 Blood Pressure 118/71(2024 1:15 PM EDT) No Luis Springer, PharmD Patient will adhere to medication regimen General Improving(12/2022 9:16 AM EDT) No Luis Springer, PharmD Hemoglobin A1c < 6.5 Result Component 5.2( 1:56 PM EDT) No Luis Springer PharmD documented as of this encounter Visit Diagnoses Diagnosis Recurrent herpes labialis- Primary Herpes simplex without mention of complication documented in this encounter Additional Health Concerns Assessment Noted Time PHQ-9 Depression Total Score: 15 023 9:06 AM EST documented as of this encounter Care Teams Bulker Relationship Specialty Start Date End Date Sumanth Llanos MD [address] [place] [id number] PCP - General Internal Medicine 05/07/18 documented as of this encounter
[2024-10-29 14:41] LABS: Creatinine Urine 246.89 mg/dL; Microalbum/Creatinine Ratio Ur 5.6 ug/mg cr (<30)
[2024-10-29 14:49] LABS: Alanine Aminotransferase 13 U/L (0-31); Albumin Level 4.2 g/dL (3.5-5.0); Alkaline Phosphatase 72 U/L (39-117); Anion Gap 10 (12-20); Aspartate Amino Transferase 28 U/L (5-31); Bilirubin Total 0.4 mg/dL (0.0-1.0); Blood Urea Nitrogen 18 mg/dL (9-16); Calcium 8.8 mg/dL (8.4-10.2); Carbon Dioxide 28 mmol/L (22-29); Chloride 105 mmol/L (96-108); Cholesterol 208 mg/dL (<200); Estimated Glomerular Filt Rate > 60; Glucose Random 89 mg/dL (60-115); HDL Cholesterol 39 mg/dL (>40); LDL Cholesterol Calculated 131 mg/dL (<100); Potassium 3.4 mmol/L (3.3-5.1); Sodium 140 mmol/L (135-145); Triglycerides 191 mg/dL (<150)
[2024-10-30 07:56] LABS: HIV AB/AG Nonreactive (Nonreactive); HIV Num 1 0.07 S/CO (0.00-0.99)
== END 2024-10-29 08:44 | disposition home or self-care (01) ==
LOC: HO.CHCLDS 08:43
PROVIDERS: Visit Provider Internal Medicine
DX: E78.00 Pure hypercholesterolemia, unspecified (principal); I10 Essential (primary) hypertension; E11.9 Type 2 diabetes mellitus without complications
CPT/HCPCS: 36415; 80053; 80061; 82043; 82570; 87389

== ENCOUNTER 2024-12-06 18:12 | Emergency (ER) | payer MEDICAID, SELFPAY ==
[2024-12-06 18:25] VITALS: BP 145/92; PULSE 95; RESP 16; TEMP 36.7; O2SAT 97; BMI 29.2
--- NOTE | 2024-12-06 18:32 | ECG_ITS ---
Test Reason : CP Blood Pressure : */* mmHG Vent. Rate : 93 BPM Atrial Rate : 93 BPM P-R Int : 192 ms QRS Dur : 82 ms QT Int : 352 ms P-R-T Axes : 28 34 19 degrees QTcB Int : 437 ms Normal sinus rhythm Cannot rule out Anterior infarct , age undetermined Abnormal ECG When compared with ECG of 01-Feb-2024 19:11, No significant change was found Referred By: Angelica Rivera Electronically Signed By: SELIN VILLEDA MD
--- NOTE | 2024-12-06 18:32 | ED.GENADULT ---
HPI - General Adult General Chief complaint: General Medical Stated complaint: took marijuana edible Time Seen by Provider: 12/06/24 18:22 Source: patient Limitations: language barrier History of Present Illness ED Provider: Angelica Rivera PA-C HPI narrative: 49-year-old female who is MOIZ positive, history of arthritis, anxiety, hyperlipidemia, hypertension, who presents with multiple complaints. Patient states she ate a marijuana edible today, she subsequently developed dizziness, and central chest pain described as a ?electric shock?. Her symptoms have been intermittent. Related Data Home Medications ?Medication ?Instructions ?Recorded ?Confirmed amitriptyline 25 mg tablet 25 mg PO BEDTIME 01/26/23 07/11/24 atenolol 25 mg tablet 25 mg PO DAILY 01/26/23 07/11/24 cyanocobalamin (vitamin B-12) 1,000 mcg IM QMONTH 01/26/23 07/11/24 1,000 mcg/mL injection solution ergocalciferol (vitamin D2) 1,250 1,250 mcg PO FR 01/26/23 07/11/24 mcg (50,000 unit) capsule ibuprofen 600 mg tablet 600 mg PO Q6H PRN pain 01/26/23 07/11/24 lisinopril 10 1 tab PO DAILY 01/26/23 07/11/24 mg-hydrochlorothiazide 12.5 mg tablet amlodipine 5 mg tablet 5 mg PO DAILY 07/11/24 07/11/24 famotidine 20 mg tablet 20 mg PO BID 07/11/24 07/11/24 tirzepatide (weight loss) 2.5 2.5 mg subcut TH 07/11/24 07/11/24 mg/0.5 mL subcutaneous pen injector (Zepbound) Previous Rx's ?Medication ?Instructions ?Recorded epinephrine 0.3 mg/0.3 mL 0.3 mg (0.3 mL) IM ONCE PRN 10/16/21 injection, auto-injector (EpiPen) extreme reaction #1 ea cetirizine 10 mg tablet 10 mg PO DAILY #20 tabs 10/18/21 tramadol 50 mg tablet 50 mg PO Q8-10H PRN pain #20 tabs 02/01/24 ciprofloxacin HCl 500 mg tablet 500 mg PO BID #10 tabs 07/13/24 oxycodone 5 mg tablet 5 mg PO Q8H PRN pain (scale score 07/13/24 7-10) #14 tabs doxycycline hyclate 100 mg capsule 100 mg PO BID #19 caps 07/16/24 hydroxyzine HCl 25 mg tablet 25 mg PO QID PRN anxiety #12 tabs 07/16/24 Allergies Allergy/AdvReac Type Severity Reaction Status Date / Time Sulfa (Sulfonamide Allergy Intermediate Rash Verified 12/06/24 18:25 Antibiotics) (SULFA (SULFONAMIDE ANTIBIOTICS)) shellfish derived Allergy Rash Verified 12/06/24 18:25 Review of Systems Review of Systems: Yes all other systems are reviewed and are negative Constitutional: Constitutional: Denies fatigue, Denies fever(s) and Denies headache(s) ENT: Reports dizziness and Denies headache(s) Cardiovascular: Cardiovascular: Reports chest pain and Denies dyspnea Respiratory: Respiratory: Denies dyspnea Gastrointestinal: Gastrointestinal: Denies abdominal pain, Denies nausea and Denies vomiting Neurologic: Reports dizziness and Denies headache(s) Endocrine: Endocrine: Denies fatigue PMFSH Past Medical History Attestation statement: The following information was validated with the patient. Medical History (Updated 12/06/24 @ 20:17 by ALBA Villanueva) High cholesterol Vitamin D deficiency PMB (postmenopausal bleeding) Right ankle sprain Depression Anxiety Hypertension Diabetes Chronic headache Surgical History (Updated 07/23/24 @ 09:34 by Al Castillo MD) Status post laparoscopic cholecystectomy Hx laparoscopic cholecystectomy (~07/12/24) History of carpal tunnel release H/O tubal ligation H/O hernia repair Family History Family History Mother Lung abnormality Father Heart disease Social History Social History Household Members: Children Household Members Other:: Son Housing: House Do you presently have visiting nurse or other home services: Yes Alcohol intake: current Alcohol intake frequency: does not drink Comment: counts correct Patient Tobacco Use Status: Current everyday Tobacco user Tobacco use type: Cigarette Advance Directives: No Advance Directives Information Provided: No service: No Current occupational status: unemployed Physical Exam ED Vital Signs: Vital Signs - 24 hr 12/06/24 18:25 12/06/24 19:47 Temperature 98.1 F 98.7 F Pulse Rate 95 90 Respiratory Rate 16 18 Blood Pressure 145/92 H 142/84 H Pulse Oximetry 97 98 Oxygen Delivery Method Room Air Room Air BMI result Body Mass Index 29.2 Const Other: Alert well-appearing Orientation/consciousness: patient oriented x3 Resp Effort & Inspection: normal respiratory effort Cardio Other: Normal peripheral perfusion Skin Other: Warm dry no rash Neuro General: patient oriented x3, gait normal, no focal motor deficits and CN's II-XI intact bilaterally Psych Other: Cooperative Medical Decision Making Medical Decision Making MDM Narrative: 49-year-old female who is MOIZ positive, history of arthritis, anxiety, hyperlipidemia, hypertension, who presents with multiple complaints. Patient states she ate a marijuana edible today, she subsequently developed dizziness, and central chest pain described as a ?electric shock?. Her symptoms have been intermittent. Problem: Use of marijuana , hypertension, hyperlipidemia History: Per patient I have considered the following differential diagnoses: Adverse reaction to marijuana, ACS Plan: Patient has a risk factors for coronary artery disease, her symptoms are not consistent with a ACS, because of the risk factors I will obtain labs troponin EKG. I have already told the patient that I can not stop the effects of the marijuana that they have to resolve on their own. I have independently reviewed the following tests: EKG: Normal sinus rhythm, rate of 93, no ischemic changes no ectopy when compared to recent study, QTC 437 Labs: Slight leukocytosis, not anemic, no electrolyte abnormality, troponin neg Lab Data 12/06/24 19:25 12/06/24 19:25 Labs: Lab Results 12/06/24 Range/Units 19:25 WBC 11.9 H (4.8-10.8) X10*3/uL RBC 3.84 L (4.20-5.50) X10*6/uL Hgb 11.8 L (12.0-16.0) g/dl Hct 33.4 L (37.0-47.0) % MCV 87.0 (80.0-98.0) fL MCH 30.7 (27.0-33.0) pg MCHC 35.3 H (31.0-35.0) g/dl RDW 14.2 (11.0-16.0) % Plt Count 305 (160-400) X10*3/uL MPV 10.7 (9.4-12.3) fL Immature Gran % (Auto) 0.3 (0.0-0.4) % Neut % (Auto) 81.5 H (45-73) % Lymph % (Auto) 11.5 L (20-40) % [place] % (Auto) 6.1 (2-11) % Eos % (Auto) 0.3 (0-4) % Baso % (Auto) 0.3 (0-2) % Lymph # (Auto) 1.4 (1.2-4.9) X10*3/uL [place] # (Auto) 0.7 (0.1-1.2) X10*3/uL Eos # (Auto) 0.0 (0.0-0.4) X10*3/uL Baso # (Auto) 0.0 (0.0-0.2) X10*3/uL Abs Immat Gran (auto) 0.03 (0.00-0.03) X10*3/uL Absolute Neuts (auto) 9.7 H (2.0-8.3) x10*3/uL Absolute Nucleated RBC 0.000 (0.0-0.012) X10*3/uL Nucleated RBC % (auto) 0.0 (0.0-0.2) /100WBC Sodium 143 (135-145) mmol/L Potassium 3.2 L (3.3-5.1) mmol/L Chloride 108 (96-108) mmol/L Carbon Dioxide 27 (22-29) mmol/L Anion Gap 11 L (12-20) BUN 17 H (9-16) mg/dL Creatinine 0.97 (0.5-1.4) mg/dL Estim Creat Clear Calc 52.7 Estimated GFR > 60 Random Glucose 100 (60-115) mg/dL Calcium 9.5 D (8.4-10.2) mg/dL Magnesium 2.0 (1.6-2.6) mg/dL Troponin I High Sens < 2.7 (<3.5-17.0) ng/L Discharge Plan Discharge Clinical Impression: Marijuana use, Chest pain Patient Disposition: Home, Self-Care Instructions: Noncardiac Chest Pain (ED) Additional Instructions: All of your screening labs including a cardiac enzymes were normal. There were no concerning changes on your EKG. Whatever effects you are experiencing from the marijuana, will gradually resolve. Follow up with your primary care as needed Prescriptions: No Action cetirizine 10 mg tablet 10 mg PO DAILY Qty: 20 0RF epinephrine [EpiPen] 0.3 mg/0.3 mL auto-injector 0.3 mg IM ONCE PRN (Reason: extreme reaction) Qty: 1 0RF Rx Instructions: for 2 doses hydroxyzine HCl 25 mg tablet 25 mg PO QID PRN (Reason: anxiety) Qty: 12 0RF doxycycline hyclate 100 mg capsule 100 mg PO BID Qty: 19 0RF tramadol 50 mg tablet 50 mg PO Q8-10H PRN (Reason: pain) Qty: 20 0RF amlodipine 5 mg tablet 5 mg PO DAILY famotidine 20 mg tablet 20 mg PO BID Zepbound 2.5 mg/0.5 mL pen injector 2.5 mg subcut TH oxycodone 5 mg tablet 5 mg PO Q8H PRN (Reason: pain (scale score 7-10)) Qty: 14 0RF Rx Instructions: Partial Fill upon patient request. ciprofloxacin HCl 500 mg tablet 500 mg PO BID Qty: 10 0RF amitriptyline 25 mg tablet 25 mg PO BEDTIME atenolol 25 mg tablet 25 mg PO DAILY lisinopril-hydrochlorothiazide 10-12.5 mg tablet 1 tab PO DAILY ibuprofen 600 mg tablet 600 mg PO Q6H PRN (Reason: pain) ergocalciferol (vitamin D2) 1,250 mcg (50,000 unit) capsule 1,250 mcg PO FR cyanocobalamin (vitamin B-12) 1,000 mcg/mL solution 1,000 mcg IM QMONTH Print Language: Irish
[2024-12-06 19:29] LABS: MANUAL DIFF FLAG NO
[2024-12-06 19:30] LABS: Hematocrit 33.4 % (37.0-47.0); Hemoglobin 11.8 g/dl (12.0-16.0); Imm Gran Abs Auto 0.03 X10*3/uL (0.00-0.03); Imm Gran Pct Auto 0.3 % (0.0-0.4); Lymphocytes Absolute Auto 1.4 X10*3/uL (1.2-4.9); Mean Corpuscular HGB Conc 35.3 g/dl (31.0-35.0); Mean Corpuscular Hemoglobin 30.7 pg (27.0-33.0); Mean Corpuscular Volume 87.0 fL (80.0-98.0); NRBC Abs Auto 0.000 X10*3/uL (0.0-0.012); NRBC Pct Auto 0.0 /100WBC (0.0-0.2); Platelet Count 305 X10*3/uL (160-400); Red Blood Count 3.84 X10*6/uL (4.20-5.50); White Blood Count 11.9 X10*3/uL (4.8-10.8)
[2024-12-06 19:42] LABS: Anion Gap 11 (12-20); Blood Urea Nitrogen 17 mg/dL (9-16); Calcium 9.5 mg/dL (8.4-10.2); Carbon Dioxide 27 mmol/L (22-29); Chloride 108 mmol/L (96-108); Creatinine Clr Calc Pharmacy 52.7; Estimated Glomerular Filt Rate > 60; Magnesium 2.0 mg/dL (1.6-2.6); Potassium 3.2 mmol/L (3.3-5.1); Sodium 143 mmol/L (135-145)
[2024-12-06 19:47] VITALS: BP 142/84; PULSE 90; RESP 18; TEMP 37.1; O2SAT 98
[2024-12-06 20:09] LABS: Troponin-I High Sensitivity < 2.7 ng/L (<3.5-17.0)
--- NOTE | 2024-12-06 20:09 | PC.NURSE ---
pt is in hallway recliner, eating a sandwich, nad.
[2024-12-06 20:30] VITALS: BP 142/84; PULSE 90; RESP 18; TEMP 37.1; O2SAT 98
[2024-12-06] MEDS: Potassium Chloride ER 20 MEQ TAB.ER.PRT PO (20:30)
== END 2024-12-06 20:36 | disposition home or self-care (01) ==
PROVIDERS: Physician Assistant Medical; Emergency Provider Internal Medicine
DX: F12.90 Cannabis use, unspecified, uncomplicated (principal); R42 Dizziness and giddiness; R07.9 Chest pain, unspecified; F41.9 Anxiety disorder, unspecified; E78.5 Hyperlipidemia, unspecified; I10 Essential (primary) hypertension; E55.9 Vitamin D deficiency, unspecified; F32.A Depression, unspecified; E11.9 Type 2 diabetes mellitus without complications; R51.9 Headache, unspecified; F17.210 Nicotine dependence, cigarettes, uncomplicated
CPT/HCPCS: 36415; 80048; 83735; 84484; 85025; 93005; 99283; 99284

== ENCOUNTER → 2024-12-06 18:32 | Outpatient (BNV) | payer MEDICAID, SELFPAY | PROVIDERS: Emergency Provider Internal Medicine; Visit Provider Internal Medicine Cardiovascular Disease | DX: R94.31 Abnormal electrocardiogram [ECG] [EKG] (principal); R07.89 Other chest pain | CPT/HCPCS: 93010 ==

== ENCOUNTER 2025-01-23 10:02 | Outpatient (REF) | payer MEDICAID, SELFPAY ==
--- OUTSIDE RECORDS SUMMARY | 2025-01-21 09:45 | XMS_ITS | Encounter Summary ---
Author Organization [employer] Address [address] [place] [address] [address] [place] [address] Care Team Providers Care Continuous Process Machine Operator Name Role Phone Sumanth Llanos MD Primary Care Provider Reason for Referral * Consultation (Routine) - Closed Specialty Diagnoses / Procedures Referred By Contac t Referred To Contact Physical Therapy Diagnoses Chronic right-sided low back pain with right-sided sciatica Sumanth Llanos MD [address] [facility] [place] [address] Phone: tel: fax: Physical Therapy, AT [address] [place] [address] Dr Kia [place] Phone: tel: fax: Referral ID Status Reason Start Date Expiration Date V isits Requested Visits Authorized [id number] Closed Specialty Services Required 01/21/2025 01/21/2026 1 1 * Consultation (Routine) - Pending Review Specialty Diagnoses / Procedures Referred By Contac t Referred To Contact Neurology Diagnoses Chronic daily headache Sumanth Llanos MD [address] [facility] [place] [address] Phone: tel: fax: Referral ID Status Reason Start Date Expiration Date Visits Requested Visits Authorized [id number] Pending Review Specialty Services Required 01/21/2025 01/21/2026 1 1 Reason for Visit * Reason Comments Headache Hypertension Diabetes Hyperlipidemia Back Pain Encounter Details Date Type Department Care Team ([facility] st Contact Info) Description 01/21/2025 9:45 AM EDT Office Visit [facility] [address] [place] [address] Sumanth Llanos MD [address] [place] [address] Essential hypertension (Primary Dx); Controlled type 2 diabetes mellitus without complication, without long-term current use of insulin ([facility]); Hypercholesterolemia; Chronic daily headache; Major depressive disorder with current active episode, unspecified depression episode severity, unspecified whether recurrent; Fibromyalgia; Class 1 obesity due to excess calories with serious comorbidity and body mass index (BMI) of 33.0 to 33.9 in adult; Chronic right-sided low back pain with right-sided sciatica Social History Tobacco Use Types Packs/Day Years Used Date Smoking Tobacco: Every Day Cigarettes Passive Smoke Exposure: Current Smokeless Tobacco: Never Alcohol Use Standard Drinks/Week Comments Never 0 (1 standard drink = 0.6 oz pur e alcohol) Depression Answer Date Recorded Patient Health Questionnaire-9 Score 0 07/17/2024 Patient Health Questionnaire-9 Score 0 07/17/2024 Last PHQ-9: Questionnaire Data Not on file 0 07/17/2024 Housing Stability Answer Date Recorded What is your housing situation today? I have jairon french 07/17/[address] you li ve. Do you have problems with any of the following? None of the above 07/17/2024 Food Insecurity Answer Date Recorded Within the past 12 months, y ou worried that your food would run out before you got money to buy more: Never True 07/17/2024 Within the past 12 months,th e food you bought just didn't last and you didn't have enough money to get more: Never True Transportation Answer Date Recorded In the past 12 months, has l ack of transportation kept you from medical appts, meetings, work or from getting things needed for daily living? No 07/17/2024 Utilities Answer Date Recorded In the past 12 months, has t he electric, gas, oil or water company threatened to shut off services in your home? No 07/17/2024 Depression Answer Date Recorded Patient Health Questionnaire-2 Score 0 07/17/2024 Internet Access Answer Date Recorded Internet Access Q1 Yes 07/17/2024 Internet Access Q2 Not on file 07/17/2024 Comments No Sex and Gender Information Value Date Recorded Sex Assigned at Female 03/06/2022 10:21 AM EDT Legal Sex Female 10:21 AM EDT Gender Identity Female 03/06/2022 10:21 AM EDT Sexual Orientation Straight 03/06/2022 10 :21 AM EDT documented as of this encounter Last Filed Vital Signs Vital Sign Reading Time Taken Comments Blood Pressure 135/84 01/21/2025 9:55 AM EDT Pulse 77 01/21/2025 9:55 AM EDT Temperature 36.6 C (97.8 F) 01/21/2025 9:55 AM EDT Respiratory Rate 20 01/21/2025 9:55 AM EDT Oxygen Saturation 100% 01/21/2025 9:55 AM EDT Inhaled Oxygen Concentration - - Weight 58.5 kg (129 lb) 01/21/2025 9:55 AM EDT Height 147.3 cm (4' 10 ) 01/21/2025 9:55 AM EDT Body Mass Index 26.96 01/21/2025 9:55 AM EDT documented in this encounter Progress Notes * Sumanth Llanos MD - 01/21/2025 9:45 AM EDT SUBJECTIVE Keli Flores is a 49 y.o. female who presents for No chief complaint on file.. Headache This is a chronic problem. The problem occurs daily. The quality of the pain is described as boring. Pertinent negatives include no abdominal pain, abnormal behavior, anorexia, back pain, blurred vision, facial sweating, fever, hearing loss, insomnia, loss of balance, scalp tenderness, seizures, sinus pressure, sore throat or swollen glands. Hypertension Associated symptoms include headaches. Pertinent negatives include no blurred vision or chest pain.There is no history of chronic renal disease. Diabetes Hypoglycemia symptoms include headaches. Pertinent negatives for hypoglycemia include no seizures. Pertinent negatives for diabetes include no blurred vision and no chest pain. Hyperlipidemia This is a chronic problem. Exacerbating diseases include diabetes. She has no history of chronic renal disease or nephrotic syndrome. There are no known factors aggravating her hyperlipidemia. Pertinent negatives include no chest pain, focal sensory loss, focal weakness, leg pain or myalgias. Patient is mainly concerned today about her right low back pain radiating to the right lower limb. The pain started in 2016 after a fall from stairs. Patient received physical therapy in the past without significant improvement. The pain interferes with her activities in general. On duloxetine without significant improvement. Problem List[1] Allergies[2] Medications Ordered Prior to Encounter[3] Review of Systems Constitutional: Negative for fever. HENT: Negative for hearing loss, sinus pressure and sore throat. Eyes: Negative for blurred vision. Cardiovascular: Negative for chest pain. Gastrointestinal: Negative for abdominal pain and anorexia. Musculoskeletal: Negative for back pain and myalgias. Neurological: Positive for headaches. Negative for focal weakness, seizures and loss of balance. Psychiatric/Behavioral: The patient does not have insomnia. OBJECTIVE Vitals: 01/21/25 0955 BP: 135/84 BP Location: Left arm Patient Position: Sitting BP Cuff Size: Adult Pulse: 77 Resp: 20 Temp: 97.8 ??F (36.6 ??C) TempSrc: Oral SpO2: 100% Weight: 129 lb (58.5 kg) Height: 4' 10 (1.473 m) Physical Exam Constitutional: General: She is not in acute distress. Appearance: Normal appearance. She is not ill-appearing, toxic-appearing or diaphoretic. Cardiovascular: Rate and Rhythm: Normal rate. Heart sounds: No murmur heard. No gallop. Pulmonary: Effort: Pulmonary effort is normal. No respiratory distress. Breath sounds: No wheezing. Abdominal: Palpations: Abdomen is soft. Neurological: General: No focal deficit present. Mental Status: She is alert. Psychiatric: Mood and Affect: Mood normal. Assessment/Plan Assessment/Plan Diagnoses and all orders for this visit: Essential hypertension Comments: Blood pressure is at goal No change in medication. To continue with the DASH diet. Controlled type 2 diabetes mellitus without complication, without long-term current use of insulin ([facility]) Comments: Stable No reported episode of hypoglycemia Continue with the low-carb diet. Orders: - POCT Glucose - POCT Hgb A1c Hypercholesterolemia Comments: Low-cholesterol diet Orders: - rosuvastatin (Crestor) 20 MG tablet; Take 1 tablet (20 mg) by mouth Once per day. Chronic daily headache - Referral to Neurology; Future Major depressive disorder with current active episode, unspecified depression episode severity, unspecified whether recurrent Comments: still receiving psychotherapy Fibromyalgia Comments: Continue with duloxetine Regular eye aerobic exercises recommended. Class 1 obesity due to excess calories with serious comorbidity and body mass index (BMI) of 33.0 to 33.9 in adult Comments: To continue with Mounjaro 2.5 mg once a week for now Orders: - Tirzepatide-Weight Management (Zepbound) 2.5 MG/0.5ML solution auto-injector; Inject 0.5 mL (2.5 mg) under the skin 1 (one) time per week. Chronic right-sided low back pain with right-sided sciatica - XR Lumbar Spine 2-3 Views; Future - Referral to Physical Therapy; Future We will consider referral to pain management in the future if physical therapy is not helpful. [1] Patient Active Problem List Diagnosis Anxiety attack Conduction disorder of the heart Hypercholesterolemia Major depressive disorder Generalized anxiety disorder Posttraumatic stress disorder Essential hypertension Osteoarthritis of knees, bilateral Memory disturbance Vitamin B 12 deficiency Controlled type 2 diabetes mellitus ([facility]) [2] Allergies Allergen Reactions Sulfa Antibiotics Rash Shellfish-Derived Products Swelling Sulfamethoxazole Other reaction(s): Hives / Skin Rash, Itching Trimethoprim Itching Other reaction(s): Hives / Skin Rash [3] Current Outpatient Medications on File Prior to Visit Medication Sig Dispense Refill acetaminophen (Tylenol) 500 MG tablet Take 1 tablet (500 mg) by mouth every 6 (six) hours if neededfor mild pain for up to 20 doses. (Patient not taking: Reported on 12/09/2024) 20 tablet 0 acetaminophen (Tylenol) 500 MG tablet Take 2 tablets (1,000 mg) by mouth every 6 (six) hours if needed for moderate pain or fever. (Patient not taking: Reported on 12/09/2024) 30 tablet 0 Alcohol Swabs (Alcohol Prep) 70 % pads USE TWO DAILY 100 each 11 amitriptyline (Elavil) 25 MG tablet TAKE ONE TABLET BY MOUTH EVERY NIGHT AT BEDTIME 30 tablet 3 amLODIPine (Norvasc) 5 MG tablet TAKE ONE TABLET EVERY MORNING 30 tablet 11 atenolol (Tenormin) 25 MG tablet TAKE ONE TABLET EVERY MORNING 90 tablet 1 cetirizine (ZyrTEC) 10 MG tablet TAKE ONE TABLET EVERY MORNING 90 tablet 1 chlorhexidine (Peridex) 0.12 % solution Swish 15 mL morning and night for 1 minute. Spit, do not swallow. Do not eat or drink for 30 minutes following use. 473 mL 0 cyanocobalamin (Vitamin B-12) 1000 MCG/ML injection inject 1 milliliter by intramuscular route onceevery month 1 mL 11 Diclofenac Sodium 1 % gel APPLY TWO GRAMS TO THE AFFECTED AREA(s) TWICE DAILY (Patient not taking: Reported on 12/09/2024) 100 g 2 DULoxetine (Cymbalta) [address] capsule TAKE ONE CAPSULE IN THE MORNING AND EVENING 60 capsule 11 econazole nitrate 1 % cream Apply topically Once per day. (Patient not taking: Reported on 12/09/2024) 30 g 0 Efinaconazole (Jublia) 10 % solution To use daily (Patient not taking: Reported on 12/09/2024) 8 mL 1 EPINEPHrine (Epipen) 0.3 MG/0.3ML injection syringe Inject 0.3 mL (0.3 mg) as directed 1 (one) timefor 1 dose. INJECT 1 PEN (0.3 ML) INTRAMUSCULARLY ONCE NEEDED FOR EXTREME REACTION FOR 2 DOSES (Patient not taking: Reported on 12/09/2024) 1 each 0 famotidine (Pepcid) 20 MG tablet TAKE ONE TABLET TWICE DAILY IN THE MORNING AND AT BEDTIME 180 tablet 1 fluticasone (Flonase) 50 MCG/ACT nasal spray INSERT ONE SPRAY IN EACH NOSTRIL TWICE DAILY (Patient not taking: Reported on 12/09/2024) 16 g 0 FREESTYLE LITE test strip TEST BLOOD SUGAR TWICE DAILY 100 strip 11 hydrOXYzine HCl (Atarax) 25 MG tablet Take 1 tablet (25 mg) by mouth if needed at bedtime for anxiety. 60 tablet 0 ibuprofen 200 MG tablet Take 200 mg by mouth every 8 (eight) hours if needed for mild pain. (Patient not taking: Reported on 12/09/2024) ibuprofen 400 MG tablet Take 1 tablet (400 mg) by mouth every 6 (six) hours if needed for moderate pain or fever for up to 30 doses. (Patient not taking: Reported on 12/09/2024) 20 tablet 0 ibuprofen 600 MG tablet Take 1 tablet (600 mg) by mouth every 6 (six) hours if needed for mild painfor up to 20 doses. (Patient not taking: Reported on 12/09/2024) 20 tablet 0 ibuprofen 600 MG tablet Take 1 tablet (600 mg) by mouth every 6 (six) hours if needed for mild painfor up to 20 doses. (Patient not taking: Reported on 12/09/2024) 20 tablet 0 lidocaine-prilocaine (Emla) 2.5-2.5 % cream APPLY TO THE AFFECTED AREA(S) DAILY NEEDED (Patient not taking: Reported on 12/09/2024) 30 g 0 lisinopril 10 MG tablet Take 1 tablet (10 mg) by mouth Once per day. 30 tablet 11 nicotine (Nicoderm CQ) 14 MG/24HR patch Place 1 patch on the skin 1 (one) time each day at the sametime. (Patient not taking: Reported on 12/09/2024) 42 patch 0 nicotine (Nicoderm CQ) 7 MG/24HR patch Place 1 patch on the skin 1 (one) time each day at the same time. (Patient not taking: Reported on 12/09/2024) 14 patch 0 nicotine polacrilex (Commit) 4 MG lozenge Dissolve 1 lozenge (4 mg) in the mouth every 2 (two) hours if needed for smoking cessation. (Patient not taking: Reported on 12/09/2024) 100 lozenge 0 omeprazole (PriLOSEC) [address] capsule Take 1 capsule (20 mg) by mouth before breakfast. Every day 30 minutes or 1 hour before a meal 30 capsule 11 potassium chloride (Klor-Con) 20 MEQ packet Take 20 mEq by mouth 2 times daily. (Patient not taking: Reported on 12/09/2024) 10 packet 0 rosuvastatin (Crestor) 20 MG tablet Take 1 tablet (20 mg) by mouth Once per day. (Patient not taking: Reported on 12/09/2024) 30 tablet 11 Tirzepatide-Weight Management (Zepbound) 2.5 MG/0.5ML solution auto-injector Inject 0.5 mL (2.5 mg)under the skin 1 (one) time per week. 2 mL 1 tiZANidine (Zanaflex) 2 MG tablet Take 1 tablet (2 mg) by mouth at bedtime. (Patient not taking: Reported on 12/09/2024) 30 tablet 0 TRUEplus Lancets 33G misc TEST BLOOD SUGAR TWICE DAILY DIRECTED 100 each 11 Vitamin D, Ergocalciferol, 89922 units capsule TAKE ONE CAPSULE ONCE WEEKLY ON SUNDAY MORNING 4 capsule 11 No current facility-administered medications on file prior to visit. documented in this encounter Plan of Treatment Upcoming Encounters Date Type Department Care Team (Late st Contact Info) Description 02/20/2025 9:45 AM EDT Clinical Support [facility] [address] [place] [address] 04/17/2025 3:00 PM EST Office Visit [facility] [address] [place], [place] [id number] Jeff, Alice, OD [address] [place] [address] 05/18/2025 3:00 PM EST Office Visit [facility] [address] [place] [address] Álvaro Llanos Scheduled Referrals Name Type Priority Associated Diagnoses Orde r Schedule Referral to Neurology Outpatient Referral Routine Chronic daily headache Expected: 01/21/2025 (Approximate), Expires: 01/21/2026 Referral to Physical Therapy Outpatient Referral Routine Chronic right-sided low back pain with right-sided sciatica Expected: 01/21/2025 (Approximate), Expires: 01/21/2026 documented as of this encounter Goals Goal Patient Goal Type Associated Problems Recent Progress Patient-Stated? Author Blood Pressure < 140/90 Blood Pressure 135/84(2024 9:55 AM EDT) No Luis Springer, PharmD Patient will adhere to medication regimen General Improving(12/2022 9:16 AM EDT) No Luis Springer, PharmD Hemoglobin A1c < 6.5 Result Component 5.2( 10:06 AM EDT) No Luis Springer, PharmD documented as of this encounter Procedures Procedure Name Priority Date/Time Associated Diagnosis Comments XR LUMBAR SPINE 2-3 VIEWS Routine 01/23/2025 10:22 AM EDT Chronic right-sided low back pain with right-sided sciatica POCT GLUCOSE Routine 01/21/2025 10:07 AM EDT Controlled type 2 diabetes mellitus without complication, without long-term current use of insulin ([facility]) POCT GLYCATED HEMOGLOBIN, TOTAL Routine 01/21/2025 10:06 AM EDT Controlled type 2 diabetes mellitus without complication, without long-term current use of insulin ([facility]) documented in this encounter Results * XR Lumbar Spine 2-3 Views (01/23/2025 10:22 AM EDT) Anatomical Region Laterality Modality Spine, L-spine Radiographic Myrna ging 01/23/2025 10:2 2 AM EDT Narrative 01/23/2025 10:35 AM EDT [place] [address] XRay Report Signed Patient: Keli Oakley MR# : [id number] : 1975 Acct:[id number] Age/Sex: 49 / F ADM Date: 01/23/25 Loc: [facility] Attending Dr: Sumanth Llanos MD Ordering Physician: Sumanth Llanos MD Date of Service: 01/23/25 Procedure(s): XR lumbar spine 2-3V Accession Number(s): [id number] cc: Sumanth Llanos MD Reason for Exam: Low back pain EXAMINATION: XR LUMBAR SPINE 2-3 VIEWS HISTORY: Low back pain COMPARISON: There are no prior studies for comparison. FINDINGS: AP, lateral, and coned down views of the lumbar spine are submitted. Osseous mineralization is normal. Five nonrib-bearing lumbar vertebral bodies are identified, maintaining normal height without evidence of fracture or spondylolisthesis. There is slight leftward curvature which may positional in nature. Minimal spurring is seen at multiple levels. The intervertebral disc spaces are preserved. The posterior elements are intact. The visualized paraspinal soft tissues are unremarkable. XR/XR lumbar spine 2-3V IMPRESSION: Mild leftward curvature which may be positional in nature. Minimal degenerative changes. Electronically signed by: Rufino Reina MD 01/23/2025 10:32 AM EDT RP Dictated By: Rufino Reina MD Signed By: <Electronically signed by Rufino Reina MD in OV> 01/23/25 1032 DD/ 1022 TD/TT: 01/23/25 1024 Insurance Associate: Procedure Note Donotuseinterpreter, Image - 01/23/[address] [address] XRay Report Signed Patient: Keli OakleyMR# : [id number] : 1975Acct:[id number] Age/Sex: 49 / FADM Date: 01/23/25 Loc: HO.XRAY Attending Dr: Sumanth Llanos MD Ordering Physician: Sumanth Llanos MD Date of Service: 01/23/25 Procedure(s): XR lumbar spine 2-3V Accession Number(s): [id number] cc: Sumanth Llanos MD Reason for Exam: Low back pain EXAMINATION: XR LUMBAR SPINE 2-3 VIEWS HISTORY: Low back pain COMPARISON: There are no prior studies for comparison. FINDINGS: AP, lateral, and coned down views of the lumbar spine are submitted. Osseous mineralization is normal. Five nonrib-bearing lumbar vertebral bodies are identified, maintaining normal height without evidence of fracture or spondylolisthesis. There is slight leftward curvature which may positional in nature. Minimal spurring is seen at multiple levels. The intervertebral disc spaces are preserved. The posterior elements are intact. The visualized paraspinal soft tissues are unremarkable. XR/XR lumbar spine 2-3V IMPRESSION: Mild leftward curvature which may be positional in nature. Minimal degenerative changes. Electronically signed by: Rufino Reina MD 01/23/2025 10:32 AM EDT RP Dictated By: Rufino Reina MD Signed By: <Electronically signed by Rufino Reina MD in OV> 01/23/25 1032 DD/ 1022 TD/TT: 01/23/25 1024 Insurance Associate: us Sumanth Llanos MD IMG XR PROCEDURES Edited Re sult - Final * POCT Glucose (01/21/2025 10:07 AM EDT) Glucose Blood, POC 106 60 - 200 mg/dL QC Media Lot # [id number] Comment:random Lot# Expiration Date Blood Capillary blood specimen / Unknown 01/21/2025 10:07 AM EDT us Sumanth Llanos MD POINT OF CARE TEST ENTER/ED IT ORDERABLES Final Result * POCT Hgb A1c (01/21/2025 10:06 AM EDT) Hemoglobin A1C 5.2 4.0 - 5.7 % QC Media Lot # [id number] Lot# Expiration Date Blood 01/21/2025 10:0 6 AM EDT us Sumanth Llanos MD POINT OF CARE TEST ENTER/ED IT ORDERABLES Final Result documented in this encounter Visit Diagnoses Diagnosis Essential hypertension- Primary Unspecified essential hypertension Controlled type 2 diabetes mellitus without complication, without long-term current use of insulin ([facility]) Hypercholesterolemia Pure hypercholesterolemia Chronic daily headache Headache Major depressive disorder with current active episode, unspecified depression episode severity, unspecified whether recurrent Fibromyalgia Unspecified myalgia and myositis Class 1 obesity due to excess calories with serious comorbidity and body mass index (BMI) of 33.0 to 33.9 in adult Chronic right-sided low back pain with right-sided sciatica documented in this encounter Additional Health Concerns Assessment Noted Time PHQ-9 Depression Total Score: 0 07/18/19 25 11:31 AM EDT documented as of this encounter Care Teams Continuous Process Machine Operator Relationship Specialty Start Date End Date Sumanth Llanos MD [address] [place] [address] PCP - General Internal Medicine 05/07/18 documented as of this encounter
--- NOTE | ~2025-01-23 | XR_ITS ---
EXAMINATION: XR LUMBAR SPINE 2-3 VIEWS HISTORY: Low back pain COMPARISON: There are no prior studies for comparison. FINDINGS: AP, lateral, and coned down views of the lumbar spine are submitted. Osseous mineralization is normal. Five nonrib-bearing lumbar vertebral bodies are identified, maintaining normal height without evidence of fracture or spondylolisthesis. There is slight leftward curvature which may positional in nature. Minimal spurring is seen at multiple levels. The intervertebral disc spaces are preserved. The posterior elements are intact. The visualized paraspinal soft tissues are unremarkable. XR/XR lumbar spine 2-3V IMPRESSION: Mild leftward curvature which may be positional in nature. Minimal degenerative changes. Electronically signed by: Rufino Reina MD 01/23/2025 10:32 AM EDT
--- OUTSIDE RECORDS SUMMARY | 2025-01-23 09:30 | XMS_ITS | Encounter Summary ---
Author Organization [employer] Address [address] [place] [address] Care Team Providers Care University Administrator Name Role Phone Sumanth Llanos MD Primary Care Provider [phone] Reason for Visit * Reason Comments B12 Injection Encounter Details Date Type Department Care Team (Latest Contact Info) Description 01/23/2025 9:30 AM EDT Clinical Support [facility] MED [facility]ED[facility] [address] [place] [address] Tonya Pink, JACKIE Vitamin B 12 deficiency Social History Tobacco Use Types Packs/Day [...] as of this encounter Progress Notes * Tonya Pink RN - 01/23/2025 9:30 AM EDT SUBJECTIVE: Keli Flores is a 49 y.o. year old female who presents for B12 Injection Preferred language for medical information: Bearing Press Machine Operator needed: No Standing Ordered verified: Yes, standing order expiration date: 07/17/2024 Keli Flores denies any difficulties with previous injection that was received. Allergies[1] OBJECTIVE: B-12 injection given in right deltoid, medication was tolerated well. ASSESSMENT: Vitamin B12 deficiency PLAN: Keli Flores will return for next injection on 02/20/25. [x] Advised to monitor injection site for any increased redness or swelling [x] Next appointment given Keli Flores agrees with plan of care and verbalized understanding of instructions/education. Tonya Pink RN [1] Allergies Allergen Reactions Sulfa Antibiotics Rash Shellfish-Derived Products Swelling Sulfamethoxazole Other reaction(s): Hives / Skin Rash, Itching Trimethoprim Itching Other reaction(s): Hives / Skin Rash documented in this encounter Plan of Treatment Upcoming Encounters Date Type Department Care Team (Late st Contact Info) Description 02/20/2025 9:45 AM EDT Clinical Support [facility] [address] [place] [address] 04/17/2025 3:00 PM EST Office Visit [facility] OPTOMETRY [address] [place] [address] Alice Aguilar, OD [address] [place] [address] 05/18/2025 3:00 PM EST Office Visit [facility] ADULT DENTAL [address] [place] [address] Álvaro Llanos documented as of this encounter Goals Goal Patient Goal Type Associated Problems Recent Progress Patient-Stated? Author Blood Pressure < 140/90 Blood Pressure 135/84(2024 9:55 AM EDT) No Luis Springer, Jad Patient will adhere to medication regimen General Improving(12/2022 9:16 AM EDT) No Luis Springer PharmD Hemoglobin A1c < 6.5 Result Component 5.2( 10:06 AM EDT) No Luis Springer PharmD documented as of this encounter Visit Diagnoses Diagnosis Vitamin B 12 deficiency Other B-complex deficiencies documented in this encounter Administered Medications Inactive Administered Medications - up to 3 most recent administrations Medication Order MAR Action Action Date Dose Rate Site cyanocobalamin (Vitamin B-12) injection 1,000 mcg 1,000 mcg, Intramuscular, Once, On Sun01/23/25 at 0945, For 1 doseIndications:Vitamin B 12 deficiency Given 01/23/2025 9:45 AM EDT 1,000 mcg Right Deltoid documented in this encounter Additional Health Concerns Assessment Noted Time PHQ-9 Depression Total Score: 0 07/18/19 11:31 AM EDT documented as of this encounter Care Teams University Administrator Relationship Specialty Start Date End Date Sumanth Llanos MD [address] [place] [address] PCP - General Internal Medicine 05/07/18 documented as of this encounter
--- OUTSIDE RECORDS SUMMARY | 2025-01-23 10:38 | XMS_ITS | Encounter Summary ---
Author Organization [employer] Address [address] [place] [address] Care Team Providers Care Iso Coordinator Name Role Phone Sumanth Llanos MD Primary Care Provider [phone] Encounter Details Date Type Department Care Team (Latest Contact Info) Description 01/21/2025 Travel Social History Tobacco Use Types Packs/Day [...] Description 02/20/2025 9:45 AM EDT Clinical Support [facility] [address] [place] [address] 04/17/2025 3:00 PM EST Office Visit [facility] OPTOMETRY [address] [place] [address] Jeff, Alice, OD [address] [place] [address] 05/18/2025 3:00 PM EST Office Visit [facility] ADULT DENTAL [address] [place] [address] Álvaro Llanos documented as of this encounter Goals Goal Patient Goal Type Associated Problems Recent Progress Patient-Stated? Author Blood Pressure < 140/90 Blood Pressure 135/84(2024 9:55 AM EDT) No DellogonoOgis, PharmD Patient will adhere to medication regimen General Improving(12/2022 9:16 AM EDT) No Dellogono, Luis, PharmD Hemoglobin A1c < 6.5 Result Component 5.2( 10:06 AM EDT) No Dellogono, Luis, PharmD documented as of this encounter Visit Diagnoses Not on filedocumented in this encounter Additional Health Concerns Assessment Noted Time PHQ-9 Depression Total Score: 0 07/18/19 25 11:31 AM EDT documented as of this encounter Care Teams Iso Coordinator Relationship Specialty Start Date End Date Sumanth Llanos MD [address] [place] [address] PCP - General Internal Medicine 05/07/18 documented as of this encounter
--- OUTSIDE RECORDS SUMMARY | 2025-01-23 10:38 | XMS_ITS | Encounter Summary ---
Author Organization [employer] Address [address] [facility] [address] [place] [address] Care Team Providers Care Serging Machine Operator Name Role Phone Sumanth Llanos MD Primary Care Provider Encounter Details Date Type Department Care Team ([facility] Contact Info) Description 12/20/2022 Orders Only [facility] MED [facility] PED[facility] [address] [facility] [place] [address] Sumanth Llanos MD [address] [place] [address] Prediabetes (Primary Dx) Social History Tobacco Use [...] Upcoming Encounters Date Type Department Care Team ([facility] Contact Info) Description 02/20/2025 9:45 AM EDT Clinical Support [facility] MED [facility]ED[facility] [address] [place] [address] 04/17/2025 3:00 PM EST Office Visit [facility] OPTOMETRY [address] [place] [address] Alice Aguilar, OD [address] [place] [address] 05/18/2025 3:00 PM EST Office Visit [facility] ADULT DENTAL [address] [place] [address] Álvaro Llanos documented as of this encounter [...] documented as of this encounter Care Teams Serging Machine Operator Relationship Specialty Start Date End Date Sumanth Llanos MD [address] [place] [address] PCP - General Internal Medicine 05/07/18 documented as of this encounter
--- OUTSIDE RECORDS SUMMARY | 2025-01-23 10:38 | XMS_ITS | Encounter Summary ---
Author Organization [employer] Address [address] [facility] [address] [place] [address] Care Team Providers Care Continuous Process Rotary Drum Tanner Name Role Phone Sumanth Llanos MD Primary Care Provider Encounter Details Date Type Department Care Team ([facility] Contact Info) Description 06/01/2023 Orders Only [facility] [address] [facility] [place] [facility] [place] [address] Sumanth Llanos MD [address] [place] [address] Generalized anxiety disorder (Primary Dx) Social History [...] Upcoming Encounters Date Type Department Care Team ([facility] Contact Info) Description 02/20/2025 9:45 AM EDT Clinical Support [facility] [address] [place] [address] 04/17/2025 3:00 PM EST Office Visit [facility] OPTOMETRY [address] [place] [address] JeffAlice, OD [address] [place] [address] 05/18/2025 3:00 PM EST Office Visit [facility] ADULT DENTAL [address] [place] [address] Álvaro Llanos documented as of this encounter Goals Goal Patient Goal Type Associated Problems Recent Progress Patient-Stated? Author Blood Pressure < 140/90 Blood Pressure 135/84(2024 9:55 AM EDT) No Dellogloepz, Luis, PharmD Patient will adhere to medication regimen General Improving(12/2022 9:16 AM EDT) No DellogonoOgis, PharmD Hemoglobin A1c < 6.5 Result Component 5.2( 10:06 AM EDT) No DellogLuis marroquin, PharmD documented as of this encounter Visit Diagnoses Diagnosis Generalized anxiety disorder- Primary documented in this encounter Additional Health Concerns Assessment Noted Time PHQ-9 Depression Total Score: 15 023 9:06 AM EST documented as of this encounter Care Teams Continuous Process Rotary Drum Tanner Relationship Specialty Start Date End Date Sumanth Llanos MD [address] [place] [address] PCP - General Internal Medicine 05/07/18 documented as of this encounter
--- OUTSIDE RECORDS SUMMARY | 2025-01-23 10:38 | XMS_ITS | Clinical Summary ---
Author Organization [employer] Address [address] [place] [address] Care Team Providers Care Hotel Or Motel Receptionist Name Role Phone Sumanth Llanos MD Primary Care Provider Allergies Active Allergy Reactions Criticality Noted Date Comments Shellfish-Derived Products Swelling 0 Sulfa Antibiotics Rash High 10/04/2022 Sulfamethoxazole 05/08/2019 Other reaction(s): Hives / Skin Rash, Itching Trimethoprim Itching 05/08/2019 Other reaction(s): Hives / Skin Rash Medications omeprazole (PriLOSEC) [address] capsule Take 1 capsule (20 mg) by mouth before breakfast. Every day 30 minutes or 1 hour before a meal 30 capsule 11 023 Active EPINEPHrine (Epipen) 0.3 MG/0.3ML injection syringe Inject 0.3 mL (0.3 mg) as directed 1 (one) time for 1 dose. INJECT 1 PEN (0.3 ML) INTRAMUSCULARLY ONCE NEEDED FOR EXTREME REACTION FOR 2 DOSES 1 each 023 Active Additional Information Patient not taking.Reported on 12/09/2024 TRUEplus Lancets 33G misc TEST BLOOD SUGAR TWICE DAILY DIRECTED 100 each 024 Active Alcohol Swabs (Alcohol Prep) 70 % pads USE TWO DAILY 100 each 024 Active FREESTYLE LITE test strip TEST BLOOD SUGAR TWICE DAILY 100 strip 11 024 Active ibuprofen 600 MG tablet Take 1 tablet (600 mg) by mouth every 6 (six) hours if needed for mild pain for up to 20 doses. 20 tablet Active Additional Information Patient not taking.Reported on 12/09/2024 ibuprofen 600 MG tablet Take 1 tablet (600 mg) by mouth every 6 (six) hours if needed for mild pain for up to 20 doses. 20 tablet Active Additional Information Patient not taking.Reported on 12/09/2024 DULoxetine (Cymbalta) [address] capsuleIndicati ons:Fibromyalgi a TAKE ONE CAPSULE IN THE MORNING AND EVENING 60 capsule Active amLODIPine (Norvasc) 5 MG tabletIndicatio ns:Essential hypertension TAKE ONE TABLET EVERY MORNING 30 tablet 025 Active nicotine (Nicoderm CQ) 14 MG/24HR patch Place 1 patch on the skin 1 (one) time each day at the same time. 42 patch Active Additional Information Patient not taking.Reported on 12/09/2024 nicotine (Nicoderm CQ) 7 MG/24HR patch Place 1 patch on the skin 1 (one) time each day at the same time. 14 patch Active Additional Information Patient not taking.Reported on 12/09/2024 nicotine polacrilex (Commit) 4 MG lozenge Dissolve 1 lozenge (4 mg) in the mouth every 2 (two) hours if needed for smoking cessation. 100 lozenge Active Additional Information Patient not taking.Reported on 12/09/2024 acetaminophen (Tylenol) 500 MG tablet Take 2 tablets (1,000 mg) by mouth every 6 (six) hours if needed for moderate pain or fever. 30 tablet Active Additional Information Patient not taking.Reported on 12/09/2024 lisinopril 10 MG tabletIndicatio ns:Essential hypertension Take 1 tablet (10 mg) by mouth Once per day. 30 tablet 025 2025 Active cyanocobalamin (Vitamin B-12) 1000 MCG/ML injectionIndica tions:Vitamin B 12 deficiency inject 1 milliliter by intramuscular route once every month 1 mL 025 Active Vitamin D, Ergocalciferol, 24426 units capsuleIndicati ons:Vitamin D deficiency TAKE ONE CAPSULE ONCE WEEKLY ON SUNDAY MORNING 4 capsule 025 Active atenolol (Tenormin) 25 MG tablet TAKE ONE TABLET EVERY MORNING 90 tablet 1 025 Active famotidine (Pepcid) 20 MG tabletIndicatio ns:Other acute gastritis without hemorrhage TAKE ONE TABLET TWICE DAILY IN THE MORNING AND AT BEDTIME 180 tablet 1 025 Active cetirizine (ZyrTEC) 10 MG tabletIndicatio ns:Urticaria TAKE ONE TABLET EVERY MORNING 90 tablet 1 025 Active hydrOXYzine HCl (Atarax) 25 MG tabletIndicatio ns:Generalized anxiety disorder Take 1 tablet (25 mg) by mouth if needed at bedtime for anxiety. 60 tablet 025 Active chlorhexidine (Peridex) 0.12 % solutionIndicat ions:History of tooth extraction, unspecified edentulism class Swish 15 mL morning and night for 1 minute. Spit, do not swallow. Do not eat or drink for 30 minutes following use. 473 mL 025 Active amitriptyline (Elavil) 25 MG tablet TAKE ONE TABLET BY MOUTH EVERY NIGHT AT BEDTIME 30 tablet 3 025 Active rosuvastatin (Crestor) 20 MG tabletIndicatio ns:Hypercholest erolemia Take 1 tablet (20 mg) by mouth Once per day. 30 tablet 11 025 2025 Active Tirzepatide-Raheem ght Management (Zepbound) 2.5 MG/0.5ML solution auto-injectorIn dications:Class 1 obesity due to excess calories with serious comorbidity and body mass index (BMI) of 33.0 to 33.9 in adult Inject 0.5 mL (2.5 mg) under the skin 1 (one) time per week. 2 mL 3 025 Active lidocaine-prilo stef (Emla) 2.5-2.5 % creamIndication s:Allergy to trees APPLY TO THE AFFECTED AREA(S) DAILY NEEDED 30 g 023 2024 Discontinued(T herapy completed) Diclofenac Sodium 1 % gel APPLY TWO GRAMS TO THE AFFECTED AREA(s) TWICE DAILY 100 g 2 023 2024 Discontinued(T herapy completed) ibuprofen 200 MG tablet Take 200 mg by mouth every 8 (eight) hours if needed for mild pain. 2024 Discontinued tiZANidine (Zanaflex) 2 MG tabletIndicatio ns:Cervicogenic headache Take 1 tablet (2 mg) by mouth at bedtime. 30 tablet 023 2024 Discontinued(T herapy completed) fluticasone (Flonase) 50 MCG/ACT nasal sprayIndication s:Allergy to trees INSERT ONE SPRAY IN EACH NOSTRIL TWICE DAILY 16 g 024 2024 Discontinued(T herapy completed) acetaminophen (Tylenol) 500 MG tablet Take 1 tablet (500 mg) by mouth every 6 (six) hours if needed for mild pain for up to 20 doses. 20 tablet 024 2024 Discontinued(T herapy completed) Tirzepatide-Raheem ght Management (Zepbound) 2.5 MG/0.5ML solution auto-injectorIn dications:Class 1 obesity due to excess calories with serious comorbidity and body mass index (BMI) of 33.0 to 33.9 in adult Inject 0.5 mL (2.5 mg) under the skin 1 (one) time per week. 2 mL 1 024 2024 Discontinued(R eorder (will not trigger notification to Pharmacy)) ibuprofen 400 MG tablet Take 1 tablet (400 mg) by mouth every 6 (six) hours if needed for moderate pain or fever for up to 30 doses. 20 tablet 025 2024 Discontinued(T herapy completed) potassium chloride (Klor-Con) 20 MEQ packetIndicatio ns:Hypokalemia Take 20 mEq by mouth 2 times daily. 10 packet 025 2024 Discontinued(T herapy completed) Efinaconazole (Jublia) 10 % solutionIndicat ions:Onychomyco sis To use daily 8 mL 1 025 2024 Discontinued(T herapy completed) econazole nitrate 1 % creamIndication s:Tinea pedis of both feet Apply topically Once per day. 30 g 025 2024 Discontinued(T herapy completed) Tirzepatide-Raheem ght Management (Zepbound) 5 MG/0.5ML solution auto-injectorIn dications:Class 1 obesity due to excess calories with serious comorbidity and body mass index (BMI) of 33.0 to 33.9 in adult Inject 0.5 mL (5 mg) under the skin 1 (one) time per week. 2 mL 2 025 2024 rosuvastatin (Crestor) 20 MG tabletIndicatio ns:Hypercholest erolemia Take 1 tablet (20 mg) by mouth Once per day. 30 tablet 11 025 2024 Discontinued(R eorder (will not trigger notification to Pharmacy)) Hospital, Clinic, or Other Facility Administered Medication Ordered Dose Route Frequency Start Date End Date Status cyanocobalamin (Vitamin B-12) injection 100 mcgIndications:Vit neal B12 deficiency 100 mcg IM Every 30 days 04/17/2022 12/26/2024 Discontinue d cyanocobalamin (Vitamin B-12) injection 1,000 mcgIndications:Vit neal B 12 deficiency 1000 mcg IM Every 30 days 06/17/2022 12/26/2024 Discontinue d cyanocobalamin (Vitamin B-12) injection 1,000 mcgIndications:Vit neal B 12 deficiency 1000 mcg IM Every 30 days 07/18/2022 12/26/2024 Discontinue d cyanocobalamin (Vitamin B-12) injection 1,000 mcgIndications:Vit neal B 12 deficiency 1000 mcg IM Every 30 days 09/22/2022 12/26/2024 Discontinue d cyanocobalamin (Vitamin B-12) injection 1,000 mcgIndications:Vit neal B 12 deficiency 1000 mcg IM Every 30 days 10/27/2022 12/26/2024 Discontinue d cyanocobalamin (Vitamin B-12) injection 1,000 mcgIndications:Vit neal B 12 deficiency 1000 mcg IM Every 30 days 11/27/2022 12/26/2024 Discontinue d cyanocobalamin (Vitamin B-12) injection 1,000 mcgIndications:Vit neal B 12 deficiency 1000 mcg IM Every 30 days 12/29/2022 12/26/2024 Discontinue d cyanocobalamin (Vitamin B-12) injection 1,000 mcgIndications:Imm unization due 1000 mcg IM Every 30 days 01/29/2023 12/26/2024 Disconti nued cyanocobalamin (Vitamin B-12) injection 1,000 mcgIndications:B12 deficiency 1000 mcg IM Every 30 days 07/18/2024 12/26/2024 Discontinue d cyanocobalamin (Vitamin B-12) injection 1,000 mcgIndications:Vit neal B 12 deficiency 1000 mcg IM Once 12/26/2024 12/26/2024 Ended cyanocobalamin (Vitamin B-12) injection 1,000 mcgIndications:Vit neal B 12 deficiency 1000 mcg IM Once 01/23/2025 01/23/2025 Ended Active Problems Problem Noted Date Diagnosed Date Fibromyalgia 01/21/2025 Controlled type 2 diabetes mellitus 10/20/2024 Vitamin B 12 deficiency 08/19/2024 Memory disturbance 04/24/2024 Osteoarthritis of knees, bilateral 10/07/2022 Essential hypertension 05/31/2022 Anxiety attack 03/27/2022 Hypercholesterolemia 11/17/2021 Major depressive disorder 06/21/2017 Generalized anxiety disorder 06/21/2017 Posttraumatic stress disorder 06/21/2017 Conduction disorder of the heart 05/22/2013 Resolved Problems Problem Noted Date Diagnosed Date Resolved Date Elevated blood-pressure read ing without diagnosis of hypertension 03/27/2022 05/31/2022 Prediabetes 02/16/2021 10/20/2024 Encounters Date Type Department Care Team Description 01/23/2025 9:30 AM EDT Clinical Support [facility] [address] [place] [address] Tonya Pink RN Vitamin B 12 deficiency 01/23/2025 Travel 01/21/2025 9:45 AM EDT Office Visit [facility] [address] [place] [address] Sumanth Llanos MD Essential hypertension (Primary Dx); Controlled type 2 diabetes mellitus without complication, without long-term current use of insulin ([facility]); Hypercholesterolemia; Chronic daily headache; Major depressive disorder with current active episode, unspecified depression episode severity, unspecified whether recurrent; Fibromyalgia; Class 1 obesity due to excess calories with serious comorbidity and body mass index (BMI) of 33.0 to 33.9 in adult; Chronic right-sided low back pain with right-sided sciatica 01/21/2025 Travel 12/26/2024 9:30 AM EDT Clinical Support [facility] [address] [place] [address] Loren Guaman, JACKIE Vitamin B 12 deficiency (Primary Dx) 12/26/2024 Travel 12/17/2024 Travel 12/16/2024 9:00 AM EDT Office Visit [facility] [address] [place] [address] Álvaro Llanos Dental calculus (Primary Dx) 12/11/2024 1:00 PM EDT Office Visit [facility] [address] [place] [address] Álvaro Llanos Dental calculus (Primary Dx) 12/11/2024 Refill [facility] [address] [place] [address] Sumanth Llanos MD 12/09/2024 9:00 AM EDT Office Visit [facility] [address] [place] [address] Matt Hilton DMD History of tooth extraction, unspecified edentulism class (Primary Dx); Partial edentulism, class IV 12/02/2024 9:30 AM EDT Office Visit [facility] [address] [place] [address] Matt Hilton DMD Partial edentulism, class IV (Primary Dx) 11/26/2024 8:00 AM EDT Office Visit [facility] [address] [place] [address] Matt Hilton, SANTIGAO Periodontal disease (Primary Dx); Partial edentulism, class IV 11/20/2024 3:15 PM EDT Clinical Support [facility] [address] [place] [address] Tonya Pink, JACKIE Vitamin B 12 deficiency 11/20/2024 Travel 11/06/2024 9:00 AM EDT Office Visit [facility] [address] [place] [address] Álvaro Llanos Dental calculus (Primary Dx); Periodontal disease; Symptomatic irreversible pulpitis 11/05/2024 Telephone [facility] [address], [place] [phone] Sumanth Llanos MD Prior Auth Prescription 10/30/2024 Results Follow-Up [facility] [address], [place] [phone] Loren Guaman RN Lipid Panel, Standard, POCT Glucose, POCT HGB A1C, Additional followed-up results: 3 10/30/2024 Orders Only [facility] [address], [place] [phone] Sumanth Llanos MD Hypercholesterolemia (Primary Dx) 10/24/2024 Telephone [facility] [address], [place] [phone] Sumanth Llanos MD 10/24/[address] [phone] Sumanth Llanos MD [employer] paperworks from Last 3 Months Immunizations Immunization Administration Dates Next Due Influenza injectable quadriv [...] Mass Index 26.96 01/21/2025 9:55 AM EDT Plan of Treatment Upcoming Encounters Date Type Department Care Team (Late st Contact Info) Description 02/20/2025 9:45 AM EDT Clinical Support [facility] [address] [place] [address] 04/17/2025 3:00 PM EST Office Visit [facility] [address] [place], [place] [phone] Jeff, Alice, OD [address] [place] [address] 05/18/2025 3:00 PM EST Office Visit [facility] [address] [place] [address] Álvaro Llanos Health Maintenance Due Date Last Done Comments CT Colonography 1975 Colonoscopy 1975 FIT 1975 Sigmoidoscopy 1975 Family Planning (PISQ) 1990 Hepatitis B Vaccines (1 of 3 - 19+ 3-dose series) 1994 FOBT 03/08/2024 03/08/2023 Mammogram 07/07/2024 07/07/2022, 07/05, 04/16/2019, Additional history exists Eye Exam 09/15/2024 09/15/2022, 09/04, 09/15/2022, Additional history exists COVID-19 Vaccine ( season) 2025 07/08/2021, 09/27/2020, 08/31/2020 Influenza Vaccine (#1) 2025 , 02/10/2022, 02/16/2021, Additional history exists Dental Oral Exam 05/10/2025 11/06/2024, 10/26/2023 Dental Prophylaxis 05/10/2025 11/06/2024 Zoster Vaccines (1 of 2) 2025 DTaP/Tdap/Td Vaccines (2 - Td or Tdap) 06/04/2025 06/04/2015 Alcohol/Substance Use Screening 07/17/2025 07/17/2024 Depression Screening 07/17/2025 07/17/2024, 07/18/19 Diabetes: Hemoglobin A1C 07/21/2025 025, 10/20/2024, 07/17/2024, Additional history exists SDOH Screening 07/22/2025 07/22/2024 Diabetes: Foot Exam 10/20/2025 10/20/2024 Diabetes: Urine Protein Screening 10/29/2025 10/29/2024 Lipid Panel 10/29/2025 10/29/2024, 11/04, 09/27/2021, Additional history exists Dental X-Ray: Bitewings 11/07/2025 11/06/2024, 10/25 Disability Screening 01/21/2026 01/21/2025 Tobacco Screening 01/21/2026 01/21/2025 Colorectal Cancer Screening 03/08/2026 FIT DNA/Cologuard 03/08/2026 03/08/2023 Cervical Cancer Screening 09/15/2026 HPV/Cotest 09/15/2026 09/15/2021 Pap Smear 09/15/2026 09/15/2021, 09/15/2021 Dental X-Ray: Full Mouth 10/26/2026 10/26/2023 RSV Patients and Patients Aged 60 years or older (1 - 1-dose 75+ series) 2050 Pneumococcal Vaccine: Pediatrics (0 to 5 Years) and At-Risk Patients (6 to 49) Years Completed 12/07/2023 Hepatitis C Screening Completed 04/29/2024, 022 HIV Screening Completed 10/29/2024 HIB Vaccines Aged Out No longer eligi [...] patient's age to complete this topic Meningococcal B Vaccine Aged Out No l onger eligible based on patient's age to complete [...] Pressure 135/84(2024 9:55 AM EDT) No Luis Springer PharmD Patient will adhere to medication regimen General Improving(12/2022 9:16 AM EDT) No Luis Springer PharmD Hemoglobin A1c < 6.5 Result Component 5.2( 10:06 AM EDT) No Luis Springer PharmD Procedures Procedure Name Priority Date/Time Associated Diagnosis Comments XR LUMBAR SPINE 2-3 VIEWS Routine 01/23/2025 10:22 AM EDT Chronic right-sided low back pain with right-sided sciatica POCT GLUCOSE Routine 01/21/2025 10:07 AM EDT Controlled type 2 diabetes mellitus without complication, without long-term current use of insulin ([facility]) POCT GLYCATED HEMOGLOBIN, TOTAL Routine 01/21/2025 10:06 AM EDT Controlled type 2 diabetes mellitus without complication, without long-term current use of insulin ([facility]) ORAL HYGIENE INSTRUCTIONS Routine 12/16/2024 9:00 AM EDT CASE PRESENTATION, DETAILED AND EXTENSIVE TREATMENT PLANNING Routine 12/16/2024 9:00 AM EDT LL PERIODONTAL SCALING AND ROOT PLANING - 4 OR MORE TEETH PER QUADRANT Routine 12/16/2024 9:00 AM EDT UL PERIODONTAL SCALING AND ROOT PLANING - 4 OR MORE TEETH PER QUADRANT Routine 12/16/2024 9:00 AM EDT CASE PRESENTATION, DETAILED AND EXTENSIVE TREATMENT PLANNING Routine 12/11/2024 1:00 PM EDT ORAL HYGIENE INSTRUCTIONS Routine 12/11/2024 1:00 PM EDT LR PERIODONTAL SCALING AND ROOT PLANING - 4 OR MORE TEETH PER QUADRANT Routine 12/11/2024 1:00 PM EDT UR PERIODONTAL SCALING AND ROOT PLANING - 4 OR MORE TEETH PER QUADRANT Routine 12/11/2024 1:00 PM EDT CASE PRESENTATION, DETAILED AND EXTENSIVE TREATMENT PLANNING Routine 12/09/2024 9:00 AM EDT History of tooth extraction, unspecified edentulism class Partial edentulism, class IV DENTURE FOLLOWUP Routine 12/09/2024 9:00 AM EDT History of tooth extraction, unspecified edentulism class Partial edentulism, class IV CASE PRESENTATION, DETAILED AND EXTENSIVE TREATMENT PLANNING Routine 12/02/2024 9:30 AM EDT Partial edentulism, class IV 9 ADD TOOTH TO EXISTING PARTIAL DENTURE Routine 12/02/2024 9:30 AM EDT Partial edentulism, class IV CASE PRESENTATION, DETAILED AND EXTENSIVE TREATMENT PLANNING Routine 11/26/2024 8:00 AM EDT Periodontal disease Partial edentulism, class IV BITE REGISTRATION Routine 11/26/2024 8:0 0 AM EDT Periodontal disease Partial edentulism, class IV DENTURE IMPRESSION Routine 11/26/2024 8: 00 AM EDT Periodontal disease Partial edentulism, class IV 9 EXTRACTION, ERUPTED TOOTH OR EXPOSED ROOT (ELEVATION/FORCEPS REMOVAL) Routine 11/26/2024 8:00 AM EDT Periodontal disease Partial edentulism, class IV PERIODIC ORAL EVALUATION - ESTABLISHED PATIENT Routine 11/06/2024 9:00 AM EDT Periodontal disease Symptomatic irreversible pulpitis INTRAORAL - PERIAPICAL EACH ADDITIONAL RADIOGRAPHIC IMAGE Routine 11/06/2024 9:00 AM EDT Periodontal disease INTRAORAL - PERIAPICAL FIRST RADIOGRAPHIC IMAGE Routine 11/06/2024 9:00 AM EDT Periodontal disease ORAL HYGIENE INSTRUCTIONS Routine 11/06/2024 9:00 AM EDT Periodontal disease BITEWINGS - 4 RADIOGRAPHIC IMAGES Routine 11/06/2024 9:00 AM EDT Periodontal disease Full PROPHYLAXIS - ADULT Routine 11/06/2024 9:00 AM EDT Periodontal disease CASE PRESENTATION, DETAILED AND EXTENSIVE TREATMENT PLANNING Routine 11/06/2024 9:00 AM EDT Periodontal disease 18 O AMALGAM FILLING Routine 11/06/2024 12:00 AM EDT 18 B COMPOSITE FILLING Routine 11/06/2024 12:00 AM EDT ALBUMIN, RANDOM URINE W/CREATININE Routine 10/29/2024 8:50 AM EDT Controlled type 2 diabetes mellitus without complication, without long-term current use of insulin ([facility]) HIV 1/2 ANTIGEN/ANTIBODY, FOURTH GENERATION W/RFL Routine 10/29/2024 8:45 AM EDT Hypercholesterolemia Essential hypertension Controlled type 2 diabetes mellitus without complication, without long-term current use of insulin (CMS/HCC) COMPREHENSIVE METABOLIC PANEL Routine 10/29/2024 8:45 AM EDT Hypercholesterolemia Essential hypertension Controlled type 2 diabetes mellitus without complication, without long-term current use of insulin (CMS/HCC) LIPID PANEL, STANDARD Routine 10/29/2024 8:45 AM EDT Hypercholesterolemia HEPATITIS C AB W/REFL TO HCV RNA, QN, PCR Routine 04/29/2024 10:12 AM EST Prediabetes Other constipation Class 1 obesity due to excess calories with serious comorbidity and body mass index (BMI) of 33.0 to 33.9 in adult INTRAORAL - COMPLETE SERIES OF RADIOGRAPHIC IMAGES Routine 10/26/2023 11:00 AM EDT LAB COLOGUARD COLON CANCER SCREEN Routine 03/08/2023 12:52 PM EDT Encounter for screening colonoscopy BI MAMMOGRAM SCREENING TOMOSYNTHESIS BILATERAL Routine 07/07/2022 8:20 AM EST THINPREP IMAGING PAP AND HPV MRNA E6/E7 WITH REFLEX TO HPV 16,18/45 Routine 09/15/2021 9:38 AM EDT HM PAP/HPV Routine 09/15/2021 from Last 3 Months or Most Recently Relevant to Health Maintenance Results * XR Lumbar Spine 2-3 Views (01/23/2025 10:22 AM EDT) Anatomical Region Laterality Modality Spine, L-spine Radiographic Myrna ging 01/23/2025 10:2 2 AM EDT Narrative 01/23/2025 10:35 AM EDT [address] [address] XRay Report Signed Patient: Keli Oakley MR# : [id number] : 1975 Acct:[id number] Age/Sex: 49 / F ADM Date: 01/23/25 Loc: [facility] Attending Dr: Sumanth Llanos MD Ordering Physician: Sumanth Llanos MD Date of Service: 01/23/25 Procedure(s): XR lumbar spine 2-3V Accession Number(s): [id number] cc: Sumanth Llanos MD Reason for Exam: [...] 01/23/25 1032 DD/ 1022 TD/TT: 01/23/25 1024 Logistics Solution Manager: Procedure Note Donotuseinterpreter, Image - 01/23/[address] [address] XRay Report Signed Patient: Keli OakleyMR# : [id number] : 1975Acct:[id number] Age/Sex: 49 / FADM Date: 01/23/25 Loc: [facility] Attending Dr: Sumanth Llanos MD Ordering Physician: Sumanth Llanos MD Date of Service: 01/23/25 Procedure(s): XR lumbar spine 2-3V Accession Number(s): [id number] cc: Sumanth Llanos MD Reason for Exam: [...] Rufino Reina MD 01/23/2025 10:32 AM EDT Dictated By: Rufino Reina MD Signed By: <Electronically signed by Rufino Reina MD in OV> 01/23/25 1032 DD/ 1022 TD/TT: 01/23/25 1024 Logistics Solution Manager: us Sumanth Llanos MD IMG XR PROCEDURES Edited Re sult - Final * POCT Glucose (01/21/2025 10:07 AM EDT) Glucose Blood, POC 106 60 - 200 mg/dL QC Media Lot # [id number] Comment:random Lot# Expiration Date , Blood Capillary blood specimen / Unknown 01/21/2025 10:07 AM EDT Sumanth Llanos MD POINT OF CARE TEST ENTER/ED IT ORDERABLES Final Result * POCT Hgb A1c (01/21/2025 10:06 AM EDT) Hemoglobin A1C 5.2 4.0 - 5.7 % QC Media Lot # [id number] Lot# Expiration Date [id number] Blood 01/21/2025 10:0 6 AM EDT Sumanth Llanos MD POINT OF CARE TEST ENTER/ED IT ORDERABLES Final Result * Albumin, Random Urine W/Creatinine (10/29/2024 8:50 AM EDT) Creatinine, Urine 246.89 mg/dL [facility] Microalbumin Urine 14.0 mg/L [facility] Microalbum Creatinine Ratio Ur 5.6 <30 ug/mg cr [facility] Comment:Albumin/Creatinine R atio Reference Ranges: Normal: < 30 ug/mg creatinine Microalbuminuria: 30 - 300 ug/mg creatinineClinical Albuminuria: > 300 ug/mg creatinine Urine (Urine, Random) 10/29/2024 8:50 AM EDT 10/29/2024 2:17 PM EDT Sumanth Llanos MD LAB URINE ORDERABLES Final Result [facility] [address] [place] [phone] * HIV-1/2 Antigen and Antibodies, Fourth Generation, with Reflexes (10/29/2024 8:45 AM EDT) HIV AB/AG Nonreactive Nonreactive [facility] Comment:HIV-1 p24 Ag and/or HIV-1/HIV-2 Ab not detected.A test result that is nonreactive does not exclude thepossibility of exposure to or infection with HIV-1 and/orHIV-2. Nonreactive results in this assay for individualswith prior exposure to HIV-1 and/or HIV-2 may be due toantigen and antibody levels that are below the limit ofdetection of this assay.[employer] (acquired by [employer]) HIV Ag/Ab Combo assay result andsupplemental assay results should be interpreted inconjunction with the patient's clinical presentation,history and other laboratory results. If the results areinconsistent with clinical evidence, additional testing issuggested to confirm the result. Blood Venous blood specimen / Unknown 10/29/2024 8:45 AM EDT 10/29/2024 2:28 PM EDT us Sumanth Llanos MD LAB BLOOD ORDERABLES Final Result [facility] [address] [place] [phone] [phone] * (ABNORMAL) Lipid Panel, Standard (10/29/2024 8:45 AM EDT) Triglycerides 191(H) <150 mg/dL [facility] Comment:Desirable Triglyceri de: less than 150 mg/dLBorderline High Triglyceride 150-199 mg/dLHigh Triglyceride: 200-499 mg/dLVery High Triglyceride: greater than or equal to 5OO mg/dL Cholesterol 208(H) <200 mg/dL [facility] Comment:Desirable Cholestero l: less than 200 mg/dLBorderline High Cholesterol: 200-239 mg/dLHigh Cholesterol: greater than 239 mg/dL LDL Cholesterol Calculated 131(H) <100 mg/dL [facility] Comment:Desirable LDL: less than 100 mg/dLNear Optimal/Above Optimal LDL: 110- 129 mg/dLBorderline High LDL: 130-159 mg/dLHigh LDL: 160-189 mg/dLVery High LDL: greater than or equal to 190 mg/dL HDL Cholesterol 39(L) >40 mg/dL [facility] Comment:Desirable HDL: great er than 40 mg/dL Note: This HDL assay may give artificially low results in patients with liver disease. Blood Venous blood specimen / Unknown 10/29/2024 8:45 AM EDT 10/29/2024 2:28 PM EDT us Sumanth Llanos MD LAB BLOOD ORDERABLES Final Result [facility] [address] [place] [address] [phone] * (ABNORMAL) Comprehensive Metabolic Panel (10/29/2024 8:45 AM EDT) Sodium 140 135 - 145 mmol/L [facility] Potassium 3.4 3.3 - 5.1 mmol/L [facility] Chloride 105 96 - 108 mmol/L [facility] Carbon Dioxide 28 22 - 29 mmol/L [facility] Anion Gap 10(L) 12 - 20 [facility] Urea Nitrogen (BUN) 18(H) 9 - 16 mg/dL [facility] Creatinine, Serum 0.74 0.5 - 1.4 mg/dL [facility] Estimated Glomerular Filt Rate >60 [facility] Comment:Chronic Kidney Disea se: Estimated GFR < 60 mL/min/1.97t8Eiwrif Kidney Disease: Estimated GFR < 15 mL/min/1.73m2 Glucose 89 60 - 115 mg/dL [facility] Calcium 8.8 8.4 - 10.2 mg/dL [facility] Bilirubin, Total 0.4 0.0 - 1.0 mg/dL [facility] Aspartate Amino Transferase 28 5 - 31 U/L [facility] Alanine Aminotransferase 13 0 - 31 U/L [facility] Total Protein 7.0 6.5 - 8.0 g/dL [facility] Albumin Level 4.2 3.5 - 5.0 g/dL [facility] Alkaline Phosphatase 72 39 - 117 U/L [facility] Blood Venous blood specimen / Unknown 10/29/2024 8:45 AM EDT 10/29/2024 2:28 PM EDT us Sumanth Llanos MD LAB BLOOD ORDERABLES Final Result [facility] [address] [place] [address] [phone] * Hepatitis C Antibody with Reflex to HCV, RNA, Quantitative, Real-Time PCR (04/29/2024 10:12 AM EST) Hepatitis C Antibody Nonreactive Nonreactive [facility] Comment:Antibodies to HCV no t detected; does not exclude early acuteHCV infection. Blood Venous blood specimen / Unknown 04/29/2024 10:12 AM EST 04/29/2024 2:25 PM EST Sumanth Llanos MD LAB BLOOD ORDERABLES Final Result [facility] [address] [place] [address] [phone] * Cologuard?? colon cancer screening (03/08/2023 12:52 PM EDT) Cologuard Result Negative Negative 03/15/20 1:54 AM EST [facility] (CLIA #:[id number]) Comment: NEGATIVE TEST RESULT. A negative Cologuard result indicates a low likelihood that a colorectal cancer (CRC) or advanced adenoma (adenomatous polyps with more advanced pre-malignant features) is present. The chance that a person with a negative Cologuard test has a colorectal cancer is less than 1 in 1500 (negative predictive value >99.9%) or has an advanced adenoma is less than 5.3% (negative predictive value 94.7%). These data are based on a prospective cross-sectional study of 10,000 individuals at average risk for colorectal cancer who were screened with both Cologuard and colonoscopy. (Rylee Mccarthy al, N Engl J Med 2014;370(14):0614-8132) The normal value (reference range) for this assay is negative. COLOGUARD RE-SCREENING RECOMMENDATION: Periodic colorectal cancer screening is an important part of preventive healthcare for asymptomatic individuals at average risk for colorectal cancer. Following a negative Cologuard result, the [place] [employer] Society and U.S. Multi-Society Task Force screening guidelines recommend a Cologuard re-screening interval of 3 years. References: [place] [employer] Guideline for Colorectal Cancer Screening: https://www.cancer.org/cancer/oymko-luesly-acwfin/vryfzfubi-yuimsaqqv-bdyzzuu/ac s-rec ommendations.html.; Bravo ORDONEZ, Genia SESAY, Mumtaz NGUYEN, Colorectal Cancer Screening: Recommendations for Physicians and Patients from the U.S. Multi-Society Task Force on Colorectal Cancer Screening , Am J Gastroenterology 2017; 112:0359-2578. TEST DESCRIPTION: Composite algorithmic analysis of stool DNA-biomarkers with hemoglobin immunoassay. Quantitative values of individual biomarkers are not [...] (Rylee Mccarthy al, N Engl J Med 2014;370(14):6092-2764.) Cologuard may produce a false negative or false positive result (no colorectal cancer or precancerous polyp present at colonoscopy follow up). A negative Cologuard test result does not guarantee the absence of CRC or advanced adenoma (pre-cancer). The current Cologuard screening interval is every 3 years. ([place] [employer] and U.S. Multi-Society Task Force). Cologuard performance data in a 10,000 patient pivotal study using colonoscopy as the reference method can be accessed at the following location: www.[employer]/results. Additional description of the Cologuard test process, warnings and precautions can be found at www.[employer].com. Stool specimen (specimen) 03/08/2023 12:52 PM EDT 03/09/2023 6:19 PM EDT us Sumanth Llanos MD LAB MOLECULAR DIAGNOSTICS O RDERABLES Final Result [facility] (CLIA #:[id number]) Imelda [place] [address] [address], * BI Mammogram Screening Tomosynthesis Bilateral (07/07/2022 8:20 AM EST) Anatomical Region Laterality Modality Breast Bilateral Mammography 07/07/2022 8:20 AM EST Narrative 07/10/2022 7:59 AM EST [facility] [address] [place] [address] Mammography Report Signed Patient: Keli Oakley MR# : [id number] : 1975 Acct:[id number] Age/Sex: 47 / F ADM Date: 07/07/22 Loc: HO.MAMMO Attending Dr: Sumanth Llanos MD Ordering Physician: Sumanth Llanos MD Results: 1 Negative Date of Service: 07/07/22 Follow Up: 1 Year From Orig ina Mammogram Procedure(s): MM tomosynthesis screening BI Accession Number(s): [id number] cc: Sumanth Llanos MD EXAMINATION: MM SCREENING [...] in OV> 07/10/22 0756 DD/ 0820 TD/TT: Logistics Solution Manager: RISHABH Procedure Note Donotuseinterpreter, Image - 07/10/2022 [facility] [place] [address] Mammography Report Signed Patient: Keli OakleyMR# : [id number] : 1975Acct:[id number] Age/Sex: 47 / FADM Date: 07/07/22 Loc: HO.MAMMO Attending Dr: Sumanth Llanos MD Ordering Physician: Sumanth Llanos MDResults: 1 Negative Date of Service: 07/07/22Follow Up: 1 Year From Orig inal Mammogram Procedure(s): MM tomosynthesis screening BI Accession Number(s): [id number] cc: Sumanth Llnaos MD EXAMINATION: MM SCREENING DIGITAL BREAST TOMOSYNTHESIS, [...] in OV> 07/10/22 0756 DD/ 0820 TD/TT: Logistics Solution Manager: KEATING [facility] External Provider IMG BI PROCEDURES Final Result * THINPREP TIS PAP AND HPV mRNA E6/E7 WITH REFLEX TO HPV 16,18/45 (09/15/2021 9:38 AM EDT) Clinical Information: None given [facility] COMMENT SEE COMMENT [facility] Comment: EXPLANATORY NOTE: The Pap is a screening test for cervical cancer. It is not a diagnostic test and is subject to false negative and false positive results. It is most reliable when a satisfactory sample, regularly obtained, is submitted with relevant clinical findings and history, and when the Pap result is evaluated along with historic and current clinical information. COMMENT: This Pap test has been evaluated with computer assisted technology. [facility] Eyeglass Lens Cutter: SEE COMMENT [facility] Comment: MANISHA CT(ASCP) CT screening location: [place] [address] HPV nRNA E6/E7 Not Detected Not Detected [facility] Comment: Methodology: Confectionery Cooker-Mediated Amplification This assay detects E6/E7 viral messenger RNA (mRNA) from 14 high-risk HPV types (16,18,31,33,35,39,45,51,52,56,58,59,66,68). The analytical performance characteristics of this assay have been determined by [employer]. The modifications have not been cleared or approved by the FDA. This assay has been validated pursuant to the CLIA regulations and is used for clinical purposes. For additional information, please refer to http://education.117go.Datavail/faq/EZN271v8 (This link if provided for information/ educational purposes only.) Interpretation/Re sult: Negative for intraepithelial lesion or malignancy. [facility] LMP: 01/2021 [facility] Prev. BX: NONE GIVEN [facility] Prev. PAP: 06/2018 [facility] SOURCE: None given [facility] Statement Of Adequacy: SEE COMMENT [facility] Comment: Satisfactory for evaluation. Endocervical/transformation zone component absent. 09/15/2021 9:38 AM EDT us Azul Glynn CNM LAB PATHOLOGY ORDERABLES Final Result [facility] [address] * Pap Smear (09/15/2021) Pap smear Performed us Historical Provider MD HEALTH MAINTENANCE Final Result from Last 3 Months or Most Recently Relevant to Health Maintenance Insurance [facility] C3 DENTAL-[facility] MEDICAID STAND ADULT Care Teams Hotel Or Motel Receptionist Relationship Specialty Start Date End Date Sumanth Llanos MD [address] [place] [address] SHASHI Lewis [address] PCP - General Internal Medicine 05/07/18
--- OUTSIDE RECORDS SUMMARY | 2025-01-23 10:38 | XMS_ITS | Encounter Summary ---
Author Organization [employer] Address [address] [facility] 7 [place] [address] Care Team Providers Care Applications Engineer Name Role Phone Sumanth Llanos MD Primary Care Provider [phone] Reason for Visit * Reason Onset Date Comments status 07/19/2022 Encounter Details Date Type Department Care Team (Late st Contact Info) Description 07/19/[address] [facility] [address] [place] [address] Sumanth Llanos MD 505 [place] [address] status Social History Tobacco Use Types Packs/Day [...] encounter Miscellaneous Notes * Telephone Encounter - Kevinmayte Bolivaros - 07/19/2022 11:47 AM EDT Kasi garcia with [facility]. Requesting a call back regarding status on order sign. Please contact jose at [phone] documented in this encounter Plan of Treatment Upcoming Encounters Date Type Department Care Team (Late st Contact Info) Description 02/20/2025 9:45 AM EDT Clinical Support [facility] MED & PEDS [address] [place] [address] 04/17/2025 3:00 PM EST Office Visit [facility] OPTOMETRY [address] [place] [address] Jeff, Alice, OD [address] [place] [address] 05/18/2025 3:00 PM EST Office Visit [facility] ADULT DENTAL [address] [place] [address] Álvaro Llanos documented as of this encounter Visit Diagnoses Not on filedocumented in this encounter Additional Health Concerns Assessment Noted Time PHQ-9 Depression Total Score: 15 023 9:06 AM EST documented as of this encounter Care Teams Applications Engineer Relationship Specialty Start Date End Date Sumanth Llanos MD [address] [place] [address] PCP - General Internal Medicine 05/07/18 documented as of this encounter
--- OUTSIDE RECORDS SUMMARY | 2025-01-23 10:38 | XMS_ITS | Encounter Summary ---
Author Organization [employer] Address [address] [facility] 7 [place] [address] Care Team Providers Care Plastic Surgery Nurse Name Role Phone Sumanth Llanos MD Primary Care Provider [phone] Reason for Visit * Reason Onset Date Comments Unblab 10/24/2024 Encounter Details Date Type Department Care Team (Late st Contact Info) Description 10/24/2024 Telephone [facility] [address] [place] [address] Sumanth Llanos MD [address] [facility] [place], [place] [phone] Unblab Social History Tobacco Use Types Packs/Day Years [...] encounter Miscellaneous Notes * Telephone Encounter - Velma Hutton - 10/24/2024 9:09 AM EDT Tc from Sadaf with [facility] needing Physician Summary to be signed by pcp. F. [phone] FYI: it was sent incomplete to [facility] 07/10/2024. documented in this encounter Plan of Treatment Upcoming Encounters Date Type Department Care Team (Late st Contact Info) Description 02/20/2025 9:45 AM EDT Clinical Support [facility] [address] [place] [address] 04/17/2025 3:00 PM EST Office Visit [facility] OPTOMETRY [address] [place] [address] Alice Aguilar, OD [address] [facility] [place] [address] 05/18/2025 3:00 PM EST Office Visit [facility] ADULT DENTAL [address] [place] [address] Beauzile, Álvaro documented as of this encounter Goals Goal [...] documented as of this encounter Care Teams Plastic Surgery Nurse Relationship Specialty Start Date End Date Sumanth Llanos MD [address] [place] [address] PCP - General Internal Medicine 05/07/18 documented as of this encounter
--- OUTSIDE RECORDS SUMMARY | 2025-01-23 10:38 | XMS_ITS | Encounter Summary ---
Author Organization [employer] Address [address] [facility] 7 [place] [address] Care Team Providers Care Water Gas Operator Name Role Phone Sumanth Llanos MD Primary Care Provider [phone] Encounter Details Date Type Department Care Team ([facility] Description 04/17/2022 Orders Only [facility] MEDICINE [address] [place], [place] [phone] Sumanth Llanos MD [address] [place], [place] [phone] Vitamin B12 deficiency (Primary Dx) Social History [...] Department Care Team (Late Contact Info) Description 02/20/2025 9:45 AM EDT Clinical Support [facility] MED & PEDS [address] [place], [place] [phone] 04/17/2025 3:00 PM EST Office Visit [facility] OPTOMETRY [address] [place] [address] Alice Aguilar, OD [address] [place] [address] 05/18/2025 3:00 PM EST Office Visit [facility] ADULT DENTAL [address] [place] [address] Álvaro Llanos documented as of this encounter Visit Diagnoses Diagnosis Vitamin B12 deficiency- Primary Other B-complex deficiencies documented in this encounter Care Teams Water Gas Operator Relationship Specialty Start Date End Date Sumanth Llanos MD [address] [place] [address] PCP - General Internal Medicine 05/07/18 documented as of this encounter
--- OUTSIDE RECORDS SUMMARY | 2025-01-23 10:38 | XMS_ITS | Encounter Summary ---
Author Organization [employer] Address [address] [place] [address] [place] [address] Care Team Providers Care Biophysics Scientist Name Role Phone Sumanth Llanos MD Primary Care Provider [phone] Reason for Visit * Reason Onset Date Comments confirm provider received message 03/20/2024 Encounter Details Date Type Department Care Team ([facility] st Contact Info) Description 03/20/2024 Telephone [facility] ADULT DENTAL [address] [place] [address] Kevon Silva [address] [place] [address] confirm provider received message Social History Tobacco [...] verify that provider DR. Silva received message product applications engineer placed yesterday. Patient was connected to [facility] yesterday. service desk agent has informed provider is aware of message [...] [facility] [address] [place], [place] [phone] 04/17/2025 3:00 PM EST Office Visit [facility] OPTOMETRY [address] [place], [place] [phone] JeffAlice, OD [address] [place] [address] 05/18/2025 3:00 PM EST Office Visit [facility] ADULT DENTAL [address] [place] [address] Álvaro Llanos documented as of this encounter Goals Goal Patient Goal Type Associated Problems Recent Progress Patient-Stated? Author Blood Pressure < 140/90 Blood Pressure 135/84(2024 9:55 AM EDT) No Dellogono, Luis, PharmD Patient will adhere to medication regimen General Improving(12/2022 9:16 AM EDT) No Dellogono, Luis, PharmD Hemoglobin A1c < 6.5 Result Component 5.2( 10:06 AM EDT) No Dellogono, Lius, PharmD documented as of this encounter Visit Diagnoses Not on filedocumented in this encounter Additional Health Concerns Assessment Noted Time PHQ-9 Depression Total Score: 15 05/31/ 023 9:06 AM EST documented as of this encounter Care Teams Biophysics Scientist Relationship Specialty Start Date End Date Sumanth Llanos MD [address] [place] [address] PCP - General Internal Medicine 05/07/18 documented as of this encounter
--- OUTSIDE RECORDS SUMMARY | 2025-01-23 10:38 | XMS_ITS | Encounter Summary ---
Author Organization [id number] Address [address] [facility] 7 [place] [address] Care Team Providers Care Media Law Faculty Member Name Role Phone Sumanth Llanos MD Primary Care Provider Encounter Details Date Type Department Care Team ([facility] st Contact Info) Description 11/21/2022 Orders Only [facility] CHC MED & PEDS [address] [place], [place] [phone] Sumanth Llanos MD [address] [place], [place] [phone] Prediabetes (Primary Dx); Positive MOIZ (antinuclear antibody) [...] Description 02/20/2025 9:45 AM EDT Clinical Support [facility] MED & PEDS [address] [place] [address] 04/17/2025 3:00 PM EST Office Visit [facility] OPTOMETRY [address] [place] [address] Jeff, Alice, OD [address] [place] [address] 05/18/2025 3:00 PM EST Office Visit [facility] ADULT DENTAL [address] [place] [address] Álvaro Llanos Scheduled Orders Name Type Priority Associated Diagnoses [...] documented as of this encounter Care Teams Media Law Faculty Member Relationship Specialty Start Date End Date Sumanth Llanos MD [address] [place] [address] PCP - General Internal Medicine 05/07/18 documented as of this encounter
--- OUTSIDE RECORDS SUMMARY | 2025-01-23 10:38 | XMS_ITS | Encounter Summary ---
Author Organization [employer] Address [address] [place] [address] 7 [place] [address] Care Team Providers Care Online Merchant Name Role Phone Sumanth Llanos MD Primary Care Provider Reason for Visit * Reason Comments Med Refill Encounter Details Date Type Department Care Team (Late st Contact Info) Description 06/19/2024 Refill [facility] MED & PEDS [address] [place] [address] Sumanth Llanos MD [address] [place] [address] Class 1 obesity due to excess calories [...] 02/20/2025 9:45 AM EDT Clinical Support [facility] MED & PED[facility] [address] [place] [address] 04/17/2025 3:00 PM EST Office Visit [facility] OPTOMETRY [address] [place] [address] Jeff, Alice, OD [address] [place] [address] 05/18/2025 3:00 PM EST Office Visit [facility] ADULT DENTAL [address] [place] [address] Álvaro Llanos documented as of this encounter Goals Goal Patient Goal Type Associated Problems Recent Progress Patient-Stated? Author Blood Pressure < 140/90 Blood Pressure 135/84(2024 9:55 AM EDT) No DellogonoLuis, PharmD Patient will adhere to medication regimen General Improving(12/2022 9:16 AM EDT) No DellogonoOgis, PharmD Hemoglobin A1c < 6.5 Result Component 5.2( 10:06 AM EDT) No DelLuis amaya, PharmD documented as of this encounter Visit Diagnoses Diagnosis Class 1 obesity due to excess calories with serious comorbidity and body mass index (BMI) of 33.0 to 33.9 in adult documented in this encounter Additional Health Concerns Assessment Noted Time PHQ-9 Depression Total Score: 15 023 9:06 AM EST documented as of this encounter Care Teams Online Merchant Relationship Specialty Start Date End Date Sumanth Llanos MD [address] [place] [address] PCP - General Internal Medicine 05/07/18 documented as of this encounter
--- OUTSIDE RECORDS SUMMARY | 2025-01-23 10:38 | XMS_ITS | Encounter Summary ---
Author Organization [employer] Address [address] [place] [address] 7 [place] [address] Care Team Providers Care Painter Mirror Name Role Phone Sumanth Llanos MD Primary Care Provider Reason for Visit * Reason Comments Med Refill Encounter Details Date Type Department Care Team ([facility] st Contact Info) Description 04/24/2024 Refill [facility] CHC MED & PEDS 505 [facility] [place] [address] Sumanth Llanos MD [address] [place] [address] Other constipation Social History Tobacco Use Types [...] - 05/05/2024 11:48 AM EST Fax from [facility] scanned in patient chart for your review. documented in this encounter Plan of Treatment Upcoming Encounters Date Type Department Care Team (Late st Contact Info) Description 02/20/2025 9:45 AM EDT Clinical Support [facility] MED [facility] PEDS [address] [place] [address] 04/17/2025 3:00 PM EST Office Visit [facility] OPTOMETRY [address] [place] [address] Jeff, Alice, OD [address] [place] [address] 05/18/2025 3:00 PM EST Office Visit [facility] ADULT DENTAL [address] [place] [address] Álvaro Llanos documented as of this encounter Goals Goal Patient Goal Type Associated Problems Recent Progress Patient-Stated? Author Blood Pressure < 140/90 Blood Pressure 135/84(2024 9:55 AM EDT) No Dellogono, Luis, PharmD Patient will adhere to medication regimen General Improving(12/2022 9:16 AM EDT) No Dellogono, Luis, PharmD Hemoglobin A1c < 6.5 Result Component 5.2( 10:06 AM EDT) No Dellogono Luis, PharmD documented as of this encounter Visit Diagnoses Diagnosis Other constipation documented in this encounter Additional Health Concerns Assessment Noted Time PHQ-9 Depression Total Score: 15 023 9:06 AM EST documented as of this encounter Care Teams Painter Mirror Relationship Specialty Start Date End Date Sumanth Llanos MD [address] [place] [address] PCP - General Internal Medicine 05/07/18 documented as of this encounter
--- OUTSIDE RECORDS SUMMARY | 2025-01-23 10:38 | XMS_ITS | Encounter Summary ---
Author Organization [employer] Address 75 [facility] 7 [place] [address] Care Team Providers Care Worsted Winder Name Role Phone Sumanth Llanos MD Primary Care Provider Encounter Details Date Type Department Care Team (Late st Contact Info) Description 06/18/2024 Orders Only [facility] CHC MED & PEDS 505 [facility] [place] [address] Sumanth Llanos MD 505 [place] [address] Class 1 obesity due to excess calories [...] Description 02/20/2025 9:45 AM EDT Clinical Support [facility] CHC MED & PEDS 505 [place] [address] 04/17/2025 3:00 PM EST Office Visit [facility] OPTOMETRY [address] [place], [place] [phone] Alice Aguilar, OD [address] [place], [place] 05/18/2025 3:00 PM EST Office Visit [facility] CHC ADULT DENTAL [address] [place], [place] [phone] Álvaro Llanos documented as of this encounter Goals Goal Patient Goal Type Associated Problems Recent Progress Patient-Stated? Author Blood Pressure < 140/90 Blood Pressure 135/84(2024 9:55 AM EDT) No Luis Springer, PharmD Patient will adhere to medication regimen General Improving(12/2022 9:16 AM EDT) No Delloglopez, Luis, PharmD Hemoglobin A1c < 6.5 Result [...] PM EST Narrative 07/11/2024 8:40 PM EST [address] [address] [address] Scan Report Signed Patient: Keli Oakley MR# : [id number] : 1975 Acct:[id number] Age/Sex: 49 / F ADM Date: 07/11/24 Loc: HO.ED Attending Dr: Ordering Physician: Angelica Rivera Date of Service: 07/11/24 Procedure(s): CT abdomen pelvis wo IV con Accession Number(s): [id number] cc: Sumanth Llanos MD; Angelica Rivera Report Number: [id number]: Total DLP = 446.00 mGy-cm CLINICAL HISTORY: [...] in OV> 07/11/242038 DD/ 38 TD/TT: 07/11/242038 Infant Room Teacher: Procedure Note Donotuseinterpreter, Image - 07/11/[address] [place] [address] [address] Scan Report Signed Patient: Keli Oakley# : [id number] : 1975Acct:[id number] Age/Sex: 49 / FADM Date: 07/11/24 Loc: HO.ED Attending Dr: Ordering Physician: Angelica Rivera Date of Service: 07/11/24 Procedure(s): CT abdomen pelvis wo IV con Accession Number(s): [id number] cc: Sumanth Llanos MD; Angelica Rivera Report Number: [id number]: Total DLP = 446.00 mGy-cm CLINICAL HISTORY: [...] Green MD Signed By: <Electronically signed by oJdy Green MD in OV> 07/11/242038 DD/ 38 TD/TT: 07/11/242038 Infant Room Teacher: [facility] External Provider IMG CT PROCEDURES Edited [...] documented as of this encounter Care Teams Worsted Winder Relationship Specialty Start Date End Date Sumanth Llanos MD [address] [place] [address] PCP - General Internal Medicine 05/07/18 documented as of this encounter
--- OUTSIDE RECORDS SUMMARY | 2025-01-23 10:38 | XMS_ITS | Encounter Summary ---
Author Organization [employer] Address [address] [facility] [address] 7t [place] [address] Care Team Providers Care Motor Block Mechanic Name Role Phone Sumanth Llanos MD Primary Care Provider [phone] Encounter Details Date Type Department Care Team (Latest Contact Info) Description 01/23/2025 Travel Social History Tobacco Use Types Packs/Day [...] 9:45 AM EDT Clinical Support [facility] MED & PEDS [address] [place] [address] 04/17/2025 3:00 PM EST Office Visit [facility] OPTOMETRY [address] [place] [address] Jeff, Alice, OD [address] [place] [address] 05/18/2025 3:00 PM EST Office Visit [facility] ADULT DENTAL [address] [place] [address] Álvaro Llanos documented as of this encounter [...] documented as of this encounter Care Teams Motor Block Mechanic Relationship Specialty Start Date End Date Sumanth Llanos MD 505 [place] [address] PCP - General Internal Medicine 05/07/18 documented as of this encounter
--- OUTSIDE RECORDS SUMMARY | 2025-01-23 10:38 | XMS_ITS | Encounter Summary ---
Author Organization [employer] Address [address] [facility] 7t [place] [address] Care Team Providers Care Transformer Inspector Name Role Phone Sumanth Llanos MD Primary Care Provider [phone] Encounter Details Date Type Department Care Team ([facility] Contact Info) Description 04/17/2022 Orders Only [facility] CHC MED & PEDS 505 [place], [place] [phone] Alondra Del Rio MD 505 [place] [address] Vitamin B12 deficiency (Primary Dx) Social History [...] Description 02/20/2025 9:45 AM EDT Clinical Support [facility] CHC MED & PEDS 505 [place] [address] 04/17/2025 3:00 PM EST Office Visit [facility] OPTOMETRY [address] [place] [address] [phone] Alice Aguilar, OD [address] [place] [address] 05/18/2025 3:00 PM EST Office Visit [facility] ADULT DENTAL 505 [place] [address] Álvaro Llanos documented as of this encounter Visit Diagnoses Diagnosis Vitamin B12 deficiency- Primary Other B-complex deficiencies documented in this encounter Care Teams Transformer Inspector Relationship Specialty Start Date End Date Sumanth Llanos MD 505 [place] [address] PCP - General Internal Medicine 05/07/18 documented as of this encounter
--- OUTSIDE RECORDS SUMMARY | 2025-01-23 10:38 | XMS_ITS | Encounter Summary ---
Author Organization [employer] Address [address] [place] [address] 7 [place] [address] Care Team Providers Care Chief Security And Safety Officer Name Role Phone Sumanth Llanos MD Primary Care Provider [phone] Encounter Details Date Type Department Care Team ([facility] Contact Info) Description 01/09/2023 Orders Only [facility] CHC MED & PEDS 505 [facility] [place] [address] Sumanth Llanos MD 505 [place] [address] Social History Tobacco Use Types Packs/Day Years [...] Upcoming Encounters Date Type Department Care Team ([facility] Contact Info) Description 02/20/2025 9:45 AM EDT Clinical Support [facility] CHC MED & PEDS 505 [place] [address] 04/17/2025 3:00 PM EST Office Visit [facility] OPTOMETRY [address] [place] [address] Alice Aguilar, OD [address] [place] [address] 05/18/2025 3:00 PM EST Office Visit [facility] CHC ADULT DENTAL [address] [place] [address] Álvaro Llanos documented as of this encounter Goals Goal Patient Goal Type Associated Problems Recent Progress Patient-Stated? Author Blood Pressure < 140/90 Blood Pressure 135/84(2024 9:55 AM EDT) No DellogLuis marroquin, PharmD Patient will adhere to medication regimen [...] documented as of this encounter Care Teams Chief Security And Safety Officer Relationship Specialty Start Date End Date Sumanth Llanos MD 505 [place] [address] PCP - General Internal Medicine 05/07/18 documented as of this encounter
--- OUTSIDE RECORDS SUMMARY | 2025-01-23 10:38 | XMS_ITS | Encounter Summary ---
Author Organization [employer] Address 75 [facility] 7t [place] [address] Care Team Providers Care Quarry Equipment Operator Name Role Phone Sumanth Llanos MD Primary Care Provider [phone] Encounter Details Date Type Department Care Team ([facility] st Contact Info) Description 07/16/2024 Orders Only [facility] MEDICINE [address] [place] [address] Sumanth Llanos MD 505 [facility] [place] [phone] Essential hypertension (Primary Dx); Hypokalemia; B12 deficiency Social History Tobacco Use Types [...] AM EDT documented as of this encounter Functional Status * Over the past 2 weeks, how often have you been bothered by any of the following problems? Question Answer Date of Assessment Author Patient Health Questionnaire -2 Score 0 07/17/2024 11:31 AM EDT Parish Hilton [place] * Little interest or pleasure in doing things Answer Date of Assessment Author Not at all 07/17/2024 11:31 AM EDT Parish Hilton [place] * Feeling down, depressed, or hopeless Answer Date of Assessment Author Not at all 07/17/2024 11:31 AM EDT Parish Hilton [place] * Trouble falling or staying asleep, or sleeping too much Answer Date of Assessment Author Not at all 07/17/2024 11:31 AM EDT Parish Hilton [place] * Feeling tired or having little energy Answer Date of Assessment Author Not at all 07/17/2024 11:31 AM EDT Parish Hilton [place] * Poor appetite or overeating Answer Date of Assessment Author Not at all 07/17/2024 11:31 AM EDT Parish Hilton [place] * Feeling bad about yourself - or that you are a failure or have let yourself or your family down Answer Date of Assessment Author Not at all 07/17/2024 11:31 AM EDT Parish Hilton [place] * Trouble concentrating on things, such as reading the newspaper or watching television Answer Date of Assessment Author Not at all 07/17/2024 11:31 AM EDT Parish Hilton [place] * Moving or speaking so slowly that other people could have noticed? Or the opposite - being so fidgety or restless that you have been moving around a lot more than usual. Answer Date of Assessment Author Not at all 07/17/2024 11:31 AM EDT Parish Hilton [place] * Thoughts that you would be better off or hurting yourself in some way Answer Date of Assessment Author Not at all 07/17/2024 11:31 AM EDT Parish Hilton [place] * Patient Health Questionnaire-9 Score Answer Date of Assessment Author 0 07/17/2024 11:31 AM EDT Parish Hilton [place] documented as of this encounter Plan of Treatment Upcoming Encounters Date Type Department Care Team (Late st Contact Info) Description 02/20/2025 9:45 AM EDT Clinical Support [facility] MED & PEDS 505 [place] [address] 04/17/2025 3:00 PM EST Office Visit [facility] OPTOMETRY [address] [place] [address] Jeff, Alice, OD [address] [place] [address] 05/18/2025 3:00 PM EST Office Visit [facility] ADULT DENTAL 505 [place] [address] Álvaro Llanos Scheduled Orders Name Type Priority Associated Diagnoses Orde r Schedule Basic Metabolic Panel Lab Routine Essential hypertension Hypokalemia Expected: 07/16/2024 (Approximate), Expires: 07/16/2025 documented as of this encounter Goals Goal Patient Goal Type Associated Problems Recent Progress Patient-Stated? Author Blood Pressure < 140/90 Blood Pressure 135/84(2024 9:55 AM EDT) No Luis Springer, PharmD Patient will adhere to medication regimen General Improving(12/2022 9:16 AM EDT) No Luis Springer, PharmD Hemoglobin A1c < 6.5 Result Component 5.2(09/17/202 5 10:06 AM EDT) No Luis Springer, PharmD documented as of this encounter Visit Diagnoses Diagnosis Essential hypertension- Primary Unspecified essential hypertension Hypokalemia Hypopotassemia B12 deficiency documented in this encounter Additional Health Concerns Assessment Noted Time PHQ-9 Depression Total Score: 15 023 9:06 AM EST documented as of this encounter Care Teams Quarry Equipment Operator Relationship Specialty Start Date End Date Sumanth Llanos MD [address] [place] [address] PCP - General Internal Medicine 05/07/18 documented as of this encounter
--- OUTSIDE RECORDS SUMMARY | 2025-01-23 10:38 | XMS_ITS | Encounter Summary ---
Author Organization [employer] Address [address] [place] [address] 7 [place] [address] Care Team Providers Care Sales Contractor Name Role Phone Sumanth Llanos MD Primary Care Provider Reason for Visit * Reason Onset Date Comments Med Refill 08/03/2022 Encounter Details Date Type Department Care Team ([facility] st Contact Info) Description 08/03/2022 Refill [facility] CHC MED & PEDS [address] [facility] [place] [address] Sumanth Lalnos MD 505 [place] [address] Vitamin D deficiency; Primary hypertension Social History [...] Miscellaneous Notes * Telephone Encounter - Jaelyn Ellison - 08/03/2022 11:47 AM EDT Tc from pt requesting med refill for medications. [facility] pharmacy has requested and no response omeprazole (PriLOSEC) [address] capsule ergocalciferol (Vitamin D2) 1.25 MG (07332 UT) capsule cyanocobalamin (Vitamin B-12) 1000 MCG/ML injection hydrOXYzine HCl (Atarax) 25 MG tablet lisinopril-hydroCHLOROthiazide 10-12.5 MG tablet atenolol (Tenormin) 25 MG tablet amitriptyline (Elavil) 25 MG tablet DULoxetine (Cymbalta) [address] capsule simvastatin (Zocor) 40 MG tablet Please send to [facility] documented in this encounter Plan of Treatment Upcoming Encounters Date Type Department Care Team (Late st Contact Info) Description 02/20/2025 9:45 AM EDT Clinical Support [facility] MED & PEDS 505 [place] [address] 04/17/2025 3:00 PM EST Office Visit [facility] OPTOMETRY [address] [place] [address] Jeff, Alice, OD [address] [place] [address] 05/18/2025 3:00 PM EST Office Visit [facility] ADULT DENTAL 505 [place] [address] Álvaro Llanos documented as of this encounter Visit Diagnoses Diagnosis Vitamin D deficiency Primary hypertension Unspecified essential hypertension documented in this encounter Additional Health Concerns Assessment Noted Time PHQ-9 Depression Total Score: 15 023 9:06 AM EST documented as of this encounter Care Teams Sales Contractor Relationship Specialty Start Date End Date Sumanth Llanos MD [address] [place] [address] PCP - General Internal Medicine 05/07/18 documented as of this encounter
--- OUTSIDE RECORDS SUMMARY | 2025-01-23 10:38 | XMS_ITS | Encounter Summary ---
Author Organization [employer] Address 75 [facility] 7 [place] [address] Care Team Providers Care Gas Turbine Assembler Name Role Phone Sumanth Llanos MD Primary Care Provider Encounter Details Date Type Department Care Team (Latest Contact Info) Description 10/06/2022 Orders Only [facility] CHC MED & PEDS [address] [facility] [place] [phone] Sumanth Llanos MD 505 [place], [place] [phone] Hypercholesterolemia (Primary Dx) Social History Tobacco Use [...] 02/20/2025 9:45 AM EDT Clinical Support [facility] MED & PEDS 505 [place] [address] 04/17/2025 3:00 PM EST Office Visit [facility] OPTOMETRY [address] [place] [address] Jeff, Alice, OD [address] [place] [address] 05/18/2025 3:00 PM EST Office Visit [facility] ADULT DENTAL 505 [place] [address] Álvaro Llanos documented as of this encounter [...] documented as of this encounter Care Teams Gas Turbine Assembler Relationship Specialty Start Date End Date Sumanth Llanos MD 505 [place] [address] PCP - General Internal Medicine 05/07/18 documented as of this encounter
--- OUTSIDE RECORDS SUMMARY | 2025-01-23 10:38 | XMS_ITS | Encounter Summary ---
Author Organization [employer] Address 75 [facility] 7 [place] [address] Care Team Providers Care Embryology Teacher Name Role Phone Sumanth Llanos MD Primary Care Provider [phone] Encounter Details Date Type Department Care Team (Latest Contact Info) Description 10/30/2024 Orders Only [facility] CHC MED & PEDS 505 [facility] [place] [phone] Sumanth Llanos MD 505 [facility], [place] [phone] Hypercholesterolemia (Primary Dx) Social History Tobacco Use [...] your housing situation today? I have jairon sing 07/17/[address] you li [...] 9:45 AM EDT Clinical Support [facility] MED & PEDS 505 [place] [address] 04/17/2025 3:00 PM EST Office Visit [facility] OPTOMETRY [address] [place] [address] Jeff, Alice, OD [address] [place] [address] 05/18/2025 3:00 PM EST Office Visit [facility] ADULT DENTAL 505 [place] [address] Álvaro Llanos documented as of this encounter [...] documented as of this encounter Care Teams Embryology Teacher Relationship Specialty Start Date End Date Sumanth Llanos MD [address] [place] [address] PCP - General Internal Medicine 05/07/18 documented as of this encounter
--- OUTSIDE RECORDS SUMMARY | 2025-01-23 10:38 | XMS_ITS | Encounter Summary ---
Author Organization [employer] Address 75 [facility] 7 [place] [address] Care Team Providers Care County Assessor Name Role Phone Sumanth Llanos MD Primary Care Provider [phone] Encounter Details Date Type Department Care Team ([facility] Contact Info) Description 12/21/2023 Orders Only [facility] MED & PEDS 505 [place] [address] Sumanth Llanos MD 505 [place] [address] Recurrent herpes labialis (Primary Dx) Social History [...] [facility] MED & PEDS 505 [place] [address] 04/17/2025 3:00 PM EST Office Visit [facility] OPTOMETRY [address] [place] [address] Alice Aguilar, OD [address] [place] [address] 05/18/2025 3:00 PM EST Office Visit [facility] CHC ADULT DENTAL [address] [place] [address] Álvaro Llanos documented as of this encounter [...] documented as of this encounter Care Teams County Assessor Relationship Specialty Start Date End Date Sumanth Llanos MD 505 [place] [address] PCP - General Internal Medicine 05/07/18 documented as of this encounter
== END 2025-01-23 10:03 | disposition home or self-care (01) ==
LOC: HO.XRAY 10:02
PROVIDERS: PCP Internal Medicine; Visit Provider Internal Medicine
DX: M54.41 Lumbago with sciatica, right side (principal); G89.29 Other chronic pain
CPT/HCPCS: 72100

== ENCOUNTER → 2025-01-23 10:16 | Outpatient (BNV) | payer MEDICAID, SELFPAY | PROVIDERS: PCP Internal Medicine; Visit Provider Radiology Diagnostic Radiology | DX: M54.50 Low back pain, unspecified (principal) | CPT/HCPCS: 72100 ==

== ENCOUNTER 2025-02-25 10:45 | Outpatient (REF) | payer MEDICAID, SELFPAY ==
--- NOTE | ~2025-02-25 | XR_ITS ---
EXAMINATION: XR CHEST 2 VIEWS HISTORY: R sided lower ribs pain, smoker, rule out rib fracture COMPARISON: Comparison is made with the prior examination dated 07/15/2024. FINDINGS: PA and lateral views of the chest are submitted. The lungs are expanded and clear. There is no pleural effusion, pneumothorax, or pulmonary vascular congestion. The heart is normal in size. The bones are intact. There are surgical clips in the right upper quadrant. XR/XR chest 2V IMPRESSION: No acute cardiopulmonary abnormality. Electronically signed by: Rufino Reina MD 02/25/2025 11:15 AM EDT
== END 2025-02-25 10:46 | disposition home or self-care (01) ==
LOC: HO.LAB 10:45
PROVIDERS: PCP Internal Medicine; Visit Provider Pediatrics
DX: R07.89 Other chest pain (principal); F17.200 Nicotine dependence, unspecified, uncomplicated
CPT/HCPCS: 71046

== ENCOUNTER → 2025-02-25 10:49 | Outpatient (BNV) | payer MEDICAID, SELFPAY | PROVIDERS: PCP Internal Medicine; Visit Provider Radiology Diagnostic Radiology | DX: R07.89 Other chest pain (principal) | CPT/HCPCS: 71046 ==